=== PATIENT | female | born 1950 | race Two or more races ===

== ENCOUNTER 2017-09-29 09:13 | Observation (INO) | payer OTHER ==
[2017-09-29] MEDS ORDERED: ASPIRIN 81 MG CHEWABLE TABLETS PO ONE (09:37)
[2017-09-29] MEDS ORDERED: SODIUM CHLORIDE 1,000 ML IV STA (09:37)
[2017-09-29] MEDS ORDERED: ONDANSETRON 4 MG/2 ML VIAL ONE (09:40)
[2017-09-29] MEDS ORDERED: ASPIRIN 81 MG CHEWABLE TABLETS ONE (09:42)
--- NOTE | 2017-09-29 09:53 | PDOC ---
History of Present Illness - General Chief Complaint: Lightheaded Stated Complaint: DIZZY Time Seen by Provider: 09/29/17 09:20 History Source: Patient Exam Limitations: Language Barrier - History of Present Illness Initial Comments: 09/29/17 09:42 Patient is a 67F with history of DM, [place] (unknown if stents placed), HTN, HLD, s/ p cholecystectomy and three c-sections here today complaining of palpitations. She states that she woke up this morning feeling like her heart was racing with associated shortness of breath, nausea, dizziness, diaphoresis and weakness. Denies chest pain currently but says that she had some chest pain last night. Denies leg swelling, history of blood clots, and recent travel. On review of symptoms patient does complain of 3 days of dysuria. Past History - Past Medical History Allergies/Adverse Reactions: Allergies Allergy/AdvReac Type Severity Reaction Status Date / Time No Known Allergies Allergy Verified 09/29/17 09:44 Review of Systems - Review of Systems Comments:: 09/29/17 09:53 GENERAL/CONSTITUTIONAL: No fever or chills. HEAD, EYES, EARS, NOSE AND THROAT: No change in vision. No sore throat. CARDIOVASCULAR: Positive for chest pain and shortness of breath RESPIRATORY: No cough, wheezing, or hemoptysis. GASTROINTESTINAL: Positive for nausea. Negative for vomiting, diarrhea or constipation. GENITOURINARY: Positive for dysuria, frequency. MUSCULOSKELETAL: No joint or muscle swelling or pain. No neck or back pain. SKIN: No rash NEUROLOGIC: Positive for headache, vertigo. Negative for loss of consciousness, or change in strength/sensation. HEMATOLOGIC/LYMPHATIC: No anemia, easy bleeding, or history of blood clots. ALLERGIC/IMMUNOLOGIC: No hives or skin allergy. *Physical Exam - Physical Exam Comments: 09/29/17 09:56 GENERAL: Awake, alert, and fully oriented, tearful, trembling right arm HEAD: No signs of trauma, normocephalic, atraumatic EYES: PERRLA, EOMI, sclera anicteric, conjunctiva clear ENT: Auricles normal inspection, hearing grossly normal, nares patent, oropharynx clear without exudates. Moist mucosa NECK: Normal ROM, supple, no lymphadenopathy, JVD, or masses LUNGS: No distress, speaks full sentences, clear to auscultation bilaterally HEART: Regular rate and rhythm, normal S1 and S2, no murmurs, rubs or gallops, peripheral pulses normal and equal bilaterally. ABDOMEN: Soft, nontender, normoactive bowel sounds. No guarding, no rebound. Vertical scar from 4cm above umbilicus extending inferiorly EXTREMITIES: Normal inspection, Normal range of motion, no edema. No clubbing or cyanosis. NEUROLOGICAL: Cranial nerves II through XII grossly intact. Symmetric face, symmetric strength. No focal deficits. Tremble in right arm dissipates with movement. SKIN: Warm, Dry, normal turgor, no rashes or lesions noted. ED Treatment Course - LABORATORY CBC & Chemistry Diagram: 09/29/17 09:40 09/29/17 09:40 - RADIOLOGY Radiology Studies Ordered: Category Date Time Status CHEST X-RAY PORTABLE* [RAD] Stat Radiology 09/29/17 09:38 Ordered Medical Decision Making - Medical Decision Making 09/29/17 09:57 67F with history of HTN, HLD, SD, s/p c/s and cholecystectomy here today complaining of shortness of breath, nausea, diaphoresis and palpitations. Vital signs stable and normal. Exam shows no acute findings. DDx includes, but is not limited to: ACS, arrhythmia, UTI. Will evaluate with cardiac workup and ua/uc. Will admit for further monitoring and testing given patient's risk factors. Will treat with fluids and aspirin. DKA considered, fingerstick glucose was 180. EKG shows normal sinus rhythm with rate of 80. No st elevations/depressions. QRS widened to 138, RBBB morphology, up in I, down in II, III, avf. Bifasciular block with RBBB and LAFB. T wave inversions in III, aVF, V3. No prior EKGs available for comparison 09/29/17 10:35 Laboratory Tests 09/29/17 09/29/17 09:40 10:00 BUN 11 Creatinine 0.7 Random Glucose 177 H Troponin I < 0.02 Urine Nitrite Negative Ur Leukocyte Esterase Negative Urine WBC (Auto) 1 CBC normal, CMP shows glucose 177. UA clear. Will admit for further workup of anginal equivalent/near syncope. 09/29/17 10:50 CXR shows no acute cardiopulmonary process. *DC/Admit/Observation/Transfer Diagnosis at time of Disposition: Palpitations - Discharge Dispostion Condition at time of disposition: Stable Admit: Yes - Referrals - Patient Instructions - Post Discharge Activity
[2017-09-29 09:55] LABS: BASO % 0.6 % (0-2.0); EOS % 2.4 % (0-4.5); HEMOGLOBIN 13.1 GM/dL (10.7-15.3); LYMPH % 16.4 % (8-40); MCH 28.2 pg (25.7-33.7); MCHC 33.7 g/dl (32.0-36.0); MEAN CELL VOLUME 83.7 fl (80-96); MEAN PLT VOLUME 8.7 fl (7.5-11.1); MONO % 7.5 % (3.8-10.2); NEUT % 73.1 % (42.8-82.8); PLATELET COUNT 273 K/MM3 (134-434); RBC 4.66 M/mm3 (3.60-5.2); RDW 14.1 % (11.6-15.6); WHITE BLOOD COUNT 9.4 K/mm3 (4.0-10.0)
[2017-09-29 10:01] VITALS: BMI 35.7
[2017-09-29 10:05] LABS: INR 1.04 (0.82-1.09); PROTHROMBIN TIME (PATIENT) 11.8 SEC (9.7-13.0)
[2017-09-29 10:15] LABS: ALBUMIN 3.4 g/dl (3.4-5.0); ANION GAP 8 (8-16); BLOOD UREA NITROGEN 11 mg/dL (7-18); CALCIUM 8.7 mg/dL (8.5-10.1); CHLORIDE 105 mmol/L (98-107); CO2 26 mmol/L (21-32); GLUCOSE,RANDOM 177 mg/dL (74-106); POTASSIUM 4.4 mmol/L (3.5-5.1); SODIUM 139 mmol/L (136-145)
[2017-09-29 10:16] LABS: URINE APPEARANCE CLEAR; URINE BILIRUBIN NEGATIVE (<2.0 mg/dL); URINE COLOR LTYELLOW; URINE GLUCOSE (UA) NEGATIVE (NEGATIVE); URINE KETONE NEGATIVE (NEGATIVE); URINE LEUK ESTERASE NEGATIVE (NEGATIVE); URINE NITRITE NEGATIVE (NEGATIVE); URINE PROTEIN NEGATIVE (NEGATIVE); URINE UROBILINOGEN NEGATIVE mg/dL (0.2-1.0)
[2017-09-29 10:21] LABS: ALK PHOS 115 U/L (45-117); BILIRUBIN,TOTAL 0.3 mg/dL (0.2-1.0); CREATININE 0.7 mg/dL (0.55-1.02); SGOT/AST 17 U/L (15-37); SGPT/ALT 24 U/L (12-78); TOT PROT 7.5 g/dl (6.4-8.2)
--- NOTE | 2017-09-29 10:22 | PDOC ---
Attending Attestation - Resident Resident Name: Efrain Wheeler - ED Attending Attestation I have performed the following: I have examined & evaluated the patient, The case was reviewed & discussed with the resident, I agree w/resident's findings & plan - HPI HPI: 09/29/17 10:17 67-year-old female with history of diabetes, [place] reportedly over one year ago without intervention, questionable his history of arrhythmias recently moved to [place] from [place] in April 2017 presents now with episode of palpitations, shortness of breath, lightheadedness/near syncope this morning. The symptoms awoke her from sleep, upon standing she became very lightheaded and diaphoretic, never lost consciousness and never had chest pain. The severity of the palpitations has improved though she still intermittently feels numb, has reported some exertional dyspnea over the last few days/weeks. - Physicial Exam PE: 09/29/17 10:18 Vital signs are within normal limits, slight tachypnea No JVD Lungs are clear, question subtle crackles at the right base Heart is regular with occasional premature beats noted as PVC on monitor, 2/6 systolic ejection murmur Abdomen benign, no leg edema or calf tenderness - Medical Decision Making 09/29/17 10:18 Patient seen and evaluated with the resident. I agree with the overall evaluation, assessment, and management with the following summary of visit: 67-year-old female with palpitations/shortness of breath/near syncope this morning, concerning for anginal equivalent versus arrhythmia given her cardiac history. Labs, EKG, chest x-ray Aspirin Will need cardiac monitoring Heart Score/ECG Review #1 ECG reviewed & interpreted by me at: 09:27 General ECG Interpretation: Sinus Rhythm, Normal Rate (80), Normal Intervals ( RBBB and LAFB, qtc 500), No acute ischemic changes Compared to previous ECG there are: Previous ECG unavail
[2017-09-29 10:30] LABS: EPI CELLS RARE /HPF (FEW); URINE BACTERIA RARE /hpf (NONE SEEN)
--- NOTE | 2017-09-29 10:44 | EKG ---
Test Reason : Blood Pressure : / mmHG Vent. Rate : 080 BPM Atrial Rate : 080 BPM P-R Int : 158 ms QRS Dur : 138 ms QT Int : 434 ms P-R-T Axes : 049 -64 005 degrees QTc Int : 500 ms SINUS RHYTHM WITH OCCASIONAL PREMATURE VENTRICULAR COMPLEXES RIGHT BUNDLE BRANCH BLOCK LEFT ANTERIOR FASCICULAR BLOCK BIFASCICULAR BLOCK ABNORMAL ECG NO PREVIOUS ECGS AVAILABLE Confirmed by SIRI LONDON MD ([id number]) on 09/29/2017 10:44:46 AM Referred By: Confirmed By:SIRI LONDON MD
--- NOTE | 2017-09-29 20:46 | PN ---
Progress Note, Physician - Current Medication List Current Medications: 67-year-old female with history of diabetes, [place] reportedly over one year ago without intervention, questionable his history of arrhythmias recently moved to [place] from [place] in April 2017 presents now with episode of palpitations, shortness of breath, lightheadedness/near syncope this morning. The symptoms awoke her from sleep, upon standing she became very lightheaded and diaphoretic, never lost consciousness and never had chest pain. The severity of the palpitations has improved though she still intermittently feels numb, has reported some exertional dyspnea over the last few days/weeks. - - Objective Vital Signs: Vital Signs Temperature 98.0 F 09/29/17 20:00 Pulse Rate 80 09/29/17 20:00 Respiratory Rate 18 09/29/17 20:00 Blood Pressure 138/70 09/29/17 20:00 O2 Sat by Pulse Oximetry (%) 98 09/29/17 20:00 Cardiovascular: Yes: Other (mi) Labs: CBC, BMP 09/29/17 09:40 09/29/17 09:40 INR, PTT INR 1.04 (0.82-1.09) 09/29/17 09:40
--- NOTE | 2017-09-29 20:47 | HP ---
Admitting History and Physical - Primary Care Physician PCP: Divina Rasmussen - Admission History of Present Illness: 67-year-old female with history of diabetes, [place] reportedly over one year ago without intervention, questionable his history of arrhythmias recently moved to [place] from [place] in April 2017 presents now with episode of palpitations, shortness of breath, lightheadedness/near syncope this morning. The symptoms awoke her from sleep, upon standing she became very lightheaded and diaphoretic, never lost consciousness and never had chest pain. The severity of the palpitations has improved though she still intermittently feels numb, has reported some exertional dyspnea over the last few days/weeks. - Past Medical History Cardiovascular: Yes: [place] Endocrine: Yes: Diabetes Mellitus - Smoking History Smoking history: Former smoker Have you smoked in the past 12 months: No If you are a former smoker, when did you quit?: 1989 - Alcohol/Substance Use Hx Alcohol Use: No Home Medications - Allergies Allergies/Adverse Reactions: Allergies Allergy/AdvReac Type Severity Reaction Status Date / Time No Known Allergies Allergy Verified 09/29/17 09:44 - Home Medications Home Medications: Ambulatory Orders Clopidogrel Bisulfate [Plavix] 75 mg PO DAILY 09/29/17 Levothyroxine [Synthroid -] 25 mcg PO DAILY 09/29/17 Losartan Potassium [Cozaar -] 50 mg PO DAILY 09/29/17 Metformin HCl [Glucophage] 500 mg PO DAILY 09/29/17 Simvastatin [Zocor -] 5 mg PO HS 09/29/17 Physical Examination Vital Signs: Vital Signs Temperature 98.0 F 09/29/17 20:00 Pulse Rate 80 09/29/17 20:00 Respiratory Rate 18 09/29/17 20:00 Blood Pressure 138/70 09/29/17 20:00 O2 Sat by Pulse Oximetry (%) 98 09/29/17 20:00 Constitutional: Yes: No Distress HENT: Yes: Atraumatic Neck: Yes: Supple Cardiovascular: Yes: Regular Rate and Rhythm Respiratory: Yes: CTA Bilaterally Gastrointestinal: Yes: Normal Bowel Sounds Extremities: Yes: WNL Edema: No Peripheral Pulses WNL: Yes Neurological: Yes: Alert, Oriented Labs: CBC, BMP 09/29/17 09:40 09/29/17 09:40 Problem List - Problems (1) Palpitations Assessment/Plan: on meds better awaiting cardiology consult Code(s): R00.2 - PALPITATIONS (2) Diabetes Assessment/Plan: on meds will check bgm Code(s): E11.9 - TYPE 2 DIABETES MELLITUS WITHOUT COMPLICATIONS Assessment/Plan Laboratory Tests 09/29/17 09/29/17 09/29/17 09:26 09:40 09:40 WBC 9.4 RBC 4.66 Hgb 13.1 Hct 39.0 MCV 83.7 MCH 28.2 MCHC 33.7 RDW 14.1 Plt Count 273 MPV 8.7 Neutrophils % 73.1 Lymphocytes % 16.4 Monocytes % 7.5 Eosinophils % 2.4 Basophils % 0.6 PT with INR 11.80 INR 1.04 Sodium Potassium Chloride Carbon Dioxide Anion Gap BUN Creatinine Creat Clearance w eGFR POC Glucometer [phone] Random Glucose Calcium Magnesium Total Bilirubin AST ALT Alkaline Phosphatase Creatine Kinase Troponin I Total Protein Albumin Urine Color Urine Appearance Urine pH Ur Specific [place] Urine Protein Urine Glucose (UA) Urine Ketones Urine Blood Urine Nitrite Urine Bilirubin Urine Urobilinogen Ur Leukocyte Esterase Urine WBC (Auto) Urine RBC (Auto) Ur Epithelial Cells Urine Bacteria 09/29/17 09/29/17 09:40 10:00 WBC RBC Hgb Hct MCV MCH MCHC RDW Plt Count MPV Neutrophils % Lymphocytes % Monocytes % Eosinophils % Basophils % PT with INR INR Sodium 139 Potassium 4.4 Chloride 105 Carbon Dioxide 26 Anion Gap 8 BUN 11 Creatinine 0.7 Creat Clearance w eGFR > 60 POC Glucometer Random Glucose 177 H Calcium 8.7 Magnesium 2.0 Total Bilirubin 0.3 AST 17 ALT 24 Alkaline Phosphatase 115 Creatine Kinase 90 Troponin I < 0.02 Total Protein 7.5 Albumin 3.4 Urine Color Ltyellow Urine Appearance Clear Urine pH 7.0 Ur Specific [place] 1.012 Urine Protein Negative Urine Glucose (UA) Negative Urine Ketones Negative Urine Blood 1+ H Urine Nitrite Negative Urine Bilirubin Negative Urine Urobilinogen Negative Ur Leukocyte Esterase Negative Urine WBC (Auto) 1 Urine RBC (Auto) 8 Ur Epithelial Cells Rare Urine Bacteria Rare Active Medications Generic Name Dose Route Start Last Admin Trade Name Freq PRN Reason Stop Dose Admin Acetaminophen 650 mg 09/30/17 14:40 Tylenol - PO Q6H PRN FEVER Atorvastatin Calcium 10 mg 09/29/17 22:00 09/29/17 22:22 Lipitor - PO 10 mg HS GWYN Administration Clopidogrel Bisulfate 75 mg 09/30/17 10:00 09/30/17 11:16 Plavix - PO 75 mg DAILY GWYN Administration Levothyroxine Sodium 25 mcg 09/30/17 07:00 09/30/17 06:25 Synthroid - PO 25 mcg DAILY@0700 GWYN Administration Losartan Potassium 50 mg 09/30/17 10:00 09/30/17 11:16 Cozaar - PO 50 mg DAILY GWYN Administration Metformin HCl 500 mg 09/30/17 10:00 09/30/17 11:16 Glucophage - PO 500 mg AM GWYN Administration
[2017-09-29] MEDS ORDERED: PATIENT'S OWN MEDICATION (NON-FORMULARY) (Simvastatin 5 MG) PO SCH (22:00)
[2017-09-29] MEDS: ATORVASTATIN CA 10 MG TABLET (FP) PO SCH (22:22)
[2017-09-29 22:33] LABS: ALBUMIN 3.1 g/dl (3.4-5.0); ALK PHOS 107 U/L (45-117); ANION GAP 5 (8-16); BILIRUBIN,TOTAL 0.2 mg/dL (0.2-1.0); BLOOD UREA NITROGEN 14 mg/dL (7-18); CALCIUM 8.4 mg/dL (8.5-10.1); CHLORIDE 106 mmol/L (98-107); CO2 30 mmol/L (21-32); CREATININE 0.8 mg/dL (0.55-1.02); GLUCOSE,RANDOM 153 mg/dL (74-106); POTASSIUM 4.6 mmol/L (3.5-5.1); SGOT/AST 14 U/L (15-37); SGPT/ALT 21 U/L (12-78); SODIUM 141 mmol/L (136-145); TOT PROT 6.7 g/dl (6.4-8.2)
[2017-09-30] MEDS: LEVOTHYROXINE NA 25 MCG TABLET (FP) PO SCH (06:25)
[2017-09-30 07:31] LABS: BASO % 0.5 % (0-2.0); EOS % 3.5 % (0-4.5); LYMPH % 24.6 % (8-40); MCH 28.7 pg (25.7-33.7); MCHC 34.1 g/dl (32.0-36.0); MEAN CELL VOLUME 84.2 fl (80-96); MONO % 7.9 % (3.8-10.2); NEUT % 63.5 % (42.8-82.8); PLATELET COUNT 267 K/MM3 (134-434); RBC 4.52 M/mm3 (3.60-5.2); RDW 14.3 % (11.6-15.6); WHITE BLOOD COUNT 9.6 K/mm3 (4.0-10.0)
[2017-09-30] MEDS: CLOPIDOGREL BISULFATE 75 MG TABLET (FP) PO SCH (11:16)
[2017-09-30] MEDS: metFORMIN HCL 500 MG TABLET (FP) PO SCH (11:16)
[2017-09-30] MEDS: LOSARTAN POTASSIUM 50 MG TABLET (FP) PO SCH (11:16)
[2017-09-30] MEDS ORDERED: ACETAMINOPHEN 325 MG TABLET (FP) PO PRN (14:40)
--- NOTE | 2017-09-30 14:43 | PN ---
Progress Note, Physician History of Present Illness: feeling better - Current Medication List Current Medications: Active Medications Acetaminophen (Tylenol -) 650 mg PO Q6H PRN PRN Reason: FEVER Atorvastatin Calcium (Lipitor -) 10 mg PO HS [facility] Last Admin: 09/29/17 22:22 Dose: 10 mg Clopidogrel Bisulfate (Plavix -) 75 mg PO DAILY [facility] Last Admin: 09/30/17 11:16 Dose: 75 mg Levothyroxine Sodium (Synthroid -) 25 mcg PO DAILY@0700 [facility] Last Admin: 09/30/17 06:25 Dose: 25 mcg Losartan Potassium (Cozaar -) 50 mg PO DAILY [facility] Last Admin: 09/30/17 11:16 Dose: 50 mg Metformin HCl (Glucophage -) 500 mg PO AM [facility] Last Admin: 09/30/17 11:16 Dose: 500 mg - Objective Vital Signs: Vital Signs Temperature 98.1 F 09/30/17 06:00 Pulse Rate 84 09/30/17 06:00 Respiratory Rate 20 09/30/17 06:00 Blood Pressure 130/80 09/30/17 06:00 O2 Sat by Pulse Oximetry (%) 96 09/30/17 06:00 Constitutional: Yes: No Distress HENT: Yes: Atraumatic Neck: Yes: Supple Cardiovascular: Yes: Regular Rate and Rhythm Respiratory: Yes: CTA Bilaterally Gastrointestinal: Yes: Normal Bowel Sounds Extremities: Yes: WNL Neurological: Yes: Alert, Oriented Labs: CBC, BMP 09/30/17 07:10 09/29/17 21:20 INR, PTT INR 1.04 (0.82-1.09) 09/29/17 09:40 Problem List - Problems (1) Palpitations Assessment/Plan: on meds telemonitoring better cardiology consult done Code(s): R00.2 - PALPITATIONS (2) Diabetes Assessment/Plan: on meds will check bgm Code(s): E11.9 - TYPE 2 DIABETES MELLITUS WITHOUT COMPLICATIONS
--- NOTE | 2017-09-30 14:57 | CON.CARD ---
Consult Consult Specialty:: cardiology Reason for Consultation:: palpitations - History of Present Illness History of Present Illness: Patient is a 67F (b. [place]) with history of DM, [place] (unknown if stents placed), HTN, HLD, s/p cholecystectomy and three c-sections, hypothyroidism, here today complaining of palpitations. She states that she woke up this morning feeling like her heart was racing with associated shortness of breath, nausea, dizziness, diaphoresis and weakness. Denies chest pain currently but says that she had some chest pain last night. Denies leg swelling, history of blood clots, and recent travel. On review of symptoms patient does complain of 3 days of dysuria. - History Source History Provided By: Patient, Medical Record Limitations to Obtaining History: No Limitations - Past Medical History Cardio/Vascular: Yes: MD Reproductive: Yes: Postmenopausal ...: No Endocrine: Yes: Diabetes Mellitus - Alcohol/Substance Use Hx Alcohol Use: No - Smoking History Smoking history: Former smoker Have you smoked in the past 12 months: No If you are a former smoker, when did you quit?: 1989 Home Medications - Allergies Allergies/Adverse Reactions: Allergies Allergy/AdvReac Type Severity Reaction Status Date / Time No Known Allergies Allergy Verified 09/29/17 09:44 - Home Medications Home Medications: Ambulatory Orders Clopidogrel Bisulfate [Plavix] 75 mg PO DAILY 09/29/17 Levothyroxine [Synthroid -] 25 mcg PO DAILY 09/29/17 Losartan Potassium [Cozaar -] 50 mg PO DAILY 09/29/17 Metformin HCl [Glucophage] 500 mg PO DAILY 09/29/17 Simvastatin [Zocor -] 5 mg PO HS 09/29/17 Family Disease History - Family Disease History Family History: Denies - Risk Factors Known Risk Factors: Yes: Age, Diabetes Mellitus, Gender, Hypertension, Physical Inactivity Vital Signs: Vital Signs Temperature 98.1 F 09/30/17 06:00 Pulse Rate 84 09/30/17 06:00 Respiratory Rate 20 09/30/17 06:00 Blood Pressure 130/80 09/30/17 06:00 O2 Sat by Pulse Oximetry (%) 96 09/30/17 06:00 - Other Data Labs, Other Data: CBC, BMP 09/30/17 07:10 09/29/17 21:20 INR, PTT INR 1.04 (0.82-1.09) 09/29/17 09:40 Troponin, BNP 09/29/17 09/30/17 21:20 07:10 Troponin I < 0.02 < 0.02 Troponin, BNP 09/29/17 09/30/17 21:20 07:10 Troponin I < 0.02 < 0.02 Problem List - Problems (1) HTN (hypertension) Code(s): I10 - ESSENTIAL (PRIMARY) HYPERTENSION (2) Chest pain Code(s): R07.9 - CHEST PAIN, UNSPECIFIED (3) Diabetes Code(s): E11.9 - TYPE 2 DIABETES MELLITUS WITHOUT COMPLICATIONS (4) Palpitations Code(s): R00.2 - PALPITATIONS (5) [place] cardiac risk >20% in next 10 years Assessment/Plan: BP control. Statin for lipids. ECHO for LVEF, wall motion, valve status. Stress MIBI. Code(s): Z91.89 - OTH PERSONAL RISK FACTORS, NOT ELSEWHERE CLASSIFIED
[2017-09-30] MEDS: ATORVASTATIN CA 10 MG TABLET (FP) PO SCH (21:50)
[2017-10-01] MEDS: metFORMIN HCL 500 MG TABLET (FP) PO SCH (06:02)
[2017-10-01] MEDS: LEVOTHYROXINE NA 25 MCG TABLET (FP) PO SCH (06:02)
[2017-10-01] MEDS ORDERED: REGADENOSON 0.4 MG/5 ML PRE-FILLED SYRINGE IVPUSH ONE ×2 (10:15→10:53)
--- NOTE | 2017-10-01 11:45 | PN ---
Progress Note, Physician History of Present Illness: Patient is a 67F (b. [place]) with history of DM, [place] (unknown if stents placed), HTN, HLD, s/p cholecystectomy and three c-sections, hypothyroidism, here today complaining of palpitations. She states that she woke up this morning feeling like her heart was racing with associated shortness of breath, nausea, dizziness, diaphoresis and weakness. Denies chest pain currently but says that she had some chest pain last night. Denies leg swelling, history of blood clots, and recent travel. On review of symptoms patient does complain of 3 days of dysuria. - Current Medication List Current Medications: Active Medications Acetaminophen (Tylenol -) 650 mg PO Q6H PRN PRN Reason: FEVER Last Admin: 09/30/17 14:58 Dose: 650 mg Atorvastatin Calcium (Lipitor -) 10 mg PO HS [facility] Last Admin: 09/30/17 21:50 Dose: 10 mg Clopidogrel Bisulfate (Plavix -) 75 mg PO DAILY [facility] Last Admin: 09/30/17 11:16 Dose: 75 mg Levothyroxine Sodium (Synthroid -) 25 mcg PO DAILY@0700 [facility] Last Admin: 10/01/17 06:02 Dose: 25 mcg Losartan Potassium (Cozaar -) 50 mg PO DAILY [facility] Last Admin: 09/30/17 11:16 Dose: 50 mg Metformin HCl (Glucophage -) 500 mg PO AM [facility] Last Admin: 10/01/17 06:02 Dose: Not Given - Objective Vital Signs: Vital Signs Temperature 97.6 F 10/01/17 09:33 Pulse Rate 60 10/01/17 09:33 Respiratory Rate 18 10/01/17 09:33 Blood Pressure 138/84 10/01/17 09:33 O2 Sat by Pulse Oximetry (%) 100 10/01/17 09:33 Eyes: Yes: WNL, Conjunctiva Clear, EOM Intact HENT: Yes: WNL, Atraumatic, Normocephalic Neck: Yes: WNL, Supple, Trachea Midline Cardiovascular: Yes: WNL, Regular Rate and Rhythm Respiratory: Yes: WNL, Regular, CTA Bilaterally Gastrointestinal: Yes: WNL, Normal Bowel Sounds Genitourinary: Yes: WNL Musculoskeletal: Yes: WNL Extremities: Yes: WNL Edema: No Integumentary: Yes: WNL Neurological: Yes: WNL, Alert, Oriented ...Motor Strength: WNL Psychiatric: Yes: WNL Labs: CBC, BMP 09/30/17 07:10 09/29/17 21:20 INR, PTT INR 1.04 (0.82-1.09) 09/29/17 09:40 Assessment/Plan - Problems (1) HTN (hypertension) Code(s): I10 - ESSENTIAL (PRIMARY) HYPERTENSION (2) Chest pain Code(s): R07.9 - CHEST PAIN, UNSPECIFIED (3) Diabetes Code(s): E11.9 - TYPE 2 DIABETES MELLITUS WITHOUT COMPLICATIONS (4) Palpitations Code(s): R00.2 - PALPITATIONS (5) [place] cardiac risk >20% in next 10 years Assessment/Plan: BP control. Statin for lipids. ECHO for LVEF, wall motion, valve status. Stress MIBI. Code(s): Z91.89 - [facility] PERSONAL RISK FACTORS, NOT ELSEWHERE CLASSIFIED
[2017-10-01] MEDS: LOSARTAN POTASSIUM 50 MG TABLET (FP) PO SCH (16:28)
[2017-10-01] MEDS: CLOPIDOGREL BISULFATE 75 MG TABLET (FP) PO SCH (16:29)
--- NOTE | 2017-10-01 17:50 | DS ---
Physical Examination Vital Signs: Vital Signs Temperature 98.3 F 10/01/17 15:00 Pulse Rate 83 10/01/17 15:00 Respiratory Rate 18 10/01/17 15:00 Blood Pressure 149/59 10/01/17 15:00 O2 Sat by Pulse Oximetry (%) 100 10/01/17 09:33 Constitutional: Yes: No Distress HENT: Yes: Atraumatic Neck: Yes: Supple Cardiovascular: Yes: Regular Rate and Rhythm Respiratory: Yes: CTA Bilaterally Gastrointestinal: Yes: Normal Bowel Sounds Extremities: Yes: WNL Neurological: Yes: Alert, Oriented Labs: CBC, BMP 09/30/17 07:10 09/29/17 21:20 Discharge Summary Reason For Visit: PALPITATIONS Current Active Problems Chest pain (Acute) Diabetes (Acute) [place] cardiac risk >20% in next 10 years (Acute) HTN (hypertension) (Acute) Palpitations (Acute) Condition: Stable - Instructions - Home Medications Comprehensive Discharge Medication List: Ambulatory Orders Clopidogrel Bisulfate [Plavix] 75 mg PO DAILY 09/29/17 Levothyroxine [Synthroid -] 25 mcg PO DAILY 09/29/17 Losartan Potassium [Cozaar -] 50 mg PO DAILY 09/29/17 Metformin HCl [Glucophage] 500 mg PO DAILY 09/29/17 Simvastatin [Zocor -] 5 mg PO HS 09/29/17 pa home
[2017-10-01 18:23] VITALS: BP 125/70; PULSE 70; TEMP 98
== END 2017-10-01 20:39 | disposition home or self-care (01) ==
LOC: JER 09:13 → UNDOADMOB 11:18 → JERBED 11:18 → J4W 20:32 → JERBED 20:32 → OBSVTOIN 20:49 → J4W 20:49 → INTOOBSV 20:49
PROVIDERS: ADMIT Internal Medicine; ATTEND Internal Medicine
PROC: 3E033GC Introduction of Other Therapeutic Substance into Peripheral Vein, Percutaneous Approach (ICD-10-PCS; principal; 2017-09-29)
PROC: 3E0337Z Introduction of Electrolytic and Water Balance Substance into Peripheral Vein, Percutaneous Approach (ICD-10-PCS; 2017-09-29)
DX: R00.2 Palpitations (principal); I10 Essential (primary) hypertension; R07.9 Chest pain, unspecified; E78.5 Hyperlipidemia, unspecified; E11.9 Type 2 diabetes mellitus without complications; I25.2 Old myocardial infarction; Z79.01 Long term (current) use of anticoagulants; Z79.84 Long term (current) use of oral hypoglycemic drugs; Z91.89 Other specified personal risk factors, not elsewhere classified
CPT/HCPCS: 36415; 71045-TC-FY; 78452-TC; 80053; 80061; 81003; 81015; 82550; 82962; 83721; 83735; 84443; 84484; 85025; 85610; 87086; 87186; 93005; 93010; 93017; 93306-TC; 96361; 96374; 99283-25; A9502; G0378; J7030

== ENCOUNTER 2019-01-03 09:23 | Inpatient (IN) | payer OTHER ==
[2019-01-03] MEDS ORDERED: ASPIRIN 81 MG CHEWABLE TABLETS PO ONE (09:47)
--- NOTE | 2019-01-03 09:54 | PDOC ---
Documentation entered by Perla Hargrove SCRIBE, acting as scribe for Cecy Khan MD. Cecy Khan MD: This documentation has been prepared by the Beena nagy Mackenzie, SCRIBE, under my direction and personally reviewed by me in its entirety. I confirm that the documentation accurately reflects all work , treatment, procedures, and medical decision making performed by me. Attending Attestation - Resident Resident Name: Olu Kessler - ED Attending Attestation I have performed the following: I have examined & evaluated the patient, The case was reviewed & discussed with the resident, I agree w/resident's findings & plan - HPI HPI: The patient is a 68 year old female with a significant PMH of vertical palpitations, DM, HTN, hypothyroidism and gastritis who presents to the ED with shortness of breath, dizziness, and 7/10 chest pain since approximately 7AM. Patient states she woke up this morning and felt a sharp chest pain and slightly short of breath. She got out of bed to take her medications but upon standing felt dizzy (room spinning). Patient also notes feeling nauseous, burning urination, and increased frequency in urination. Patient states last ecco and stress test were last year (pertinent findings as per resident note). Patient endorses former tobacco use. Agree with the resident's HPI and PE as documented in the electronic medical record. 01/03/19 10:43 - Physicial Exam PE: NAD, awake and alert, EOMI, PERRL, nl conjunctiva, anicteric; neck supple. lungs clear, RRR, abdomen soft nontender. Back nontender. AGUIRRE x4, no focal neuro deficits. No peripheral edema. normal color for ethnicity, WWP. no calf tenderness. 01/03/19 10:43 01/03/19 11:01 - Medical Decision Making 01/03/19 09:52 See HPI for details. Prior notes reviewed, including admissions, discharges and consultations. Vital signs reviewed, wnl. Vital Signs Temp Pulse Resp BP Pulse Ox 97.6 F 89 17 116/68 98 01/03/19 09:41 01/03/19 09:41 01/03/19 09:41 01/03/19 09:41 01/03/19 09:47 DDx chest pain: ACS, coronary vasospasm, NSTEMI, arrhythmia, unstable angina, PE , dissection, PUD, esophageal spasm, GERD, gastritis, costochondritis, pneumonia , pleurisy, pericarditis/myocarditis. dehydration, electrolyte/metabolic derangements. laboratory results and imaging reviewed, basic labs and lytes wnl, notable for low Mg, repleted. hyperglycemia CXR_no acute chest pathology Cardiac panel_neg trop x1, serial trop/ekg indicated. EKG normal sinus rhythm at 83 bpm, no interval abnormalities, narrow QRS, incomplete RBBB, ST and T wave segments and morphology normal. 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 - last echo in 2018 with normal EF 84%, but limitations in views with ?E/A reversal of possible early diastolic dysfunction, no pericardial effusion stress test similarly without evidence of ischemia. - mag repletion - analgesia - insulin for hyperglycemia, poor dm control Admit for chest pain, r/o ACS, serial trop/ekg and telemetry.. Discussed results and management plan with pt and family member at bedside, agree with impression, treatment indications, recommendations and plan. admitting to Dr Mckeon service, with PMD at the [facility] clinic 01/03/19 13:24 Heart Score/ECG Review - History History: Slightly suspicious - Electrocardiogram EKG: Non specific repolarization disturbance - Age Age: >/= 65 - Risk Factors Risk Factors Heart Score: Yes Hx Hypercholesterolemia, Yes Hx Hypertension, Yes Hx Diabetes, Yes Hx Obesity Based on the list above the patient has:: >/=3 risk factors or Hx atherosclerotic disease - Troponin Troponin: </= normal limit - Score Heart Score - Total: 5 #1 ECG reviewed & interpreted by me at: 10:05 General ECG Interpretation: Sinus Rhythm, Normal Rate, Normal Intervals Compared to previous ECG there are: No significant change 01/03/19 10:22 EKG normal sinus rhythm at 83 bpm, no interval abnormalities, narrow QRS, incomplete RBBB, ST and T wave segments and morphology normal. Nonspecific T wave abnormalities - similar to prior
[2019-01-03 10:35] LABS: BASO % 0.6 % (0-2.0); HEMATOCRIT 37.1 % (32.4-45.2); HEMOGLOBIN 12.5 GM/dL (10.7-15.3); LYMPH % 13.9 % (8-40); MCH 28.7 pg (25.7-33.7); MCHC 33.7 g/dl (32.0-36.0); MEAN CELL VOLUME 85.2 fl (80-96); MEAN PLT VOLUME 8.8 fl (7.5-11.1); MONO % 7.1 % (3.8-10.2); NEUT % 76.4 % (42.8-82.8); PLATELET COUNT 240 K/MM3 (134-434); RBC 4.36 M/mm3 (3.60-5.2); RDW 13.7 % (11.6-15.6); WHITE BLOOD COUNT 7.7 K/mm3 (4.0-10.0)
--- NOTE | 2019-01-03 10:39 | PDOC ---
History of Present Illness - General History Source: Patient Exam Limitations: No Limitations - History of Present Illness Initial Comments: 01/03/19 10:37 68F w/ PMH of HTN, DM, asthma, hypothyroidism, gastritis, h/o palpiations, vertigo BIBA to [facility]-ED with complaint Left-sided chest pain( 7/10 severity) not radiating to Left arm or jaw, occurring at ~0700 after waking up in bed. When standing upright had associated HASSAN, dizziness(spinning room and lightheadedness) , nausea. Chest pain improved to 6/10 in the ED. Had previous hospitalization in September 2017 for palpitations. Echo at that time was inconclusive d/t poor imaging, nuclear stress showed no ischemia, EF ~84%. Associated Symptoms: reports: chest pain, headaches, shortness of breath. denies: cough, diaphoresis, fever/chills <Olu Kessler - Last Filed: 01/03/19 11:23> <Cecy Khan - Last Filed: 01/03/19 13:25> - General Chief Complaint: Chest Pain Stated Complaint: CHEST PAIN Time Seen by Provider: 01/03/19 09:30 Past History - Travel Traveled outside of the country in the last 30 days: No Close contact w/someone who was outside of country & ill: No - Past Medical History Asthma: Yes Cardiac Disorders: Yes (tachycardia) COPD: No Diabetes: Yes HTN: Yes Hypercholesterolemia: Yes Thyroid Disease: Yes - Surgical History Cholecystectomy: Yes Other Surgical History: 01/03/19 11:02 VHR - Family Disease History Family Disease History: Heart Disease: Father, Mother (breast), CA: Grandparents (GM: breast), Mother - Immunization History Immunization Up to Date: No - Suicide/Smoking/Psychosocial Hx Smoking History: Former smoker (social smoking during 21's y/o) Have you smoked in the past 12 months: No If you are a former smoker, when did you quit?: 1989 Hx Alcohol Use: Yes (social) Drug/Substance Use Hx: No Substance Use Type: None <Olu Kessler - Last Filed: 01/03/19 11:23> <Cecy Khan - Last Filed: 01/03/19 13:25> - Past Medical History Allergies/Adverse Reactions: Allergies Allergy/AdvReac Type Severity Reaction Status Date / Time No Known Allergies Allergy Verified 01/03/19 11:57 Home Medications: Ambulatory Orders Clopidogrel Bisulfate [Plavix] 75 mg PO DAILY 09/29/17 Levothyroxine [Synthroid -] 25 mcg PO DAILY 09/29/17 Losartan Potassium [Cozaar -] 50 mg PO DAILY 09/29/17 Metformin HCl [Glucophage] 500 mg PO DAILY 09/29/17 Simvastatin [Zocor -] 5 mg PO HS 09/29/17 Review of Systems - Review of Systems Able to Perform ROS?: Yes Is the patient limited Setswana proficient: No Constitutional: No: Chills, Fever, Loss of Appetite HEENTM: No: Blurred Vision, Double Vision Respiratory: Yes: Shortness of Breath. No: Cough, Wheezing Cardiac (ROS): Yes: Chest Pain (Left-sided ), Lightheadedness. No: Irregular Heart Rate, Chest Tightness ABD/GI: No: Constipated, Diarrhea : Yes: Burning, Dysuria, Frequency. No: Urgency Neurological: Yes: Headache (frontal) <Olu Kessler - Last Filed: 01/03/19 11:23> *Physical Exam - Vital Signs Last Vital Signs Temp Pulse Resp BP Pulse Ox 97.6 F 89 17 116/68 98 01/03/19 09:41 01/03/19 09:41 01/03/19 09:41 01/03/19 09:41 01/03/19 09:47 - Physical Exam General Appearance: No: Apparent Distress HEENT: negative: Pale Conjunctivae, Scleral Icterus (R), Scleral Icterus (L) Neck: positive: Trachea midline, Supple. negative: Lymphadenopathy (R), Lymphadenopathy (L) Respiratory/Chest: positive: Chest Tender (Left chest wall at upper mid clavicular line), Lungs Clear, Normal Breath Sounds. negative: Respiratory Distress, Accessory Muscle Use, Labored Respiration, Crackles, Rales Cardiovascular: positive: Regular Rhythm, Regular Rate, S1, S2. negative: Diastolic Murmur, Systolic Murmur Vascular Pulses: Dorsalis-Pedis (R): 2+, Doralis-Pedis (L): 2+ Gastrointestinal/Abdominal: positive: Soft, Other (well-healed midline abdominal scar). negative: Distended, Guarding, Tenderness, Mass Extremity: negative: Pedal Edema, Swelling, Calf Tenderness Integumentary: positive: Dry, Warm <Olu Kessler - Last Filed: 01/03/19 11:23> - Vital Signs Last Vital Signs Temp Pulse Resp BP Pulse Ox 97.6 F 89 17 116/68 98 01/03/19 09:41 01/03/19 09:41 01/03/19 09:41 01/03/19 09:41 01/03/19 09:47 <KhanCecy Griffin - Last Filed: 01/03/19 13:25> Heart Score/ECG Review - History History: Slightly suspicious - Electrocardiogram EKG: Non specific repolarization disturbance - Age Age: >/= 65 - Risk Factors Risk Factors Heart Score: Yes Hx Hypertension, Yes Hx Diabetes, Yes Positive family hx of cardiac disease, Yes Hx Obesity Based on the list above the patient has:: >/=3 risk factors or Hx atherosclerotic disease - Troponin Troponin: </= normal limit - Score Heart Score - Total: 5 - ECG Intrepretation Rhythm: Regular Rhythm - Ira Ira: Left Ira Deviation - P and AR Prominent R with upright T in V1 (true posterior NV): No - ECG Impressions Ischemic Changes: No <KesslerOlu lagos - Last Filed: 01/03/19 11:23> ED Treatment Course - LABORATORY CBC & Chemistry Diagram: 01/03/19 10:15 01/03/19 10:15 - Medications Given in the ED: ED Medications Discontinued Medications Generic Name Dose Route Start Last Admin Trade Name Fredq PRN Reason Stop Dose Admin Aspirin 162 mg 01/03/19 09:47 01/03/19 09:51 Asa - PO 01/03/19 09:48 Not Given ONCE ONE <KesslerOlu lagos - Last Filed: 01/03/19 11:23> - LABORATORY CBC & Chemistry Diagram: 01/03/19 10:15 01/03/19 10:15 - ADDITIONAL ORDERS Additional order review: Laboratory Results 01/03/19 01/03/19 01/03/19 10:15 10:15 10:15 PT with INR 13.40 H INR 1.13 H PTT (Actin FS) 28.0 Sodium 138 Potassium 5.0 Chloride 106 Carbon Dioxide 26 Anion Gap 7 L BUN 10.5 Creatinine 0.7 Est GFR (CKD-EPI)AfAm 103.91 Est GFR (CKD-EPI)NonAf 89.65 Calcium 8.4 L Magnesium 1.7 L Total Bilirubin 0.5 AST 32 ALT 36 Alkaline Phosphatase 124 H Creatine Kinase Troponin I Total Protein 6.7 Albumin 3.0 L 01/03/19 10:15 PT with INR INR PTT (Actin FS) Sodium Potassium Chloride Carbon Dioxide Anion Gap BUN Creatinine Est GFR (CKD-EPI)AfAm Est GFR (CKD-EPI)NonAf Calcium Magnesium Total Bilirubin AST ALT Alkaline Phosphatase Creatine Kinase 135 Troponin I < 0.02 Total Protein Albumin 01/03/19 10:15 RBC 4.36 MCV 85.2 MCHC 33.7 RDW 13.7 MPV 8.8 Neutrophils % 76.4 D Lymphocytes % 13.9 D Monocytes % 7.1 Eosinophils % 2.0 Basophils % 0.6 - RADIOLOGY Radiology Studies Ordered: Category Date Time Status CHEST PA & LAT [RAD] Stat Radiology 01/03/19 09:47 Ordered - Medications Given in the ED: ED Medications Discontinued Medications Generic Name Dose Route Start Last Admin Trade Name Freq PRN Reason Stop Dose Admin Aspirin 162 mg 01/03/19 09:47 01/03/19 09:51 Asa - PO 01/03/19 09:48 Not Given ONCE ONE Ketorolac Tromethamine 15 mg 01/03/19 11:21 01/03/19 11:46 Toradol Injection - IM 01/03/19 11:22 Not Given ONCE ONE Ketorolac Tromethamine 15 mg 01/03/19 11:43 01/03/19 11:46 Toradol Injection - IVPUSH 01/03/19 11:44 15 mg ONCE ONE Administration <Cecy Khan - Last Filed: 01/03/19 13:25> Medical Decision Making - Medical Decision Making 01/03/19 11:09 - fu CBC, CMP, cardiac enzymes, UA/UCx - fu CXR - EKG showing incomplete RBBB -- grossly normal when compared to EKG on September 2017 01/03/19 11:26 - CMP -- Mg2+ .17 - fu CXR, UA/UCx - decision to admit <Olu Kessler - Last Filed: 01/03/19 11:23> *DC/Admit/Observation/Transfer - Discharge Dispostion Decision to Admit order: Yes <Olu Kessler - Last Filed: 01/03/19 11:23> - Discharge Dispostion Decision to Admit order: Yes <Cecy Khan - Last Filed: 01/03/19 13:25> Diagnosis at time of Disposition: Diabetes, Hyperglycemia Chest pain Qualifiers: Chest pain type: unspecified Qualified Code(s): R07.9 - Chest pain, unspecified - Discharge Dispostion Condition at time of disposition: Stable - Referrals Referrals: Tatiana Mcguire MD [Primary Care Provider] -
[2019-01-03 10:51] LABS: INR 1.13 (0.83-1.09); PROTHROMBIN TIME (PATIENT) 13.4 SEC (9.7-13.0)
[2019-01-03 11:17] LABS: BILIRUBIN,TOTAL 0.5 mg/dL (0.2-1); BLOOD UREA NITROGEN 10.5 mg/dL (7-18); CALCIUM 8.4 mg/dL (8.5-10.1); CREATININE 0.7 mg/dL (0.55-1.3); MAGNESIUM 1.7 mg/dL (1.8-2.4); TOT PROT 6.7 g/dl (6.4-8.2)
[2019-01-03] MEDS ORDERED: KETOROLAC TROMETHAMINE 30 MG/1 ML VIAL IM ONE (11:21)
[2019-01-03] MEDS ORDERED: KETOROLAC TROMETHAMINE 15 MG/ML VIAL ONE (11:42)
[2019-01-03] MEDS ORDERED: KETOROLAC TROMETHAMINE 15 MG/ML VIAL IVPUSH ONE (11:43)
[2019-01-03] MEDS ORDERED: MAGNESIUM OXIDE 400 MG TABLET (FP) PO ONE (11:53)
[2019-01-03] MEDS ORDERED: MAGNESIUM OXIDE 400 MG TABLET (FP) ONE (12:21)
[2019-01-03] MEDS ORDERED: INSULIN (NOVOLOG) ASPART 100 UNITS/ML 10ML VIAL SQ ONE (12:22)
--- NOTE | 2019-01-03 15:12 | CON.CARD ---
Consult Consult Specialty:: Cardiology for Dr. Lunsford Referred by:: KEITH Trujillo Reason for Consultation:: Chest pain - History of Present Illness Chief Complaint: Chest pain History of Present Illness: 68F w/ PMH of HTN, DM, asthma, hypothyroidism, gastritis, h/o palpitations, vertigo BIBA to [facility]-ED with complaint Left-sided chest pain( 7/10 severity) not radiating to Left arm or jaw, occurring at ~0700 after waking up in bed. When standing upright had associated HASSAN, dizziness(spinning room and lightheadedness) , nausea. Chest pain since resolved in the ED. Had previous hospitalization in September 2017 for palpitations and chest pain. - History Source History Provided By: Patient Limitations to Obtaining History: No Limitations - Past Medical History Cardio/Vascular: Yes: [place] Endocrine: Yes: Diabetes Mellitus - Alcohol/Substance Use Hx Alcohol Use: Yes (social) - Smoking History Smoking history: Former smoker (social smoking during 21's y/o) Have you smoked in the past 12 months: No If you are a former smoker, when did you quit?: 1989 Home Medications - Allergies Allergies/Adverse Reactions: Allergies Allergy/AdvReac Type Severity Reaction Status Date / Time No Known Allergies Allergy Verified 01/03/19 11:57 - Home Medications Home Medications: Ambulatory Orders Clopidogrel Bisulfate [Plavix] 75 mg PO DAILY 09/29/17 Levothyroxine [Synthroid -] 25 mcg PO DAILY 09/29/17 Losartan Potassium [Cozaar -] 50 mg PO DAILY 09/29/17 Metformin HCl [Glucophage] 500 mg PO DAILY 09/29/17 Simvastatin [Zocor -] 5 mg PO HS 09/29/17 Review of Systems - Review of Systems Cardiovascular: reports: Chest Pain Neurological: reports: Dizziness Vital Signs: Vital Signs Temperature 98.1 F 01/03/19 13:58 Pulse Rate 64 01/03/19 13:58 Respiratory Rate 17 01/03/19 09:41 Blood Pressure 117/70 01/03/19 13:58 O2 Sat by Pulse Oximetry (%) 96 01/03/19 13:58 Constitutional: Yes: No Distress, Calm Neck: Yes: Supple Respiratory: Yes: Regular, CTA Bilaterally Gastrointestinal: Yes: Normal Bowel Sounds, Soft Cardiovascular: Yes: Regular Rate and Rhythm JVD: No Carotid Bruit: No Heart Sounds: Yes: S1, S2 Edema: No - Other Data Labs, Other Data: CBC, BMP 01/03/19 10:15 01/03/19 10:15 INR, PTT INR 1.13 (0.83-1.09) H 01/03/19 10:15 Troponin, BNP 01/03/19 10:15 Troponin I < 0.02 Troponin, BNP 01/03/19 10:15 Troponin I < 0.02 NSR @ 83 LAD IRBBB similar to previous Ejection Fraction %: LVEF > or = 40 % Imaging - Results Chest X-ray: Report Reviewed (NAD) Problem List - Problems (1) Hypothyroidism Code(s): E03.9 - HYPOTHYROIDISM, UNSPECIFIED Qualifiers: Hypothyroidism type: unspecified Qualified Code(s): E03.9 - Hypothyroidism , unspecified (2) Hyperlipidemia Code(s): E78.5 - HYPERLIPIDEMIA, UNSPECIFIED Qualifiers: Hyperlipidemia type: pure hyperglyceridemia Qualified Code(s): E78.1 - Pure hyperglyceridemia Assessment/Plan 10/01/2018 Echo: Normal LV size and fxn, normal atrial sizes, abnl LV compliance , no sig valve abnl 10/01/2018 P-Myoview: No ischemia, LVEF 84% - Problems (1) HTN (hypertension) Code(s): I10 - ESSENTIAL (PRIMARY) HYPERTENSION (2) Chest pain Code(s): R07.9 - CHEST PAIN, UNSPECIFIED Ruling out for [place], child monitor (3) Diabetes Code(s): E11.9 - TYPE 2 DIABETES MELLITUS WITHOUT COMPLICATIONS (4) Palpitations Code(s): R00.2 - PALPITATIONS (5) [place] cardiac risk >20% in next 10 years Assessment/Plan: Continue Plavix 75 qd, losartan 50 qd, Zocor 5 qhs, consider trial of beta blockade F/u with Dr. Lunsford in office Code(s): Z91.89 - OTH PERSONAL RISK FACTORS, NOT ELSEWHERE CLASSIFIED
--- NOTE | 2019-01-03 16:29 | HP ---
Admitting History and Physical - Primary Care Physician PCP: Tatiana Mcguire - Admission Chief Complaint: Chest pain History of Present Illness: Patient is a 68 y/o female with past medical history of vertical palpitations, DM, HTN, hypothyroidism, and pastritis. Patient presents to ER with complaints of sharp L sided chest pain associated with dizziness, nausea at 7am. Pain is intermittent and non-radiating. Patient also complains of dysuria for 3 days. History Source: Patient Limitations to Obtaining History: No Limitations - Past Medical History Cardiovascular: Yes: HTN, [place] Gastrointestinal: Yes: Gastritis Endocrine: Yes: Diabetes Mellitus - Smoking History Smoking history: Former smoker (social smoking during y/o) Have you smoked in the past 12 months: No If you are a former smoker, when did you quit?: 1989 - Alcohol/Substance Use Hx Alcohol Use: Yes (social) - Social History ADL: Independent History of Recent Travel: No Home Medications - Allergies Allergies/Adverse Reactions: Allergies Allergy/AdvReac Type Severity Reaction Status Date / Time No Known Allergies Allergy Verified 01/03/19 11:57 - Home Medications Home Medications: Ambulatory Orders Clopidogrel Bisulfate [Plavix] 75 mg PO DAILY 09/29/17 Levothyroxine [Synthroid -] 25 mcg PO DAILY 09/29/17 Losartan Potassium [Cozaar -] 50 mg PO DAILY 09/29/17 Metformin HCl [Glucophage] 500 mg PO DAILY 09/29/17 Simvastatin [Zocor -] 5 mg PO HS 09/29/17 Review of Systems - Review of Systems Constitutional: reports: Weakness Eyes: reports: No Symptoms HENT: reports: No Symptoms Neck: reports: No Symptoms Cardiovascular: reports: Chest Pain, Shortness of Breath Respiratory: reports: SOB Gastrointestinal: reports: Nausea Genitourinary: reports: Dysuria Breasts: reports: No Symptoms Reported Musculoskeletal: reports: Muscle Weakness Integumentary: reports: No Symptoms Neurological: reports: Numbness Endocrine: reports: Increased Thirst Hematology/Lymphatic: reports: No Symptoms Psychiatric: reports: No Symptoms Physical Examination Vital Signs: Vital Signs Temperature 98.1 F 01/03/19 13:58 Pulse Rate 64 01/03/19 13:58 Respiratory Rate 17 01/03/19 09:41 Blood Pressure 117/70 01/03/19 13:58 O2 Sat by Pulse Oximetry (%) 96 01/03/19 13:58 Constitutional: Yes: No Distress, Calm, Obese Eyes: Yes: Conjunctiva Clear HENT: Yes: Atraumatic Neck: Yes: Supple Cardiovascular: Yes: Regular Rate and Rhythm Respiratory: Yes: Regular, CTA Bilaterally, On Nasal O2 Gastrointestinal: Yes: Normal Bowel Sounds, Soft, Abdomen, Obese Musculoskeletal: Yes: WNL Extremities: Yes: WNL Edema: No Neurological: Yes: Alert, Oriented Psychiatric: Yes: Alert, Oriented Labs: CBC, BMP 01/03/19 10:15 01/03/19 10:15 Imaging - Results Chest X-ray: Report Reviewed Problem List - Problems (1) Chest pain Assessment/Plan: -Cardiology on board -tele monitoring -trop neg--monitor trend -cardiology recommend consider trial low dose BB, HR currently in low-mid 60s, if HR increase will consider add Metoprolol 12.5 daily Code(s): R07.9 - CHEST PAIN, UNSPECIFIED Qualifiers: Chest pain type: unspecified Qualified Code(s): R07.9 - Chest pain, unspecified (2) Diabetes Assessment/Plan: -BGM ACHS -Metformin -ISS -HgA1c -diabetic/low Na diet Code(s): E11.9 - TYPE 2 DIABETES MELLITUS WITHOUT COMPLICATIONS (3) Hyperlipidemia Assessment/Plan: -zocor -lipid panel Code(s): E78.5 - HYPERLIPIDEMIA, UNSPECIFIED Qualifiers: Hyperlipidemia type: pure hyperglyceridemia Qualified Code(s): E78.1 - Pure hyperglyceridemia (4) Hypothyroidism Assessment/Plan: -Levothyroxine Code(s): E03.9 - HYPOTHYROIDISM, UNSPECIFIED Qualifiers: Hypothyroidism type: unspecified Qualified Code(s): E03.9 - Hypothyroidism , unspecified (5) HTN (hypertension) Assessment/Plan: -Losartan -low Na diet Code(s): I10 - ESSENTIAL (PRIMARY) HYPERTENSION (6) Dysuria Assessment/Plan: -afebrile -no leukocytosis -UA/UC ordered Code(s): R30.0 - DYSURIA Assessment/Plan see problem list dvt ppx
[2019-01-03] MEDS: HEPARIN NA (PORCINE) 5,000 UNITS/ML 1ML VIAL SQ SCH (21:02)
[2019-01-03] MEDS: ATORVASTATIN CA 10 MG TABLET (FP) PO SCH (23:09)
[2019-01-03] MEDS ORDERED: ACETAMINOPHEN 325 MG TABLET (FP) PO ONE (23:20)
[2019-01-04] MEDS: LEVOTHYROXINE NA 25 MCG TABLET (FP) PO SCH (06:01)
[2019-01-04 06:30] LABS: ALBUMIN 3.1 g/dl (3.4-5.0); ALK PHOS 115 U/L (45-117); ANION GAP 3 MMOL/L (8-16); BILIRUBIN,TOTAL 0.4 mg/dL (0.2-1); BLOOD UREA NITROGEN 15.3 mg/dL (7-18); CHLORIDE 105 mmol/L (98-107); CHOLESTEROL 158 mg/dL (50-200); CO2 32 mmol/L (21-32); CREATININE 0.8 mg/dL (0.55-1.3); GLUCOSE,RANDOM 186 mg/dL (74-106); HDL CHOLESTEROL 47 mg/dL (40-60); MAGNESIUM 1.9 mg/dL (1.8-2.4); N-TERMINAL BNP 36.7 pg/ml (5-125); PHOSPHOROUS 3.8 mg/dL (2.5-4.9); POTASSIUM 4.8 mmol/L (3.5-5.1); SGOT/AST 20 U/L (15-37); SGPT/ALT 37 U/L (13-61); SODIUM 140 mmol/L (136-145); TOT PROT 6.7 g/dl (6.4-8.2); TRIGLYCERIDES 149 mg/dL (0-150)
[2019-01-04 06:40] LABS: BASO % 0.5 % (0-2.0); HEMOGLOBIN 13.1 GM/dL (10.7-15.3); LYMPH % 28.9 % (8-40); MCHC 33.6 g/dl (32.0-36.0); MEAN CELL VOLUME 86.1 fl (80-96); MEAN PLT VOLUME 8.9 fl (7.5-11.1); MONO % 7.8 % (3.8-10.2); NEUT % 59.8 % (42.8-82.8); PLATELET COUNT 246 K/MM3 (134-434); RBC 4.53 M/mm3 (3.60-5.2); RDW 13.5 % (11.6-15.6); WHITE BLOOD COUNT 9.7 K/mm3 (4.0-10.0)
[2019-01-04] MEDS ORDERED: metFORMIN HCL 500 MG TABLET (FP) PO SCH (07:00)
--- NOTE | 2019-01-04 07:52 | PN ---
Progress Note, Physician History of Present Illness: c/o headache - Current Medication List Current Medications: Active Medications Atorvastatin Calcium (Lipitor -) 10 mg PO HS [facility] Last Admin: 01/03/19 23:09 Dose: 10 mg Clopidogrel Bisulfate (Plavix -) 75 mg PO DAILY [facility] Heparin Sodium (Porcine) (Heparin -) 5,000 unit SQ BID [facility] Last Admin: 01/03/19 21:02 Dose: 5,000 unit Levothyroxine Sodium (Synthroid -) 25 mcg PO AM [facility] Last Admin: 01/04/19 06:01 Dose: 25 mcg Losartan Potassium (Cozaar -) 50 mg PO DAILY [facility] Metformin HCl (Glucophage -) 500 mg PO AM [facility] Last Admin: 01/04/19 06:01 Dose: 500 mg - Objective Vital Signs: Vital Signs Temperature 97.8 F 01/04/19 05:26 Pulse Rate 70 01/04/19 05:26 Respiratory Rate 16 01/04/19 05:26 Blood Pressure 110/80 01/04/19 05:26 O2 Sat by Pulse Oximetry (%) 99 01/03/19 23:00 Cardiovascular: Yes: S1, S2 Respiratory: Yes: Regular, CTA Bilaterally Gastrointestinal: Yes: Normal Bowel Sounds, Soft Neurological: Yes: Alert, Oriented. No: Dysarthria, Facial Droop Labs: CBC, BMP 01/04/19 05:05 01/04/19 05:05 INR, PTT INR 1.13 (0.83-1.09) H 01/03/19 10:15 Assessment/Plan - Problems (1) Chest pain Assessment/Plan: -Cardiology on board -tele monitoring -trop neg--monitor trend -cardiology recommend consider trial low dose BB, HR currently in low-mid 60s, if HR increase will consider add Metoprolol 12.5 daily Code(s): R07.9 - CHEST PAIN, UNSPECIFIED Qualifiers: Chest pain type: unspecified Qualified Code(s): R07.9 - Chest pain, unspecified (2) Diabetes Assessment/Plan: -BGM ACHS -Metformin -ISS -HgA1c -diabetic/low Na diet Code(s): E11.9 - TYPE 2 DIABETES MELLITUS WITHOUT COMPLICATIONS (3) Hyperlipidemia Assessment/Plan: -zocor -lipid panel Code(s): E78.5 - HYPERLIPIDEMIA, UNSPECIFIED Qualifiers: Hyperlipidemia type: pure hyperglyceridemia Qualified Code(s): E78.1 - Pure hyperglyceridemia (4) Hypothyroidism Assessment/Plan: -Levothyroxine Code(s): E03.9 - HYPOTHYROIDISM, UNSPECIFIED Qualifiers: Hypothyroidism type: unspecified Qualified Code(s): E03.9 - Hypothyroidism , unspecified (5) HTN (hypertension) Assessment/Plan: -Losartan -low Na diet Code(s): I10 - ESSENTIAL (PRIMARY) HYPERTENSION (6) Dysuria Assessment/Plan: -afebrile -no leukocytosis -UA/UC ordered Code(s): R30.0 - DYSURIA (7) Headche Assessment/Plan: -Ct head
--- NOTE | 2019-01-04 08:54 | PN ---
Progress Note, Physician History of Present Illness: 68F w/ PMH of HTN, DM, asthma, hypothyroidism, gastritis, h/o palpitations, vertigo BIBA to [facility] with complaint Left-sided chest pain( 7/10 severity) not radiating to Left arm or jaw, occurring at ~0700 after waking up in bed. When standing upright had associated HASSAN, dizziness(spinning room and lightheadedness) , nausea. Chest pain since resolved in the ED. Had previous hospitalization in September 2017 for palpitations and chest pain. - Current Medication List Current Medications: Active Medications Atorvastatin Calcium (Lipitor -) 10 mg PO HS [facility] Last Admin: 01/03/19 23:09 Dose: 10 mg Clopidogrel Bisulfate (Plavix -) 75 mg PO DAILY [facility] Heparin Sodium (Porcine) (Heparin -) 5,000 unit SQ BID [facility] Last Admin: 01/03/19 21:02 Dose: 5,000 unit Levothyroxine Sodium (Synthroid -) 25 mcg PO AM [facility] Last Admin: 01/04/19 06:01 Dose: 25 mcg Losartan Potassium (Cozaar -) 50 mg PO DAILY [facility] Metformin HCl (Glucophage -) 500 mg PO AM [facility] Last Admin: 01/04/19 06:01 Dose: 500 mg - Objective Vital Signs: Vital Signs Temperature 97.8 F 01/04/19 05:26 Pulse Rate 70 01/04/19 05:26 Respiratory Rate 16 01/04/19 05:26 Blood Pressure 110/80 01/04/19 05:26 O2 Sat by Pulse Oximetry (%) 99 01/03/19 23:00 Eyes: Yes: WNL, Conjunctiva Clear, EOM Intact HENT: Yes: WNL, Atraumatic, Normocephalic Neck: Yes: WNL, Supple, Trachea Midline Cardiovascular: Yes: WNL, Regular Rate and Rhythm Respiratory: Yes: WNL, Regular, CTA Bilaterally Gastrointestinal: Yes: WNL, Normal Bowel Sounds Genitourinary: Yes: WNL Musculoskeletal: Yes: WNL Extremities: Yes: WNL Edema: No Integumentary: Yes: WNL Neurological: Yes: WNL, Alert, Oriented ...Motor Strength: WNL Psychiatric: Yes: WNL Labs: CBC, BMP 01/04/19 05:05 01/04/19 05:05 INR, PTT INR 1.13 (0.83-1.09) H 01/03/19 10:15 Assessment/Plan NSR @ 83 LAD IRBBB similar to previous Ejection Fraction %: LVEF > or = 40 % Imaging - Results Chest X-ray: Report Reviewed (NAD) Problem List - Problems (1) Hypothyroidism Code(s): E03.9 - HYPOTHYROIDISM, UNSPECIFIED Qualifiers: Hypothyroidism type: unspecified Qualified Code(s): E03.9 - Hypothyroidism , unspecified (2) Hyperlipidemia Code(s): E78.5 - HYPERLIPIDEMIA, UNSPECIFIED Qualifiers: Hyperlipidemia type: pure hyperglyceridemia Qualified Code(s): E78.1 - Pure hyperglyceridemia Assessment/Plan 10/01/2018 Echo: Normal LV size and fxn, normal atrial sizes, abnl LV compliance , no sig valve abnl 10/01/2018 P-Myoview: No ischemia, LVEF 84% - Problems (1) HTN (hypertension) Code(s): I10 - ESSENTIAL (PRIMARY) HYPERTENSION (2) Chest pain Code(s): R07.9 - CHEST PAIN, UNSPECIFIED 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
[2019-01-04 09:17] LABS: EPI CELLS 1.7 /HPF (0-5/HPF); HYALINE CASTS 1 /lpf (0-8); PH,URINE 5.5 (5.0-8.0); URINE APPEARANCE CLOUDY; URINE BACTERIA 4702.8 /hpf (NEGATIVE); URINE BILIRUBIN NEGATIVE (NEGATIVE); URINE COLOR YELLOW; URINE GLUCOSE (UA) NEGATIVE (NEGATIVE); URINE KETONE NEGATIVE (NEGATIVE); URINE LEUK ESTERASE NEGATIVE (NEGATIVE); URINE NITRITE POSITIVE (NEGATIVE); URINE PROTEIN NEGATIVE (NEGATIVE); URINE RBC 1 /hpf (0-4); URINE UROBILINOGEN 0.2 mg/dL (0.2-1.0); URINE WBC 7 /hpf (0-5)
[2019-01-04] MEDS: HEPARIN NA (PORCINE) 5,000 UNITS/ML 1ML VIAL SQ SCH ×2 (10:50→22:06)
[2019-01-04] MEDS: LOSARTAN POTASSIUM 50 MG TABLET (FP) PO SCH (10:50)
[2019-01-04] MEDS: CLOPIDOGREL BISULFATE 75 MG TABLET (FP) PO SCH (10:50)
--- NOTE | 2019-01-04 11:14 | EKG ---
Test Reason : Blood Pressure : / mmHG Vent. Rate : 083 BPM Atrial Rate : 083 BPM P-R Int : 128 ms QRS Dur : 098 ms QT Int : 420 ms P-R-T Axes : 035 -65 001 degrees QTc Int : 493 ms NORMAL SINUS RHYTHM WITH SINUS ARRHYTHMIA LEFT AXIS DEVIATION INCOMPLETE RIGHT BUNDLE BRANCH BLOCK ABNORMAL ECG WHEN COMPARED WITH ECG OF 29-SEP-2017 09:27, Confirmed by ALAINA BARAHONA MD ([id number]) on 01/04/2019 11:14:14 AM Referred By: Confirmed By:ALAINA BARAHONA MD
[2019-01-04] MEDS: ACETAMINOPHEN 325 MG TABLET (FP) PO PRN (16:14)
[2019-01-04] MEDS: ATORVASTATIN CA 10 MG TABLET (FP) PO SCH (22:07)
--- NOTE | 2019-01-05 00:46 | CONSULT ---
Consult Consult Specialty:: endocrine Referred by:: dr.iyad irving Reason for Consultation:: diabetes mellitus uncontrolled - History of Present Illness Chief Complaint: high sugars on pills History of Present Illness: 68F w/ PMH of DM t2,HTN, asthma, hypothyroidism, gastritis, h/o palpiations, vertigo BIBA to [facility]. for chest pain with radiation to jaw,and arm,has history of palpitation and recent cardiac evaluation was in 09/2017,she has elevated sugars which she has only taken metformin,she denies fever,cough,nausea , or vomiting. - Past Medical History Cardio/Vascular: Yes: HTN, [place] Gastrointestinal: Yes: Gastritis ...: No Endocrine: Yes: Diabetes Mellitus - Alcohol/Substance Use Hx Alcohol Use: Yes (social) - Smoking History Smoking history: Former smoker Have you smoked in the past 12 months: No If you are a former smoker, when did you quit?: 1989 - Social History ADL: Independent History of Recent Travel: No Home Medications - Allergies Allergies/Adverse Reactions: Allergies Allergy/AdvReac Type Severity Reaction Status Date / Time No Known Allergies Allergy Verified 01/03/19 11:57 - Home Medications Home Medications: Ambulatory Orders Clopidogrel Bisulfate [Plavix] 75 mg PO DAILY 09/29/17 Levothyroxine [Synthroid -] 25 mcg PO DAILY 09/29/17 Losartan Potassium [Cozaar -] 50 mg PO DAILY 09/29/17 Metformin HCl [Glucophage] 500 mg PO DAILY 09/29/17 Simvastatin [Zocor -] 5 mg PO HS 09/29/17 Review of Systems - Review of Systems Constitutional: reports: Lethargy, Weakness Eyes: reports: Blurred Vision HENT: reports: No Symptoms Neck: reports: No Symptoms Cardiovascular: reports: Shortness of Breath Respiratory: reports: Exercise Intolerance, SOB on Exertion Gastrointestinal: reports: Bloating Genitourinary: reports: No Symptoms Breasts: reports: No Symptoms Reported Musculoskeletal: reports: Muscle Cramps, Muscle Weakness Integumentary: reports: No Symptoms Neurological: reports: Weakness Endocrine: reports: Unexplained Weight Gain Physical Exam Vital Signs: Vital Signs Temperature 98.4 F 01/04/19 22:00 Pulse Rate 67 01/04/19 22:00 Respiratory Rate 16 01/04/19 22:00 Blood Pressure 119/84 01/04/19 22:00 O2 Sat by Pulse Oximetry (%) 99 01/04/19 21:00 Constitutional: Yes: Anxious Eyes: Yes: EOM Intact HENT: Yes: Normocephalic Neck: Yes: Trachea Midline Cardiovascular: Yes: Regular Rate and Rhythm Respiratory: Yes: CTA Bilaterally Gastrointestinal: Yes: Normal Bowel Sounds ...Rectal Exam: Yes: Deferred Renal/: Yes: WNL Musculoskeletal: Yes: WNL Extremities: Yes: WNL Edema: No Neurological: Yes: Alert, Oriented Labs: CBC, BMP 01/04/19 05:05 01/04/19 05:05 Problem List - Problems (1) Chest pain Code(s): R07.9 - CHEST PAIN, UNSPECIFIED Qualifiers: Chest pain type: unspecified Qualified Code(s): R07.9 - Chest pain, unspecified (2) Diabetes Code(s): E11.9 - TYPE 2 DIABETES MELLITUS WITHOUT COMPLICATIONS (3) Dysuria Code(s): R30.0 - DYSURIA (4) Hyperglycemia Code(s): R73.9 - HYPERGLYCEMIA, UNSPECIFIED (5) Hyperlipidemia Code(s): E78.5 - HYPERLIPIDEMIA, UNSPECIFIED Qualifiers: Hyperlipidemia type: pure hyperglyceridemia Qualified Code(s): E78.1 - Pure hyperglyceridemia (6) Hypothyroidism Code(s): E03.9 - HYPOTHYROIDISM, UNSPECIFIED Qualifiers: Hypothyroidism type: unspecified Qualified Code(s): E03.9 - Hypothyroidism , unspecified Assessment/Plan Current Active Problems Chest pain (Acute) Diabetes (Acute) Dysuria (Acute) Hyperglycemia (Acute) Hyperlipidemia (Acute) Hypothyroidism (Acute) Abnormal Lab Results 01/04/19 01/04/19 01/04/19 05:05 05:05 05:30 Anion Gap 3 L Random Glucose 186 H Hemoglobin A1c % 11.4 H Albumin 3.1 L Urine Blood 1+ H Urine Nitrite Positive H Laboratory Results - last 24 hr 01/04/19 01/04/19 01/04/19 05:05 05:05 05:05 WBC 9.7 RBC 4.53 Hgb 13.1 Hct 39.0 MCV 86.1 MCH 29.0 MCHC 33.6 RDW 13.5 Plt Count 246 MPV 8.9 Absolute Neuts (auto) 5.8 Neutrophils % 59.8 D Lymphocytes % 28.9 D Monocytes % 7.8 Eosinophils % 3.0 Basophils % 0.5 Nucleated RBC % 0 Sodium 140 Potassium 4.8 Chloride 105 Carbon Dioxide 32 Anion Gap 3 L BUN 15.3 Creatinine 0.8 Est GFR (CKD-EPI)AfAm 88.42 Est GFR (CKD-EPI)NonAf 76.29 POC Glucometer Random Glucose 186 H Hemoglobin A1c % 11.4 H Calcium 9.0 Phosphorus 3.8 Magnesium 1.9 Total Bilirubin 0.4 AST 20 ALT 37 Alkaline Phosphatase 115 Creatine Kinase 100 Troponin I < 0.02 B-Natriuretic Peptide 36.7 Total Protein 6.7 Albumin 3.1 L Triglycerides 149 Cholesterol 158 Total LDL Cholesterol 86 HDL Cholesterol 47 TSH 3.26 Urine Color Urine Appearance Urine pH Ur Specific [place] Urine Protein Urine Glucose (UA) Urine Ketones Urine Blood Urine Nitrite Urine Bilirubin Urine Urobilinogen Ur Leukocyte Esterase Urine WBC (Auto) Urine RBC (Auto) Urine Casts (Auto) U Epithel Cells (Auto) Urine Bacteria (Auto) 01/04/19 01/04/19 01/04/19 05:30 05:59 11:29 WBC RBC Hgb Hct MCV MCH MCHC RDW Plt Count MPV Absolute Neuts (auto) Neutrophils % Lymphocytes % Monocytes % Eosinophils % Basophils % Nucleated RBC % Sodium Potassium Chloride Carbon Dioxide Anion Gap BUN Creatinine Est GFR (CKD-EPI)AfAm Est GFR (CKD-EPI)NonAf POC Glucometer 197 Random Glucose Hemoglobin A1c % Calcium Phosphorus Magnesium Total Bilirubin AST ALT Alkaline Phosphatase Creatine Kinase Troponin I < 0.02 B-Natriuretic Peptide Total Protein Albumin Triglycerides Cholesterol Total LDL Cholesterol HDL Cholesterol TSH Urine Color Yellow Urine Appearance Cloudy Urine pH 5.5 D Ur Specific [place] 1.019 Urine Protein Negative Urine Glucose (UA) Negative Urine Ketones Negative Urine Blood 1+ H Urine Nitrite Positive H Urine Bilirubin Negative Urine Urobilinogen 0.2 Ur Leukocyte Esterase Negative Urine WBC (Auto) 7 Urine RBC (Auto) 1 Urine Casts (Auto) 1 U Epithel Cells (Auto) 1.7 Urine Bacteria (Auto) 4702.8 01/04/19 01/04/19 01/04/19 11:38 11:48 16:20 WBC RBC Hgb Hct MCV MCH MCHC RDW Plt Count MPV Absolute Neuts (auto) Neutrophils % Lymphocytes % Monocytes % Eosinophils % Basophils % Nucleated RBC % Sodium Potassium Chloride Carbon Dioxide Anion Gap BUN Creatinine Est GFR (CKD-EPI)AfAm Est GFR (CKD-EPI)NonAf POC Glucometer 248 238 Random Glucose Hemoglobin A1c % Calcium Phosphorus Magnesium Total Bilirubin AST ALT Alkaline Phosphatase Creatine Kinase Troponin I Cancelled B-Natriuretic Peptide Total Protein Albumin Triglycerides Cholesterol Total LDL Cholesterol HDL Cholesterol TSH Urine Color Urine Appearance Urine pH Ur Specific [place] Urine Protein Urine Glucose (UA) Urine Ketones Urine Blood Urine Nitrite Urine Bilirubin Urine Urobilinogen Ur Leukocyte Esterase Urine WBC (Auto) Urine RBC (Auto) Urine Casts (Auto) U Epithel Cells (Auto) Urine Bacteria (Auto) 01/04/19 22:05 WBC RBC Hgb Hct MCV MCH MCHC RDW Plt Count MPV Absolute Neuts (auto) Neutrophils % Lymphocytes % Monocytes % Eosinophils % Basophils % Nucleated RBC % Sodium Potassium Chloride Carbon Dioxide Anion Gap BUN Creatinine Est GFR (CKD-EPI)AfAm Est GFR (CKD-EPI)NonAf POC Glucometer 235 Random Glucose Hemoglobin A1c % Calcium Phosphorus Magnesium Total Bilirubin AST ALT Alkaline Phosphatase Creatine Kinase Troponin I B-Natriuretic Peptide Total Protein Albumin Triglycerides Cholesterol Total LDL Cholesterol HDL Cholesterol TSH Urine Color Urine Appearance Urine pH Ur Specific [place] Urine Protein Urine Glucose (UA) Urine Ketones Urine Blood Urine Nitrite Urine Bilirubin Urine Urobilinogen Ur Leukocyte Esterase Urine WBC (Auto) Urine RBC (Auto) Urine Casts (Auto) U Epithel Cells (Auto) Urine Bacteria (Auto) plan: bgm novolog scale achs levemir 12 units am metformin 1000mg bid januvia 100mg daily diet and nutrition
[2019-01-05] MEDS: LEVOTHYROXINE NA 25 MCG TABLET (FP) PO SCH (06:21)
[2019-01-05] MEDS: metFORMIN HCL 500 MG TABLET (FP) PO SCH ×2 (06:21→17:24)
[2019-01-05] MEDS: INSULIN (LEVEMIR) 100 UNITS/ML UNITS SQ SCH (06:22)
[2019-01-05] MEDS: INSULIN SLIDING SCALE (NOVOLOG) 1 VIAL SQ SCH ×4 (06:22→22:01)
[2019-01-05] MEDS: ACETAMINOPHEN 325 MG TABLET (FP) PO PRN (08:28)
[2019-01-05] MEDS: CLOPIDOGREL BISULFATE 75 MG TABLET (FP) PO SCH (09:28)
[2019-01-05] MEDS: LOSARTAN POTASSIUM 50 MG TABLET (FP) PO SCH (09:28)
[2019-01-05] MEDS: HEPARIN NA (PORCINE) 5,000 UNITS/ML 1ML VIAL SQ SCH ×2 (09:28→22:15)
--- NOTE | 2019-01-05 10:01 | PN ---
Progress Note, Physician - Current Medication List Current Medications: Active Medications Acetaminophen (Tylenol -) 650 mg PO Q6H PRN PRN Reason: PAIN LEVEL 1-5 Last Admin: 01/05/19 08:28 Dose: 650 mg Atorvastatin Calcium (Lipitor -) 10 mg PO HS [facility] Last Admin: 01/04/19 22:07 Dose: 10 mg Clopidogrel Bisulfate (Plavix -) 75 mg PO DAILY [facility] Last Admin: 01/05/19 09:28 Dose: 75 mg Heparin Sodium (Porcine) (Heparin -) 5,000 unit SQ BID [facility] Last Admin: 01/05/19 09:28 Dose: 5,000 unit Ceftriaxone Sodium 1 gm/ (Dextrose) 100 mls @ 200 mls/hr IVPB DAILY [facility]; Protocol Insulin Aspart (Novolog Vial Sliding Scale -) 1 vial SQ ACHS [facility]; Protocol Last Admin: 01/05/19 06:22 Dose: 2 units Insulin Detemir (Levemir Vial) 12 units SQ AM [facility] Last Admin: 01/05/19 06:22 Dose: 12 units Levothyroxine Sodium (Synthroid -) 25 mcg PO AM [facility] Last Admin: 01/05/19 06:21 Dose: 25 mcg Losartan Potassium (Cozaar -) 50 mg PO DAILY [facility] Last Admin: 01/05/19 09:28 Dose: 50 mg Metformin HCl (Glucophage -) 1,000 mg PO BID@0700,1630 [facility] Last Admin: 01/05/19 06:21 Dose: 1,000 mg Sitagliptin Phosphate (Januvia -) 100 mg PO DAILY@0700 [facility] Last Admin: 01/05/19 06:22 Dose: 100 mg - Objective Vital Signs: Vital Signs Temperature 98.0 F 01/05/19 08:31 Pulse Rate 69 01/05/19 08:31 Respiratory Rate 18 01/05/19 08:31 Blood Pressure 141/88 01/05/19 08:31 O2 Sat by Pulse Oximetry (%) 99 01/04/19 21:00 Cardiovascular: Yes: S1, S2 Respiratory: Yes: Regular, CTA Bilaterally Gastrointestinal: Yes: Normal Bowel Sounds, Soft Labs: CBC, BMP 01/04/19 05:05 01/04/19 05:05 INR, PTT INR 1.13 (0.83-1.09) H 01/03/19 10:15 Assessment/Plan - Problems (1) Chest pain Assessment/Plan: -Resolved -Cardiology on board--noted--no further w/u -tele monitoring -trop neg--monitor trend -cardiology recommend consider trial low dose BB, HR currently in low-mid 60s, if HR increase will consider add Metoprolol 12.5 daily Code(s): R07.9 - CHEST PAIN, UNSPECIFIED Qualifiers: Chest pain type: unspecified Qualified Code(s): R07.9 - Chest pain, unspecified (2) Diabetes Assessment/Plan: -On insulin now--needs teaching [facility] -Metformin -ISS -HgA1c -diabetic/low Na diet Code(s): E11.9 - TYPE 2 DIABETES MELLITUS WITHOUT COMPLICATIONS (3) Hyperlipidemia Assessment/Plan: -zocor -lipid panel Code(s): E78.5 - HYPERLIPIDEMIA, UNSPECIFIED Qualifiers: Hyperlipidemia type: pure hyperglyceridemia Qualified Code(s): E78.1 - Pure hyperglyceridemia (4) Hypothyroidism Assessment/Plan: -Levothyroxine Code(s): E03.9 - HYPOTHYROIDISM, UNSPECIFIED Qualifiers: Hypothyroidism type: unspecified Qualified Code(s): E03.9 - Hypothyroidism , unspecified (5) HTN (hypertension) Assessment/Plan: -Losartan -low Na diet Code(s): I10 - ESSENTIAL (PRIMARY) HYPERTENSION (6) Dysuria Assessment/Plan: -afebrile -no leukocytosis -UA/UC ordered Code(s): R30.0 - DYSURIA (7) Headche Assessment/Plan: -Ct head
[2019-01-05] MEDS ORDERED: cefTRIAXone SODIUM 1 GM VIAL ONE (11:04)
[2019-01-05] MEDS ORDERED: DEXTROSE 5%-WATER - 50 ML IVPB ONE (11:04)
[2019-01-05] MEDS: CEFTRIAXONE 1 GM in DEXTROSE 5%-WATER - 50 ML IVPB SCH (11:44)
--- NOTE | 2019-01-05 13:34 | PN ---
Progress Note, Physician Chief Complaint: Pt alet; denies chest pain or dyspnea. History of Present Illness: The patient is a 68 year old female with a significant PMH of vertigo, palpitations, DM, HTN, hypothyroidism and gastritis, who presents to the ED with shortness of breath, dizziness, and 7/10 chest pain since approximately 7AM. Patient states she woke up this morning and felt a sharp chest pain and slightly short of breath. She got out of bed to take her medications but upon standing felt dizzy (room spinning). Patient also notes feeling nauseous, burning urination, and increased frequency in urination. Patient states last ecco and stress test were last year (pertinent findings as per resident note). Patient endorses former tobacco use. - Current Medication List Current Medications: Active Medications Acetaminophen (Tylenol -) 650 mg PO Q6H PRN PRN Reason: PAIN LEVEL 1-5 Last Admin: 01/05/19 08:28 Dose: 650 mg Atorvastatin Calcium (Lipitor -) 10 mg PO HS [facility] Last Admin: 01/04/19 22:07 Dose: 10 mg Clopidogrel Bisulfate (Plavix -) 75 mg PO DAILY [facility] Last Admin: 01/05/19 09:28 Dose: 75 mg Heparin Sodium (Porcine) (Heparin -) 5,000 unit SQ BID [facility] Last Admin: 01/05/19 09:28 Dose: 5,000 unit Ceftriaxone Sodium 1 gm/ (Dextrose) 50 mls @ 100 mls/hr IVPB DAILY [facility]; Protocol Last Admin: 01/05/19 11:44 Dose: 100 mls/hr Insulin Aspart (Novolog Vial Sliding Scale -) 1 vial SQ ACHS [facility]; Protocol Last Admin: 01/05/19 11:44 Dose: 2 units Insulin Detemir (Levemir Vial) 12 units SQ AM [facility] Last Admin: 01/05/19 06:22 Dose: 12 units Levothyroxine Sodium (Synthroid -) 25 mcg PO AM [facility] Last Admin: 01/05/19 06:21 Dose: 25 mcg Losartan Potassium (Cozaar -) 50 mg PO DAILY [facility] Last Admin: 01/05/19 09:28 Dose: 50 mg Metformin HCl (Glucophage -) 1,000 mg PO BID@0700,1630 [facility] Last Admin: 01/05/19 06:21 Dose: 1,000 mg Sitagliptin Phosphate (Januvia -) 100 mg PO DAILY@0700 [facility] Last Admin: 01/05/19 06:22 Dose: 100 mg - Objective Vital Signs: Vital Signs Temperature 98.0 F 01/05/19 08:31 Pulse Rate 69 01/05/19 08:31 Respiratory Rate 18 01/05/19 08:31 Blood Pressure 141/88 01/05/19 08:31 O2 Sat by Pulse Oximetry (%) 99 01/05/19 09:00 Labs: CBC, BMP 01/04/19 05:05 01/04/19 05:05 INR, PTT INR 1.13 (0.83-1.09) H 01/03/19 10:15 Problem List - Problems (1) Atypical chest pain Assessment/Plan: sharp chest pains, lasting seconds, not associated with exercise. TNI < 0.02 x 2. EKG: NSR; no acute ST-T changes (pulmonary disease pattern, LAFB; former smoker) . ECHO: normal LVEF; no regional wall motion abnormalities (2018); f/u this visit. Repeat EKG today. Stress MIBI 10/10: no ischemia. Code(s): R07.89 - OTHER CHEST PAIN (2) Treadmill stress test negative for angina pectoris Assessment/Plan: 09/2017: Persantine stress MIBI showed no ischemia. Code(s): Z13.6 - ENCOUNTER FOR SCREENING FOR CARDIOVASCULAR DISORDERS (3) Diabetes Code(s): E11.9 - TYPE 2 DIABETES MELLITUS WITHOUT COMPLICATIONS (4) Hyperlipidemia Code(s): E78.5 - HYPERLIPIDEMIA, UNSPECIFIED Qualifiers: Hyperlipidemia type: pure hyperglyceridemia Qualified Code(s): E78.1 - Pure hyperglyceridemia (5) HTN (hypertension) Code(s): I10 - ESSENTIAL (PRIMARY) HYPERTENSION
--- NOTE | 2019-01-05 15:25 | EKG ---
Test Reason : Blood Pressure : / mmHG Vent. Rate : 078 BPM Atrial Rate : 078 BPM P-R Int : 146 ms QRS Dur : 104 ms QT Int : 400 ms P-R-T Axes : 042 -71 015 degrees QTc Int : 456 ms NORMAL SINUS RHYTHM WITH SINUS ARRHYTHMIA PULMONARY DISEASE PATTERN INCOMPLETE RIGHT BUNDLE BRANCH BLOCK LEFT ANTERIOR FASCICULAR BLOCK ABNORMAL ECG WHEN COMPARED WITH ECG OF 03-JAN-2019 10:05, NO SIGNIFICANT CHANGE WAS FOUND Confirmed by MD ANCA, FELICITY ([id number]) on 01/05/2019 3:24:24 PM Referred By: KAREN OLSON Confirmed By:FELICITY MARCH MD
[2019-01-05] MEDS: ATORVASTATIN CA 10 MG TABLET (FP) PO SCH (22:15)
[2019-01-06] MEDS: ACETAMINOPHEN 325 MG TABLET (FP) PO PRN ×2 (01:22→20:34)
[2019-01-06] MEDS: metFORMIN HCL 500 MG TABLET (FP) PO SCH ×2 (06:15→17:04)
[2019-01-06] MEDS: LEVOTHYROXINE NA 25 MCG TABLET (FP) PO SCH (06:15)
[2019-01-06] MEDS: INSULIN SLIDING SCALE (NOVOLOG) 1 VIAL SQ SCH ×4 (06:16→21:21)
[2019-01-06] MEDS: INSULIN (LEVEMIR) 100 UNITS/ML UNITS SQ SCH (06:16)
[2019-01-06] MEDS ORDERED: DEXTROSE 5%-WATER - 50 ML IVPB ONE (09:49)
[2019-01-06] MEDS ORDERED: cefTRIAXone SODIUM 1 GM VIAL ONE (09:49)
[2019-01-06] MEDS: CLOPIDOGREL BISULFATE 75 MG TABLET (FP) PO SCH (10:14)
[2019-01-06] MEDS: LOSARTAN POTASSIUM 50 MG TABLET (FP) PO SCH (10:14)
[2019-01-06] MEDS: HEPARIN NA (PORCINE) 5,000 UNITS/ML 1ML VIAL SQ SCH ×2 (10:15→21:21)
[2019-01-06] MEDS: CEFTRIAXONE 1 GM in DEXTROSE 5%-WATER - 50 ML IVPB SCH (10:15)
--- NOTE | 2019-01-06 10:57 | PN ---
Progress Note, Physician History of Present Illness: 68F w/ PMH of HTN, DM, asthma, hypothyroidism, gastritis, h/o palpitations, vertigo BIBA to [facility]-ED with complaint Left-sided chest pain( 7/10 severity) not radiating to Left arm or jaw, occurring at ~0700 after waking up in bed. When standing upright had associated HASSAN, dizziness(spinning room and lightheadedness) , nausea. Chest pain since resolved in the ED. Had previous hospitalization in September 2017 for palpitations and chest pain. - Current Medication List Current Medications: Active Medications Acetaminophen (Tylenol -) 650 mg PO Q6H PRN PRN Reason: PAIN LEVEL 1-5 Last Admin: 01/06/19 01:22 Dose: 650 mg Atorvastatin Calcium (Lipitor -) [address] [facility] Last Admin: 01/05/19 22:15 Dose: 10 mg Clopidogrel Bisulfate (Plavix -) [address] [facility] Last Admin: 01/06/19 10:14 Dose: 75 mg Heparin Sodium (Porcine) (Heparin -) 5,[address] [facility] Last Admin: 01/06/19 10:15 Dose: 5,000 unit Ceftriaxone Sodium 1 gm/ (Dextrose) 50 mls @ 100 mls/hr IVPB DAILY [facility]; Protocol Last Admin: 01/06/19 10:15 Dose: 100 mls/hr Insulin Aspart (Novolog Vial Sliding Scale -) [address] [facility]; Protocol Last Admin: 01/06/19 06:16 Dose: Not Given Insulin Detemir (Levemir Vial) 12 units SQ AM [facility] Last Admin: 01/06/19 06:16 Dose: 12 units Levothyroxine Sodium (Synthroid -) 25 mcg PO AM [facility] Last Admin: 01/06/19 06:15 Dose: 25 mcg Losartan Potassium (Cozaar -) 50 mg PO DAILY [facility] Last Admin: 01/06/19 10:14 Dose: 50 mg Metformin HCl (Glucophage -) 1,000 mg PO BID@0700,1630 [facility] Last Admin: 01/06/19 06:15 Dose: 1,000 mg Sitagliptin Phosphate (Januvia -) 100 mg PO DAILY@0700 [facility] Last Admin: 01/06/19 06:15 Dose: 100 mg - Objective Vital Signs: Vital Signs Temperature 97.8 F 01/06/19 04:00 Pulse Rate 71 01/06/19 04:00 Respiratory Rate 18 01/06/19 04:00 Blood Pressure 116/69 01/06/19 04:00 O2 Sat by Pulse Oximetry (%) 97 01/05/19 21:00 Eyes: Yes: WNL, Conjunctiva Clear, EOM Intact HENT: Yes: WNL, Atraumatic, Normocephalic Neck: Yes: WNL, Supple, Trachea Midline Cardiovascular: Yes: WNL, Regular Rate and Rhythm Respiratory: Yes: WNL, Regular, CTA Bilaterally Gastrointestinal: Yes: WNL, Normal Bowel Sounds Genitourinary: Yes: WNL Musculoskeletal: Yes: WNL Extremities: Yes: WNL Edema: No Integumentary: Yes: WNL Neurological: Yes: WNL, Alert, Oriented ...Motor Strength: WNL Psychiatric: Yes: WNL Labs: CBC, BMP 01/04/19 05:05 01/04/19 05:05 INR, PTT INR 1.13 (0.83-1.09) H 01/03/19 10:15 Assessment/Plan - Problems (1) Atypical chest pain Assessment/Plan: sharp chest pains, lasting seconds, not associated with exercise. TNI < 0.02 x 2. EKG: NSR; no acute ST-T changes (pulmonary disease pattern, LAFB; former smoker) . ECHO: normal LVEF; no regional wall motion abnormalities (2018); f/u this visit. Repeat EKG today. Stress MIBI 10/10: no ischemia. Code(s): R07.89 - OTHER CHEST PAIN (2) Treadmill stress test negative for angina pectoris Assessment/Plan: 09/2017: Persantine stress MIBI showed no ischemia. Code(s): Z13.6 - ENCOUNTER FOR SCREENING FOR CARDIOVASCULAR DISORDERS (3) Diabetes Code(s): E11.9 - TYPE 2 DIABETES MELLITUS WITHOUT COMPLICATIONS (4) Hyperlipidemia Code(s): E78.5 - HYPERLIPIDEMIA, UNSPECIFIED Qualifiers: Hyperlipidemia type: pure hyperglyceridemia Qualified Code(s): E78.1 - Pure hyperglyceridemia (5) HTN (hypertension) Code(s): I10 - ESSENTIAL (PRIMARY) HYPERTENSION
--- NOTE | 2019-01-06 11:11 | PN ---
Progress Note, Physician Chief Complaint: Chest pain UTI Uncontrolled DM2 History of Present Illness: NAD in bed denies any Chest pain Had echo done today seen by Cardiology - Current Medication List Current Medications: Active Medications Acetaminophen (Tylenol -) 650 mg PO Q6H PRN PRN Reason: PAIN LEVEL 1-5 Last Admin: 01/06/19 01:22 Dose: 650 mg Atorvastatin Calcium (Lipitor -) 10 mg PO HS [facility] Last Admin: 01/05/19 22:15 Dose: 10 mg Clopidogrel Bisulfate (Plavix -) 75 mg PO DAILY [facility] Last Admin: 01/06/19 10:14 Dose: 75 mg Heparin Sodium (Porcine) (Heparin -) 5,000 unit SQ BID [facility] Last Admin: 01/06/19 10:15 Dose: 5,000 unit Ceftriaxone Sodium 1 gm/ (Dextrose) 50 mls @ 100 mls/hr IVPB DAILY [facility]; Protocol Last Admin: 01/06/19 10:15 Dose: 100 mls/hr Insulin Aspart (Novolog Vial Sliding Scale -) 1 vial SQ ACHS [facility]; Protocol Last Admin: 01/06/19 06:16 Dose: Not Given Insulin Detemir (Levemir Vial) 12 units SQ AM [facility] Last Admin: 01/06/19 06:16 Dose: 12 units Levothyroxine Sodium (Synthroid -) 25 mcg PO AM [facility] Last Admin: 01/06/19 06:15 Dose: 25 mcg Losartan Potassium (Cozaar -) 50 mg PO DAILY [facility] Last Admin: 01/06/19 10:14 Dose: 50 mg Metformin HCl (Glucophage -) 1,000 mg PO BID@0700,1630 [facility] Last Admin: 01/06/19 06:15 Dose: 1,000 mg Sitagliptin Phosphate (Januvia -) 100 mg PO DAILY@0700 [facility] Last Admin: 01/06/19 06:15 Dose: 100 mg - Objective Vital Signs: Vital Signs Temperature 97.8 F 01/06/19 04:00 Pulse Rate 71 01/06/19 04:00 Respiratory Rate 18 01/06/19 04:00 Blood Pressure 116/69 01/06/19 04:00 O2 Sat by Pulse Oximetry (%) 97 01/05/19 21:00 Constitutional: Yes: Well Nourished, No Distress, Calm Cardiovascular: Yes: Regular Rate and Rhythm Respiratory: Yes: Regular Gastrointestinal: Yes: Normal Bowel Sounds, Soft Genitourinary: Yes: WNL Musculoskeletal: Yes: WNL Extremities: Yes: WNL Edema: No Peripheral Pulses WNL: Yes Neurological: Yes: Alert, Oriented Psychiatric: Yes: Alert, Oriented Labs: CBC, BMP 01/04/19 05:05 01/04/19 05:05 INR, PTT INR 1.13 (0.83-1.09) H 01/03/19 10:15 Assessment/Plan (1) Chest pain Assessment/Plan: -Resolved -Cardiology on board--noted--no further w/u -tele monitoring -trop neg--monitor trend -cardiology recommend consider trial low dose BB, HR currently in low-mid 60s, if HR increase will consider add Metoprolol 12.5 daily -Echo done, results pending -Add aspirin 81 mg po daily Code(s): R07.9 - CHEST PAIN, UNSPECIFIED Qualifiers: Chest pain type: unspecified Qualified Code(s): R07.9 - Chest pain, unspecified (2) Diabetes Assessment/Plan: -On insulin now--needs teaching -[facility] -Metformin -ISS -HgA1c 11.2 -diabetic/low Na diet -RD consult Code(s): E11.9 - TYPE 2 DIABETES MELLITUS WITHOUT COMPLICATIONS (3) Hyperlipidemia Assessment/Plan: -Atorvastatin-increase to 20 mg po HS -ASCVD risk at 22.5% -LDL at 86 with LDL goal of <70 Code(s): E78.5 - HYPERLIPIDEMIA, UNSPECIFIED Qualifiers: Hyperlipidemia type: pure hyperglyceridemia Qualified Code(s): E78.1 - Pure hyperglyceridemia (4) Hypothyroidism Assessment/Plan: -Levothyroxine Code(s): E03.9 - HYPOTHYROIDISM, UNSPECIFIED Qualifiers: Hypothyroidism type: unspecified Qualified Code(s): E03.9 - Hypothyroidism , unspecified (5) HTN (hypertension) Assessment/Plan: -[facility]-Losartan -low Na diet Code(s): I10 - ESSENTIAL (PRIMARY) HYPERTENSION (6) Dysuria Assessment/Plan: -afebrile -no leukocytosis -IV abx- if cleared by cardiology, can be discharged on oral abx -UA/UC: Microbiology 01/04/19 05:30 Urine - Urine Clean Catch Urine Culture - Final Escherichia Coli Code(s): R30.0 - DYSURIA (7) Headche Assessment/Plan: -Ct head-right anterior periventricular chronic lacunar infarct
--- NOTE | 2019-01-06 13:49 | ECHO ---
Name: STONE ORTIZ Exam:Adult Echocardiogram Study Date: 01/06/2019 10:40 AM Age: 68 yrs Reason For Study: Chest pain MMode/2D Measurements & Calculations IVSd: 0.98 cm Ao root diam: 3.0 cm LVIDd: 4.8 cm LVIDs: 3.1 cm LVPWd: 0.95 cm EDV(Teich): 107.8 ml LVOT diam: 2.2 cm ESV(Teich): 39.3 ml Doppler Measurements & Calculations MV E max milan: 55.8 cm/sec Ao V2 max: 150.3 cm/sec MV A max milan: 94.8 cm/sec Ao max P.0 mmHg MV E/A: 0.59 Ao V2 mean: 105.6 cm/sec MV dec time: 0.37 sec Ao mean P.0 mmHg Ao V2 VTI: 30.5 cm FABIANO(I,D): 2.4 cm2 FABIANO(V,D): 2.5 cm2 LV V1 max P.6 mmHg SV(LVOT): 74.2 ml LV V1 mean P.9 mmHg LV V1 max: 95.3 cm/sec LV V1 mean: 63.2 cm/sec LV V1 VTI: 18.7 cm Med Peak E' [place]: 4.4 cm/sec Med E/e': 12.7 Lat Peak E' [place]: 7.6 cm/sec Lat E/e': 7.3 Procedure The study was technically difficult with many images being suboptimal in quality. Left Ventricle The left ventricular size, thickness and function are normal. The left ventricular ejection fraction is normal. E/A reversal consistent with but not diagnostic of poor LV compliance. Regional wall motion abnormalities cannot be excluded due to limited visualization. Right Ventricle The right ventricle is not well visualized. Atria The left atrium is not well visualized. Right atrium not well visualized. Mitral Valve There is mild mitral valve thickening. There is no mitral valve stenosis. There is mild mitral regurg itation. Tricuspid Valve The tricuspid valve is not well visualized. There is no tricuspid stenosis. There was insufficient TR detected to calculate RV systolic pressure. Aortic Valve The aortic valve is not well visualized. No hemodynamically significant valvular aortic stenosis. No aortic regurgitation is present. Pulmonic Valve The pulmonic valve is not well visualized. Great Vessels The aortic root is not well visualized. Pericardium/Pleura There is no pericardial effusion. Interpretation Summary The study was technically difficult with many images being suboptimal in quality. The left ventricular size, thickness and function are normal The left ventricular ejection fraction is normal. Regional wall motion abnormalities cannot be excluded due to limited visualization. E/A reversal consistent with but not diagnostic of poor LV compliance Right atrium not well visualized. The left atrium is not well visualized. There is mild mitral regurgitation. There was insufficient TR detected to calculate RV systolic pressure. MD Vasquez Mack 01/06/2019 01:48 PM
[2019-01-06] MEDS ORDERED: ATORVASTATIN CA 20 MG TABLET (FP) PO SCH (22:00)
[2019-01-06 22:01] VITALS: BMI 36.3
--- NOTE | 2019-01-06 22:54 | PN ---
Progress Note, Physician Chief Complaint: improved sugars with levemir and oral agents,feels diet is to blame - Current Medication List Current Medications: Active Medications Acetaminophen (Tylenol -) 650 mg PO Q6H PRN PRN Reason: PAIN LEVEL 1-5 Last Admin: 01/06/19 20:34 Dose: 650 mg Aspirin (Asa -) 81 mg PO DAILY [facility] Atorvastatin Calcium (Lipitor -) 20 mg PO HS [facility] Last Admin: 01/06/19 21:21 Dose: 20 mg Clopidogrel Bisulfate (Plavix -) 75 mg PO DAILY [facility] Last Admin: 01/06/19 10:14 Dose: 75 mg Heparin Sodium (Porcine) (Heparin -) 5,000 unit SQ BID [facility] Last Admin: 01/06/19 21:21 Dose: 5,000 unit Ceftriaxone Sodium 1 gm/ (Dextrose) 50 mls @ 100 mls/hr IVPB DAILY [facility]; Protocol Last Admin: 01/06/19 10:15 Dose: 100 mls/hr Insulin Aspart (Novolog Vial Sliding Scale -) 1 vial SQ ACHS [facility]; Protocol Last Admin: 01/06/19 21:21 Dose: Not Given Insulin Detemir (Levemir Vial) 12 units SQ AM [facility] Last Admin: 01/06/19 06:16 Dose: 12 units Levothyroxine Sodium (Synthroid -) 25 mcg PO AM [facility] Last Admin: 01/06/19 06:15 Dose: 25 mcg Losartan Potassium (Cozaar -) 50 mg PO DAILY [facility] Last Admin: 01/06/19 10:14 Dose: 50 mg Metformin HCl (Glucophage -) 1,000 mg PO BID@0700,1630 [facility] Last Admin: 01/06/19 17:04 Dose: 1,000 mg Sitagliptin Phosphate (Januvia -) 100 mg PO DAILY@0700 [facility] Last Admin: 01/06/19 06:15 Dose: 100 mg - Objective Vital Signs: Vital Signs Temperature 98.3 F 01/06/19 22:00 Pulse Rate 83 01/06/19 22:00 Respiratory Rate 18 01/06/19 22:00 Blood Pressure 119/77 01/06/19 22:00 O2 Sat by Pulse Oximetry (%) 98 01/06/19 21:00 Constitutional: Yes: Calm Eyes: Yes: EOM Intact HENT: Yes: Normocephalic Neck: Yes: Trachea Midline Cardiovascular: Yes: Regular Rate and Rhythm Respiratory: Yes: CTA Bilaterally Gastrointestinal: Yes: Normal Bowel Sounds ...Rectal Exam: Yes: Deferred Genitourinary: Yes: WNL Musculoskeletal: Yes: WNL Extremities: Yes: WNL Peripheral Pulses WNL: Yes Neurological: Yes: Alert, Oriented Labs: CBC, BMP 01/04/19 05:05 01/04/19 05:05 INR, PTT INR 1.13 (0.83-1.09) H 01/03/19 10:15 Problem List - Problems (1) Chest pain Code(s): R07.9 - CHEST PAIN, UNSPECIFIED Qualifiers: Chest pain type: unspecified Qualified Code(s): R07.9 - Chest pain, unspecified (2) Diabetes Code(s): E11.9 - TYPE 2 DIABETES MELLITUS WITHOUT COMPLICATIONS (3) Dysuria Code(s): R30.0 - DYSURIA (4) Hyperglycemia Code(s): R73.9 - HYPERGLYCEMIA, UNSPECIFIED (5) Hyperlipidemia Code(s): E78.5 - HYPERLIPIDEMIA, UNSPECIFIED Qualifiers: Hyperlipidemia type: pure hyperglyceridemia Qualified Code(s): E78.1 - Pure hyperglyceridemia (6) Hypothyroidism Code(s): E03.9 - HYPOTHYROIDISM, UNSPECIFIED Qualifiers: Hypothyroidism type: unspecified Qualified Code(s): E03.9 - Hypothyroidism , unspecified Assessment/Plan Current Active Problems Atypical chest pain (Acute) Chest pain (Acute) Diabetes (Acute) Dysuria (Acute) Hyperglycemia (Acute) Hyperlipidemia (Acute) Hypothyroidism (Acute) Treadmill stress test negative for angina pectoris (Acute) Laboratory Results - last 24 hr 01/06/19 01/06/19 01/06/19 06:13 11:59 16:56 POC Glucometer 176 172 171 01/06/19 21:18 POC Glucometer 199 Laboratory Tests 01/06/19 01/06/19 01/06/19 11:59 16:56 21:18 POC Glucometer 172 171 199 plan: levemir 12 units am continue janumet diet hba1c in 3months op follow up
[2019-01-07] MEDS: INSULIN (LEVEMIR) 100 UNITS/ML UNITS SQ SCH (06:26)
[2019-01-07] MEDS: INSULIN SLIDING SCALE (NOVOLOG) 1 VIAL SQ SCH ×2 (06:26→12:03)
[2019-01-07] MEDS: LEVOTHYROXINE NA 25 MCG TABLET (FP) PO SCH (06:26)
[2019-01-07] MEDS: ACETAMINOPHEN 325 MG TABLET (FP) PO PRN (08:16)
[2019-01-07] MEDS: metFORMIN HCL 500 MG TABLET (FP) PO SCH (08:16)
[2019-01-07 08:21] VITALS: BP 113/74; PULSE 85; TEMP 98.2
[2019-01-07] MEDS ORDERED: DEXTROSE 5%-WATER - 50 ML IVPB ONE (09:00)
[2019-01-07] MEDS ORDERED: cefTRIAXone SODIUM 1 GM VIAL ONE (09:00)
[2019-01-07] MEDS: LOSARTAN POTASSIUM 50 MG TABLET (FP) PO SCH (09:21)
[2019-01-07] MEDS: CEFTRIAXONE 1 GM in DEXTROSE 5%-WATER - 50 ML IVPB SCH (09:21)
[2019-01-07] MEDS: CLOPIDOGREL BISULFATE 75 MG TABLET (FP) PO SCH (09:21)
[2019-01-07] MEDS: HEPARIN NA (PORCINE) 5,000 UNITS/ML 1ML VIAL SQ SCH (09:22)
[2019-01-07] MEDS ORDERED: ASPIRIN 81 MG CHEWABLE TABLETS PO SCH (10:00)
--- NOTE | 2019-01-07 12:12 | DS ---
Physical Examination Vital Signs: Vital Signs Temperature 98.2 F 01/07/19 08:20 Pulse Rate 85 01/07/19 08:20 Respiratory Rate 16 01/07/19 08:20 Blood Pressure 113/74 01/07/19 08:20 O2 Sat by Pulse Oximetry (%) 98 01/07/19 10:00 Findings/Remarks: feels better no chest pain ready for discharge . needs strict follow up with primary doctor and endocrine for blood sugar control Constitutional: Yes: No Distress Cardiovascular: Yes: WNL Respiratory: Yes: WNL Gastrointestinal: Yes: WNL Renal/: Yes: WNL Labs: CBC, BMP 01/04/19 05:05 01/04/19 05:05 Discharge Summary Reason For Visit: CHEST PAIN Current Active Problems Atypical chest pain (Acute) Chest pain (Acute) Diabetes (Acute) Dysuria (Acute) Hyperglycemia (Acute) Hyperlipidemia (Acute) Hypothyroidism (Acute) Treadmill stress test negative for angina pectoris (Acute) Procedures: Principal: echo Hospital Course: cardiac workup negative, f/u with PMD in 1-2 days Condition: Stable - Instructions Diet, Activity, Other Instructions: ada strict diet low sodium low fat see your doctor in 1-2 days for follow up and education on diabetes dietary nutrition consult see your cardio in 1 week Disposition: VNS/HOME HEALTH CARE - Home Medications Comprehensive Discharge Medication List: Ambulatory Orders Clopidogrel Bisulfate [Plavix] 75 mg PO DAILY 09/29/17 Levothyroxine [Synthroid -] 25 mcg PO DAILY 09/29/17 Losartan Potassium [Cozaar -] 50 mg PO DAILY 09/29/17 Metformin HCl [Glucophage] 500 mg PO DAILY 09/29/17 Simvastatin [Zocor -] 5 mg PO HS 09/29/17 Insulin Detemir [Levemir Flextouch] 100 unit SQ DAILY #15 insuln.pen 01/07/19 Insulin Lispro [Humalog Kwikpen U-100] 100 unit SQ TID #4 insuln.pen 01/07/19 Sitagliptin Phos/Metformin HCl [Janumet 50-500 mg Tablet] 1 each PO BID #60 tablet 01/07/19
== END 2019-01-07 13:20 | disposition home health service (06) | DRG 690 ==
LOC: JER 09:23 → JERBED 13:45 → J4S 21:41
PROVIDERS: ADMIT Family Medicine; ATTEND Family Medicine
DX: N39.0 Urinary tract infection, site not specified (principal); R07.89 Other chest pain; I10 Essential (primary) hypertension; E03.9 Hypothyroidism, unspecified; R00.2 Palpitations; R42 Dizziness and giddiness; R06.02 Shortness of breath; B96.20 Unspecified Escherichia coli [E. coli] as the cause of diseases classified elsewhere; E78.1 Pure hyperglyceridemia; K29.60 Other gastritis without bleeding; I45.19 Other right bundle-branch block; R30.0 Dysuria; E66.8 Other obesity; Z68.36 Body mass index [BMI] 36.0-36.9, adult; I25.2 Old myocardial infarction; R51 Headache; J45.909 Unspecified asthma, uncomplicated; E11.65 Type 2 diabetes mellitus with hyperglycemia; Z13.6 Encounter for screening for cardiovascular disorders; Z87.891 Personal history of nicotine dependence
CPT/HCPCS: 36415; 70450-TC; 71045-TC-FY; 80053; 80061; 81003; 82550; 82962; 83036; 83721; 83735; 83880; 84100; 84436; 84443; 84484; 85025; 85610; 85730; 87086; 87186; 93005; 93010; 93306-TC; 99284-25; J1644

== ENCOUNTER 2019-04-22 21:06 | Emergency (ER) | payer OTHER ==
[2019-04-22] MEDS ORDERED: ONDANSETRON 4 MG/2 ML VIAL IVPUSH ONE (21:26)
--- NOTE | 2019-04-22 21:31 | PDOC ---
Attending Attestation - Resident Resident Name: Richar Law - ED Attending Attestation I have performed the following: I have examined & evaluated the patient, The case was reviewed & discussed with the resident, I agree w/resident's findings & plan - HPI HPI: 04/22/19 22:03 Pt feels vertiginous since 6PM. She took her meclizine today. 04/22/19 23:02 Pt was seen at [facility] on the 2 days back and she was found to have normal labs; normal head CT and chest and abd CTA; no aortic dissection, She has normal troponins x 2 and she was treated with meclizine and zofran and felt better. Today she ate turkey; states that around 7PM she went to the bathroom, and she had chills and sweats and dizziness. She felt some palpitations. Now completely better after mecizine in the ER, though she has some dizziness when she loos to the left and to the right. - Physicial Exam PE: 04/23/19 00:49 Normal exam. No nystagmus. Pt is obese. She has normal heart and lungs and flank exam. Pt has no abd pain. She has no pitting edema of her extremities. 04/23/19 00:50 Agree with resident exam - Medical Decision Making 04/22/19 22:05 Pt's WBC is elevated form her baseline 04/23/19 00:00 Pt has a UTI and she will be treated with rocephin here and keflex 500 TID to go home with 04/23/19 00:51 Pt is stable for discharge. She is feeling better.
[2019-04-22] MEDS ORDERED: ONDANSETRON 4 MG/2 ML VIAL ONE (21:34)
--- NOTE | 2019-04-22 21:35 | PDOC ---
History of Present Illness - General Chief Complaint: Nausea/Vomiting Stated Complaint: DIZZINESS Time Seen by Provider: 04/22/19 21:21 History Source: Patient Exam Limitations: No Limitations - History of Present Illness Initial Comments: 04/22/19 21:40 69F with a PMH of vertigo, HTN, DM, asthma, hypothyroidism, gastritis, h/o palpiations, who presents to the ER with nausea, vomiting, and vertiginous dizziness. The patient states that this started around 1800 today with sudden onset vertiginous spinning similar to her prior episodes of vertigo. She could not take anything because of the nausea. She also describes b/l lower extremity weakness which she can't state if it is new or old but states she walks with a walker. She describes "some" chest pain on her L chest without radiation or shortness of breath. Past History - Past Medical History Allergies/Adverse Reactions: Allergies Allergy/AdvReac Type Severity Reaction Status Date / Time No Known Allergies Allergy Verified 01/03/19 11:57 Home Medications: Ambulatory Orders Clopidogrel Bisulfate [Plavix] 75 mg PO DAILY 09/29/17 Levothyroxine [Synthroid -] 25 mcg PO DAILY 09/29/17 Losartan Potassium [Cozaar -] 50 mg PO DAILY 09/29/17 Metformin HCl [Glucophage] 500 mg PO DAILY 09/29/17 Simvastatin [Zocor -] 5 mg PO HS 09/29/17 Insulin Detemir [Levemir Flextouch] 100 unit SQ DAILY #15 insuln.pen 01/07/19 Insulin Lispro [Humalog Kwikpen U-100] 100 unit SQ TID #4 insuln.pen 01/07/19 Sitagliptin Phos/Metformin HCl [Janumet 50-500 mg Tablet] 1 each PO BID #60 tablet 01/07/19 Cephalexin [Keflex] 500 mg PO TID #21 capsule MDD 3 04/22/19 Asthma: Yes Cancer: No Cardiac Disorders: Yes ([place],PALPITATION) COPD: No CHF: No Diabetes: Yes GI Disorders: Yes (GASTRITIS) HTN: Yes Hypercholesterolemia: Yes Thyroid Disease: Yes - Surgical History Cholecystectomy: Yes - Immunization History Immunization Up to Date: No - Psycho Social/Smoking Cessation Hx Smoking History: Former smoker Have you smoked in the past 12 months: No If you are a former smoker, when did you quit?: 1989 Hx Alcohol Use: Yes (social) Drug/Substance Use Hx: No Substance Use Type: None Hx Substance Use Treatment: No Review of Systems - Review of Systems Able to Perform ROS?: Yes Comments:: 04/22/19 21:46 GENERAL/CONSTITUTIONAL: No fever or chills. No weakness. HEAD, EYES, EARS, NOSE AND THROAT: No change in vision. No ear pain or discharge. No sore throat. CARDIOVASCULAR: No chest pain, palpitations, or lightheadedness. RESPIRATORY: No cough, wheezing, shortness of breath, or hemoptysis. GASTROINTESTINAL: + for nausea and vomiting. No abdominal pain, diarrhea, or constipation. GENITOURINARY: No dysuria, frequency, hematuria, or change in urination. MUSCULOSKELETAL: No joint or muscle swelling or pain. No neck or back pain. SKIN: No rash or lesions. NEUROLOGIC: + for vertiginous dizziness. No headache, numbness, tingling, focal weakness, loss of consciousness, or change in strength/sensation. Is the patient limited Uzbek proficient: No *Physical Exam - Physical Exam Comments: 04/22/19 21:48 GENERAL: Well developed, well nourished. Awake and alert. No acute distress. HEENT: Normocephalic, atraumatic. Hearing grossly normal. Moist mucous membranes. PERRLA, EOMI. No conjunctival pallor. Sclera are non-icteric. NECK: Supple. Full ROM. No JVD. CARDIOVASCULAR: Regular rate and rhythm. No murmurs, rubs, or gallops. PULMONARY: No evidence of respiratory distress. Lungs clear to auscultation bilaterally. No wheezing, rales or rhonchi. ABDOMINAL: Soft. Non-tender. Non-distended. No rebound or guarding. MUSCULOSKELETAL: Normal range of motion at all joints. No bony deformities or tenderness. EXTREMITIES: No cyanosis. No clubbing. No edema. No calf tenderness or swelling. SKIN: Warm and dry. Normal capillary refill. No rashes. No jaundice. NEUROLOGICAL: Alert, awake, appropriate. Cranial nerves 2-12 intact. No deficits to light touch and temperature in face, upper extremities and lower extremities. 2/5 strength in LLE (chronic), otherwise 5/5 strength in deltoids, biceps, triceps, quadriceps, hamstrings, and gastrocnemius. Normoreflexic in the upper and lower extremities. Toes are down-going bilaterally. Finger to nose normal bilaterally. Normal speech. Gait is normal without ataxia. PSYCHIATRIC: Cooperative. Good eye contact. Appropriate mood and affect. ED Treatment Course - LABORATORY CBC & Chemistry Diagram: 04/22/19 21:30 04/22/19 21:30 - RADIOLOGY Radiology Studies Ordered: Category Date Time Status CHEST X-RAY PORTABLE* [RAD] Stat Radiology 04/22/19 21:26 Ordered Medical Decision Making - Medical Decision Making 04/22/19 21:49 69F with MMP including vertigo presents to the ER with complaints of vertiginous dizziness and chest pain. Will treat vertigo and obtain EKG and trop to evaluate chest pain. Pending labs and imaging. 04/22/19 22:45 On reassessment, patient looked more comfortable and stated that she developed her vertiginous dizziness around 1900 and with it, she had chest pain with palpitations, diaphoresis, chills, fever, and nausea, which is different than her prior vertiginous dizziness. With this story, it is concerning for infection (had UTI on prior ED visit with vertiginous dizziness) or an [place]. Initial troponin negative. Pending urine. Given meclizine and will reassess. 04/23/19 00:34 Urine shows UTI - will give dose of ceftriaxone and d/c with keflex. 04/23/19 00:40 Pt states that her symptoms have resolved. Will d/c with PCP f/u. Discharge - Discharge Information Problems reviewed: Yes Clinical Impression/Diagnosis: Vertigo Condition: Good Disposition: HOME - Admission No - Additional Discharge Information Prescriptions: Cephalexin [Keflex] 500 mg PO TID #21 capsule MDD 3 - Follow up/Referral Referrals: Tatiana Mcguire MD [Primary Care Provider] - - Patient Discharge Instructions Patient Printed Discharge Instructions: Vertigo Additional Instructions: Your ER visit is not complete until your follow up with your primary care physician. Please follow up with your primary care physician in 1-2 days. Please return to the ER if you have any signs or symptoms of chest pain, shortness of breath, uncontrollable fever, chills, nausea, vomiting, numbness, tingling, or weakness in any part of your body, changes in vision, or slurred speech. Please take your medications as prescribed. Please return to the ER if symptoms persist, worsen, or new symptoms arise. Medina visita a la cooper de emergencias no est completa hasta medina seguimiento con medina mdico de atencin primaria. Karon un seguimiento con medina mdico de atencin primaria en 1-2 johnson. Regrese a la cooper de emergencias si tiene signos o sntomas de dolor en el pecho , falta de aliento, fiebre incontrolable, escalofros, nuseas, vmitos, entumecimiento, hormigueo o debilidad en alguna parte de medina cuerpo, cambios en la visin o dificultad para hablar. Por favor tome lakia medicamentos reji se los recetaron. Regrese a la cooper de emergencias si los sntomas persisten, empeoran o surgen nuevos sntomas. - Post Discharge Activity
[2019-04-22 21:55] LABS: BASO % 0.7 % (0-2.0); EOS % 2.7 % (0-4.5); HEMATOCRIT 37.8 % (32.4-45.2); HEMOGLOBIN 12.6 GM/dL (10.7-15.3); LYMPH % 17.2 % (8-40); MCH 28.3 pg (25.7-33.7); MCHC 33.3 g/dl (32.0-36.0); MEAN PLT VOLUME 8.6 fl (7.5-11.1); MONO % 7.4 % (3.8-10.2); PLATELET COUNT 306 K/MM3 (134-434); RBC 4.45 M/mm3 (3.60-5.2); RDW 13.6 % (11.6-15.6); WHITE BLOOD COUNT 11.3 K/mm3 (4.0-10.0)
[2019-04-22 22:19] LABS: INR 1.03 (0.83-1.09); PROTHROMBIN TIME (PATIENT) 12.1 SEC (9.7-13.0)
[2019-04-22] MEDS ORDERED: MECLIZINE HCL 25 MG TABLET (FP) PO ONE (22:20)
[2019-04-22 22:33] LABS: ALBUMIN 3.6 g/dl (3.4-5.0); BILIRUBIN,TOTAL 0.2 mg/dL (0.2-1); BLOOD UREA NITROGEN 15.6 mg/dL (7-18); CALCIUM 9.2 mg/dL (8.5-10.1); CREATININE 0.9 mg/dL (0.55-1.3); POTASSIUM 4.3 mmol/L (3.5-5.1); TOT PROT 7.2 g/dl (6.4-8.2)
[2019-04-22] MEDS ORDERED: MECLIZINE HCL 25 MG TABLET (FP) ONE (22:34)
[2019-04-22 22:48] VITALS: TEMP 97.4; BMI 36.8
[2019-04-22 23:16] LABS: EPI CELLS 7.5 /HPF (0-5/HPF); HYALINE CASTS 3 /lpf (0-8); PH,URINE 5.5 (5.0-8.0); URINE APPEARANCE CLEAR; URINE BACTERIA 1355.1 /hpf (NEGATIVE); URINE BILIRUBIN NEGATIVE (NEGATIVE); URINE COLOR YELLOW; URINE GLUCOSE (UA) NEGATIVE (NEGATIVE); URINE KETONE TRACE (NEGATIVE); URINE LEUK ESTERASE TRACE (NEGATIVE); URINE NITRITE POSITIVE (NEGATIVE); URINE PROTEIN NEGATIVE (NEGATIVE); URINE RBC 5 /hpf (0-4); URINE UROBILINOGEN 0.2 mg/dL (0.2-1.0); URINE WBC 13 /hpf (0-5)
[2019-04-22] MEDS ORDERED: CEFTRIAXONE 1 GM in DEXTROSE 5%-WATER - 100 ML IVPB ONE (23:58)
[2019-04-23] MEDS ORDERED: CEFTRIAXONE 1 GM/50 ML BAG ONE (00:21)
[2019-04-23] MEDS ORDERED: ACETAMINOPHEN 325 MG TABLET (FP) PO ONE (00:38)
[2019-04-23] MEDS ORDERED: ACETAMINOPHEN 325 MG TABLET (FP) ONE (00:44)
[2019-04-23 02:11] VITALS: BP 111/52; PULSE 75
--- NOTE | 2019-04-23 14:15 | EKG ---
Test Reason : Blood Pressure : / mmHG Vent. Rate : 060 BPM Atrial Rate : 060 BPM P-R Int : 148 ms QRS Dur : 104 ms QT Int : 456 ms P-R-T Axes : 033 -62 002 degrees QTc Int : 456 ms NORMAL SINUS RHYTHM WITH SINUS ARRHYTHMIA INCOMPLETE RIGHT BUNDLE BRANCH BLOCK LEFT ANTERIOR FASCICULAR BLOCK CANNOT RULE OUT INFERIOR INFARCT , AGE UNDETERMINED ABNORMAL ECG Confirmed by JERRY GRAY MD ([id number]) on 04/23/2019 2:14:34 PM Referred By: Confirmed By:JERRY GRAY MD
== END 2019-04-23 02:05 | disposition home or self-care (01) ==
LOC: JER 21:06
PROC: 3E03329 Introduction of Other Anti-infective into Peripheral Vein, Percutaneous Approach (ICD-10-PCS; principal; 2019-04-22)
PROC: 3E033GC Introduction of Other Therapeutic Substance into Peripheral Vein, Percutaneous Approach (ICD-10-PCS; 2019-04-22)
DX: R42 Dizziness and giddiness (principal); Z87.891 Personal history of nicotine dependence; E78.00 Pure hypercholesterolemia, unspecified; E07.9 Disorder of thyroid, unspecified; R00.2 Palpitations; E11.9 Type 2 diabetes mellitus without complications; K92.9 Disease of digestive system, unspecified; I10 Essential (primary) hypertension; J45.909 Unspecified asthma, uncomplicated; I25.2 Old myocardial infarction
CPT/HCPCS: 36415; 71045-TC-FY; 80053; 81003; 82550; 82553; 84484; 85025; 85610; 87086; 87186; 93005; 93010; 99283-25

== ENCOUNTER 2019-04-24 18:08 | Emergency (ER) | payer OTHER ==
--- NOTE | 2019-04-24 18:21 | PDOC ---
History of Present Illness - General Chief Complaint: Nausea/Vomiting Stated Complaint: VOMITING Time Seen by Provider: 04/24/19 18:20 History Source: Patient Exam Limitations: No Limitations Past History - Past Medical History Allergies/Adverse Reactions: Allergies Allergy/AdvReac Type Severity Reaction Status Date / Time No Known Allergies Allergy Verified 01/03/19 11:57 Home Medications: Ambulatory Orders Clopidogrel Bisulfate [Plavix] 75 mg PO DAILY 09/29/17 Levothyroxine [Synthroid -] 25 mcg PO DAILY 09/29/17 Losartan Potassium [Cozaar -] 50 mg PO DAILY 09/29/17 Metformin HCl [Glucophage] 500 mg PO DAILY 09/29/17 Simvastatin [Zocor -] 5 mg PO HS 09/29/17 Insulin Detemir [Levemir Flextouch] 100 unit SQ DAILY #15 insuln.pen 01/07/19 Insulin Lispro [Humalog Kwikpen U-100] 100 unit SQ TID #4 insuln.pen 01/07/19 Sitagliptin Phos/Metformin HCl [Janumet 50-500 mg Tablet] 1 each PO BID #60 tablet 01/07/19 Cephalexin [Keflex] 500 mg PO TID #21 capsule MDD 3 04/22/19 Cephalexin Monohydrate [Keflex -] 500 mg PO BID #14 capsule 04/23/19 Asthma: Yes Cancer: No Cardiac Disorders: Yes ([place],PALPITATION) COPD: No CHF: No Diabetes: Yes GI Disorders: Yes (GASTRITIS) HTN: Yes Hypercholesterolemia: Yes Thyroid Disease: Yes - Surgical History Cholecystectomy: Yes - Immunization History Immunization Up to Date: No - Psycho Social/Smoking Cessation Hx Smoking History: Former smoker Have you smoked in the past 12 months: No If you are a former smoker, when did you quit?: 1989 Hx Alcohol Use: Yes (social) Drug/Substance Use Hx: No Substance Use Type: None Hx Substance Use Treatment: No Discharge - Follow up/Referral Referrals: Tatiana Mcguire MD [Primary Care Provider] - - Patient Discharge Instructions - Post Discharge Activity
[2019-04-24 18:30] VITALS: BMI 35.3
[2019-04-24] MEDS ORDERED: MECLIZINE HCL 25 MG TABLET (FP) PO ONE ×2 (18:41→18:53)
[2019-04-24] MEDS ORDERED: ONDANSETRON *ODT* 4 MG TABLET SL ONE (18:41)
[2019-04-24] MEDS ORDERED: ONDANSETRON 4 MG/2 ML VIAL IVPUSH ONE (18:52)
[2019-04-24] MEDS ORDERED: SODIUM CHLORIDE 1,000 ML IV STA (18:53)
[2019-04-24] MEDS ORDERED: MECLIZINE HCL 25 MG TABLET (FP) ONE (19:22)
[2019-04-24] MEDS ORDERED: ONDANSETRON 4 MG/2 ML VIAL ONE (19:22)
[2019-04-24 19:23] LABS: BASO % 0.8 % (0-2.0); EOS % 1.6 % (0-4.5); HEMATOCRIT 39.8 % (32.4-45.2); HEMOGLOBIN 13.1 GM/dL (10.7-15.3); LYMPH % 15.6 % (8-40); MCH 27.9 pg (25.7-33.7); MCHC 32.9 g/dl (32.0-36.0); MEAN PLT VOLUME 8.6 fl (7.5-11.1); MONO % 5.6 % (3.8-10.2); NEUT % 76.4 % (42.8-82.8); PLATELET COUNT 315 K/MM3 (134-434); RBC 4.69 M/mm3 (3.60-5.2); RDW 13.4 % (11.6-15.6)
[2019-04-24 19:29] LABS: INR 1.06 (0.83-1.09); PROTHROMBIN TIME (PATIENT) 12.5 SEC (9.7-13.0)
--- NOTE | 2019-04-24 19:41 | PDOC ---
History of Present Illness - General Chief Complaint: Nausea/Vomiting Stated Complaint: VOMITING Time Seen by Provider: 04/24/19 18:20 History Source: Patient Exam Limitations: Other (poor historian) - History of Present Illness Initial Comments: Pt is a 69 yo F, with PMH of recurrent vertigo/tinnitus, HTN, DM, asthma, hypothyroidism, NE (?, unknown if stents), gastritis, and "some heart palpitations" (on Plavix), who is presenting with complaints of vertigo, nausea and vomiting x2 days. Pt was seen at [facility] 2 nights ago, with a negative work-up and improved after medication. She is being treated with Keflex for UTI. Pt states she has been able to sleep, but still experiencing vertigo throughout the day. She took 12.5 mg PO meclizine at 4 pm and 5:30 pm, with minimal relief. Pt has had a few episodes of NBNB vomiting and persistent nausea, and did not eat any food today. Pt developed a mild frontal headache after vomiting today. Pt denies any fevers/chills, vision changes, syncope, chest pain, palpitations, SOB, nausea/vomiting, abdominal pain, urinary symptoms, diarrhea/ constipation, or leg swelling. Pt has a f/u appointment in May with ENT, has not yet been evaluated for vertigo and tinnitus yet. Pt is a poor historian, and states she is on Plavix because "of the fast in her heart and because her brain had little pieces that did not get enough oxygen". Most of pts medical history was in [place], and we do not have records. Allergies: NKDA PCP: Dr. Lara Social: Pt denies any cigarette, alcohol, or drug use. Pt denies any recent travel or sick contacts. Surgical: no relevant history. Family: no relevant history. 04/24/19 19:36 04/24/19 19:40 Past History - Travel Traveled outside of the country in the last 30 days: No Close contact w/someone who was outside of country & ill: No - Past Medical History Allergies/Adverse Reactions: Allergies Allergy/AdvReac Type Severity Reaction Status Date / Time No Known Allergies Allergy Verified 01/03/19 11:57 Home Medications: Ambulatory Orders Clopidogrel Bisulfate [Plavix] 75 mg PO DAILY 09/29/17 Levothyroxine [Synthroid -] 25 mcg PO DAILY 09/29/17 Losartan Potassium [Cozaar -] 50 mg PO DAILY 09/29/17 Simvastatin [Zocor -] 5 mg PO HS 09/29/17 Sitagliptin Phos/Metformin HCl [Janumet 50-500 mg Tablet] 1 each PO BID #60 tablet 01/07/19 Insulin Detemir [Levemir Flextouch] 15 unit SQ DAILY 04/24/19 Insulin Lispro [Humalog Kwikpen U-100] 5 unit SQ AC 04/24/19 Sitagliptin Phos/Metformin HCl [Janumet 50-500 mg Tablet] 1 each PO BID Asthma: Yes Cancer: No Cardiac Disorders: Yes (NE,PALPITATION) COPD: No CHF: No Diabetes: Yes GI Disorders: Yes (GASTRITIS) HTN: Yes Hypercholesterolemia: Yes Thyroid Disease: Yes - Surgical History Cholecystectomy: Yes - Immunization History Immunization Up to Date: No - Psycho Social/Smoking Cessation Hx Smoking History: Never smoked Have you smoked in the past 12 months: No If you are a former smoker, when did you quit?: 1989 Information on smoking cessation initiated: No Hx Alcohol Use: No Drug/Substance Use Hx: No Substance Use Type: None Hx Substance Use Treatment: No Neuro Specific PMHX - Complaint Specific PMHX Glaucoma: No Herniated Disk: No Laminectomy: No Migraine: No Multiple Sclerosis: No Neuropathy: No Other Neuro History: unknown, pt does not know medical history from [facility] Review of Systems - Review of Systems Able to Perform ROS?: No (see HPI, poor historian) *Physical Exam - Vital Signs Last Vital Signs Temp Pulse Resp BP Pulse Ox 97.9 F 103 H 16 146/96 97 04/24/19 18:17 04/24/19 18:17 04/24/19 18:17 04/24/19 18:17 04/24/19 18:17 - Physical Exam HR 103, pt afebrile. Pt appears anxious, holding vomiting bag, but with no active vomiting in ED. Obese body habitus. Pt alert and oriented x3. chemical maker generally intact, muscular strength and sensation intact. Full neuro exam and cerebellar exam could not be conducted because pt with severe vertigo even while sitting up. Did not tolerate attempt at Carmen's maneuver. No midline spinal tenderness, step-offs, or crepitus. Head normocephalic, atraumatic. Eyes PERRLA, EOMI. Oropharynx without erythema or exudates, no LAD b/l. No nasal congestion. Hearing intact. Clear heart sounds, S1/S2, no JVD, b/l pedal edema, or heart murmur. Clear lung sounds, no respiratory distress, wheezes, crackles, or accessory muscle use. No abdominal or CVA tenderness to palpation, no rebound, no guarding. Abdomen soft, non-distended, and with normoactive bowel sounds. Skin without jaundice or rash. 04/24/19 19:44 ED Treatment Course - LABORATORY CBC & Chemistry Diagram: 04/24/19 19:10 04/24/19 19:10 - ADDITIONAL ORDERS Additional order review: Laboratory Results 04/24/19 04/24/19 19:10 19:10 WBC 13.0 H RBC 4.69 Hgb 13.1 Hct 39.8 MCV 85.0 MCH 27.9 MCHC 32.9 RDW 13.4 Plt Count 315 MPV 8.6 Absolute Neuts (auto) 9.9 H Neutrophils % 76.4 Lymphocytes % 15.6 Monocytes % 5.6 Eosinophils % 1.6 Basophils % 0.8 Nucleated RBC % 0 PT with INR 12.50 INR 1.06 04/24/19 19:10 RBC 4.69 MCV 85.0 MCHC 32.9 RDW 13.4 MPV 8.6 Neutrophils % 76.4 Lymphocytes % 15.6 Monocytes % 5.6 Eosinophils % 1.6 Basophils % 0.8 - RADIOLOGY Radiology Studies Ordered: Category Date Time Status HEAD CT WITHOUT CONTRAST [CT] Stat CT Scan 04/24/19 18:53 Ordered - Medications Given in the ED: ED Medications Discontinued Medications Generic Name Dose Route Start Last Admin Trade Name Freq PRN Reason Stop Dose Admin Meclizine HCl 50 mg 04/24/19 18:41 04/24/19 19:15 Antivert - PO 04/24/19 18:42 Not Given ONCE ONE Meclizine HCl 25 mg 04/24/19 18:53 04/24/19 19:34 Antivert - PO 04/24/19 18:54 25 mg ONCE ONE Administration Ondansetron HCl 4 mg 04/24/19 18:41 04/24/19 19:15 Zofran Odt - SL 04/24/19 18:42 Not Given ONCE ONE Ondansetron HCl 4 mg 04/24/19 18:52 04/24/19 19:34 Zofran Injection IVPUSH 04/24/19 18:53 4 mg ONCE ONE Administration Medical Decision Making - Medical Decision Making Pt was seen at bedside, also will be seen by attending Dr. Boyce. Pt presenting with complaints of vertigo, similar to her prior exacerbations. Pt seen here 2 days ago with similar complaint, negative cardiac work-up at that time. Pt with decreased PO intake 2/2 vomiting. No chest pain or SOB at this time. Will evaluate for CVA vs bleed vs electrolyte imbalances vs ACS. Pts vitals have been stable, no hypotension and no chest pain, unlikely aortic dissection or rupture. Provided 25 mg PO meclizine, 4 mg IV zofran, and 650 mg PO tylenol for improvement of headache, vomiting, and vertigo. . Will continue to reassess pt and monitor for symptomatic improvement. ECG: Sinus tachycardia, RBBB, L ant fascicular block (HR 101, Pr 154, QRS 140, QTc 510). No TWIs or significant ST segment changes. No significant changes from prior ECG (04/22/2019). 04/24/19 20:[address] for non-contrast CT head. 04/24/19 20:48 CT head shows no acute pathology. Pt able to now sit-up, but becoming vertiginous with ambulation. Will try 1 mg IV ativan and reassess. 04/24/19 22:40 04/24/19 23:00 Pt signed out to night team (Dr. Muhammad) 04/24/19 23:57 Discharge - Discharge Information Problems reviewed: Yes Clinical Impression/Diagnosis: Vertigo - Follow up/Referral Referrals: Tatiana Mcguire MD [Primary Care Provider] - - Patient Discharge Instructions - Post Discharge Activity
[2019-04-24 19:55] LABS: ALBUMIN 3.6 g/dl (3.4-5.0); ALK PHOS 124 U/L (45-117); ANION GAP 6 MMOL/L (8-16); BILIRUBIN,TOTAL 0.2 mg/dL (0.2-1); BLOOD UREA NITROGEN 9.5 mg/dL (7-18); CALCIUM 9.2 mg/dL (8.5-10.1); CHLORIDE 106 mmol/L (98-107); CO2 26 mmol/L (21-32); CREATININE 0.7 mg/dL (0.55-1.3); GLUCOSE,RANDOM 232 mg/dL (74-106); LIPASE 164 U/L (73-393); MAGNESIUM 1.8 mg/dL (1.8-2.4); POTASSIUM 4.1 mmol/L (3.5-5.1); SGOT/AST 18 U/L (15-37); SGPT/ALT 25 U/L (13-61); SODIUM 137 mmol/L (136-145); TOT PROT 7.5 g/dl (6.4-8.2)
--- NOTE | 2019-04-24 20:06 | PDOC ---
Attending Attestation - Resident Resident Name: Мария Oconnell - ED Attending Attestation I have performed the following: I have examined & evaluated the patient, The case was reviewed & discussed with the resident, I agree w/resident's findings & plan, Exceptions are as noted - HPI HPI: 04/24/19 20:03 69 F with h/o vertigo, HTN, DM, asthma, CAD, hypothyroid, presenting to ED with room-spinning dizziness, nausea, and vomiting. Pt states it feels like her usual vertigo episodes. She was seen here 2 days ago for the same thing. Pt states that her symptoms resolved with treatment but recurred the next day. Pt reports taking 12.5 of meclizine x 2 today, with minimal relief. Pt also endorses mild frontal headache. Denies any weakness/numbness in any extremity. Denies slurred speech. Denies facial droop. Denies CP/SOB. At time of my evaluation, pt had received 25mg meclizine in ED and reports subsequent resolution of her symptoms. - Physicial Exam PE: 04/24/19 20:05 "GENERAL: Awake, alert, and fully oriented, in no acute distress. HEAD: No signs of trauma EYES: PERRLA, EOMI, sclera anicteric, conjunctiva clear ENT: Auricles normal inspection, hearing grossly normal, nares patent, oropharynx clear without exudates. Moist mucosa NECK: Nontender, no stepoffs, Normal ROM, supple, no lymphadenopathy, JVD, or masses LUNGS: Breath sounds equal, clear to auscultation bilaterally. No wheezes, and no crackles HEART: Regular rate and rhythm, normal S1 and S2, no murmurs, rubs or gallops ABDOMEN: Soft, nontender, normoactive bowel sounds. No guarding, no rebound. No masses EXTREMITIES: Normal range of motion, no edema. No clubbing or cyanosis. No cords, erythema, or tenderness NEUROLOGICAL: Cranial nerves II through XII intact. 5/5 strength and sensation in all extremities, Normal speech, normal gait, normal cerebellar function SKIN: Warm, Dry, normal turgor, no rashes or lesions noted. - Medical Decision Making 04/24/19 20:06 69 F with room-spinning dizziness, nausea, vomiting. Likely peripheral vertigo given h/o similar episodes. No focal neuro deficits on my exam. - Labs - CT head - Meclizine PRN 04/24/19 22:[address] with no acute changes Pt reassessed - continues to feel well after meclizine Pt ambulatory in ED with steady gait, no dizziness Pt is well appearing, with normal vitals. Clinically stable for DC at this time. I discussed the physical exam findings, ancillary test results and final diagnoses with the patient. I answered all of the patient's questions. The patient was satisfied with the care received and felt comfortable with the discharge plan and treatment plan. The patient agrees to follow up with the primary care physician within 24-72 hours.
[2019-04-24] MEDS ORDERED: LORazepam 2 MG/ML SDV VIAL ONE (23:20)
--- NOTE | 2019-04-24 23:56 | PDOC ---
*Physical Exam - Vital Signs Last Vital Signs Temp Pulse Resp BP Pulse Ox 97.9 F 103 H 16 146/96 97 04/24/19 18:17 04/24/19 18:17 04/24/19 18:17 04/24/19 18:17 04/24/19 18:17 ED Treatment Course - LABORATORY CBC & Chemistry Diagram: 04/24/19 19:10 04/24/19 19:10 Medical Decision Making - Medical Decision Making Pt signed out to me by Dr. Oconnell, see prior note. 69 year old female with recurrent vertigo/tinnitus, HTN, DM, asthma, hypothyroidism, CAD, gastritis presented to ED for room spinning sensation, nausea, vomiting x2 days. Pt is currently on Keflex for UTI, reported no urinary symptoms currently. Pt has a f/u appointment in May with ENT, has not yet been evaluated for vertigo and tinnitus yet. Initial Vital Signs Temp Pulse Resp BP Pulse Ox 97.9 F 103 H 16 146/96 97 04/24/19 18:17 04/24/19 18:17 04/24/19 18:17 04/24/19 18:17 04/24/19 18:17 Laboratory Last Values WBC 13.0 K/mm3 (4.0-10.0) H 04/24/19 19:10 RBC 4.69 M/mm3 (3.60-5.2) 04/24/19 19:10 Hgb 13.1 GM/dL (10.7-15.3) 04/24/19 19:10 Hct 39.8 % (32.4-45.2) 04/24/19 19:10 MCV 85.0 fl (80-96) 04/24/19 19:10 MCH 27.9 pg (25.7-33.7) 04/24/19 19:10 MCHC 32.9 g/dl (32.0-36.0) 04/24/19 19:10 RDW 13.4 % (11.6-15.6) 04/24/19 19:10 Plt Count 315 K/MM3 (134-434) 04/24/19 19:10 MPV 8.6 fl (7.5-11.1) 04/24/19 19:10 Absolute Neuts (auto) 9.9 K/mm3 (1.5-8.0) H 04/24/19 19:10 Neutrophils % 76.4 % (42.8-82.8) 04/24/19 19:10 Lymphocytes % 15.6 % (8-40) 04/24/19 19:10 Monocytes % 5.6 % (3.8-10.2) 04/24/19 19:10 Eosinophils % 1.6 % (0-4.5) 04/24/19 19:10 Basophils % 0.8 % (0-2.0) 04/24/19 19:10 Nucleated RBC % 0 % (0-0) 04/24/19 19:10 PT with INR 12.50 SEC (9.7-13.0) 04/24/19 19:10 INR 1.06 (0.83-1.09) 04/24/19 19:10 Sodium 137 mmol/L (136-145) 04/24/19 19:10 Potassium 4.1 mmol/L (3.5-5.1) 04/24/19 19:10 Chloride 106 mmol/L (98-107) 04/24/19 19:10 Carbon Dioxide 26 mmol/L (21-32) 04/24/19 19:10 Anion Gap 6 MMOL/L (8-16) L 04/24/19 19:10 BUN 9.5 mg/dL (7-18) 04/24/19 19:10 Creatinine 0.7 mg/dL (0.55-1.3) 04/24/19 19:10 Est GFR (CKD-EPI)AfAm 103.18 04/24/19 19:10 Est GFR (CKD-EPI)NonAf 89.03 04/24/19 19:10 Random Glucose 232 mg/dL (74-106) H 04/24/19 19:10 Calcium 9.2 mg/dL (8.5-10.1) 04/24/19 19:10 Magnesium 1.8 mg/dL (1.8-2.4) 04/24/19 19:10 Total Bilirubin 0.2 mg/dL (0.2-1) 04/24/19 19:10 AST 18 U/L (15-37) 04/24/19 19:10 ALT 25 U/L (13-61) 04/24/19 19:10 Alkaline Phosphatase 124 U/L (45-117) H 04/24/19 19:10 Troponin I < 0.02 ng/ml (0.00-0.05) 04/24/19 19:10 Total Protein 7.5 g/dl (6.4-8.2) 04/24/19 19:10 Albumin 3.6 g/dl (3.4-5.0) 04/24/19 19:10 Lipase 164 U/L (73-393) 04/24/19 19:10 Leukocytosis may be secondary to recent vomiting, no fever, no cough, no urinary symptoms, no malaise/body aches. ED Medications Discontinued Medications Generic Name Dose Route Start Last Admin Trade Name Freq PRN Reason Stop Dose Admin Sodium Chloride 1,000 mls @ 1,000 mls/hr 04/24/19 18:53 04/24/19 19:34 Normal Saline - IV 04/24/19 19:52 1,000 mls/hr ASDIR STA Administration Lorazepam 1 mg 04/24/19 22:39 04/24/19 23:28 Ativan Injection - IVPUSH 04/24/19 22:40 1 mg ONCE ONE Administration Meclizine HCl 50 mg 04/24/19 18:41 04/24/19 19:15 Antivert - PO 04/24/19 18:42 Not Given ONCE ONE Meclizine HCl 25 mg 04/24/19 18:53 04/24/19 19:34 Antivert - PO 04/24/19 18:54 25 mg ONCE ONE Administration Ondansetron HCl 4 mg 04/24/19 18:41 04/24/19 19:15 Zofran Odt - SL 04/24/19 18:42 Not Given ONCE ONE Ondansetron HCl 4 mg 04/24/19 18:52 04/24/19 19:34 Zofran Injection IVPUSH 04/24/19 18:53 4 mg ONCE ONE Administration Pt had improvement of symptoms with Meclizine 25 mg PO once, but still had room spinning sensation when standing. Ativan given, will reassess. 04/25/19 00:45 Pt ambulated well. No recurrence of room spinning. Pt discharged. Pt was comfortable with plan for care. Discharge - Discharge Information Problems reviewed: Yes Clinical Impression/Diagnosis: Vertigo Condition: Stable Disposition: HOME - Admission No - Follow up/Referral Referrals: Tatiana Mcguire MD [Primary Care Provider] - - Patient Discharge Instructions Patient Printed Discharge Instructions: DI for Vertigo Additional Instructions: Follow up with your primary care doctor within 3 days regarding your Emergency Room visit. Your care is not complete until you follow up. Take Meclizine 25 mg up to 4 times a day for dizziness. This medication can cause drowsiness, so do not drive while taking it and take extra precautions to not fall. If you use a walker or cane please make sure to use it. Return to the Emergency Department for intractable nausea/vomiting, intractable dizziness, weakness, numbness, tingling, fever, chest pain, shortness of breath , or any other new, worsening or concerning symptoms. - Post Discharge Activity
[2019-04-25 01:02] VITALS: BP 143/86; PULSE 93; TEMP 98.3
--- NOTE | 2019-04-26 10:45 | EKG ---
Test Reason : Blood Pressure : / mmHG Vent. Rate : 101 BPM Atrial Rate : 101 BPM P-R Int : 154 ms QRS Dur : 140 ms QT Int : 394 ms P-R-T Axes : 047 -79 028 degrees QTc Int : 510 ms SINUS TACHYCARDIA RIGHT BUNDLE BRANCH BLOCK LEFT ANTERIOR FASCICULAR BLOCK BIFASCICULAR BLOCK POSSIBLE LATERAL INFARCT (CITED ON OR BEFORE 22-APR-2019) ABNORMAL ECG WHEN COMPARED WITH ECG OF 22-APR-2019 22:03, VENT. RATE HAS INCREASED BY 41 BPM Confirmed by ALAINA BARAHONA MD ([id number]) on 04/26/2019 10:45:00 AM Referred By: Confirmed By:ALAINA BARAHONA MD
== END 2019-04-25 01:02 | disposition home or self-care (01) ==
LOC: JER 18:08
PROC: 3E033NZ Introduction of Analgesics, Hypnotics, Sedatives into Peripheral Vein, Percutaneous Approach (ICD-10-PCS; principal; 2019-04-24)
PROC: 3E033GC Introduction of Other Therapeutic Substance into Peripheral Vein, Percutaneous Approach (ICD-10-PCS; 2019-04-24)
DX: R42 Dizziness and giddiness (principal); I25.10 Atherosclerotic heart disease of native coronary artery without angina pectoris; I10 Essential (primary) hypertension; I25.2 Old myocardial infarction; E11.9 Type 2 diabetes mellitus without complications; Z79.4 Long term (current) use of insulin; E03.9 Hypothyroidism, unspecified; J45.909 Unspecified asthma, uncomplicated; Z79.02 Long term (current) use of antithrombotics/antiplatelets; Z87.19 Personal history of other diseases of the digestive system; Z87.440 Personal history of urinary (tract) infections; Z79.2 Long term (current) use of antibiotics
CPT/HCPCS: 36415; 70450-TC; 80053; 83690; 83735; 84484; 85025; 85610; 93005; 93010; 96374; 96375; 99283-25; J7030

== ENCOUNTER 2019-05-03 02:07 | Inpatient (IN) | payer OTHER ==
[2019-05-03] MEDS ORDERED: ONDANSETRON 4 MG/2 ML VIAL IVPUSH ONE (02:51)
[2019-05-03] MEDS ORDERED: SODIUM CHLORIDE 1,000 ML IV STA (02:51)
[2019-05-03] MEDS ORDERED: ACETAMINOPHEN 1000 MG/100 ML VIAL (NON FORMULARY) IVPB ONE (02:51)
[2019-05-03] MEDS ORDERED: MECLIZINE HCL 25 MG TABLET (FP) PO ONE (02:51)
[2019-05-03] MEDS ORDERED: ACETAMINOPHEN INJECTION 100 ML IVPB ONE (03:09)
[2019-05-03] MEDS ORDERED: MECLIZINE HCL 25 MG TABLET (FP) ONE ×2 (03:09→14:56)
[2019-05-03] MEDS ORDERED: ONDANSETRON 4 MG/2 ML VIAL ONE (03:10)
[2019-05-03 03:40] LABS: BASO % 0.7 % (0-2.0); EOS % 2.7 % (0-4.5); HEMATOCRIT 37.1 % (32.4-45.2); HEMOGLOBIN 12.3 GM/dL (10.7-15.3); LYMPH % 22.5 % (8-40); MCH 28.1 pg (25.7-33.7); MEAN PLT VOLUME 8.6 fl (7.5-11.1); NEUT % 66.1 % (42.8-82.8); PLATELET COUNT 278 K/MM3 (134-434); RBC 4.37 M/mm3 (3.60-5.2); RDW 13.5 % (11.6-15.6); WHITE BLOOD COUNT 9.4 K/mm3 (4.0-10.0)
--- NOTE | 2019-05-03 03:59 | PDOC ---
History of Present Illness - General Chief Complaint: Lightheaded Stated Complaint: DIZZINESS Time Seen by Provider: 05/03/19 02:37 History Source: Patient Exam Limitations: No Limitations - History of Present Illness Initial Comments: 05/03/19 04:10 69 yo F, with PMH of recurrent vertigo/tinnitus, HTN, DM, asthma, hypothyroidism , OR (?, unknown if stents), gastritis, and "some heart palpitations" (on Plavix ) presents to the emergency department with dizziness (endorses room spinning sensation), generalized weakness, nausea, and left sided headache. Per the patient, her symptoms occurred at approximately 10:30 pm. Her last administration of meclizine was at 2 pm yesterday. She denies trauma to the head. Per the patient, her symptoms are constant but worsen with positional changes. Denies the following: fevers, chills, chest pain, SOB, abdominal pain, dysuria, hematuria, diarrhea, and leg swelling. Allergies: NKDA tPA Exclusion checklist 3-4.5h - Time Elapsed Date last known well: 05/02/19 Time last known well: 22:30 Elaspsed time: 2 Day(s) and 10 Hour(s) and 39 Minutes - Thrombolytic Therapy Candidate Is patient eligible for thrombolytic therapy: No - Exclusion Criteria 3-4.5 hr SBP greater than 185 or DBP greater than 110mmHg despite tx: No Recent IC/spinal surgery,head trauma or stroke<3mos.: No Hx IC hemorrhage, IC neoplasm, AV malformation or aneurysm: No Active internal bleeding: No Blding diathesis(low plt ct, inc PTT,INR>1.7 or use of NOAC): No Symptoms suggest subarachnoid hemorrhage: No CT demonstrates multilobar infarct(>1/3 cerebral hemiphere): No Arterial puncture at noncompressible site in previous 7 days: No Blood glucose concentration less than 50mg/dL (2.7mmol/L): No - Relative Exclusion Criteria 3-4.5 hr Life expectancy <1 yr or severe co-morbid illness: No : No Patient/family refused: No Rapid improvement: Yes Stroke severity too mild: Yes Recent acute OR (w/in previous 3 months): No Seizure at onset with postictal residual neuro impairments: No Major surgery or serious trauma w/in previous 14 days: No Recent GI or hemorrhage (w/in previous 21 days): No - Add'l Relative Exclusion 3-4.5 hr Age > 80: No Hx of both diabetes AND prior ischemic stroke: No Taking an oral anticoagulant regardless of INR: No NIHSS >25: No - Ineligibility reason(s) Reasons No tPA given: See reason(s) noted above NIH Stroke Scale - Last Known Well Date/Time & Onset Date Last Known Well: 05/02/19 Time Last Known Well: 22:30 - Initial Evaluation Level of consciousness: Alert Ask patient the month and their age: Answers both correctly Ask patient to open & close eyes; make fist and let go: Obeys both correctly Best gaze (horizontal eye movement): Normal Visual field testing: No visual field loss Facial paresis (Show teeth/raise eyebrows/close eyes tight): Normal symmetrical movement Motor Function: Left Arm: Normal Motor Function: Right Arm: Normal (extends arm 90 (or 45) degrees for 10 seconds without drift Motor Function: Left Leg: Normal (extends leg 30 degrees for 5 seconds without drift) Motor Function: Right Leg: Normal (extends leg 30 degrees for 5 seconds without drift) Limb Ataxia: No ataxia Sensory(Use pinprick test arms,legs,trunk,face/side to side): Normal Best language (Describe picture, name items, read sentences): No Aphasia Dysarthria (read several words): Normal articulation Extinction and Inattention: No abnormality - Total Score NIH Stroke Scale Score: 0 Past History - Past Medical History Allergies/Adverse Reactions: Allergies Allergy/AdvReac Type Severity Reaction Status Date / Time No Known Allergies Allergy Verified 05/03/19 03:01 Home Medications: Ambulatory Orders Levothyroxine [Synthroid -] 25 mcg PO DAILY 09/29/17 Simvastatin [Zocor -] 5 mg PO HS 09/29/17 Insulin Lispro [Humalog Kwikpen U-100] 5 unit SQ AC 04/24/19 Albuterol Sulfate [Proair Hfa] 2 puff IH Q6H PRN 05/03/19 Glipizide [Glipizide ER] 5 mg PO DAILY 05/03/19 Insulin Glargine,Hum.rec.anlog [Lantus Solostar] 25 units SQ HS 05/03/19 Irbesartan 75 mg PO DAILY 05/03/19 Metformin HCl [Glucophage] 1,000 mg PO BID 05/03/19 Omeprazole 20 mg PO DAILY 05/03/19 Aspirin [ASA -] 81 mg PO DAILY #30 tab.chew 05/04/19 Meclizine HCl [Antivert -] 25 mg PO TID PRN #21 tablet 05/04/19 Asthma: Yes Cancer: No Cardiac Disorders: Yes (OR,PALPITATION) COPD: No CHF: No Diabetes: Yes GI Disorders: Yes (GASTRITIS) HTN: Yes Hypercholesterolemia: Yes Thyroid Disease: Yes - Surgical History Cholecystectomy: Yes - Immunization History Immunization Up to Date: No - Psycho Social/Smoking Cessation Hx Smoking History: Never smoked Have you smoked in the past 12 months: No If you are a former smoker, when did you quit?: 1989 Information on smoking cessation initiated: No Hx Alcohol Use: No Drug/Substance Use Hx: No Substance Use Type: None Hx Substance Use Treatment: No Review of Systems - Review of Systems Able to Perform ROS?: Yes Is the patient limited Chinese proficient: No Constitutional: No: Chills, Diaphoresis, Fever, Weakness HEENTM: No: Eye Pain, Ear Pain, Nose Pain, Throat Pain, Mouth Pain Respiratory: No: Cough, Shortness of Breath, Hemoptysis Cardiac (ROS): Yes: Lightheadedness. No: Chest Pain, Palpitations, Chest Tightness ABD/GI: Yes: Nausea. No: Constipated, Diarrhea, Rectal Bleeding, Vomiting, Tarry Stools : No: Burning, Dysuria, Hematuria Musculoskeletal: No: Back Pain, Joint Pain, Neck Pain Integumentary: No: Bruising, Erythema, Rash Neurological: Yes: Headache, Unsteady Gait, Dizziness. No: Numbness, Tingling, Tremors Psychiatric: No: Change in Appetite Endocrine: No: Unexplained Weight Loss Hematologic/Lymphatic: No: Anemia *Physical Exam - Vital Signs Last Vital Signs Temp Pulse Resp BP Pulse Ox 98.7 F 92 H 16 135/98 98 05/03/19 02:43 05/03/19 02:43 05/03/19 02:43 05/03/19 02:43 05/03/19 02:43 - Physical Exam General Appearance: Yes: Nourished, Appropriately Dressed, Obese. No: Apparent Distress, Intoxicated HEENT: positive: EOMI, MARY, Normal ENT Inspection, Normal Voice, Symmetrical, TMs Normal, Pharynx Normal, Hearing Grossly Normal. negative: Pale Conjunctivae , Scleral Icterus (R), Scleral Icterus (L), Muffled/Hoarse voice, Pharyngeal Erythema, Tonsillar Exudate, Tonsillar Erythema, Nasal Congestion, Rhinorrhea, Sinus Tenderness, TM Bulging, TM Dull, TM Erythema, Excessive drooling Neck: positive: Trachea midline, Supple. negative: Tender, Lymphadenopathy (R) , Lymphadenopathy (L), Tender lateral, Tender midline, Thyromegaly Respiratory/Chest: positive: Lungs Clear, Normal Breath Sounds. negative: Chest Tender, Respiratory Distress, Accessory Muscle Use, Crackles, Rales, Rhonchi, Stridor, Wheezing Cardiovascular: positive: Regular Rhythm, Regular Rate, S1, S2. negative: Systolic Murmur Gastrointestinal/Abdominal: positive: Normal Bowel Sounds, Flat, Soft. negative : Tender, Distended, Guarding, Rebound Lymphatic: negative: Adenopathy Musculoskeletal: positive: Normal Inspection. negative: CVA Tenderness, Vertebral Tenderness Extremity: positive: Normal Capillary Refill, Normal Inspection, Normal Range of Motion. negative: Tender Integumentary: positive: Normal Color, Dry, Warm. negative: Rash, Swelling Neurologic: positive: shopping inspector II-XII NML intact, Fully Oriented, Alert, Normal Mood/ Affect, Normal Response, Motor Strength 5/5, Other (unsteady gait, goes to the right when walking. no nystagmus noted). negative: EOM Palsy, Facial Droop, Sensory Deficit ED Treatment Course - LABORATORY CBC & Chemistry Diagram: 05/04/19 06:10 05/04/19 06:10 - ADDITIONAL ORDERS Additional order review: 05/03/19 03:30 RBC 4.37 MCV 85.0 MCHC 33.0 RDW 13.5 MPV 8.6 Neutrophils % 66.1 Lymphocytes % 22.5 D Monocytes % 8.0 Eosinophils % 2.7 Basophils % 0.7 - Medications Given in the ED: ED Medications Discontinued Medications Generic Name Dose Route Start Last Admin Trade Name Freq PRN Reason Stop Dose Admin Acetaminophen 1,000 mg 05/03/19 02:51 05/03/19 03:41 Ofirmev Injection - IVPB 05/03/19 02:52 1,000 mg ONCE ONE Administration Sodium Chloride 1,000 mls @ 1,000 mls/hr 05/03/19 02:51 05/03/19 03:40 Normal Saline - IV 05/03/19 03:50 1,000 mls/hr ASDIR STA Administration Meclizine HCl 25 mg 05/03/19 02:51 05/03/19 03:40 Antivert - PO 05/03/19 02:52 25 mg ONCE ONE Administration Ondansetron HCl 4 mg 05/03/19 02:51 05/03/19 03:41 Zofran Injection IVPUSH 05/03/19 02:52 4 mg ONCE ONE Administration Medical Decision Making - Medical Decision Making 69 yo F, with PMH of recurrent vertigo/tinnitus, HTN, DM, asthma, hypothyroidism , OR (?, unknown if stents), gastritis, and "some heart palpitations" (on Plavix ) presents to the emergency department with dizziness (endorses room spinning sensation), generalized weakness, nausea, and left sided headache. Initial vitals: Initial Vital Signs Temp Pulse Resp BP Pulse Ox 98.7 F 92 H 16 135/98 98 05/03/19 02:43 05/03/19 02:43 05/03/19 02:43 05/03/19 02:43 05/03/19 02:43 Work up: ddx: BPPV vs central vertigo. as this time, the symptoms and history more likely consistent with BPPV. will assess cbc, cmp, and give treatment (meclizine , tylenol, zofran, and NS) Laboratory Tests 05/03/19 05/03/19 03:30 03:30 WBC 9.4 RBC 4.37 Hgb 12.3 Hct 37.1 MCV 85.0 MCH 28.1 MCHC 33.0 RDW 13.5 Plt Count 278 MPV 8.6 Absolute Neuts (auto) 6.2 Neutrophils % 66.1 Lymphocytes % 22.5 D Monocytes % 8.0 Eosinophils % 2.7 Basophils % 0.7 Nucleated RBC % 0 Sodium 141 Potassium 4.1 Chloride 107 Carbon Dioxide 28 Anion Gap 7 L BUN 12.5 Creatinine 0.8 Est GFR (CKD-EPI)AfAm 87.80 Est GFR (CKD-EPI)NonAf 75.75 Random Glucose 167 H Calcium 9.1 Total Bilirubin 0.3 AST 18 ALT 30 Alkaline Phosphatase 112 Total Protein 6.9 Albumin 3.2 L Triglycerides 65 Cholesterol 136 Total LDL Cholesterol 79 HDL Cholesterol 57 patient's EKG: ventricular rate is 57 bpm. sinus barbi with incomplete RBBB and left fasicular block. no ST elevations or depressions. Patient was re-evalauted at 6 am. Patient now has constant dizziness with unsteady gait. unsafe discharge. Will admit patient for persistent vertigo due to symptoms that are persistent despite treatment modalities deployed. will require MRI to rule out CVA. Dispo; Admit Discharge - Discharge Information Problems reviewed: Yes Clinical Impression/Diagnosis: Vertigo, Unsteady gait, Nausea Disposition: VNS/HOME HEALTH CARE - Follow up/Referral - Patient Discharge Instructions - Post Discharge Activity
[2019-05-03] MEDS ORDERED: LORazepam 2 MG/ML SDV VIAL ONE (04:22)
[2019-05-03 04:34] LABS: ALBUMIN 3.2 g/dl (3.4-5.0); BILIRUBIN,TOTAL 0.3 mg/dL (0.2-1); BLOOD UREA NITROGEN 12.5 mg/dL (7-18); CALCIUM 9.1 mg/dL (8.5-10.1); CREATININE 0.8 mg/dL (0.55-1.3); POTASSIUM 4.1 mmol/L (3.5-5.1); TOT PROT 6.9 g/dl (6.4-8.2)
--- NOTE | 2019-05-03 05:03 | PDOC ---
Attending Attestation - Resident Resident Name: HaroldoSrinivas - ED Attending Attestation I have performed the following: I have examined & evaluated the patient, The case was reviewed & discussed with the resident, I agree w/resident's findings & plan, Exceptions are as noted - HPI HPI: 05/03/19 06:04 69 years old past medical history significant for hypertension diabetes asthma hypothyroidism? And mild NV in the past with multiple episodes of recurrent vertigo and tinnitus presents to the emergency department with vertigo lightheadedness this evening. Patient has prescription for meclizine took it this afternoon symptoms intensified and worsened this evening called an ambulance to come to the hospital secondary to persistence of symptoms. Symptoms are persistent constant but exacerbated by change in position and head movement ROS: A complete review of 10 out of 10 review of systems is taken and is negative apart from what is previously mentioned below and in the HPI. - Physicial Exam PE: 05/03/19 06:04 Vitals: Triage Vital signs reviewed General Appearance: No acute distress, well nourished well developed, Head: Atraumatic, Eyes: Pupils equal reactive round, extraocular movement intact Neck: Supple; no Nucal rigidity Chest Wall: Nontender Cardiac: Regular rate and rhythym, no murmurs, no rubs, no gallops, Lungs: Clear to auscultation bilateral, good air movement bilaterally, Abdomen: Soft, non distended, normal bowel sounds, non tender to palpation Extremities: Full range of motion to all extremities, no cyanosis, clubbing, or edema Skin: Warm and dry, no rashes or lesions, no rash, no petechiae Neuro: AOX3; cranial Nerves 2-12 grossly intact, strength intact to all extremities, sensation intact to all extremities, unsteady gait Psych: Normal mood, normal affect - Medical Decision Making 05/03/19 06:05 Reproducible positional vertigo patient with history of similar recent imaging history examination consistent with positional vertigo we will treat symptomatically with IV fluids meclizine IV Tylenol and Ativan Will observe patient and reassess Reevaluation 6 AM attempted to ambulate patient patient very unsteady with now with persistent vertigo Will obtain head CT patient will require admission for intractable vertigo unresponsive to medications
--- NOTE | 2019-05-03 08:20 | HP ---
CHIEF COMPLAINT: Dizziness PCP: Dr Mcguire HISTORY OF PRESENT ILLNESS: Pt is a 69 y/o F with a significant past medical history of HTN, IDDM, hypothyroidism, asthma, tinnitus, and gastritis who presented to [facility] due to dizziness and nausea. Pt endorses that around 11 pm yesterday evening, she was laying in bed watching TV when she suddenly felt a sensation of the room and spinning and became nauseas. Pt could not ambulate to the bathroom due to her symptoms. Pt states she then clicked her Cequensrt button and thr ambulance picked her up. Pt does have a history of vertigo and is on Meclizine. Pt was recently treated in our emergency Department for similar symptoms where she woas found to have a Urinary tract infection and prescribed Levaquin 500 daily. Pt currently denies chest pain, shortness of breath, or loss of consciousness. Endorses palpitations and nausea. 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 Present previously. No detectable acute infarct. No hemorrhage. (2) (3) No Known Allergies Allergy (Verified 05/03/19 03:01) HOME MEDICATIONS: Home Medications Medication Instructions Recorded Clopidogrel Bisulfate [Plavix] 75 mg PO DAILY 09/29/17 Levothyroxine [Synthroid -] 25 mcg PO DAILY 09/29/17 Losartan Potassium [Cozaar -] 50 mg PO DAILY 09/29/17 Simvastatin [Zocor -] 5 mg PO HS 09/29/17 Sitagliptin Phos/Metformin HCl 1 each PO BID #60 tablet 01/07/19 [Janumet 50-500 mg Tablet] Insulin Detemir [Levemir Flextouch] 15 unit SQ DAILY 04/24/19 Insulin Lispro [Humalog Kwikpen 5 unit SQ AC 04/24/19 U-100] Sitagliptin Phos/Metformin HCl 1 each PO BID 04/24/19 [Janumet 50-500 mg Tablet] levoFLOXacin [Levaquin -] 500 mg PO DAILY #7 tablet 04/26/19 REVIEW OF SYSTEMS CONSTITUTIONAL: Absent: fever, chills, diaphoresis, generalized weakness, malaise, loss of appetite, weight change HEENT: Absent: rhinorrhea, nasal congestion, throat pain, throat swelling, difficulty swallowing, mouth swelling, ear pain, eye pain, visual changes CARDIOVASCULAR: Absent: chest pain, syncope, palpitations, irregular heart rate, lightheadedness , peripheral edema RESPIRATORY: Absent: cough, shortness of breath, dyspnea with exertion, orthopnea, wheezing, stridor, hemoptysis GASTROINTESTINAL: Absent: abdominal pain, abdominal distension, nausea, vomiting, diarrhea, constipation, melena, hematochezia GENITOURINARY: Absent: dysuria, frequency, urgency, hesitancy, hematuria, flank pain, genital pain MUSCULOSKELETAL: Absent: myalgia, arthralgia, joint swelling, back pain, neck pain SKIN: Absent: rash, itching, pallor HEMATOLOGIC/IMMUNOLOGIC: Absent: easy bleeding, easy bruising, lymphadenopathy, frequent infections ENDOCRINE: Absent: unexplained weight gain, unexplained weight loss, heat intolerance, cold intolerance NEUROLOGIC: PRESENT dizziness PSYCHIATRIC: Absent: anxiety, depression, suicidal or homicidal ideation, hallucinations. PHYSICAL EXAMINATION Vital Signs - 24 hr 05/03/19 05/03/19 05/03/19 02:43 06:37 06:42 Temperature 98.7 F Pulse Rate 92 H Pulse Rate [ 60 Left] Respiratory 16 16 Rate Blood Pressure 135/98 Blood Pressure 123/83 [Left Arm] O2 Sat by Pulse 98 98 98 Oximetry (%) 05/03/19 07:43 Temperature 97.1 F L Pulse Rate Pulse Rate [ 56 L Left] Respiratory 18 Rate Blood Pressure Blood Pressure 129/76 [Left Arm] O2 Sat by Pulse 98 Oximetry (%) GENERAL: Mild distress HEAD: Normal with no signs of trauma. EYES: EOMI Sclera Clear, no nystagmus EARS, NOSE, THROAT: MMM NECK: Supple LUNGS: CTA b/l HEART: RRR S1S2 ABDOMEN: Soft NDNT. MUSCULOSKELETAL: FROM LOWER EXTREMITIES: No CCE b/l NEUROLOGICAL: Cranial nerves II-XII intact. Normal speech. Juan-Hallpike Negative. Finger to nose Dysmetria + on Left side. Gait WNL. PSYCHIATRIC: Cooperative. Good eye contact. Appropriate mood and affect. SKIN: Warm, dry Laboratory Results - last 24 hr 05/03/19 05/03/19 03:30 03:30 WBC 9.4 RBC 4.37 Hgb 12.3 Hct 37.1 MCV 85.0 MCH 28.1 MCHC 33.0 RDW 13.5 Plt Count 278 MPV 8.6 Absolute Neuts (auto) 6.2 Neutrophils % 66.1 Lymphocytes % 22.5 D Monocytes % 8.0 Eosinophils % 2.7 Basophils % 0.7 Nucleated RBC % 0 Sodium 141 Potassium 4.1 Chloride 107 Carbon Dioxide 28 Anion Gap 7 L BUN 12.5 Creatinine 0.8 Est GFR (CKD-EPI)AfAm 87.80 Est GFR (CKD-EPI)NonAf 75.75 Random Glucose 167 H Calcium 9.1 Total Bilirubin 0.3 AST 18 ALT 30 Alkaline Phosphatase 112 Total Protein 6.9 Albumin 3.2 L ASSESSMENT/PLAN: Pt is a 69 y/o F with a significant past medical history of HTN, IDDM, hypothyroidism, asthma, tinnitus, and gastritis who presented to [facility] due to dizziness and nausea. # Vertigo possibly 2/2 Cerebellar Infarct - Head CT---> Involutional changes. Chronic microvascular changes in cerebral white matter. 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 Present previously. No detectable acute infarct. No hemorrhage. -EKG--> sinus barbi@57 BPM. Inc RBBB. Left anterior Fascicular block. -Meclizine 25 PO TID -MRI brain w/o Contrast -Echocardiogram -Carotid Ultrasound -Neurology Consult -orthostatic v/s -IV Fluids #HTN -Resume Lisinopril 50 daily # IDDM Will continue Levemir 25 units HS as well as ISS #Hypothyroidism c/w synthroid #FEN LR@100cc/hr Monitor Electrolytes Sodim Controlled Diet #DVT ppx HEP Sq TID #Dispo Tele Pt uses [facility] Visit type - Emergency Visit Emergency Visit: Yes Care time: The patient presented to the Emergency Department on the above date and was hospitalized for further evaluation of their emergent condition. - New Patient This patient is new to me today: Yes Date on this admission: 05/03/19 - Critical Care Critical Care patient: No ATTENDING PHYSICIAN STATEMENT I saw and evaluated the patient. I reviewed the resident's note and discussed the case with the resident. I agree with the resident's findings and plan as documented. SUBJECTIVE: OBJECTIVE: ASSESSMENT AND PLAN:
[2019-05-03] MEDS ORDERED: MECLIZINE HCL 25 MG TABLET (FP) PO PRN (08:30)
[2019-05-03] MEDS ORDERED: LACTATED RINGERS SOLUTION 1,000 ML/1,000 ML INFUS.BAG IV SCH (08:30)
[2019-05-03 08:34] LABS: PH,URINE 6.5 (5.0-8.0); URINE APPEARANCE CLEAR; URINE BILIRUBIN NEGATIVE (NEGATIVE); URINE COLOR YELLOW; URINE GLUCOSE (UA) NEGATIVE (NEGATIVE); URINE KETONE NEGATIVE (NEGATIVE); URINE LEUK ESTERASE NEGATIVE (NEGATIVE); URINE NITRITE NEGATIVE (NEGATIVE); URINE PROTEIN NEGATIVE (NEGATIVE); URINE UROBILINOGEN 0.2 mg/dL (0.2-1.0)
[2019-05-03] MEDS ORDERED: HEPARIN NA (PORCINE) 5,000 UNITS/ML 1ML VIAL ONE ×2 (09:34→14:56)
[2019-05-03] MEDS: HEPARIN NA (PORCINE) 5,000 UNITS/ML 1ML VIAL SQ SCH ×3 (09:56→22:43)
[2019-05-03] MEDS ORDERED: ALBUTEROL SO4 8 GM HFA INHALER IH PRN (10:15)
[2019-05-03] MEDS: LEVOTHYROXINE NA 25 MCG TABLET (FP) PO SCH (11:30)
[2019-05-03] MEDS ORDERED: ASPIRIN 81 MG CHEWABLE TABLETS PO ONE (11:48)
[2019-05-03] MEDS ORDERED: ASPIRIN 81 MG CHEWABLE TABLETS ONE (12:28)
--- NOTE | 2019-05-03 12:45 | PN ---
Teaching Attending Note Name of Resident: Ty Son ATTENDING PHYSICIAN STATEMENT I saw and evaluated the patient. I reviewed the resident's note and discussed the case with the resident. I agree with the resident's findings and plan as documented with exceptions below. SUBJECTIVE: 69 yof with PMHx of HTN, IDDM, hypothyroidism, asthma, tinnitus, and gastritis , prior ED visits with vertigo when d/beatris in meclizine, recent UTI on levaquin, comes with sudden onset of vertigo last night around 11 Pm. reports as a spinning sensation earlier, symptoms now improved, states more of dizziness when tries to sit up. No fevers, chills, recent URI like illness, decreased oral intake, dyspnea, nausea, vomiting, abdominal or urinary symptoms. No new speech disturbances, tingling/numbness, weakness. Has chronic left hip/knee pain limiting her ambulation, otherwise no concerns. Home Blood sugars 110s-180s. Recent ED visit, when diagnosed with UTI, sent on keflex, later changed to levaquin on 04/26, current on Day 09/29 course. No active urinary symptoms. OBJECTIVE: Vital Signs Period Temp Pulse Resp BP Sys/Perdomo Pulse Ox Last 24 Hr 97.1 F-98.7 F 56-92 16-18 123-135/76-98 98-98 Intake & Output 04/30/19 05/01/19 05/02/19 05/03/19 23:59 23:59 23:59 23:59 Weight 210 lb GENERAL: Awake, alert, and fully oriented, in no acute distress, morbidly obese , BMI 37.2. HEAD: Normal with no signs of trauma. EYES: Pupils equal, round and reactive to light, extraocular movements intact, sclera anicteric, conjunctiva clear. No lid lag, no nystagmus noted. EARS, NOSE, THROAT: Ears normal, nares patent, oropharynx clear without exudates. Moist mucous membranes. NECK: Normal range of motion, supple , no JVd noted LUNGS: Breath sounds equal, clear to auscultation bilaterally. No wheezes, and no crackles. No accessory muscle use. HEART: Regular rate and rhythm, normal S1 and S2, no rubs or murmurs appreciated ABDOMEN: Soft, obese, nontender, not distended, normoactive bowel sounds, no guarding, no rebound, no masses. No hepatomegaly or splenomegaly appreciated. MUSCULOSKELETAL: limited Left hip/ left knee ROM (chronic per patient), no spinal or CVA tenderness, no joint swelling/erythema/warmth noted UPPER EXTREMITIES: 2+ pulses, warm, well-perfused. No cyanosis. No clubbing. No peripheral edema. LOWER EXTREMITIES: 2+ pulses, warm, well-perfused. No calf tenderness. No peripheral edema. NEUROLOGICAL: AAOx3, mild left nasolabial asymmetry, power 5/5 except LLE power check limited by hip/knee pain, both feet 5/5, sensation intact and symmetric to light touch, EOMI, PERRL, No nystagmus, finger nose test with no past pointing, no dysdiadokinesia, DTR bilaterally symmetry, toes downgoing, Gait exam deferred given dizziness with sitting up, Normal speech PSYCHIATRIC: Cooperative. Good eye contact. Appropriate mood and affect. SKIN: Warm, dry, normal turgor, no rashes or lesions noted, normal capillary refill. Home Medications Medication Instructions Recorded Levothyroxine [Synthroid -] 25 mcg PO DAILY 09/29/17 Simvastatin [Zocor -] 5 mg PO HS 09/29/17 Insulin Lispro [Humalog Kwikpen 5 unit SQ AC 04/24/19 U-100] levoFLOXacin [Levaquin -] 500 mg PO DAILY #7 tablet 04/26/19 Albuterol Sulfate [Proair Hfa] 2 puff IH Q6H PRN 05/03/19 Glipizide [Glipizide ER] 5 mg PO DAILY 05/03/19 Insulin Glargine,Hum.rec.anlog 25 units SQ HS 05/03/19 [Lantus Solostar] Irbesartan 75 mg PO DAILY 05/03/19 Meclizine HCl 12.5 mg PO TID 05/03/19 Metformin HCl [Glucophage] 1,000 mg PO BID 05/03/19 Omeprazole 20 mg PO DAILY 05/03/19 Active Medications Albuterol Sulfate (Ventolin Hfa Inhaler -) 2 puff IH Q6H PRN PRN Reason: ASTHMA Heparin Sodium (Porcine) (Heparin -) 5,000 unit SQ TID [facility] Last Admin: 05/03/19 09:56 Dose: 5,000 unit Lactated Ringer's (Lactated Ringers Solution) 1,000 ml in 1,000 mls @ 100 mls/ hr IV ASDIR [facility] Last Admin: 05/03/19 09:56 Dose: 100 mls/hr Insulin Aspart (Novolog Vial Sliding Scale -) 1 vial SQ [facility]; Protocol Insulin Detemir (Levemir Vial) 25 units SQ HS [facility] Levofloxacin (Levaquin -) 500 mg PO DAILY@0600 [facility] Last Admin: 05/03/19 09:57 Dose: 500 mg Levothyroxine Sodium (Synthroid -) 25 mcg PO DAILY@0700 [facility] Last Admin: 05/03/19 11:30 Dose: 25 mcg Losartan Potassium (Cozaar -) 25 mg PO DAILY [facility] Meclizine HCl (Antivert -) 25 mg PO BID PRN PRN Reason: VERTIGO Non-Formulary Medication (Simvastatin) 5 mg PO HS [facility] Pantoprazole Sodium (Protonix -) 20 mg PO DAILY [facility] Laboratory Results - last 24 hr 05/03/19 05/03/19 05/03/19 03:30 03:30 06:13 WBC 9.4 RBC 4.37 Hgb 12.3 Hct 37.1 MCV 85.0 MCH 28.1 MCHC 33.0 RDW 13.5 Plt Count 278 MPV 8.6 Absolute Neuts (auto) 6.2 Neutrophils % 66.1 Lymphocytes % 22.5 D Monocytes % 8.0 Eosinophils % 2.7 Basophils % 0.7 Nucleated RBC % 0 Sodium 141 Potassium 4.1 Chloride 107 Carbon Dioxide 28 Anion Gap 7 L BUN 12.5 Creatinine 0.8 Est GFR (CKD-EPI)AfAm 87.80 Est GFR (CKD-EPI)NonAf 75.75 POC Glucometer Random Glucose 167 H Calcium 9.1 Total Bilirubin 0.3 AST 18 ALT 30 Alkaline Phosphatase 112 Total Protein 6.9 Albumin 3.2 L Urine Color Yellow Urine Appearance Clear Urine pH 6.5 Ur Specific [place] 1.014 Urine Protein Negative Urine Glucose (UA) Negative Urine Ketones Negative Urine Blood Negative Urine Nitrite Negative Urine Bilirubin Negative Urine Urobilinogen 0.2 Ur Leukocyte Esterase Negative 05/03/19 12:13 WBC RBC Hgb Hct MCV MCH MCHC RDW Plt Count MPV Absolute Neuts (auto) Neutrophils % Lymphocytes % Monocytes % Eosinophils % Basophils % Nucleated RBC % Sodium Potassium Chloride Carbon Dioxide Anion Gap BUN Creatinine Est GFR (CKD-EPI)AfAm Est GFR (CKD-EPI)NonAf POC Glucometer 160 Random Glucose Calcium Total Bilirubin AST ALT Alkaline Phosphatase Total Protein Albumin Urine Color Urine Appearance Urine pH Ur Specific [place] Urine Protein Urine Glucose (UA) Urine Ketones Urine Blood Urine Nitrite Urine Bilirubin Urine Urobilinogen Ur Leukocyte Esterase EKG NSR, Incomplete RBBB, LAFB, no acute ST-T changes CT head; old right cerebellar infarct, no acute process ASSESSMENT AND PLAN: 69 yof with PMHx of HTN, IDDM, hypothyroidism, asthma, tinnitus, and gastritis , prior ED visits with vertigo when d/beatris in meclizine, recent UTI on levaquin admitted with vertigoa -Vertigo, r/o cerebellar CVA vs BPPV -Old right cerebellar infarct -Dehydration -recent UTI on levaquin -IDDM -HTN -Hypothyroidism -Asthma -Tinnitus -gastritis Plan: 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 Will r/o CVA Telemetry, MRI brain, carotid/2Decho, check lipid panel/A1c Neuro checks Neurology consult ASA, moderate intensity statin for now, Losartan in 24 hours per hemadynamics and imaging. Will benefit from ENT follow up if w/u neg. PT eval. Gentle hydration. Continue levemir. ISS. hold metformin. Finish levaquin course. Continue levothyroxine, check TSH. PPI DVTPPX lovenox Dispo admit to stroke telemetry Plan discussed with patient in detail, all questions answered Total admit time 65 min.
[2019-05-03] MEDS: INSULIN SLIDING SCALE (NOVOLOG) 1 VIAL SQ SCH ×3 (13:32→22:40)
--- NOTE | 2019-05-03 13:35 | EKG ---
Test Reason : Blood Pressure : / mmHG Vent. Rate : 057 BPM Atrial Rate : 057 BPM P-R Int : 148 ms QRS Dur : 102 ms QT Int : 460 ms P-R-T Axes : 033 -63 -15 degrees QTc Int : 447 ms SINUS BRADYCARDIA INCOMPLETE RIGHT BUNDLE BRANCH BLOCK LEFT ANTERIOR FASCICULAR BLOCK ABNORMAL ECG WHEN COMPARED WITH ECG OF 24-APR-2019 18:29, VENT. RATE HAS DECREASED BY 44 BPM INCOMPLETE RIGHT BUNDLE BRANCH BLOCK HAS REPLACED RIGHT BUNDLE BRANCH BLOCK BORDERLINE CRITERIA FOR LATERAL INFARCT ARE NO LONGER PRESENT Confirmed by SIRI LONDON MD ([id number]) on 05/03/2019 1:34:51 PM Referred By: Confirmed By:SIRI LONDON MD
[2019-05-03] MEDS: MECLIZINE HCL 25 MG TABLET (FP) PO SCH ×2 (15:00→22:44)
--- NOTE | 2019-05-03 15:40 | ECHO ---
Name: LAURITA SALGADO STONE Exam:Adult Echocardiogram Study Date: 05/03/2019 02:28 PM Age: 69 yrs Height: 63 in Weight: 210 lb BSA: 2.0 m2 MMode/2D Measurements & Calculations IVSd: 1.3 cm Ao root diam: 3.1 cm LVIDd: 3.5 cm LA dimension: 3.2 cm LVIDs: 2.5 cm ACS: 1.8 cm LVPWd: 1.2 cm EDV(Teich): 52.5 ml LVOT diam: 2.0 cm ESV(Teich): 21.9 ml Doppler Measurements & Calculations MV E max lizbeth: 96.3 cm/sec Ao V2 max: 141.2 cm/sec MV A max lizbeth: 98.2 cm/sec Ao max P.0 mmHg MV E/A: 0.98 Ao V2 mean: 91.7 cm/sec MV dec time: 0.19 sec Ao mean P.9 mmHg Ao V2 VTI: 29.7 cm FABIANO(I,D): 1.4 cm2 FABIANO(V,D): 1.4 cm2 LV V1 max P.4 mmHg MR max lizbeth: 264.0 cm/sec LV V1 mean P.88 mmHg MR max P.9 mmHg LV V1 max: 58.7 cm/sec LV V1 mean: 45.1 cm/sec LV V1 VTI: 12.9 cm SV(LVOT): 42.3 ml TR max lizbeth: 184.5 cm/sec TR max P.6 mmHg PA V2 max: 68.1 cm/sec PA max P.9 mmHg Procedure A complete two-dimensional transthoracic echocardiogram was performed (2D, M-mode, Doppler and color flow Doppler). Technically limited study. Left Ventricle The left ventricle is normal in size. There is mild concentric left ventricular hypertrophy. Left el tricular systolic function is normal. Ejection Fraction = 55-60%. No regional wall motion abnormalities noted. Right Ventricle The right ventricle is not well visualized. Atria The left atrial size is normal. Right atrial size is normal. Mitral Valve The mitral valve is normal in structure and function. There is no mitral regurgitation noted. Tricuspid Valve The tricuspid valve is not well visualized. Aortic Valve There is mild aortic sclerosis.;. No aortic regurgitation is present. Pulmonic Valve The pulmonic valve is not well visualized. Great Vessels The aortic root is normal size. Pericardium/Pleura There is no pericardial effusion. Interpretation Summary Technically limited study The left ventricle is normal in size. There is mild concentric left ventricular hypertrophy. Left ventricular systolic function is normal. No regional wall motion abnormalities noted. Ejection Fraction = 55-60%. The right ventricle is not well visualized. The left atrial size is normal. Right atrial size is normal. There is mild aortic sclerosis. No significant valvular regurgitations are seen There is no pericardial effusion. Armin Zafar MD 05/03/2019 03:40 PM
[2019-05-03] MEDS ORDERED: INSULIN (LEVEMIR) 100 UNITS/ML UNITS SQ SCH (22:00)
[2019-05-03] MEDS ORDERED: ATORVASTATIN CA 40 MG TABLET (FP) PO SCH (22:00)
[2019-05-03] MEDS ORDERED: PATIENT'S OWN MEDICATION (NON-FORMULARY) (Simvastatin 5 MG) PO SCH (22:00)
--- NOTE | 2019-05-03 22:38 | CONSULT ---
Consult - text type - Consultation Consultation Note: NEUROLOGY CONSULTATION is greatly appreciated: Events and imaging reviewed. Patient examined. This 69 yo RH woman with 3 children [place]. PMH sig for: HTN, DM, HLD, Hypothyroidism Maintained on: Clopidogrel; Levothyroxine; Losartan; Simvastatin; Sitagliptin Phos/Metformin; Insulin; and levaquin. Admitted with severe right sided headache, Nausea and dizziness. Pt has had approx 3 HASSAN's/week x many years. These can awaken her from sleep or begin during the day, over the forehead without warning. They develop into throbbing right hemicranial headaches with nausea, dizziness, phophobia, phonophobia and kinesiophobia. + FH of headaches in her mother, maternal grandmother, and 2 of 3 children. ROS sig for throbbing and burning B/L leg pains at night interrupting sleep x many years. MRI of brain (reviewed): scattered subcortical white matter changes c/w chronic migraine headaches. MARTY: Mod obese. Neck supple. No head trauma. Neg SLR, Neg Sai's. NEURO: MS/speech: Normal CN II-XII: Normal without nystagmus Motor: No drift or tremor. Normal strength, bulk, tone and reflexes. Toes downgoing Coord: No FTN dystaxia Sensory: Normal Gait: Normal IMP: Normal Neurological exam Migraine headaches (vertebrobasilar migraines with vertigo). Restless Legs syndrome (RLS). Suggest: Begin Topiramate 25 mg PO BID x 3 days then 50 mg PO BID Begin Pramipexole 0.125 mg HS x 2 days then 0.25 HS Neuro F/u as out patient. Thank you very much, Terrance Lee MD
[2019-05-03] MEDS ORDERED: ACETAMINOPHEN 325 MG TABLET (FP) PO PRN (22:43)
[2019-05-03] MEDS: ACETAMINOPHEN 325 MG TABLET (FP) PO PRN (22:55)
[2019-05-04 01:09] VITALS: BMI 36.1
[2019-05-04] MEDS: INSULIN SLIDING SCALE (NOVOLOG) 1 VIAL SQ SCH ×2 (06:33→11:34)
[2019-05-04] MEDS: ACETAMINOPHEN 325 MG TABLET (FP) PO PRN (06:34)
[2019-05-04] MEDS: MECLIZINE HCL 25 MG TABLET (FP) PO SCH ×2 (06:34→14:25)
[2019-05-04] MEDS: LEVOTHYROXINE NA 25 MCG TABLET (FP) PO SCH (06:34)
[2019-05-04] MEDS: HEPARIN NA (PORCINE) 5,000 UNITS/ML 1ML VIAL SQ SCH ×2 (06:34→14:25)
[2019-05-04 07:12] LABS: BASO % 0.7 % (0-2.0); EOS % 4.4 % (0-4.5); HEMATOCRIT 36.9 % (32.4-45.2); LYMPH % 39.7 % (8-40); MCH 27.7 pg (25.7-33.7); MCHC 32.5 g/dl (32.0-36.0); MEAN CELL VOLUME 85.2 fl (80-96); MEAN PLT VOLUME 8.9 fl (7.5-11.1); MONO % 7.6 % (3.8-10.2); NEUT % 47.6 % (42.8-82.8); PLATELET COUNT 280 K/MM3 (134-434); RBC 4.33 M/mm3 (3.60-5.2); RDW 13.8 % (11.6-15.6); WHITE BLOOD COUNT 8.2 K/mm3 (4.0-10.0)
[2019-05-04 07:29] LABS: INR 1.03 (0.83-1.09); PROTHROMBIN TIME (PATIENT) 12.1 SEC (9.7-13.0)
[2019-05-04 07:46] LABS: ALBUMIN 3.1 g/dl (3.4-5.0); BILIRUBIN,TOTAL 0.5 mg/dL (0.2-1); BLOOD UREA NITROGEN 11.7 mg/dL (7-18); CALCIUM 8.9 mg/dL (8.5-10.1); CREATININE 0.7 mg/dL (0.55-1.3); MAGNESIUM 1.9 mg/dL (1.8-2.4); PHOSPHOROUS 3.7 mg/dL (2.5-4.9); POTASSIUM 4.4 mmol/L (3.5-5.1); TOT PROT 6.8 g/dl (6.4-8.2)
[2019-05-04] MEDS ORDERED: PT OWN MED DRAWER 7, Y5N ONE (08:48)
[2019-05-04] MEDS ORDERED: LOSARTAN POTASSIUM 25 MG TABLET PO SCH (10:00)
[2019-05-04] MEDS ORDERED: PANTOPRAZOLE 20 MG TABLET (FP) PO SCH (10:00)
[2019-05-04] MEDS ORDERED: ASPIRIN 81 MG CHEWABLE TABLETS PO SCH (10:00)
[2019-05-04] MEDS ORDERED: TOPIRAMATE 25 MG TABLET (FP) PO SCH (10:00)
--- NOTE | 2019-05-04 13:10 | DS ---
Physical Exam: SUBJECTIVE: Patient seen and examined in the morning. No acute events overnight. Complained of headache and dizziness after waking up, dizziness subsided after taking medication. No complaints of chest pain, weakness. OBJECTIVE: Vital Signs Period Temp Pulse Resp BP Sys/Perdomo Pulse Ox Last 24 Hr 97.4 F-98.1 F 52-78 18-20 109-146/67-76 97-99 PHYSICAL EXAM GENERAL: The patient is awake, alert, and fully oriented, in no acute distress. HEAD: Normal with no signs of trauma. EYES: PERRL, extraocular movements intact, sclera anicteric, conjunctiva clear. ENT: Ears normal, nares patent, oropharynx clear without exudates, moist mucous membranes. NECK: Trachea midline, full range of motion, supple. LUNGS: Breath sounds equal, clear to auscultation bilaterally, no wheezes, no crackles, no accessory muscle use. HEART: Regular rate and rhythm, S1, S2 without murmur, rub or gallop. ABDOMEN: Soft, nontender, nondistended, normoactive bowel sounds, no guarding, no rebound, no hepatosplenomegaly, no masses. EXTREMITIES: 2+ pulses, warm, well-perfused, no edema. NEUROLOGICAL: Cranial nerves II through XII grossly intact. Normal speech. No dysmetria. Mild left nasolabial facial asymmetry. PSYCH: Normal mood, normal affect. SKIN: Warm, dry, normal turgor, no rashes or lesions noted. LABS Laboratory Results - last 24 hr 05/03/19 05/03/19 05/03/19 03:30 18:32 22:38 WBC RBC Hgb Hct MCV MCH MCHC RDW Plt Count MPV Absolute Neuts (auto) Neutrophils % Lymphocytes % Monocytes % Eosinophils % Basophils % Nucleated RBC % PT with INR INR Sodium 141 Potassium 4.1 Chloride 107 Carbon Dioxide 28 Anion Gap 7 L BUN 12.5 Creatinine 0.8 Est GFR (CKD-EPI)AfAm 87.80 Est GFR (CKD-EPI)NonAf 75.75 POC Glucometer 171 130 Random Glucose 167 H Hemoglobin A1c % Calcium 9.1 Phosphorus Magnesium Total Bilirubin 0.3 AST 18 ALT 30 Alkaline Phosphatase 112 Total Protein 6.9 Albumin 3.2 L Triglycerides 65 Cholesterol 136 Total LDL Cholesterol 79 HDL Cholesterol 57 05/04/19 05/04/19 05/04/19 06:10 06:10 06:10 WBC 8.2 RBC 4.33 Hgb 12.0 Hct 36.9 MCV 85.2 MCH 27.7 MCHC 32.5 RDW 13.8 Plt Count 280 MPV 8.9 Absolute Neuts (auto) 3.9 Neutrophils % 47.6 D Lymphocytes % 39.7 D Monocytes % 7.6 Eosinophils % 4.4 Basophils % 0.7 Nucleated RBC % 0 PT with INR 12.10 INR 1.03 Sodium 142 Potassium 4.4 Chloride 108 H Carbon Dioxide 28 Anion Gap 6 L BUN 11.7 Creatinine 0.7 Est GFR (CKD-EPI)AfAm 103.18 Est GFR (CKD-EPI)NonAf 89.03 POC Glucometer Random Glucose 109 H Hemoglobin A1c % Calcium 8.9 Phosphorus 3.7 Magnesium 1.9 Total Bilirubin 0.5 AST 15 ALT 27 Alkaline Phosphatase 97 Total Protein 6.8 Albumin 3.1 L Triglycerides 109 Cholesterol 135 Total LDL Cholesterol 68 HDL Cholesterol 45 05/04/19 05/04/19 05/04/19 06:10 06:32 11:33 WBC RBC Hgb Hct MCV MCH MCHC RDW Plt Count MPV Absolute Neuts (auto) Neutrophils % Lymphocytes % Monocytes % Eosinophils % Basophils % Nucleated RBC % PT with INR INR Sodium Potassium Chloride Carbon Dioxide Anion Gap BUN Creatinine Est GFR (CKD-EPI)AfAm Est GFR (CKD-EPI)NonAf POC Glucometer 102 116 Random Glucose Hemoglobin A1c % 8.7 H Calcium Phosphorus Magnesium Total Bilirubin AST ALT Alkaline Phosphatase Total Protein Albumin Triglycerides Cholesterol Total LDL Cholesterol HDL Cholesterol HOSPITAL COURSE: Date of Admission:05/03/19 Date of Discharge: 05/04/19 69F with PMH of HTN, IDDM, Hypothyroid, asthma, tinnitus, and gastritis who presented with dizziness and nausea. Patient's condition improved after stopping levofloxacin and increasing dose of Meclezine to 25 mg PO TID. Patient will follow up with neurology as outpatient and with an ENT to address her mastoid effusion and dizziness. Echo, carotid, head ct, and brain MRI did not show any new findings. No events on telemetry monitoring. Will be taking ASA 81 mg PO Daily. Imaging done this admission: Head CT: No evidence of acute intracranial hemorrhage. No CT evidence of acute territorial ischemic changes. Brain MRI: No acute infarct is identified. Moderate atrophy and chronic microvascular ischemic disease changes. Bilateral periventricular and right thalamic chronic lacunar infarcts are present. Left mastoid effusion. Case discussed with Dr. Carvalho, emergency room attending physician. Carotid Doppler: Mild intimal thickening in the left common carotid artery and small plaques at the bifurcation without evidence of hemodynamically significant stenosis, bilaterally. There is also mild intimal thickening in the right mid common carotid artery. Echo: Technically limited study. The left ventricle is normal in size. There is mild concentric left ventricular hypertrophy. Left ventricular systolic function is normal. No regional wall motion abnormalities noted. Ejection Fraction = 55-60%. The right ventricle is not well visualized. The left atrial size is normal. Right atrial size is normal. There is mild aortic sclerosis. No significant valvular regurgitations are seen. There is no pericardial effusion. Minutes to complete discharge: 30 Discharge Summary Problems reviewed: Yes Reason For Visit: SEVERE DIZZINESS Current Active Problems Diabetes (Chronic) HTN (hypertension) (Chronic) Vertigo (Chronic) Condition: Stable - Instructions Diet, Activity, Other Instructions: You were seen in the hospital for complaints of dizziness. A head CT was done that was negative. A brain MRI was done that showed some chronic strokes. An ultrasound of your arteries was done that any acute changes that may have caused your dizziness. Additionally, you were seen by the neurologist with recommendation for outpatient follow up. In the hospital, you were started on a medication to help with your dizziness. You were able to walk with Physical Therapy, and you are now stable for discharge. MEDICATIONS you can take Meclizine 25 mg, by mouth, three times a day as needed for your dizziness. You can stop taking your older dosage. Please continue your other medications. REFERRALS: Please follow up with the neurologist, Dr. Lee for continued management of your headaches and dizziness. Please follow up within a week. Please follow up with Dr. Mcguire to update them on this admission and your continued health maintenance. Please follow up with the ENT doctor, Dr. Beckwith for continued management of your dizziness. We have included a referral in this packet. You may benefit from vestibular rehab to manage your dizziness, but please follow up with the ENT doctor first. SPECIAL INSTRUCTIONS: Please note that blood test for diabetes A1c is 8.7 which suggests overall poor blood glucose control, which could be causing dehdyration and recurrent symptoms with vertigo and dizziness. It is very important that you check blood sugars before meals and at bedtime daily for next 1 week, maintain a diary and discuss with your doctor about changing your diabetes medications. Also your CT scan head and MRI brain suggest old stroke which could be related to your high blood pressures. Recommend home BP monitoring and close follow up with your doctor. Return to the Emergency department or call 911 if you have worsening of your symptoms, dizziness, chest pain, or symptoms of paralysis of weakness. Referrals: Tatiana Mcguire MD [Primary Care Provider] - 1 Week Terrance Lee MD [Staff Physician] - 1 Week Jason Beckwith MD [Staff Physician] - 1 Week Disposition: VNS/HOME HEALTH CARE - Home Medications Comprehensive Discharge Medication List: Ambulatory Orders Levothyroxine [Synthroid -] 25 mcg PO DAILY 09/29/17 Simvastatin [Zocor -] 5 mg PO HS 09/29/17 Insulin Lispro [Humalog Kwikpen U-100] 5 unit SQ AC 04/24/19 Albuterol Sulfate [Proair Hfa] 2 puff IH Q6H PRN 05/03/19 Glipizide [Glipizide ER] 5 mg PO DAILY 05/03/19 Insulin Glargine,Hum.rec.anlog [Lantus Solostar] 25 units SQ HS 05/03/19 Irbesartan 75 mg PO DAILY 05/03/19 Metformin HCl [Glucophage] 1,000 mg PO BID 05/03/19 Omeprazole 20 mg PO DAILY 05/03/19 Meclizine HCl [Antivert -] 25 mg PO TID PRN #21 tablet 05/04/19 This patient is new to me today: Yes Date on this admission: 05/04/19 Emergency Visit: Yes ED Registration Date: 05/03/19 Care time: The patient presented to the Emergency Department on the above date and was hospitalized for further evaluation of their emergent condition. Critical Care patient: No - Discharge Referral Referred to [facility] Med [facility] No ATTENDING PHYSICIAN STATEMENT I saw and evaluated the patient. I reviewed the resident's note and discussed the case with the resident. I agree with the resident's findings and plan as documented. SUBJECTIVE: OBJECTIVE: ASSESSMENT AND PLAN:
--- NOTE | 2019-05-04 13:10 | PN ---
Teaching Attending Note Name of Resident: Mayela Ocampo ATTENDING PHYSICIAN STATEMENT I saw and evaluated the patient. I reviewed the resident's note and discussed the case with the resident. I agree with the resident's findings and plan as documented with exceptions below. SUBJECTIVE: Patient seen and examined, denies any dizziness. No complaints. OBJECTIVE: Vital Signs Period Temp Pulse Resp BP Sys/Perdomo Pulse Ox Last 24 Hr 97.4 F-98.1 F 52-78 18-20 109-146/67-76 97-99 Intake & Output 05/01/19 05/02/19 05/03/19 05/04/19 23:59 23:59 23:59 23:59 Intake Total 1000 Balance 1000 Weight 204 lb 3.2 oz General: sitting in bed, no acute distress neck: soft, supple Chest; no rales or wheezing Abdomen:Soft, obese, NT Extremities: no edema neuro : unchanged exam Home Medications Medication Instructions Recorded Levothyroxine [Synthroid -] 25 mcg PO DAILY 09/29/17 Simvastatin [Zocor -] 5 mg PO HS 09/29/17 Insulin Lispro [Humalog Kwikpen 5 unit SQ AC 04/24/19 U-100] Albuterol Sulfate [Proair Hfa] 2 puff IH Q6H PRN 05/03/19 Glipizide [Glipizide ER] 5 mg PO DAILY 05/03/19 Insulin Glargine,Hum.rec.anlog 25 units SQ HS 05/03/19 [Lantus Solostar] Irbesartan 75 mg PO DAILY 05/03/19 Metformin HCl [Glucophage] 1,000 mg PO BID 05/03/19 Omeprazole 20 mg PO DAILY 05/03/19 Meclizine HCl [Antivert -] 25 mg PO TID PRN #21 tablet 05/04/19 Active Medications Acetaminophen (Tylenol -) 650 mg PO Q6H PRN PRN Reason: PAIN LEVEL 4 - 6 Last Admin: 05/04/19 06:34 Dose: 650 mg Albuterol Sulfate (Ventolin Hfa Inhaler -) 2 puff IH Q6H PRN PRN Reason: ASTHMA Aspirin (Asa -) 81 mg PO DAILY [facility] Last Admin: 05/04/19 10:03 Dose: 81 mg Atorvastatin Calcium (Lipitor -) 40 mg PO HS [facility] Last Admin: 05/03/19 22:44 Dose: 40 mg Heparin Sodium (Porcine) (Heparin -) 5,000 unit SQ TID [facility] Last Admin: 05/04/19 06:34 Dose: 5,000 unit Lactated Ringer's (Lactated Ringers Solution) 1,000 ml in 1,000 mls @ 100 mls/ hr IV ASDIR [facility] Last Admin: 05/03/19 09:56 Dose: 100 mls/hr Insulin Aspart (Novolog Vial Sliding Scale -) 1 vial SQ [facility]; Protocol Last Admin: 05/04/19 11:34 Dose: Not Given Insulin Detemir (Levemir Vial) 25 units SQ HS [facility] Last Admin: 05/03/19 22:40 Dose: Not Given Levothyroxine Sodium (Synthroid -) 25 mcg PO DAILY@0700 [facility] Last Admin: 05/04/19 06:34 Dose: 25 mcg Losartan Potassium (Cozaar -) 25 mg PO DAILY [facility] Last Admin: 05/04/19 10:03 Dose: 25 mg Meclizine HCl (Antivert -) 25 mg PO TID [facility] Last Admin: 05/04/19 06:34 Dose: 25 mg Pantoprazole Sodium (Protonix -) 20 mg PO DAILY [facility] Last Admin: 05/04/19 10:03 Dose: 20 mg Laboratory Results - last 24 hr 05/03/19 05/03/19 05/03/19 03:30 18:32 22:38 WBC RBC Hgb Hct MCV MCH MCHC RDW Plt Count MPV Absolute Neuts (auto) Neutrophils % Lymphocytes % Monocytes % Eosinophils % Basophils % Nucleated RBC % PT with INR INR Sodium 141 Potassium 4.1 Chloride 107 Carbon Dioxide 28 Anion Gap 7 L BUN 12.5 Creatinine 0.8 Est GFR (CKD-EPI)AfAm 87.80 Est GFR (CKD-EPI)NonAf 75.75 POC Glucometer 171 130 Random Glucose 167 H Hemoglobin A1c % Calcium 9.1 Phosphorus Magnesium Total Bilirubin 0.3 AST 18 ALT 30 Alkaline Phosphatase 112 Total Protein 6.9 Albumin 3.2 L Triglycerides 65 Cholesterol 136 Total LDL Cholesterol 79 HDL Cholesterol 57 05/04/19 05/04/19 05/04/19 06:10 06:10 06:10 WBC 8.2 RBC 4.33 Hgb 12.0 Hct 36.9 MCV 85.2 MCH 27.7 MCHC 32.5 RDW 13.8 Plt Count 280 MPV 8.9 Absolute Neuts (auto) 3.9 Neutrophils % 47.6 D Lymphocytes % 39.7 D Monocytes % 7.6 Eosinophils % 4.4 Basophils % 0.7 Nucleated RBC % 0 PT with INR 12.10 INR 1.03 Sodium 142 Potassium 4.4 Chloride 108 H Carbon Dioxide 28 Anion Gap 6 L BUN 11.7 Creatinine 0.7 Est GFR (CKD-EPI)AfAm 103.18 Est GFR (CKD-EPI)NonAf 89.03 POC Glucometer Random Glucose 109 H Hemoglobin A1c % Calcium 8.9 Phosphorus 3.7 Magnesium 1.9 Total Bilirubin 0.5 AST 15 ALT 27 Alkaline Phosphatase 97 Total Protein 6.8 Albumin 3.1 L Triglycerides 109 Cholesterol 135 Total LDL Cholesterol 68 HDL Cholesterol 45 05/04/19 05/04/19 05/04/19 06:10 06:32 11:33 WBC RBC Hgb Hct MCV MCH MCHC RDW Plt Count MPV Absolute Neuts (auto) Neutrophils % Lymphocytes % Monocytes % Eosinophils % Basophils % Nucleated RBC % PT with INR INR Sodium Potassium Chloride Carbon Dioxide Anion Gap BUN Creatinine Est GFR (CKD-EPI)AfAm Est GFR (CKD-EPI)NonAf POC Glucometer 102 116 Random Glucose Hemoglobin A1c % 8.7 H Calcium Phosphorus Magnesium Total Bilirubin AST ALT Alkaline Phosphatase Total Protein Albumin Triglycerides Cholesterol Total LDL Cholesterol HDL Cholesterol Microbiology 05/03/19 06:13 Urine - Urine Clean Catch Urine Culture - Final NO GROWTH OBTAINED Brain MRI/2Decho/Carotid Duplex results noted telemetry PVCs, no events otherwise. ASSESSMENT AND PLAN: 69 yof with PMHx of HTN, IDDM, hypothyroidism, asthma, tinnitus, and gastritis , prior ED visits with vertigo when d/beatris in meclizine, recent UTI on levaquin admitted with vertigoa -Vertigo, r/o cerebellar CVA vs BPPV -Old right cerebellar infarct -Dehydration -recent UTI on levaquin -IDDM -HTN -Hypothyroidism -Asthma -Tinnitus -gastritis Plan: No acute concerns. MRI with old CVA but no new events. ASA/statin. Lipid panel/A1c noted 2Decho/carotid duplex noted. Patient counseled on home BP/Blood glucose control and close follow up with PCP. To maintain adequate hydration and outpatient ENT follow up and outpatient vestibular PT. Continue home meds PT eval noted, home VNS/PT to be arranged Dispo dc home today Plan and instructions discussed in detail with patient and all questions answered
[2019-05-04 14:45] VITALS: BP 147/82; PULSE 77; TEMP 97.7
[2019-05-04] MEDS ORDERED: PRAMIPEXOLE DIHYDROCHLORIDE 0.125 MG TABLET PO SCH (20:00)
== END 2019-05-04 13:56 | disposition home health service (06) | DRG 149 ==
LOC: JER 02:07 → JERBED 05:53 → J4W 20:28 → JSAMEDAYSX 05-04 12:23 → J4W 05-04 12:25
PROVIDERS: ATTEND Hospitalist
DX: R42 Dizziness and giddiness (principal); I10 Essential (primary) hypertension; E03.9 Hypothyroidism, unspecified; E78.5 Hyperlipidemia, unspecified; E11.9 Type 2 diabetes mellitus without complications; E86.0 Dehydration; E66.01 Morbid (severe) obesity due to excess calories; Z68.36 Body mass index [BMI] 36.0-36.9, adult; G43.909 Migraine, unspecified, not intractable, without status migrainosus; G25.81 Restless legs syndrome
CPT/HCPCS: 36415; 70450-TC; 70551-TC; 71045-TC-FY; 80053; 80061; 81003; 82962; 83036; 83721; 83735; 84100; 85025; 85610; 87086; 93005; 93010; 93306-TC; 93880-TC; 97116-GP; 97161-GP; 99285-25; J0131; J1644; J7030

== ENCOUNTER 2019-05-09 23:33 | Emergency (ER) | payer OTHER ==
--- NOTE | 2019-05-09 23:55 | PDOC ---
Attending Attestation - Resident Resident Name: Sarita Ashley - ED Attending Attestation I have performed the following: I have examined & evaluated the patient, The case was reviewed & discussed with the resident, I agree w/resident's findings & plan - HPI HPI: 05/10/19 00:50 Pt returns with her vertigo and dizziness and nausea. She has been compliant with her meclizine. Head CT scan done recently and all labs are normal, so we wont repeat them. - Physicial Exam PE: 05/10/19 02:46 Pt has normal HEENT afebrile pt appears well neuro intact no gross focal deficits Abd soft NT ND No flank pain No extremity tenderness Heart and lungs normal - Medical Decision Making 05/10/19 00:56 Pt has low normal BP; she will be hydrated. 05/10/19 00:56 We will reeval patient after meds in the ER 05/10/19 02:46 Pt is feeling better and she is stable for discharge
[2019-05-09] MEDS ORDERED: ONDANSETRON 4 MG/2 ML VIAL IVPUSH ONE (23:58)
[2019-05-09] MEDS ORDERED: MECLIZINE HCL 25 MG TABLET (FP) PO ONE (23:58)
[2019-05-09] MEDS ORDERED: SODIUM CHLORIDE 0.9% 500 ML INFUS.BAG IV ONE (23:58)
[2019-05-10 00:29] VITALS: BP 119/71; PULSE 89; TEMP 97.5; BMI 36.1
--- NOTE | 2019-05-10 00:29 | PDOC ---
History of Present Illness - General Chief Complaint: Lightheaded Stated Complaint: DIZZINESS Time Seen by Provider: 05/09/19 23:44 - History of Present Illness Initial Comments: Sandrine Bazan is a 69yo woman with a PMH of HTN, IDDM, hypothyroidism, asthma, tinnitus, gastritis, and vertigo with recent admission for evaluation of her vertigo who presents with continued symptoms. Ms Bazan reports that she was discharged from the hospital a week ago, and she has had intermittent symptoms of vertigo since her discharge. She describes these as a sensation of the world spinning around with accompanying nausea; the symptoms are unchanged since her recent discharge. Ms Bazan reports that she felt the vertigo this morning, but her symptoms resolved with her home meclizine. She started to feel dizzy again in the evening , but she did not feel better with medication, and she felt very nauseated so decided to present to the hospital. Ms Bazan recently had a CT head, brain MRI, carotid doppler, and echo completed along with neurology consult during her recent admission. She was noted to have a mastoid effusion and hyperglycemia, likely with dehydration contributing to her symptoms. She has not yet followed up with ENT or neurology as an outpatient. Past History - Past Medical History Allergies/Adverse Reactions: Allergies Allergy/AdvReac Type Severity Reaction Status Date / Time No Known Allergies Allergy Verified 05/10/19 00:28 Home Medications: Ambulatory Orders Levothyroxine [Synthroid -] 25 mcg PO DAILY 09/29/17 Simvastatin [Zocor -] 5 mg PO HS 09/29/17 Insulin Lispro [Humalog Kwikpen U-100] 5 unit SQ AC 04/24/19 Albuterol Sulfate [Proair Hfa] 2 puff IH Q6H PRN 05/03/19 Glipizide [Glipizide ER] 5 mg PO DAILY 05/03/19 Insulin Glargine,Hum.rec.anlog [Lantus Solostar] 25 units SQ HS 05/03/19 Irbesartan 75 mg PO DAILY 05/03/19 Metformin HCl [Glucophage] 1,000 mg PO BID 05/03/19 Omeprazole 20 mg PO DAILY 05/03/19 Aspirin [ASA -] 81 mg PO DAILY #30 tab.chew 05/04/19 Meclizine HCl [Antivert -] 25 mg PO TID PRN #21 tablet 05/04/19 Asthma: Yes Cancer: No Cardiac Disorders: Yes (DC,PALPITATION) CVA: Yes (R cerebellar CVA) COPD: No CHF: No Diabetes: Yes GI Disorders: Yes (GASTRITIS) HTN: Yes Hypercholesterolemia: Yes Thyroid Disease: Yes - Surgical History Cholecystectomy: Yes - Immunization History Immunization Up to Date: No - Psycho Social/Smoking Cessation Hx Smoking History: Never smoked Have you smoked in the past 12 months: No If you are a former smoker, when did you quit?: 1989 Hx Alcohol Use: No Drug/Substance Use Hx: No Substance Use Type: None Hx Substance Use Treatment: No Review of Systems - Review of Systems Comments:: General: No fevers, no chills, no weight or appetite change, no malaise HEENT: No changes in vision, no changes in hearing, no congestion, no sore throat CV: No chest pain, no palpitations, no LE edema Pulm: No SOB, no cough, no wheezing GI: No nausea or vomiting, no change in bowel habits, no melena : No frequency, no urgency, no dysuria Musc: No back pain, no joint swelling, no recent injury Skin: No rash, no lesions, no erythema Endo: No excessive thirst, no heat/cold intolerance Heme: No unusual bruising or bleeding, no swollen glands Neuro: No syncope, no numbness/tingling, no focal weakness. See HPI Vasc: No claudication Psych: No recent change in mood, no SI or HI *Physical Exam - Physical Exam General: Uncomfortable. No acute distress HEENT: Atraumatic. Eyes covered w/ hat, unwilling to uncover for exam. MMM, voice normal, normal neck ROM Cards: RRR, no murmur appreciated Pulm: Comfortable on room air, clear to auscultation bilaterally Abd: Soft, nontender, nondistended Ext: Atraumatic. No LE edema. ROM intact. WWP Skin: Normal color, no rashes or lesions Neuro: A&Ox3, CN grossly intact, normal speech, motor/sensory grossly intact and symmetric. No focal deficits. Increased sensation of vertigo and nausea when turning head or rolling over. Psych: Mood appropriate to situation Medical Decision Making - Medical Decision Making 05/10/19 00:05 Sandrine Keturah Bazan is a 69yo woman with a PMH of HTN, IDDM, hypothyroidism, asthma, tinnitus, gastritis, and vertigo with recent admission for evaluation of her vertigo who presents with continued symptoms of vertigo and nausea. She reports these have been occurring intermittently since her discharge from the hospital; there have been no changes to her sensation of vertigo. She denies any fevers, chills, difficulty walking, new neurological deficits, or other new or changing symptoms. - No new symptoms compared to previously diagnosed vertigo. No red flag symptoms including fever, change in hearing, or neurological deficits - CT head, MRI brain, carotid doppler, echo, neuro consult, cardology consult completed while in the hospital last week. Given recent workup with the same symptoms without any concerning cardiac or neurological findings, will not repeat today - Vertigo with position changes and no other associated symptoms most likely positional vertigo - Will give meclizine, zofran, IVF and reassess 05/10/19 01:52 - Feeling significantly improved, but still some nausea and veritgo - Reglan ordered for continued symptoms - Fingerstick to verify that hyperglycemia is not contributing 05/10/19 02:55 - Pt observed ambulating without difficulty in the ED - Symptoms markedly improved following medications. - Will d/c home. Patient encouraged to go to her previously schedule appointments with ENT and neurology, which she states are scheduled for next week. She agrees with this plan Discussed with Dr Yon Ashley PGY2 Discharge - Discharge Information Problems reviewed: Yes Clinical Impression/Diagnosis: Vertigo Condition: Stable Disposition: HOME - Admission No - Follow up/Referral - Patient Discharge Instructions Patient Printed Discharge Instructions: DI for Vertigo Additional Instructions: Discharge Instructions: You were seen in the emergency department for vertigo. Your symptoms improved with medications and IV fluids. Home Care: - Continue to use your meclizine for vertigo as previously prescribed - Make sure you are keeping close control of your blood sugars at home. Follow up with your regular doctor for management of your diabetes - Try to increase your intake of water to stay well hydrated. Dehydration may worsen your symptoms - Go to your previously schedule appointments with neurology and ENT. - Seek immedate care for worsening symptoms, any changes to your vertigo, one- sided weakness/numbness, chest pain, difficulty breathing, difficulty walking, new loss of balance, or any other medical emergency. - Post Discharge Activity
[2019-05-10] MEDS ORDERED: MECLIZINE HCL 25 MG TABLET (FP) ONE (00:31)
[2019-05-10] MEDS ORDERED: METOCLOPRAMIDE HCL INJECTION 10 MG/2 ML VIAL ONE (01:52)
[2019-05-10] MEDS ORDERED: METOCLOPRAMIDE HCL INJECTION 10 MG/2 ML VIAL IVPUSH ONE (01:53)
== END 2019-05-10 03:38 | disposition home or self-care (01) ==
LOC: JER 23:33
PROC: 3E033GC Introduction of Other Therapeutic Substance into Peripheral Vein, Percutaneous Approach (ICD-10-PCS; principal; 2019-05-09)
PROC: 3E0337Z Introduction of Electrolytic and Water Balance Substance into Peripheral Vein, Percutaneous Approach (ICD-10-PCS; 2019-05-09)
DX: R42 Dizziness and giddiness (principal); I10 Essential (primary) hypertension; E78.5 Hyperlipidemia, unspecified; E11.9 Type 2 diabetes mellitus without complications; E03.9 Hypothyroidism, unspecified; J45.909 Unspecified asthma, uncomplicated; K29.70 Gastritis, unspecified, without bleeding
CPT/HCPCS: 82962; 99282-25

== ENCOUNTER 2019-05-15 10:29 | Emergency (ER) | payer OTHER ==
[2019-05-15 10:58] VITALS: TEMP 97.3; BMI 35.7
--- NOTE | 2019-05-15 11:21 | PDOC ---
History of Present Illness - General Chief Complaint: Headache Stated Complaint: DIZZINESS Time Seen by Provider: 05/15/19 11:20 History Source: Patient Exam Limitations: No Limitations Past History - Past Medical History Allergies/Adverse Reactions: Allergies Allergy/AdvReac Type Severity Reaction Status Date / Time No Known Allergies Allergy Verified 05/15/19 10:50 Home Medications: Ambulatory Orders Levothyroxine [Synthroid -] 25 mcg PO DAILY 09/29/17 Simvastatin [Zocor -] 5 mg PO HS 09/29/17 Insulin Lispro [Humalog Kwikpen U-100] 5 unit SQ AC 04/24/19 Albuterol Sulfate [Proair Hfa] 2 puff IH Q6H PRN 05/03/19 Glipizide [Glipizide ER] 5 mg PO DAILY 05/03/19 Insulin Glargine,Hum.rec.anlog [Lantus Solostar] 25 units SQ HS 05/03/19 Irbesartan 75 mg PO DAILY 05/03/19 Metformin HCl [Glucophage] 1,000 mg PO BID 05/03/19 Omeprazole 20 mg PO DAILY 05/03/19 Aspirin [ASA -] 81 mg PO DAILY #30 tab.chew 05/04/19 Meclizine HCl [Antivert -] 25 mg PO TID PRN #21 tablet 05/04/19 Asthma: Yes Cancer: No Cardiac Disorders: Yes (ME,PALPITATION) CVA: Yes (R cerebellar CVA) COPD: No CHF: No Diabetes: Yes GI Disorders: Yes (GASTRITIS) HTN: Yes Hypercholesterolemia: Yes Thyroid Disease: Yes - Surgical History Cholecystectomy: Yes - Immunization History Immunization Up to Date: No - Psycho Social/Smoking Cessation Hx Smoking History: Former smoker Have you smoked in the past 12 months: No If you are a former smoker, when did you quit?: 1999 Information on smoking cessation initiated: No Hx Alcohol Use: No Drug/Substance Use Hx: No Substance Use Type: None Hx Substance Use Treatment: No *Physical Exam - Vital Signs Last Vital Signs Temp Pulse Resp BP Pulse Ox 97.3 F L 88 20 124/76 97 05/15/19 10:40 05/15/19 10:40 05/15/19 10:40 05/15/19 10:40 05/15/19 10:40 Discharge - Follow up/Referral Referrals: Rach Crain NP [Primary Care Provider] - - Patient Discharge Instructions - Post Discharge Activity
[2019-05-15] MEDS ORDERED: ACETAMINOPHEN 325 MG TABLET (FP) PO ONE (13:22)
--- NOTE | 2019-05-15 13:22 | PDOC ---
History of Present Illness - General Chief Complaint: Headache Stated Complaint: DIZZINESS Time Seen by Provider: 05/15/19 11:20 History Source: Patient, [employer] Used ([facility] # [id number]) , Old Records Exam Limitations: No Limitations - History of Present Illness Initial Comments: HPI: 69 y/o female presenting to [facility] ER complaining of dizziness and nausea that started while making coffee this morning. Worse with movement. Pt took her prescribed PRN Meclizine and symptoms started to improve. After arrival in the ED, her symptoms completely resolved. At time of interview, the pt is complaining of a mild diffuse headache that she attributes to having not eaten today. Of note, pt has been evaluated at this facility for similar symptoms in the past. Evaluated by Dr. Lee and prescribed medications for peripheral vertigo. Pt has a f/u appointment scheduled in the first week of May. Medical Hx: - HTN - DDM - Hypothyroidism - Asthma - Tinnitus - Gastritis - Vertigo Review of Systems: In addition to that documented in the HPI above, the additional ROS was obtained : Constitutional- Denies fevers or chills Head- Denies vision changes ENMT- Denies sore throat CV- Denies chest pain Resp- Denies acute SOB GI- Denies vomiting or diarrhea - Denies painful urination or increased frequency MSK- Denies recent trauma to head or neck Skin- Denies new rashes Neuro- Denies new numbness or tingling or weakness Endocrine- Denies polyuria Heme- Denies bleeding or bruising Physical Examination: Vital signs and nursing notes reviewed. Constitutional- Well-developed, well-nourished adult female in no acute distress or obvious discomfort. Found semi-fowlers on hospital bed. Answered all questions appropriately and completely. Head- Normocephalic. No obvious external signs of trauma. Eyes- Pupils 3mm and PERRL. EOMI. Sclerae white. Ears- Hearing grossly intact. Nose- No nasal discharge. Cardiovascular / Chest- Regular rate and regular rhythm. No murmur, rubs, clicks , or gallops. Peripheral pulses- radial pulses full. Respiratory- Breathing unlabored. Equal chest rise and fall. Clear to auscultation bilaterally. No stridor, no wheezing, no rhonchi. Neuro- Alert and oriented x4. Moving all four extremities spontaneously. No facial asymmetry. No slurred speech. No upper or lower extremity drift. Sensation to all four extremities intact. No nuchal rigidity. Intact rapid alternating movements and heel to peters. Gait normal. Observed walking with assistance of personal cane. Skin- Warm, dry, and intact. Psych- Affect- appropriate. Mood- normal. Speech was non-labored, non- pressured. MDM: 69 y/o female presenting with resolved vertiginous symptoms. H/o similar. Undergone neurologic evaluation. No clear change in symptomatology at today's visit. Afebrile. Vitals unremarkable for hypotension or tachycardia. Physical exam as described above. Neurologically intact. Suspect likely acute episode of peripheral vertigo. Low suspicion for new intracranial lesions, ischemic CVA, or ICH. Pt states she believes she can go home. Will order PO Tylenol for headache. Pt to f/u with Dr. Lee at previously scheduled appointment in May. Dinesh Jerez M.D., PGY2 Emergency Medicine Resident Past History - Past Medical History Allergies/Adverse Reactions: Allergies Allergy/AdvReac Type Severity Reaction Status Date / Time No Known Allergies Allergy Verified 05/15/19 10:50 Home Medications: Ambulatory Orders Levothyroxine [Synthroid -] 25 mcg PO DAILY 09/29/17 Simvastatin [Zocor -] 5 mg PO HS 09/29/17 Insulin Lispro [Humalog Kwikpen U-100] 5 unit SQ AC 04/24/19 Albuterol Sulfate [Proair Hfa] 2 puff IH Q6H PRN 05/03/19 Glipizide [Glipizide ER] 5 mg PO DAILY 05/03/19 Insulin Glargine,Hum.rec.anlog [Lantus Solostar] 25 units SQ HS 05/03/19 Irbesartan 75 mg PO DAILY 05/03/19 Metformin HCl [Glucophage] 1,000 mg PO BID 05/03/19 Omeprazole 20 mg PO DAILY 05/03/19 Aspirin [ASA -] 81 mg PO DAILY #30 tab.chew 05/04/19 Meclizine HCl [Antivert -] 25 mg PO TID PRN #21 tablet 05/04/19 Asthma: Yes Cancer: No Cardiac Disorders: Yes (DC,PALPITATION) CVA: Yes (R cerebellar CVA) COPD: No CHF: No Diabetes: Yes GI Disorders: Yes (GASTRITIS) HTN: Yes Hypercholesterolemia: Yes Thyroid Disease: Yes - Surgical History Cholecystectomy: Yes - Immunization History Immunization Up to Date: No - Psycho Social/Smoking Cessation Hx Smoking History: Former smoker Have you smoked in the past 12 months: No If you are a former smoker, when did you quit?: 1999 Information on smoking cessation initiated: No Hx Alcohol Use: No Drug/Substance Use Hx: No Substance Use Type: None Hx Substance Use Treatment: No *Physical Exam - Vital Signs Last Vital Signs Temp Pulse Resp BP Pulse Ox 97.3 F L 88 20 124/76 97 05/15/19 10:40 05/15/19 10:40 05/15/19 10:40 05/15/19 10:40 05/15/19 10:40 Discharge - Discharge Information Problems reviewed: Yes Clinical Impression/Diagnosis: Vertigo Condition: Improved Disposition: HOME - Admission No - Follow up/Referral Referrals: Rach Crain NP [Primary Care Provider] - Terrance Lee MD [Staff Physician] - - Patient Discharge Instructions Patient Printed Discharge Instructions: DI for Vertigo Additional Instructions: Usted fue visto hoy por mareos que mejoraron con medina Meclizine en casa. Tori fue probablemente un episodio de vrtigo. Contine tomando lakia medicamentos caseros segn lo prescrito por medina neurlogo, el Dr. Lee. Karon un seguimiento con medina neurlogo, el Dr. Lee, en la mari previamente programada para enero. Dirjase al departamento de emergencias ms cercano si medina afeccin empeora o siente que necesita gwendolyn evaluacin de emergencia adicional. You were seen today for dizziness that got better with your home Meclizine. This was likely an episode of your vertigo. Continue to take your home medications as prescribed by your neurologist, Dr. Lee. Follow up with your neurologist, Dr. Lee at the previously scheduled appointment in May. Go to the nearest emergency department if your condition worsens or you feel like you need additional emergency evaluation. Print Language: FRISIAN - Post Discharge Activity
[2019-05-15] MEDS ORDERED: ACETAMINOPHEN 325 MG TABLET (FP) ONE (13:24)
[2019-05-15 13:41] VITALS: BP 97/70; PULSE 67
--- NOTE | 2019-05-16 09:38 | PDOC ---
Documentation entered by Alexsandra Caal SCRIBE, acting as scribe for Jarrell Mix MD. Jarrell Mix MD: This documentation has been prepared by the Afua nagy Adrianna, SCRIBE, under my direction and personally reviewed by me in its entirety. I confirm that the documentation accurately reflects all work, treatment, procedures, and medical decision making performed by me. Attending Attestation - Resident Resident Name: Dinesh Jerez - ED Attending Attestation I have performed the following: I have examined & evaluated the patient, The case was reviewed & discussed with the resident, I agree w/resident's findings & plan, Exceptions are as noted - HPI HPI: The patient is a 69 year old female, with a significant PMH of vertigo, HTN, DM , hypothyroidism, asthma, tinnitus, and gastritis, who presents to the ED for evaluation of room-spinning dizziness prior to arrival. Patient notes she woke up and went to make breakfast this morning, when she developed sudden-onset room -spinning dizziness. Patient reports associated nausea at that time. Her dizziness was exacerbated with turning her head, and notes she was unable to drink her coffee secondary to feeling significantly dizzy. Patient called EMS as her symptoms were unbearable. She took her meclizine prior to EMS arrival, and notes her symptoms completely resolved en route to the ED. Patient notes todays episode was identical to prior vertiginous episodes. Denies any complaints while in the ED, and notes she is hungry. Denies fever, chills, chest pain, SOB, vomit, diarrhea, constipation, dysuria, hematuria, abdominal pain, headache, numbness, or tingling. Allergies: NKA, NKDA Surgical History: Cholecystectomy Social History: Former smoker (quit >15 years ago). Denies EtOH or illicit drug use PCP: Dr. Crain - Physicial Exam PE: GENERAL: Awake, alert, and fully oriented, in no acute distress. Answering all questions appropriately, eating a sandwich. HEAD: No signs of trauma EYES: PERRLA, EOMI, sclera anicteric, conjunctiva clear ENT: Auricles normal inspection, hearing grossly normal, nares patent, oropharynx clear without exudates. Moist mucosa NECK: Normal ROM, supple, no lymphadenopathy, JVD, or masses LUNGS: Breath sounds equal, clear to auscultation bilaterally. No wheezes, and no crackles HEART: Regular rate and rhythm, normal S1 and S2, no murmurs, rubs or gallops ABDOMEN: Soft, nontender, normoactive bowel sounds. No guarding, no rebound. No masses EXTREMITIES: Normal range of motion, no edema. No clubbing or cyanosis. No cords , erythema, or tenderness BACK: No midline spinal tenderness in cervical/thoracic/lumbar region NEUROLOGICAL: Normal speech, cranial nerves intact, negative pronator drift, 5/ 5 strength in all 4 extremities, normal sensation to light touch in all 4 extremities, normal cerebellar exam, normal gait, normal reflexes and tone SKIN: Warm, Dry, normal turgor, no rashes or lesions noted. - Medical Decision Making 05/15/19 13:23 69-year-old female with multiple medical problems including peripheral vertigo, with recent negative work-up for central vertigo presents emergency department with resolved vertigo. Patient is very well-appearing in the emergency department. Her neurologic exam is completely normal. She is ambulating in the ED without difficulty. Patient is clinically stable for discharge home, she has neurologic follow-up next month. I discussed the physical exam findings, ancillary test results and final diagnoses with the patient. I answered all of the patient's questions. The patient was satisfied with the care received and felt comfortable with the discharge plan and treatment plan. The patient will call their primary care physician within 24 hours to arrange follow-up and will return to the Emergency Department with any new, persistent or worsening symptoms. Heart Score/ECG Review #1 05/15/19 13:29 60 twelve-lead EKG was performed and reviewed by me. Sinus rhythm, rate 68. Left axis deviation. Left anterior fascicular block with right bundle branch block. When compared to EKG from May 03, no significant changes
--- NOTE | 2019-05-17 13:36 | EKG ---
Test Reason : Blood Pressure : / mmHG Vent. Rate : 068 BPM Atrial Rate : 068 BPM P-R Int : 150 ms QRS Dur : 112 ms QT Int : 448 ms P-R-T Axes : 043 -70 001 degrees QTc Int : 476 ms SINUS RHYTHM WITH MARKED SINUS ARRHYTHMIA INCOMPLETE RIGHT BUNDLE BRANCH BLOCK LEFT ANTERIOR FASCICULAR BLOCK BIFASCICULAR BLOCK ABNORMAL ECG WHEN COMPARED WITH ECG OF 03-MAY-2019 06:21, NO SIGNIFICANT CHANGE WAS FOUND Confirmed by ALAINA BARAHONA MD ([id number]) on 05/17/2019 1:35:54 PM Referred By: Confirmed By:ALAINA BARAHONA MD
== END 2019-05-15 13:30 | disposition home or self-care (01) ==
LOC: JER 10:29
DX: R42 Dizziness and giddiness (principal); I10 Essential (primary) hypertension; E11.9 Type 2 diabetes mellitus without complications; Z79.4 Long term (current) use of insulin; E03.9 Hypothyroidism, unspecified; J45.909 Unspecified asthma, uncomplicated; H93.19 Tinnitus, unspecified ear; Z87.19 Personal history of other diseases of the digestive system; Z86.73 Personal history of transient ischemic attack (TIA), and cerebral infarction without residual deficits
CPT/HCPCS: 93005; 93010; 99282-25

== ENCOUNTER 2019-05-17 19:19 | Emergency (ER) | payer OTHER ==
--- NOTE | 2019-05-17 19:42 | PDOC ---
Attending Attestation - Resident Resident Name: DomingaCindy - ED Attending Attestation I have performed the following: I have examined & evaluated the patient, The case was reviewed & discussed with the resident, I agree w/resident's findings & plan - HPI HPI: 05/17/19 22:23 see resident hpi - Physicial Exam PE: 05/17/19 22:23 agree with resident exam - Medical Decision Making 05/17/19 22:69-year-old female with lightheadedness vomiting and diarrhea since eating a meal that may have been bad. Patient given Reglan and IV fluids, antacids Plan for CT scan abdomen and pelvis due to patient's age and symptomatology Will reevaluate and possibly DC home pending results if tolerating p.o.
[2019-05-17] MEDS ORDERED: LACTATED RINGERS SOLUTION 1000 ML INFUS.BAG IV ONE (20:04)
[2019-05-17] MEDS ORDERED: METOCLOPRAMIDE HCL INJECTION 10 MG/2 ML VIAL IVPB ONE (20:04)
[2019-05-17] MEDS ORDERED: ACETAMINOPHEN 1000 MG/100 ML VIAL (NON FORMULARY) IVPB ONE (20:04)
[2019-05-17] MEDS ORDERED: FAMOTIDINE 20 MG/50 ML IVPB 20 MG/50 ML MG IVPB ONE ×2 (20:04→21:04)
--- NOTE | 2019-05-17 20:08 | PDOC ---
History of Present Illness - General Stated Complaint: VOMITING Time Seen by Provider: 05/17/19 19:40 History Source: Patient Exam Limitations: No Limitations - History of Present Illness Initial Comments: 05/17/19 20:06 69y F with PMH of vertigo, HTN, DM, hypothyroidism, asthma, tinnitus, and gastritis presenting to ED with complaints of vomiting x4 (nbnb), diarrhea ( watery stools) and dizziness that started today. Patient states that her son gave her [place] yesterday and thinks it may have been bad because since then she has had this burning sensation in her abdomen, vomiting and diarrhea. Denies blood in the stool, fevers, chills, urinary symptoms, chest pain, sob, headache. She says the dizziness is worse when she opens her eyes and is positional. She has had workup in the past for this problem and it seems to be peripheral with negative MRI PMH: see hpi PSH: cholecystectomy, Meds: see med rec Allergies: nkda Past History - Past Medical History Allergies/Adverse Reactions: Allergies Allergy/AdvReac Type Severity Reaction Status Date / Time No Known Allergies Allergy Verified 05/15/19 10:50 Home Medications: Ambulatory Orders Levothyroxine [Synthroid -] 25 mcg PO DAILY 09/29/17 Simvastatin [Zocor -] 5 mg PO HS 09/29/17 Insulin Lispro [Humalog Kwikpen U-100] 5 unit SQ AC 04/24/19 Albuterol Sulfate [Proair Hfa] 2 puff IH Q6H PRN 05/03/19 Glipizide [Glipizide ER] 5 mg PO DAILY 05/03/19 Insulin Glargine,Hum.rec.anlog [Lantus Solostar] 25 units SQ HS 05/03/19 Irbesartan 75 mg PO DAILY 05/03/19 Metformin HCl [Glucophage] 1,000 mg PO BID 05/03/19 Omeprazole 20 mg PO DAILY 05/03/19 Aspirin [ASA -] 81 mg PO DAILY #30 tab.chew 05/04/19 Meclizine HCl [Antivert -] 25 mg PO TID PRN #21 tablet 05/04/19 Ondansetron [Zofran *Odt*] 4 mg SL BID #14 od.tablet 05/17/19 Asthma: Yes Cancer: No Cardiac Disorders: Yes ([place],PALPITATION) CVA: Yes (R cerebellar CVA) COPD: No CHF: No Diabetes: Yes GI Disorders: Yes (GASTRITIS) HTN: Yes Hypercholesterolemia: Yes Thyroid Disease: Yes - Surgical History Cholecystectomy: Yes - Immunization History Immunization Up to Date: No - Psycho Social/Smoking Cessation Hx Smoking History: Never smoked Have you smoked in the past 12 months: No If you are a former smoker, when did you quit?: 1989 Hx Alcohol Use: No Drug/Substance Use Hx: No Substance Use Type: None Hx Substance Use Treatment: No Review of Systems - Review of Systems Constitutional: No: Chills, Fever, Weakness HEENTM: No: Symptoms Reported Respiratory: No: Symptoms reported Cardiac (ROS): No: Symptoms Reported ABD/GI: Yes: See HPI : No: Symptoms Reported Musculoskeletal: No: Symptoms Reported Integumentary: No: Symptoms Reported Neurological: Yes: See HPI *Physical Exam - Physical Exam General Appearance: Yes: Appropriately Dressed, Obese. No: Apparent Distress HEENT: positive: EOMI, MARY, Normal ENT Inspection, Other (no nystagmus) Neck: positive: Trachea midline, Supple. negative: Lymphadenopathy (R), Lymphadenopathy (L) Respiratory/Chest: positive: Lungs Clear, Normal Breath Sounds. negative: Crackles, Rales, Rhonchi, Stridor, Wheezing Cardiovascular: positive: Regular Rhythm, Regular Rate, S1, S2. negative: Edema , JVD, Murmur Vascular Pulses: Dorsalis-Pedis (R): 2+, Doralis-Pedis (L): 2+ Gastrointestinal/Abdominal: positive: Normal Bowel Sounds, Tender (diffuse), Soft. negative: Guarding, Rebound Musculoskeletal: negative: CVA Tenderness Extremity: positive: Normal Capillary Refill. negative: Swelling, Calf Tenderness Integumentary: positive: Normal Color, Dry, Warm. 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 also complaining of dizziness ( vertigo). vitals wnl ddx includes but not limited to infectious diarrhea, food poisoning, AGE, vertigo. will order labs, lactate, lipase, ctap with iv contrast, cxr, ekg, ua reglan, fluids, ofirmev. labs wnl. ekg: no signs of yayo or depressions. ct shows enterocolitis. upon reassessment, patient is feeling better. can be dc home rx for zofran sent. Discharge - Discharge Information Problems reviewed: Yes Clinical Impression/Diagnosis: Gastroenteritis Condition: Good Disposition: HOME - Admission No - Additional Discharge Information Prescriptions: Ondansetron [Zofran *Odt*] 4 mg SL BID #14 od.tablet - Follow up/Referral - Patient Discharge Instructions Patient Printed Discharge Instructions: DI for Vomiting -- Adult Additional Instructions: You were seen in the emergency room today for vomiting and diarrhea. You have gastroenteritis probably from the food you ate. Stay well hydrated, drink plenty of water. A prescription for nausea was sent to your pharmacy, take as directed. Come back to the emergency room for worsening pain, blood in the stool or vomit or if any new or concerning symptom develops. Thank you - Post Discharge Activity
[2019-05-17 20:09] VITALS: BP 133/93; PULSE 103; TEMP 98.8; BMI 35.7
[2019-05-17] MEDS ORDERED: METOCLOPRAMIDE HCL INJECTION 10 MG/2 ML VIAL ONE (21:03)
[2019-05-17] MEDS ORDERED: ACETAMINOPHEN INJECTION 100 ML IVPB ONE (21:04)
[2019-05-17 21:14] LABS: BASO % 0.4 % (0-2.0); EOS % 0.2 % (0-4.5); HEMATOCRIT 41.3 % (32.4-45.2); HEMOGLOBIN 13.5 GM/dL (10.7-15.3); LYMPH % 4.7 % (8-40); MCH 27.8 pg (25.7-33.7); MCHC 32.8 g/dl (32.0-36.0); MEAN CELL VOLUME 84.8 fl (80-96); MEAN PLT VOLUME 8.9 fl (7.5-11.1); MONO % 6.6 % (3.8-10.2); NEUT % 88.1 % (42.8-82.8); PLATELET COUNT 302 K/MM3 (134-434); RBC 4.87 M/mm3 (3.60-5.2); RDW 13.7 % (11.6-15.6); WHITE BLOOD COUNT 10.6 K/mm3 (4.0-10.0)
[2019-05-17 21:40] LABS: ALBUMIN 3.5 g/dl (3.4-5.0); BILIRUBIN,TOTAL 0.7 mg/dL (0.2-1); CALCIUM 8.9 mg/dL (8.5-10.1); CREATININE 0.7 mg/dL (0.55-1.3); TOT PROT 7.7 g/dl (6.4-8.2)
[2019-05-17 21:41] LABS: LIPASE 107 U/L (73-393)
[2019-05-17] MEDS ORDERED: IBUPROFEN 400 MG TABLET (FP) PO ONE (23:35)
--- NOTE | 2019-05-18 10:15 | EKG ---
Test Reason : Blood Pressure : / mmHG Vent. Rate : 101 BPM Atrial Rate : 101 BPM P-R Int : 158 ms QRS Dur : 142 ms QT Int : 410 ms P-R-T Axes : 054 -81 032 degrees QTc Int : 531 ms SINUS TACHYCARDIA POSSIBLE LEFT ATRIAL ENLARGEMENT RIGHT BUNDLE BRANCH BLOCK LEFT ANTERIOR FASCICULAR BLOCK BIFASCICULAR BLOCK POSSIBLE LATERAL INFARCT (CITED ON OR BEFORE 17-MAY-2019) CANNOT RULE OUT INFERIOR INFARCT (CITED ON OR BEFORE 17-MAY-2019) ABNORMAL ECG Confirmed by Syd Montiel MD ([id number]) on 05/18/2019 10:15:05 AM Referred By: Confirmed By:Syd Montiel MD
== END 2019-05-18 00:41 | disposition home or self-care (01) ==
LOC: JER 19:19
PROC: 3E0337Z Introduction of Electrolytic and Water Balance Substance into Peripheral Vein, Percutaneous Approach (ICD-10-PCS; principal; 2019-05-17)
PROC: 3E033NZ Introduction of Analgesics, Hypnotics, Sedatives into Peripheral Vein, Percutaneous Approach (ICD-10-PCS; 2019-05-17)
PROC: 3E033GC Introduction of Other Therapeutic Substance into Peripheral Vein, Percutaneous Approach (ICD-10-PCS; 2019-05-17)
DX: K52.9 Noninfective gastroenteritis and colitis, unspecified (principal); I25.10 Atherosclerotic heart disease of native coronary artery without angina pectoris; I10 Essential (primary) hypertension; I25.2 Old myocardial infarction; E11.9 Type 2 diabetes mellitus without complications; Z79.4 Long term (current) use of insulin; E78.00 Pure hypercholesterolemia, unspecified; E03.9 Hypothyroidism, unspecified; K29.70 Gastritis, unspecified, without bleeding; Z86.73 Personal history of transient ischemic attack (TIA), and cerebral infarction without residual deficits
CPT/HCPCS: 36415; 71045-TC-FY; 74177-TC; 80053; 83605; 83690; 84484; 85025; 93005; 93010; 99283-25; J0131; Q9967

== ENCOUNTER 2019-11-02 10:56 | Emergency (ER) | payer OTHER ==
[2019-11-02 11:08] VITALS: BMI 37.0
[2019-11-02] MEDS ORDERED: ACETAMINOPHEN 1000 MG/100 ML VIAL (NON FORMULARY) IVPB ONE (11:36)
[2019-11-02] MEDS ORDERED: MECLIZINE HCL 12.5 MG TABLET PO ONE (11:36)
[2019-11-02] MEDS ORDERED: SODIUM CHLORIDE 1,000 ML IV SCH (11:45)
[2019-11-02] MEDS ORDERED: ACETAMINOPHEN INJECTION 100 ML IVPB ONE (12:01)
[2019-11-02] MEDS ORDERED: MECLIZINE HCL 12.5 MG TABLET ONE (12:01)
[2019-11-02] MEDS ORDERED: LIDOCAINE 5% TOPICAL PATCH TP ONE (12:06)
[2019-11-02] MEDS ORDERED: diazePAM 5 MG TABLET PO ONE (12:06)
[2019-11-02] MEDS ORDERED: diazePAM 5 MG TABLET ONE (12:15)
[2019-11-02] MEDS ORDERED: LIDOCAINE 5% TOPICAL PATCH ONE (12:15)
[2019-11-02 12:20] LABS: BASO % 0.5 % (0-2.0); EOS % 1.8 % (0-4.5); HEMATOCRIT 37.7 % (32.4-45.2); HEMOGLOBIN 12.3 GM/dL (10.7-15.3); LYMPH % 12.1 % (8-40); MCH 27.5 pg (25.7-33.7); MCHC 32.5 g/dl (32.0-36.0); MEAN CELL VOLUME 84.6 fl (80-96); MEAN PLT VOLUME 8.2 fl (7.5-11.1); MONO % 6.3 % (3.8-10.2); NEUT % 79.3 % (42.8-82.8); PLATELET COUNT 306 K/MM3 (134-434); RBC 4.46 M/mm3 (3.60-5.2); RDW 13.7 % (11.6-15.6); WHITE BLOOD COUNT 12.2 K/mm3 (4.0-10.0)
[2019-11-02 13:07] LABS: ALBUMIN 3.3 g/dl (3.4-5.0); ALK PHOS 118 U/L (45-117); ANION GAP 6 MMOL/L (8-16); BILIRUBIN,TOTAL 0.3 mg/dL (0.2-1); BLOOD UREA NITROGEN 11.1 mg/dL (7-18); CALCIUM 8.7 mg/dL (8.5-10.1); CHLORIDE 106 mmol/L (98-107); CO2 28 mmol/L (21-32); CREATININE 0.7 mg/dL (0.55-1.3); GLUCOSE,RANDOM 155 mg/dL (74-106); POTASSIUM 3.9 mmol/L (3.5-5.1); SGOT/AST 17 U/L (15-37); SGPT/ALT 27 U/L (13-61); SODIUM 140 mmol/L (136-145); TOT PROT 7.1 g/dl (6.4-8.2)
[2019-11-02 15:21] VITALS: BP 103/62; PULSE 73; TEMP 97.8
[2019-11-02] MEDS ORDERED: LIDOCAINE PATCH REMOVAL MC SCH (22:00)
== END 2019-11-02 17:32 | disposition home or self-care (01) ==
LOC: JER 10:56
PROC: 3E033NZ Introduction of Analgesics, Hypnotics, Sedatives into Peripheral Vein, Percutaneous Approach (ICD-10-PCS; principal; 2019-11-02)
DX: M54.9 Dorsalgia, unspecified (principal); R42 Dizziness and giddiness
CPT/HCPCS: 36415; 80053; 84484; 85025; 93005; 93010; 99285-25; J0131

== ENCOUNTER 2019-11-22 19:52 | Inpatient (IN) | payer OTHER ==
[2019-11-22] MEDS ORDERED: FAMOTIDINE 20 MG/50 ML IVPB 20 MG/50 ML MG IVPB ONE ×2 (20:09→20:16)
[2019-11-22] MEDS ORDERED: ONDANSETRON 4 MG/2 ML VIAL IVPUSH ONE (20:09)
[2019-11-22] MEDS ORDERED: MAG HYDROX/AL HYDROX/SIMETH -MYLANTA- ORAL SUSPENSION PO ONE (20:09)
[2019-11-22] MEDS ORDERED: MECLIZINE HCL 25 MG TABLET (FP) PO ONE (20:09)
[2019-11-22] MEDS ORDERED: LACTATED RINGERS SOLUTION 1000 ML INFUS.BAG IV ONE (20:13)
[2019-11-22] MEDS ORDERED: MAG HYDROX/AL HYDROX/SIMETH 30 ML UNIT-DOSE CUP ONE (20:16)
[2019-11-22] MEDS ORDERED: MECLIZINE HCL 25 MG TABLET (FP) ONE (20:16)
--- NOTE | 2019-11-22 20:24 | PDOC ---
History of Present Illness - General Chief Complaint: Nausea/Vomiting Stated Complaint: VOMITING Time Seen by Provider: 11/22/19 20:00 History Source: Patient - History of Present Illness Initial Comments: 11/22/19 20:16 69F w/hx vertigo, hypothyroidism, remote prior CVA with no residual deficits, HTN, HLD, DM p/w acute onset vertigo and nausea. She reports acute vertigo described as room spinning with onset at 1730 today, worsens when she opens her eyes or moves. At that time she took one dose of her 12.5mg meclizine without improvement. She attempted to take a second dose of her meclizine but dropped it on the floor and was unable to pick it up to take it secondary to vertigo. She reports nausea and 6/10 non-radiating epigastric pain that began shortly after eating dinner today. She reports that her vertigo has been worse over the last 3 months. She denies any vomiting, confusion, chest pain, difficulty breathing, constipation, or diarrhea today. Surgical hx remote cholecystectomy. Neuro: Dr. Lee PCP: Dr. Crain Past History - Medical History Allergies/Adverse Reactions: Allergies Allergy/AdvReac Type Severity Reaction Status Date / Time No Known Allergies Allergy Verified 11/22/19 20:32 Home Medications: Ambulatory Orders Levothyroxine [Synthroid -] 25 mcg PO DAILY 09/29/17 Simvastatin [Zocor -] 5 mg PO HS 09/29/17 Insulin Lispro [Humalog Kwikpen U-100] 5 unit SQ AC 04/24/19 Albuterol Sulfate [Proair Hfa] 2 puff IH Q6H PRN 05/03/19 Glipizide [Glipizide ER] 5 mg PO DAILY 05/03/19 Insulin Glargine,Hum.rec.anlog [Lantus Solostar] 25 units SQ HS 05/03/19 Irbesartan 75 mg PO DAILY 05/03/19 Metformin HCl [Glucophage] 1,000 mg PO BID 05/03/19 Omeprazole 20 mg PO DAILY 05/03/19 Aspirin [ASA -] 81 mg PO DAILY #30 tab.chew 05/04/19 Ondansetron [Zofran *Odt*] 4 mg SL BID #14 od.tablet 05/17/19 Meclizine HCl 25 mg PO TID PRN #15 tablet 09/27/19 Cephalexin Monohydrate [Keflex -] 500 mg PO BID #20 capsule 10/07/19 Divalproex *ER* [Depakote *ER* -] 250 mg PO DAILY #2 tablet. 10/13/19 Divalproex *ER* [Depakote *ER* -] 500 mg PO DAILY #30 tablet. 10/13/19 Escitalopram Oxalate [Lexapro -] 5 mg PO DAILY 10/13/19 Meclizine HCl [Antivert -] 25 mg PO TID PRN #90 tablet 10/13/19 Asthma: Yes Cancer: No Cardiac Disorders: Yes ([place],PALPITATION) CVA: Yes (R cerebellar CVA) COPD: No CHF: No Diabetes: Yes GI Disorders: Yes (GASTRITIS) HTN: Yes Hypercholesterolemia: Yes Thyroid Disease: Yes - Surgical History Cholecystectomy: Yes - Immunization History Immunization Up to Date: No - Psycho-Social/Smoking History Smoking History: Never smoked Have you smoked in the past 12 months: No If you are a former smoker, when did you quit?: 1989 Review of Systems - Review of Systems Able to Perform ROS?: Yes Comments:: 11/22/19 20:26 GENERAL/CONSTITUTIONAL: No fever or chills. No weakness. HEAD, EYES, EARS, NOSE AND THROAT: No change in vision. No ear pain or discharge. No sore throat. CARDIOVASCULAR: No chest pain or shortness of breath RESPIRATORY: No cough, wheezing, or hemoptysis. GASTROINTESTINAL: Nausea, abdominal pain. No vomiting, diarrhea or constipation. GENITOURINARY: No dysuria, frequency, or change in urination. MUSCULOSKELETAL: No joint or muscle swelling or pain. No neck or back pain. SKIN: No rash NEUROLOGIC: Vertigo. No headache, loss of consciousness, or change in strength/sensation. ENDOCRINE: No increased thirst. No abnormal weight change HEMATOLOGIC/LYMPHATIC: No anemia, easy bleeding, or history of blood clots. ALLERGIC/IMMUNOLOGIC: No hives or skin allergy. *Physical Exam - Physical Exam 11/22/19 20:28 GENERAL: Awake, alert, and fully oriented, groaning, eyes squeezed shut HEAD: No signs of trauma, normocephalic, atraumatic EYES: PERRLA, EOMI, sclera anicteric, conjunctiva clear ENT: Auricles normal inspection, hearing grossly normal, nares patent, oropharynx clear without exudates. Moist mucosa NECK: Normal ROM, supple, no lymphadenopathy, JVD, or masses LUNGS: No distress, speaks full sentences, clear to auscultation bilaterally HEART: Regular rate and rhythm, normal S1 and S2, no murmurs, rubs or gallops, peripheral pulses normal and equal bilaterally. ABDOMEN: Soft, nontender, normoactive bowel sounds. No guarding, no rebound. No masses EXTREMITIES : Normal inspection, Normal range of motion, no edema. No clubbing or cyanosis NEUROLOGICAL: Cranial nerves II through XII grossly intact. Strength 5/5 equal in upper and lower extremities, sensation equal bilaterally. Normal speech, no focal sensorimotor deficits SKIN: Warm, Dry, normal turgor, no rashes or lesions noted ED Treatment Course - LABORATORY CBC & Chemistry Diagram: 11/22/19 20:01 11/22/19 20:01 - RADIOLOGY Radiology Studies Ordered: Category Date Time Status HEAD CT WITHOUT CONTRAST [CT] Stat CT Scan 11/22/19 20:10 Ordered CHEST X-RAY PORTABLE* [RAD] Stat Radiology 11/22/19 20:10 Ordered Medical Decision Making - Medical Decision Making 11/22/19 20:30 69F w/hx vertigo, HTN, HLD, DM, p/w acute onset vertigo, unable to take full home meclizine dose due to vertigo, worsens with eye opening and movement, c/w peripheral vertigo. Ddx posterior CVA, central vertigo, otolith, atypical ACS. Plan: CBC CMP Cardiac profile EKG CXR Meclizine 25mg Zofran Pepcid Maalox 1L LR CT Head w/o contrast Dispo: Admit --- On reassessment, she reports improved vertigo, improved nausea with ongoing epigastric burning. Plan for CT abdomen/pelvis to r/o other intraabdominal pathology. Plan for admission for MRI to eval for cerebellar CVA. Discharge - Discharge Information Problems reviewed: Yes Clinical Impression/Diagnosis: Vertigo Condition: Stable - Admission Yes - Follow up/Referral Referrals: Rach Crain NP [Primary Care Provider] - - Patient Discharge Instructions - Post Discharge Activity
[2019-11-22 20:26] LABS: BASO % 0.5 % (0-2.0); EOS % 1.9 % (0-4.5); HEMATOCRIT 38.9 % (32.4-45.2); HEMOGLOBIN 12.8 GM/dL (10.7-15.3); LYMPH % 12.9 % (8-40); MCH 28.2 pg (25.7-33.7); MCHC 32.8 g/dl (32.0-36.0); MEAN CELL VOLUME 86.1 fl (80-96); MEAN PLT VOLUME 8.3 fl (7.5-11.1); MONO % 6.4 % (3.8-10.2); NEUT % 78.3 % (42.8-82.8); PLATELET COUNT 327 K/MM3 (134-434); RBC 4.52 M/mm3 (3.60-5.2); RDW 13.9 % (11.6-15.6); WHITE BLOOD COUNT 14.4 K/mm3 (4.0-10.0)
[2019-11-22 20:32] LABS: INR 0.97 (0.83-1.09); PROTHROMBIN TIME (PATIENT) 11.4 SEC (9.7-13.0)
[2019-11-22 20:35] LABS: ACTIVATED PTT 31.5 SECONDS (25.2-36.5)
[2019-11-22 20:47] LABS: PH,URINE 8.5 (5.0-8.0); URINE APPEARANCE CLEAR; URINE BILIRUBIN NEGATIVE (NEGATIVE); URINE COLOR YELLOW; URINE GLUCOSE (UA) NEGATIVE (NEGATIVE); URINE KETONE NEGATIVE (NEGATIVE); URINE LEUK ESTERASE NEGATIVE (NEGATIVE); URINE NITRITE NEGATIVE (NEGATIVE); URINE PROTEIN NEGATIVE (NEGATIVE); URINE UROBILINOGEN 0.2 mg/dL (0.2-1.0)
--- NOTE | 2019-11-22 20:47 | PDOC ---
Attending Attestation - Resident Resident Name: Gerald Landers - ED Attending Attestation I have performed the following: I have examined & evaluated the patient, The case was reviewed & discussed with the resident, I agree w/resident's findings & plan - HPI HPI: 11/22/19 20:46 see resident hpi - Physicial Exam PE: 11/22/19 20:46 see resident exam - Medical Decision Making 11/22/19 20:47 69-year-old female with history of CVA now with room spinning dizziness and vomiting Plan for antiemetics, labs EKG and CT scan of the brain Presuming CT scan is negative for acute findings will admit to medical service for MRI in the morning and further evaluation due to history and patient's age Discharge - Discharge Information Problems reviewed: Yes Clinical Impression/Diagnosis: Vertigo Condition: Stable - Follow up/Referral - Patient Discharge Instructions - Post Discharge Activity
[2019-11-22 20:53] LABS: ALBUMIN 3.5 g/dl (3.4-5.0); ALK PHOS 133 U/L (45-117); ANION GAP 10 MMOL/L (8-16); BILIRUBIN,TOTAL 0.2 mg/dL (0.2-1); BLOOD UREA NITROGEN 10.1 mg/dL (7-18); CALCIUM 8.7 mg/dL (8.5-10.1); CHLORIDE 105 mmol/L (98-107); CO2 27 mmol/L (21-32); CREATININE 0.8 mg/dL (0.55-1.3); GLUCOSE,RANDOM 157 mg/dL (74-106); POTASSIUM 4.2 mmol/L (3.5-5.1); SGOT/AST 19 U/L (15-37); SGPT/ALT 29 U/L (13-61); SODIUM 141 mmol/L (136-145); TOT PROT 7.3 g/dl (6.4-8.2)
[2019-11-22 21:03] VITALS: BMI 37.0
[2019-11-22 21:28] LABS: LIPASE 257 U/L (73-393)
--- NOTE | 2019-11-22 23:45 | HP ---
CHIEF COMPLAINT: vertigo and nausea PCP:Dr. Crain Neurologist: Dr. Lee HISTORY OF PRESENT ILLNESS: 69-year-old female with a past medical history of CVA, vertigo (on meclizine), hypertension, hypothyroidism, and diabetes mellitus who presented to the ER with symptoms of dizziness and reporting the room is spinning, and nausea which started today. She also reported epigastric pain which was relieved with Mylanta and zofran . CT scan of abdomen/pelvis was unremarkable. CT scan of the brain was negative for acute findings. She will be admitted to the [facility] and plan will be for Neurology evaluation and MRI of head in the morning. She reported that her vertigo has been worse over the last 3 months. She denied any vomiting, confusion, headache, chest pain, shortness of breath, constipation, or diarrhea. Labs findings notable for WBC 14.4, neutrophils 11.3. UA- negative Recent Travel: denies PAST MEDICAL HISTORY: CVA vertigo hypertension hypothyroidism diabetes mellitus hyperlipidemia PAST SURGICAL HISTORY: cholecystectomy Social History: Smoking:no Alcohol:no Drugs:no Family History: noncontributory Allergies No Known Allergies Allergy (Verified 11/22/19 20:32) HOME MEDICATIONS: Home Medications Medication Instructions Recorded Levothyroxine [Synthroid -] 25 mcg PO DAILY 09/29/17 Simvastatin [Zocor -] 5 mg PO HS 09/29/17 Insulin Lispro [Humalog Kwikpen 5 unit SQ AC 04/24/19 U-100] Albuterol Sulfate [Proair Hfa] 2 puff IH Q6H PRN 05/03/19 Glipizide [Glipizide ER] 5 mg PO DAILY 05/03/19 Insulin Glargine,Hum.rec.anlog 25 units SQ HS 05/03/19 [Lantus Solostar] Irbesartan 75 mg PO DAILY 05/03/19 Metformin HCl [Glucophage] 1,000 mg PO BID 05/03/19 Omeprazole 20 mg PO DAILY 05/03/19 Aspirin [ASA -] 81 mg PO DAILY #30 tab.chew 05/04/19 Ondansetron [Zofran *Odt*] 4 mg SL BID #14 od.tablet 05/17/19 Meclizine HCl 25 mg PO TID PRN #15 tablet 09/27/19 Cephalexin Monohydrate [Keflex -] 500 mg PO BID #20 capsule 10/07/19 Divalproex *ER* [Depakote *ER* -] 250 mg PO DAILY #2 tablet. 10/13/19 Divalproex *ER* [Depakote *ER* -] 500 mg PO DAILY #30 tablet. 10/13/19 Escitalopram Oxalate [Lexapro -] 5 mg PO DAILY 10/13/19 Meclizine HCl [Antivert -] 25 mg PO TID PRN #90 tablet 10/13/19 REVIEW OF SYSTEMS CONSTITUTIONAL: Absent: fever, chills, diaphoresis, generalized weakness, malaise, loss of appetite, weight change HEENT: Absent: rhinorrhea, nasal congestion, throat pain, throat swelling, difficulty swallowing, mouth swelling, ear pain, eye pain, visual changes CARDIOVASCULAR: Absent: chest pain, syncope, palpitations, irregular heart rate, lightheadedness, peripheral edema RESPIRATORY: Absent: cough, shortness of breath, dyspnea with exertion, orthopnea, wheezing, stridor, hemoptysis GASTROINTESTINAL: Absent: epigastric pain, abdominal distension, nausea, vomiting, diarrhea, constipation, melena, hematochezia GENITOURINARY: Absent: dysuria, frequency, urgency, hesitancy, hematuria, flank pain, genital pain MUSCULOSKELETAL: Absent: myalgia, arthralgia, joint swelling, back pain, neck pain SKIN: Absent: rash, itching, pallor HEMATOLOGIC/IMMUNOLOGIC: Absent: easy bleeding, easy bruising, lymphadenopathy, frequent infections ENDOCRINE: Absent: unexplained weight gain, unexplained weight loss, heat intolerance, cold intolerance NEUROLOGIC: Absent: vertigo, headache, focal weakness or paresthesias, dizziness, unsteady gait, seizure, mental status changes, bladder or bowel incontinence PSYCHIATRIC: Absent: anxiety, depression, suicidal or homicidal ideation, hallucinations. PHYSICAL EXAMINATION Vital Signs - 24 hr 11/22/19 11/22/19 19:55 22:08 Temperature 97.8 F Pulse Rate 75 Respiratory 17 Rate Blood Pressure 144/63 O2 Sat by Pulse 99 99 Oximetry (%) General no acute distress Vital signs reviewed afebrile Neuro speech clear no facial grimace,droop moving upper and lower extremities Lungs CTA nonlabored breathing effort no rales no wheezing no use of accessory muscles Heart s1s2 rate regular Abdomen soft nontender on palpation nondistended Extremities warm to touch no pitting edema Mood calm Laboratory Results - last 24 hr 11/22/19 11/22/19 11/22/19 20:01 20:01 20:01 WBC 14.4 H RBC 4.52 Hgb 12.8 Hct 38.9 MCV 86.1 MCH 28.2 MCHC 32.8 RDW 13.9 Plt Count 327 MPV 8.3 Absolute Neuts (auto) 11.3 H Neutrophils % 78.3 Lymphocytes % 12.9 Monocytes % 6.4 Eosinophils % 1.9 Basophils % 0.5 Nucleated RBC % 0 PT with INR 11.40 INR 0.97 PTT (Actin FS) 31.5 Sodium 141 Potassium 4.2 Chloride 105 Carbon Dioxide 27 Anion Gap 10 BUN 10.1 Creatinine 0.8 Est GFR (CKD-EPI)AfAm 87.80 Est GFR (CKD-EPI)NonAf 75.75 POC Glucometer Random Glucose 157 H Calcium 8.7 Total Bilirubin 0.2 AST 19 ALT 29 Alkaline Phosphatase 133 H Creatine Kinase 109 Troponin I < 0.02 Total Protein 7.3 Albumin 3.5 Lipase 257 Urine Color Urine Appearance Urine pH Ur Specific [place] Urine Protein Urine Glucose (UA) Urine Ketones Urine Blood Urine Nitrite Urine Bilirubin Urine Urobilinogen Ur Leukocyte Esterase 11/22/19 11/22/19 20:25 20:54 WBC RBC Hgb Hct MCV MCH MCHC RDW Plt Count MPV Absolute Neuts (auto) Neutrophils % Lymphocytes % Monocytes % Eosinophils % Basophils % Nucleated RBC % PT with INR INR PTT (Actin FS) Sodium Potassium Chloride Carbon Dioxide Anion Gap BUN Creatinine Est GFR (CKD-EPI)AfAm Est GFR (CKD-EPI)NonAf POC Glucometer 157 Random Glucose Calcium Total Bilirubin AST ALT Alkaline Phosphatase Creatine Kinase Troponin I Total Protein Albumin Lipase Urine Color Yellow Urine Appearance Clear Urine pH 8.5 H D Ur Specific [place] 1.008 L Urine Protein Negative Urine Glucose (UA) Negative Urine Ketones Negative Urine Blood Negative Urine Nitrite Negative Urine Bilirubin Negative Urine Urobilinogen 0.2 Ur Leukocyte Esterase Negative ASSESSMENT/PLAN: Mrs. Keturah Bazan is a 69-year-old female with a past medical history of CVA,vertigo (on meclizine), hypertension, DM, hyperlipidemia and hypothyroidism who presented with symptoms of the room spinning, dizziness and nausea which started today. She also reported epigastric pain which was relieved with Mylanta and Zofran. CT scan of abdomen was unremarkable. CT scan of the brain was negative for acute findings. 1. Vertigo has history of vertigo and on meclizine 25mg TID PRN CT scan of head with no new acute findings, small right chronic cerebellar infa rct posteriorly neuro checks q6h Neurology- Dr. Lee consulted c/w meclicizine consider MRA of brain in am depakote doasge will need to be clarified in am 2.Hx CVA neuro exam negative c/w asa and statin therapy 3. Leukocytosis ? etiology UA negative, urine culture pending, remains currently afebrile and hemodynamically stable check procalcitonin and lactic acid level ID consulted - Dr. Norton 4. Diabetes Mellitus Accucheks before meals and at bedtime hold metformin and glipizide insulin as per sliding scale 5. Hypothyroidism c/w synthroid check TSH in am 6. Hypertension controlled c/w irbesartan 7. Epigastric Pain resolved with mylanta and zofran lipase, lfts normal CT scan abdomen and pelvis with no acute findings 8. Rule Out COVID follow up on COVID swab (taken 11/21) maintain strict contact/droplet isolation precautions maintain o2 sat >90% DVT Prophylaxis lovenox 40mg daily FEN IVF NS at 75 cc/hr monitor BMP daily and replete electrolytes as needed ADA/low sodium diet Visit type - Emergency Visit Emergency Visit: Yes ED Registration Date: 11/22/19 Care time: The patient presented to the Emergency Department on the above date and was hospitalized for further evaluation of their emergent condition. - New Patient This patient is new to me today: Yes Date on this admission: 11/23/19 - Critical Care Critical Care patient: No
[2019-11-23] MEDS ORDERED: MECLIZINE HCL 25 MG TABLET (FP) PO PRN
[2019-11-23] MEDS: SODIUM CHLORIDE 1,000 ML IV SCH ×2 (02:16→20:59)
[2019-11-23] MEDS ORDERED: ACETAMINOPHEN 325 MG TABLET (FP) PO ONE ×2 (02:27→03:07)
[2019-11-23] MEDS ORDERED: ACETAMINOPHEN 325 MG TABLET (FP) ONE (03:30)
[2019-11-23] MEDS: INSULIN SLIDING SCALE (NOVOLOG) 1 VIAL SQ SCH ×2 (07:13→16:13)
[2019-11-23] MEDS ORDERED: LEVOTHYROXINE NA 25 MCG TABLET (FP) ONE (07:16)
[2019-11-23 07:38] LABS: HEMATOCRIT 37.2 % (32.4-45.2); HEMOGLOBIN 12.1 GM/dL (10.7-15.3); MCHC 32.5 g/dl (32.0-36.0); MEAN CELL VOLUME 86.2 fl (80-96); MEAN PLT VOLUME 8.5 fl (7.5-11.1); PLATELET COUNT 278 K/MM3 (134-434); RBC 4.32 M/mm3 (3.60-5.2); RDW 13.6 % (11.6-15.6); WHITE BLOOD COUNT 10.6 K/mm3 (4.0-10.0)
[2019-11-23] MEDS: PANTOPRAZOLE 20 MG TABLET PO SCH (07:38)
[2019-11-23] MEDS: LEVOTHYROXINE NA 25 MCG TABLET (FP) PO SCH (07:39)
[2019-11-23 07:59] LABS: BLOOD UREA NITROGEN 10.4 mg/dL (7-18); CALCIUM 8.5 mg/dL (8.5-10.1); CREATININE 0.7 mg/dL (0.55-1.3); POTASSIUM 4.1 mmol/L (3.5-5.1)
--- NOTE | 2019-11-23 08:50 | PN ---
Teaching Attending Note Name of Resident: Lottie Mesa ATTENDING PHYSICIAN STATEMENT I saw and evaluated the patient. I reviewed the resident's note and discussed the case with the resident. I agree with the resident's findings and plan as documented. SUBJECTIVE: Patient feels better but continues to have slight dizziness. OBJECTIVE: Vital Signs Temperature 98.0 F 11/23/19 05:57 Pulse Rate 55 L 11/23/19 05:57 Respiratory Rate 16 11/23/19 05:57 Blood Pressure 120/66 11/23/19 05:57 O2 Sat by Pulse Oximetry (%) 100 11/23/19 05:57 PE:per resident's note CBCD WBC 10.6 K/mm3 (4.0-10.0) H 11/23/19 05:57 RBC 4.32 M/mm3 (3.60-5.2) 11/23/19 05:57 Hgb 12.1 GM/dL (10.7-15.3) 11/23/19 05:57 Hct 37.2 % (32.4-45.2) 11/23/19 05:57 MCV 86.2 fl (80-96) 11/23/19 05:57 MCHC 32.5 g/dl (32.0-36.0) 11/23/19 05:57 RDW 13.6 % (11.6-15.6) 11/23/19 05:57 Plt Count 278 K/MM3 (134-434) 11/23/19 05:57 MPV 8.5 fl (7.5-11.1) 11/23/19 05:57 CMP Sodium 141 mmol/L (136-145) 11/23/19 05:57 Potassium 4.1 mmol/L (3.5-5.1) 11/23/19 05:57 Chloride 108 mmol/L (98-107) H 11/23/19 05:57 Carbon Dioxide 26 mmol/L (21-32) 11/23/19 05:57 Anion Gap 7 MMOL/L (8-16) L 11/23/19 05:57 BUN 10.4 mg/dL (7-18) 11/23/19 05:57 Creatinine 0.7 mg/dL (0.55-1.3) 11/23/19 05:57 Random Glucose 155 mg/dL (74-106) H 11/23/19 05:57 Calcium 8.5 mg/dL (8.5-10.1) 11/23/19 05:57 Total Bilirubin 0.2 mg/dL (0.2-1) 11/22/19 20:01 AST 19 U/L (15-37) 11/22/19 20:01 ALT 29 U/L (13-61) 11/22/19 20:01 Alkaline Phosphatase 133 U/L (45-117) H 11/22/19 20:01 Total Protein 7.3 g/dl (6.4-8.2) 11/22/19 20:01 Albumin 3.5 g/dl (3.4-5.0) 11/22/19 20:01 CARDIAC ENZYMES Creatine Kinase 109 U/L (26-192) 11/22/19 20:01 Troponin I < 0.02 ng/ml (0.00-0.05) 11/22/19 20:01 Current Medications Generic Name Dose Route Start Last Admin Trade Name Freq PRN Reason Stop Dose Admin Albuterol Sulfate 2 puff 11/23/19 00:00 Ventolin Hfa Inhaler - IH Q6H PRN ASTHMA Aspirin 81 mg 11/23/19 10:00 Asa - PO DAILY REPLACED BY [facility] Atorvastatin Calcium 5 mg 11/23/19 22:00 Lipitor - PO HS GWYN Enoxaparin Sodium 40 mg 11/23/19 10:00 Lovenox - SQ DAILY GWYN Escitalopram Oxalate 5 mg 11/23/19 10:00 Lexapro - PO DAILY REPLACED BY [facility] Sodium Chloride 1,000 mls @ 75 mls/hr 11/22/19 23:45 11/23/19 02:16 Normal Saline - IV 75 mls/hr ASDIR GWYN Administration Insulin Aspart 1 vial 11/23/19 07:00 11/23/19 07:13 Novolog Vial Sliding Scale - SQ Not Given BIDAC REPLACED BY [facility] Protocol Levothyroxine Sodium 25 mcg 11/23/19 07:00 11/23/19 07:39 Synthroid - PO 25 mcg ACBK GWYN Administration Losartan Potassium 25 mg 11/23/19 10:00 Cozaar - PO DAILY GWYN Meclizine HCl 25 mg 11/23/19 00:00 Antivert - PO TID PRN VERTIGO Pantoprazole Sodium 20 mg 11/23/19 07:00 11/23/19 07:38 Protonix - PO 20 mg ACBK REPLACED BY [facility] Administration Home Medications Medication Instructions Recorded Levothyroxine [Synthroid -] 25 mcg PO DAILY 09/29/17 Simvastatin [Zocor -] 5 mg PO HS 09/29/17 Insulin Lispro [Humalog Kwikpen 5 unit SQ AC 04/24/19 U-100] Albuterol Sulfate [Proair Hfa] 2 puff IH Q6H PRN 05/03/19 Glipizide [Glipizide ER] 5 mg PO DAILY 05/03/19 Insulin Glargine,Hum.rec.anlog 25 units SQ HS 05/03/19 [Lantus Solostar] Irbesartan 75 mg PO DAILY 05/03/19 Metformin HCl [Glucophage] 1,000 mg PO BID 05/03/19 Omeprazole 20 mg PO DAILY 05/03/19 Aspirin [ASA -] 81 mg PO DAILY #30 tab.chew 05/04/19 Ondansetron [Zofran *Odt*] 4 mg SL BID #14 od.tablet 05/17/19 Meclizine HCl 25 mg PO TID PRN #15 tablet 09/27/19 Cephalexin Monohydrate [Keflex -] 500 mg PO BID #20 capsule 10/07/19 Divalproex *ER* [Depakote *ER* -] 250 mg PO DAILY #2 tablet.sa 10/13/19 Divalproex *ER* [Depakote *ER* -] 500 mg PO DAILY #30 tablet.sa 10/13/19 Escitalopram Oxalate [Lexapro -] 5 mg PO DAILY 10/13/19 Meclizine HCl [Antivert -] 25 mg PO TID PRN #90 tablet 10/13/19 Urine Test Results Urine Color Yellow 11/22/19 20:25 Urine Appearance Clear 11/22/19 20:25 Urine pH 8.5 (5.0-8.0) H D 11/22/19 20:25 Ur Specific [place] 1.008 (1.010-1.035) L 11/22/19 20:25 Urine Protein Negative (NEGATIVE) 11/22/19 20:25 Urine Glucose (UA) Negative (NEGATIVE) 11/22/19 20:25 Urine Ketones Negative (NEGATIVE) 11/22/19 20:25 Urine Blood Negative (NEGATIVE) 11/22/19 20:25 Urine Nitrite Negative (NEGATIVE) 11/22/19 20:25 Urine Bilirubin Negative (NEGATIVE) 11/22/19 20:25 Ur Leukocyte Esterase Negative (NEGATIVE) 11/22/19 20:25 Microbiology 11/22/19 20:25 Urine - Urine Clean Catch Urine Culture - Preliminary Lactose Fermenting Neg Bacilli MRI of the brain: no acute infarct, moderate volume loss, ventricular dilatation and mild to moderate periventricular chronic microvascular ischemic disease changes. BL PERIVENTRICULAR chronic microvascular ischemic disease changes. small focal chronic infarct in the right cerebellum. ASSESSMENT AND PLAN: This aptient is a 69yof with PMhx of CVA,vertigo (on meclizine), HTN, T2DM, HLD,and hypothyroidism who presented with symptoms of the room spinning, dizziness and nausea. CT scan of abdomen was unremarkable. CT scan of the brain was negative for acute findings. #Acute Vertigo improving on meclizine prn , MRI as above, neuro on the case , will wait for neuro evaluation #Hx CVA: on asa and statin therapy # Leukocytosis: due to UTI will start the patient on Rocephine will monitor the cx #T2DM: SS with coverage ,hold metformin and glipizide #Hx of Hypothyroidism continue synthroid # Hypertension controlled continue irbesartan # Acute Epigastric Pain : resolved ; CT scan abdomen and pelvis with no acute findings # Rule Out COVID DVT Prophylaxis: lovenox 40mg daily
[2019-11-23] MEDS: ASPIRIN 81 MG CHEWABLE TABLETS PO SCH (09:41)
[2019-11-23] MEDS: ENOXAPARIN NA (PORCINE) 40 MG/0.4 ML DISP.SYRIN SQ SCH (09:41)
[2019-11-23] MEDS: ESCITALOPRAM OXALATE 10 MG TABLET PO SCH (09:41)
[2019-11-23] MEDS ORDERED: LOSARTAN POTASSIUM 25 MG TABLET PO SCH (10:00)
[2019-11-23] MEDS ORDERED: PATIENT'S OWN MEDICATION (NON-FORMULARY) (Escitalopram Oxalate [Lexapro -] 5 MG) PO SCH (10:00)
[2019-11-23] MEDS ORDERED: PATIENT'S OWN MEDICATION (NON-FORMULARY) (Omeprazole 20 MG) PO SCH (10:00)
[2019-11-23] MEDS ORDERED: IRBESARTAN 75 MG PO SCH (10:00)
--- NOTE | 2019-11-23 10:12 | EKG ---
Test Reason : Blood Pressure : / mmHG Vent. Rate : 065 BPM Atrial Rate : 065 BPM P-R Int : 154 ms QRS Dur : 140 ms QT Int : 452 ms P-R-T Axes : 032 -57 003 degrees QTc Int : 470 ms NORMAL SINUS RHYTHM WITH SINUS ARRHYTHMIA RIGHT BUNDLE BRANCH BLOCK LEFT ANTERIOR FASCICULAR BLOCK BIFASCICULAR BLOCK POSSIBLE LATERAL INFARCT (CITED ON OR BEFORE 02-NOV-2019) ABNORMAL ECG WHEN COMPARED WITH ECG OF 02-NOV-2019 11:06, RIGHT BUNDLE BRANCH BLOCK HAS REPLACED INCOMPLETE RIGHT BUNDLE BRANCH BLOCK QUESTIONABLE CHANGE IN INITIAL FORCES OF LATERAL LEADS Confirmed by Syd Montiel MD ([id number]) on 11/23/2019 10:12:29 AM Referred By: Confirmed By:Syd Montiel MD
--- NOTE | 2019-11-23 12:46 | PN ---
Physical Exam: SUBJECTIVE: Patient seen and examined. Vertigo has resolved. OBJECTIVE: Vital Signs Period Temp Pulse Resp BP Sys/Perdomo Pulse Ox Last 24 Hr 97.8 F-98.6 F 55-79 16-20 105-144/63-78 98-100 GENERAL: The patient is awake, alert, and fully oriented, in no acute distress. HEENT: NCAT. MMM. Sclera anicteric. Conjunctiva clear. LUNGS: Breath sounds equal, clear to auscultation bilaterally, no wheezes, no crackles, no accessory muscle use. HEART: Regular rate and rhythm, S1, S2 without murmur, rub or gallop. ABDOMEN: Soft, nontender, nondistended, normoactive bowel sounds, no guarding. EXTREMITIES: 2+ pulses, warm, well-perfused, no edema. NEUROLOGICAL: Cranial nerves II through XII grossly intact. Romberg negative. Juan Hallpike negative, no nystagmus. PSYCH: Normal mood, normal affect. SKIN: Warm, dry, normal turgor, no rashes or lesions noted Laboratory Results - last 24 hr 11/22/19 11/22/19 11/22/19 20:01 20:01 20:01 WBC 14.4 H RBC 4.52 Hgb 12.8 Hct 38.9 MCV 86.1 MCH 28.2 MCHC 32.8 RDW 13.9 Plt Count 327 MPV 8.3 Absolute Neuts (auto) 11.3 H Neutrophils % 78.3 Lymphocytes % 12.9 Monocytes % 6.4 Eosinophils % 1.9 Basophils % 0.5 Nucleated RBC % 0 PT with INR 11.40 INR 0.97 PTT (Actin FS) 31.5 Sodium 141 Potassium 4.2 Chloride 105 Carbon Dioxide 27 Anion Gap 10 BUN 10.1 Creatinine 0.8 Est GFR (CKD-EPI)AfAm 87.80 Est GFR (CKD-EPI)NonAf 75.75 POC Glucometer Random Glucose 157 H Lactic Acid Calcium 8.7 Total Bilirubin 0.2 AST 19 ALT 29 Alkaline Phosphatase 133 H Creatine Kinase 109 Troponin I < 0.02 Total Protein 7.3 Albumin 3.5 Lipase 257 TSH Urine Color Urine Appearance Urine pH Ur Specific [place] Urine Protein Urine Glucose (UA) Urine Ketones Urine Blood Urine Nitrite Urine Bilirubin Urine Urobilinogen Ur Leukocyte Esterase 11/22/19 11/22/19 11/23/19 20:25 20:54 05:57 WBC 10.6 H RBC 4.32 Hgb 12.1 Hct 37.2 MCV 86.2 MCH 28.0 MCHC 32.5 RDW 13.6 Plt Count 278 MPV 8.5 Absolute Neuts (auto) Neutrophils % Lymphocytes % Monocytes % Eosinophils % Basophils % Nucleated RBC % PT with INR INR PTT (Actin FS) Sodium Potassium Chloride Carbon Dioxide Anion Gap BUN Creatinine Est GFR (CKD-EPI)AfAm Est GFR (CKD-EPI)NonAf POC Glucometer 157 Random Glucose Lactic Acid Calcium Total Bilirubin AST ALT Alkaline Phosphatase Creatine Kinase Troponin I Total Protein Albumin Lipase TSH Urine Color Yellow Urine Appearance Clear Urine pH 8.5 H D Ur Specific [place] 1.008 L Urine Protein Negative Urine Glucose (UA) Negative Urine Ketones Negative Urine Blood Negative Urine Nitrite Negative Urine Bilirubin Negative Urine Urobilinogen 0.2 Ur Leukocyte Esterase Negative 11/23/19 11/23/19 11/23/19 05:57 05:57 07:08 WBC RBC Hgb Hct MCV MCH MCHC RDW Plt Count MPV Absolute Neuts (auto) Neutrophils % Lymphocytes % Monocytes % Eosinophils % Basophils % Nucleated RBC % PT with INR INR PTT (Actin FS) Sodium 141 Potassium 4.1 Chloride 108 H Carbon Dioxide 26 Anion Gap 7 L BUN 10.4 Creatinine 0.7 Est GFR (CKD-EPI)AfAm 103.18 Est GFR (CKD-EPI)NonAf 89.03 POC Glucometer 125 Random Glucose 155 H Lactic Acid 1.1 Calcium 8.5 Total Bilirubin AST ALT Alkaline Phosphatase Creatine Kinase Troponin I Total Protein Albumin Lipase TSH 2.06 Urine Color Urine Appearance Urine pH Ur Specific [place] Urine Protein Urine Glucose (UA) Urine Ketones Urine Blood Urine Nitrite Urine Bilirubin Urine Urobilinogen Ur Leukocyte Esterase 11/23/19 11:50 WBC RBC Hgb Hct MCV MCH MCHC RDW Plt Count MPV Absolute Neuts (auto) Neutrophils % Lymphocytes % Monocytes % Eosinophils % Basophils % Nucleated RBC % PT with INR INR PTT (Actin FS) Sodium Potassium Chloride Carbon Dioxide Anion Gap BUN Creatinine Est GFR (CKD-EPI)AfAm Est GFR (CKD-EPI)NonAf POC Glucometer 120 Random Glucose Lactic Acid Calcium Total Bilirubin AST ALT Alkaline Phosphatase Creatine Kinase Troponin I Total Protein Albumin Lipase TSH Urine Color Urine Appearance Urine pH Ur Specific [place] Urine Protein Urine Glucose (UA) Urine Ketones Urine Blood Urine Nitrite Urine Bilirubin Urine Urobilinogen Ur Leukocyte Esterase Active Medications Generic Name Dose Route Start Last Admin Trade Name Freq PRN Reason Stop Dose Admin Albuterol Sulfate 2 puff 11/23/19 00:00 Ventolin Hfa Inhaler - IH Q6H PRN ASTHMA Aspirin 81 mg 11/23/19 10:00 11/23/19 09:41 Asa - PO 81 mg DAILY GWYN Administration Atorvastatin Calcium 5 mg 11/23/19 22:00 Lipitor - PO HS GWYN Enoxaparin Sodium 40 mg 11/23/19 10:00 11/23/19 09:41 Lovenox - SQ 40 mg DAILY GWYN Administration Escitalopram Oxalate 5 mg 11/23/19 10:00 11/23/19 09:41 Lexapro - PO Not Given DAILY GWYN Sodium Chloride 1,000 mls @ 75 mls/hr 11/22/19 23:45 11/23/19 02:16 Normal Saline - IV 75 mls/hr ASDIR GWYN Administration Insulin Aspart 1 vial 11/23/19 07:00 11/23/19 07:13 Novolog Vial Sliding Scale - SQ Not Given BIDAC [facility] Protocol Levothyroxine Sodium 25 mcg 11/23/19 07:00 11/23/19 07:39 Synthroid - PO 25 mcg ACBK GWYN Administration Losartan Potassium 25 mg 11/23/19 10:00 11/23/19 09:41 Cozaar - PO 25 mg DAILY GWYN Administration Meclizine HCl 25 mg 11/23/19 00:00 Antivert - PO TID PRN VERTIGO Pantoprazole Sodium 20 mg 11/23/19 07:00 11/23/19 07:38 Protonix - PO 20 mg ACBK GWYN Administration IMAGING: * 10/04/2019 MRI brain: There is moderate volume loss and ventricular dilatation. Mild to moderate periventricular chronic microvascular ischemic disease changes. Bilateral periventricular chronic lacunar infarcts are present at the level of the bazan radiata and centrum semiovale. Small focal chronic infarct in right side of the cerebellum, posteriorly. No gross mass lesion, acute infarct or intracranial hemorrhage are identified. There is no shift of the midline structures. No suspicious bone marrow abnormal signal is identified. Both orbits appear unremarkable * 10/12 MRI brain: There is moderate volume loss, ventricular dilatation and mild to moderate periventricular chronic microvascular ischemic disease changes. Bilateral periventricular chronic lacunar infarcts are present. Previously described likely small focal chronic infarct in the right cerebellum is again seen. No restricted diffusion is identified to suggest an acute infarct. No gross acute intracranial hemorrhage is seen. No suspicious bone marrow abnormal signal is identified. Both orbits appear unremarkable * 11/21 CT head: No CT evidence of acute intracranial pathology. Small chronic right cerebellar infarct posteriorly. No definite interval change is noted in comparison to prior CT studies of 10/13/2019 and 05/03/2019. A small amount of fluid is again noted within the left mastoid air cells inferiorly. * CT A/P 11/21 : No definite CT findings of acute pathology are noted. Small right paramidline epigastric ventral hernia containing fat only as on a previous CT study of 05/17/2019. Possible mild endometrial thickening as on the prior exam. Sonographic correlation is suggested if not previously performed at a different facility. Status post cholecystectomy also as on the prior study. There is again visualization of mild nonspecific common bile duct dilatation which could be on a physiologic postsurgical basis. Clinical/laboratory correlation is suggested. Probable diffuse hepatic steatosis. * CXR 11/21: Cardiomegaly, no acute disease. ASSESSMENT/PLAN: 69y.o. F PMH CVA (no residual weakness) ,vertigo (on meclizine), chronic mastoiditis, hypertension, DM, hyperlipidemia and hypothyroidism who presented with symptoms of vertigo and nausea. #Benign paroxysmal positional vertigo -patient states onset was when she sat up from supine too quickly -known hx of vertigo -continue meclizine 25mg TID prn -CT Head showing no acute pathology. Left mastoid air cell fluid (seen on prior scan) -Neurology consulted- Patient sees Dr. Lee as outpatient -has recent brain MRI 09/2019; no acute infarct identified. Showed mod volume loss, ventricular dilatation, b/l periventricular chronic lacunar infaracts, small focal chronic infarct in Right cerebellum. -on last visit was started on depakote for migraine prophylaxis; noncompliant -consider brain MRA pending neuro recs #CVA history -continue asa, statin -neuro checks #Leukocytosis -downtrended -afebrile -monitor cbc -lactic wnl #Diabetes Mellitus -ISS, BGMs ACHS -holding home oral meds #Hypothyroidism -c/w synthroid -TSH WNL #Hypertension -c/w irbesartan #DVT Prophylaxis -lovenox 40mg sq daily #FEN -IVF NS at 75 cc/hr -monitor BMP, rplete lytes prn -Diabetic/low sodium diet #Dispo telemetry Visit type - Emergency Visit Emergency Visit: Yes ED Registration Date: 11/22/19 Care time: The patient presented to the Emergency Department on the above date and was hospitalized for further evaluation of their emergent condition. - New Patient This patient is new to me today: Yes Date on this admission: 11/23/19 - Critical Care Critical Care patient: No ATTENDING PHYSICIAN STATEMENT I saw and evaluated the patient. I reviewed the resident's note and discussed the case with the resident. I agree with the resident's findings and plan as documented. SUBJECTIVE: OBJECTIVE: ASSESSMENT AND PLAN:
--- NOTE | 2019-11-23 14:02 | CON.ID ---
Consult Consult Specialty:: infectious diseases Referred by:: Faye Reason for Consultation:: uti,leukocytosis - History of Present Illness Chief Complaint: dizziness,spinning of the room History of Present Illness: 69-year-old female with a past medical history of CVA, vertigo (on meclizine), hypertension, hypothyroidism, and diabetes mellitus who presented to the ER with symptoms of dizziness and reporting the room is spinning, and nausea which started today. She also reported epigastric pain which was relieved with Myl anta and zofran . work up was done and imaging studies were negative patient had leukocytosis which are coming down patient mentions that she still feels dizzy also covid is pending patient also received abx - History Source History Provided By: Patient Limitations to Obtaining History: No Limitations - Past Medical History Cardio/Vascular: Yes: HTN, MT Gastrointestinal: Yes: Gastritis Endocrine: Yes: Diabetes Mellitus - Alcohol/Substance Use Hx Alcohol Use: No - Smoking History Smoking history: Former smoker Have you smoked in the past 12 months: No If you are a former smoker, when did you quit?: 1989 - Social History ADL: Independent History of Recent Travel: No Home Medications - Allergies Allergies/Adverse Reactions: Allergies Allergy/AdvReac Type Severity Reaction Status Date / Time No Known Allergies Allergy Verified 11/22/19 20:32 - Home Medications Home Medications: Ambulatory Orders Levothyroxine [Synthroid -] 25 mcg PO DAILY 09/29/17 Simvastatin [Zocor -] 5 mg PO HS 09/29/17 Insulin Lispro [Humalog Kwikpen U-100] 5 unit SQ AC 04/24/19 Albuterol Sulfate [Proair Hfa] 2 puff IH Q6H PRN 05/03/19 Glipizide [Glipizide ER] 5 mg PO DAILY 05/03/19 Insulin Glargine,Hum.rec.anlog [Lantus Solostar] 25 units SQ HS 05/03/19 Irbesartan 75 mg PO DAILY 05/03/19 Metformin HCl [Glucophage] 1,000 mg PO BID 05/03/19 Omeprazole 20 mg PO DAILY 05/03/19 Aspirin [ASA -] 81 mg PO DAILY #30 tab.chew 05/04/19 Ondansetron [Zofran *Odt*] 4 mg SL BID #14 od.tablet 05/17/19 Meclizine HCl 25 mg PO TID PRN #15 tablet 09/27/19 Cephalexin Monohydrate [Keflex -] 500 mg PO BID #20 capsule 10/07/19 Divalproex *ER* [Depakote *ER* -] 250 mg PO DAILY #2 tablet. 10/13/19 Divalproex *ER* [Depakote *ER* -] 500 mg PO DAILY #30 tablet. 10/13/19 Escitalopram Oxalate [Lexapro -] 5 mg PO DAILY 10/13/19 Meclizine HCl [Antivert -] 25 mg PO TID PRN #90 tablet 10/13/19 Review of Systems - Review of Systems Constitutional: reports: No Symptoms Eyes: reports: No Symptoms HENT: reports: No Symptoms Neck: reports: No Symptoms Cardiovascular: reports: No Symptoms Respiratory: reports: No Symptoms Gastrointestinal: reports: No Symptoms Genitourinary: reports: No Symptoms Musculoskeletal: reports: No Symptoms Integumentary: reports: No Symptoms Neurological: reports: Other (dizziness,vertigo) Endocrine: reports: No Symptoms Hematology/Lymphatic: reports: No Symptoms Psychiatric: reports: No Symptoms Physical Exam Vital Signs: Vital Signs Temperature 98.6 F 11/23/19 11:20 Pulse Rate 58 L 11/23/19 11:20 Respiratory Rate 18 11/23/19 11:30 Blood Pressure 135/78 11/23/19 11:20 O2 Sat by Pulse Oximetry (%) 100 11/23/19 11:30 Constitutional: Yes: No Distress, Calm Eyes: Yes: Conjunctiva Clear HENT: Yes: Atraumatic, Normocephalic Neck: Yes: Supple, Trachea Midline Cardiovascular: Yes: Regular Rate and Rhythm Respiratory: Yes: Regular, CTA Bilaterally Gastrointestinal: Yes: Normal Bowel Sounds, Soft Musculoskeletal: Yes: WNL Extremities: Yes: WNL Neurological: Yes: Alert, Oriented Labs: CBC, BMP 11/23/19 05:57 11/23/19 05:57 Imaging - Results Chest X-ray: Report Reviewed, Image Reviewed Cat Scan: Report Reviewed, Image Reviewed Assessment/Plan this patient with multiple medical issues admitted for vertigo at the moment i do not see any infectious cause wbc are trending down continue to monitor neuro to see the patient rest as per the team
[2019-11-23] MEDS ORDERED: MAG HYDROX/AL HYDROX/SIMETH 30 ML UNIT-DOSE CUP PO ONE (19:23)
--- NOTE | 2019-11-23 19:44 | CONSULT ---
Consult - text type - Consultation Consultation Note: NEUROLOGY CONSULTATION is greatly appreciated: Events reviewed, patient examined. This 69 yo RH woman with h/o HTN, Hypothyroidism, cholesterol and diabetes is well-know to me with frequent migraine headaches, many of which are associated with vertigo, nausea, vomiting +/1 ataxia c/w Vertebrobasilar migraines. Was much improved on Depakote ER 500 mg/day but stopped it because of "too many meds." Since D/C of Depakote has had increasing occipital and right hemicranial headaches some wazxing and waning over 3 days requiring OTC analgesics. Now admitted with headache, nausea, dizziness with exacerbation getting up from toilet after BM. Also known to have Restless Limbs (RLS) responsive to Pramipexole, depression and panic/anxiety attacks reqiring Clonazepam in the past. CT of head (reviewed): Scattered microvascular changes including old right cerebellar lacunar infarct. MARTY: No bruits. Cor Reg. BP 105/65 NEURO: MS/speech: Normal CN II-XII: Normal without nystagmus Motor: No drift or tremor. normal strength, reflexes. Toes downgoing Coord: No FTN dystaxia Sensory: Normal Gait: Normal IMP: Normal neurological exam Migraine Headaches/Vertebrobasilar migraines with episodic vertigo R/o orthostatic/vasovagal lightheadedness. Suggest: Resume Depakote ER 250 mg daily x 2 days then 500 mg/day D/C Meclizine Check orthostatic BP's Neuro f/u as out patient (Pt. has f/u vist scheduled for 12/06). Thank you very much, Terrance Lee MD
[2019-11-23] MEDS ORDERED: DIVALPROEX NA *ER* EXTEND REL 250 MG TABLET.SA PO ONE (19:56)
[2019-11-23] MEDS ORDERED: ATORVASTATIN CA 10 MG TABLET (FP) PO SCH (22:00)
[2019-11-23] MEDS ORDERED: PATIENT'S OWN MEDICATION (NON-FORMULARY) (Simvastatin 5 MG) PO SCH (22:00)
[2019-11-24] MEDS: PANTOPRAZOLE 20 MG TABLET PO SCH (06:13)
[2019-11-24] MEDS: LEVOTHYROXINE NA 25 MCG TABLET (FP) PO SCH (06:13)
[2019-11-24] MEDS: INSULIN SLIDING SCALE (NOVOLOG) 1 VIAL SQ SCH ×2 (06:28→16:29)
[2019-11-24 08:10] LABS: HEMATOCRIT 36.7 % (32.4-45.2); MCH 27.9 pg (25.7-33.7); MCHC 32.7 g/dl (32.0-36.0); MEAN CELL VOLUME 85.4 fl (80-96); MEAN PLT VOLUME 8.3 fl (7.5-11.1); PLATELET COUNT 298 K/MM3 (134-434); RDW 13.7 % (11.6-15.6); WHITE BLOOD COUNT 8.8 K/mm3 (4.0-10.0)
[2019-11-24 08:38] LABS: ALBUMIN 3.2 g/dl (3.4-5.0); BILIRUBIN,TOTAL 0.6 mg/dL (0.2-1); BLOOD UREA NITROGEN 12.1 mg/dL (7-18); CALCIUM 8.8 mg/dL (8.5-10.1); POTASSIUM 4.6 mmol/L (3.5-5.1); TOT PROT 6.7 g/dl (6.4-8.2)
[2019-11-24 08:44] LABS: CREATININE 0.7 mg/dL (0.55-1.3)
[2019-11-24] MEDS ORDERED: DIVALPROEX NA *ER* EXTEND REL 250 MG TABLET.SA PO ONE (10:00)
[2019-11-24] MEDS: LOSARTAN POTASSIUM 50 MG TABLET (FP) PO SCH (10:55)
[2019-11-24] MEDS: ASPIRIN 81 MG CHEWABLE TABLETS PO SCH (10:55)
[2019-11-24] MEDS: CEFTRIAXONE 1 GM in DEXTROSE 5%-WATER - 50 ML IVPB SCH (11:21)
[2019-11-24] MEDS: SODIUM CHLORIDE 1,000 ML IV SCH ×2 (11:22→22:34)
[2019-11-24] MEDS: ENOXAPARIN NA (PORCINE) 40 MG/0.4 ML DISP.SYRIN SQ SCH (12:27)
--- NOTE | 2019-11-24 13:29 | PN ---
Progress Note, Physician History of Present Illness: stable feels better urine cx positive started on ceftriaxone - Current Medication List Current Medications: Active Medications Albuterol Sulfate (Ventolin Hfa Inhaler -) 2 puff IH Q6H PRN PRN Reason: ASTHMA Aspirin (Asa -) 81 mg PO DAILY [facility] Last Admin: 11/24/19 10:55 Dose: 81 mg Documented by: Atorvastatin Calcium (Lipitor -) 20 mg PO [facility] Divalproex Sodium (Depakote *Er* -) 500 mg PO DAILY [facility] Enoxaparin Sodium (Lovenox -) 40 mg SQ DAILY [facility] Last Admin: 11/24/19 12:27 Dose: 40 mg Documented by: Escitalopram Oxalate (Lexapro -) 5 mg PO DAILY [facility] Last Admin: 11/23/19 09:41 Dose: Not Given Documented by: Sodium Chloride (Normal Saline -) 1,000 mls @ 75 mls/hr IV ASDIR [facility] Last Admin: 11/24/19 11:22 Dose: 75 mls/hr Documented by: Ceftriaxone Sodium 1 gm/ (Dextrose) 50 mls @ 100 mls/hr IVPB DAILY [facility]; Protocol Last Admin: 11/24/19 11:21 Dose: 100 mls/hr Documented by: Insulin Aspart (Novolog Vial Sliding Scale -) 1 vial SQ BIDAC [facility]; Protocol Last Admin: 11/24/19 06:28 Dose: Not Given Documented by: Levothyroxine Sodium (Synthroid -) 25 mcg PO ACBK [facility] Last Admin: 11/24/19 06:13 Dose: 25 mcg Documented by: Losartan Potassium (Cozaar -) 50 mg PO DAILY [facility] Last Admin: 11/24/19 10:55 Dose: 50 mg Documented by: Pantoprazole Sodium (Protonix -) 20 mg PO ACBK [facility] Last Admin: 11/24/19 06:13 Dose: 20 mg Documented by: - Objective Vital Signs: Vital Signs Temperature 98.4 F 11/24/19 11:00 Pulse Rate 67 11/24/19 11:00 Respiratory Rate 19 11/24/19 11:00 Blood Pressure 136/96 11/24/19 11:00 O2 Sat by Pulse Oximetry (%) 100 11/23/19 21:00 Constitutional: Yes: No Distress, Calm Cardiovascular: Yes: S1, S2 Respiratory: Yes: Regular, CTA Bilaterally Gastrointestinal: Yes: Normal Bowel Sounds, Soft Musculoskeletal: Yes: WNL Extremities: Yes: WNL Neurological: Yes: Alert, Oriented Psychiatric: Yes: Alert, Oriented Labs: CBC, BMP 11/24/19 07:05 11/24/19 07:05 INR, PTT INR 0.97 (0.83-1.09) 11/22/19 20:01 Assessment/Plan urine cx positive continue ceftriaxone await for finalization of cx rest as per the team
[2019-11-24] MEDS: ESCITALOPRAM OXALATE 10 MG TABLET PO SCH (13:41)
[2019-11-24] MEDS: ALBUTEROL SO4 HFA INHALER IH PRN (17:38)
--- NOTE | 2019-11-24 17:54 | PN ---
Teaching Attending Note Name of Resident: Micahel Salazar ATTENDING PHYSICIAN STATEMENT I saw and evaluated the patient. I reviewed the resident's note and discussed the case with the resident. I agree with the resident's findings and plan as documented. SUBJECTIVE: Patient is comfortable , improving. OBJECTIVE: Vital Signs Temperature 98.4 F 11/24/19 11:00 Pulse Rate 67 11/24/19 11:00 Respiratory Rate 19 11/24/19 11:00 Blood Pressure 136/96 11/24/19 11:00 O2 Sat by Pulse Oximetry (%) 100 11/24/19 09:00 PE: per resident's note CBCD WBC 8.8 K/mm3 (4.0-10.0) 11/24/19 07:05 RBC 4.30 M/mm3 (3.60-5.2) 11/24/19 07:05 Hgb 12.0 GM/dL (10.7-15.3) 11/24/19 07:05 Hct 36.7 % (32.4-45.2) 11/24/19 07:05 MCV 85.4 fl (80-96) 11/24/19 07:05 MCHC 32.7 g/dl (32.0-36.0) 11/24/19 07:05 RDW 13.7 % (11.6-15.6) 11/24/19 07:05 Plt Count 298 K/MM3 (134-434) 11/24/19 07:05 MPV 8.3 fl (7.5-11.1) 11/24/19 07:05 CMP Sodium 141 mmol/L (136-145) 11/24/19 07:05 Potassium 4.6 mmol/L (3.5-5.1) 11/24/19 07:05 Chloride 106 mmol/L (98-107) 11/24/19 07:05 Carbon Dioxide 28 mmol/L (21-32) 11/24/19 07:05 Anion Gap 7 MMOL/L (8-16) L 11/24/19 07:05 BUN 12.1 mg/dL (7-18) 11/24/19 07:05 Creatinine 0.7 mg/dL (0.55-1.3) 11/24/19 07:05 Random Glucose 125 mg/dL (74-106) H 11/24/19 07:05 Calcium 8.8 mg/dL (8.5-10.1) 11/24/19 07:05 Total Bilirubin 0.6 mg/dL (0.2-1) 11/24/19 07:05 AST 14 U/L (15-37) L 11/24/19 07:05 ALT 25 U/L (13-61) 11/24/19 07:05 Alkaline Phosphatase 106 U/L (45-117) 11/24/19 07:05 Total Protein 6.7 g/dl (6.4-8.2) 11/24/19 07:05 Albumin 3.2 g/dl (3.4-5.0) L 11/24/19 07:05 CARDIAC ENZYMES Creatine Kinase 109 U/L (26-192) 11/22/19 20:01 Troponin I < 0.02 ng/ml (0.00-0.05) 11/22/19 20:01 Current Medications Generic Name Dose Route Start Last Admin Trade Name Freq PRN Reason Stop Dose Admin Albuterol Sulfate 2 puff 11/23/19 00:00 11/24/19 17:38 Ventolin Hfa Inhaler - IH 2 puff Q6H PRN Administration ASTHMA Aspirin 81 mg 11/23/19 10:00 11/24/19 10:55 Asa - PO 81 mg DAILY [facility] Administration Atorvastatin Calcium 20 mg 11/24/19 22:00 Lipitor - PO HS [facility] Divalproex Sodium 500 mg 11/25/19 10:00 Depakote *Er* - PO DAILY [facility] Enoxaparin Sodium 40 mg 11/23/19 10:00 11/24/19 12:27 Lovenox - SQ 40 mg DAILY [facility] Administration Escitalopram Oxalate 5 mg 11/23/19 10:00 11/24/19 13:41 Lexapro - PO 5 mg DAILY [facility] Administration Sodium Chloride 1,000 mls @ 75 mls/hr 11/22/19 23:45 11/24/19 11:22 Normal Saline - IV 75 mls/hr ASDIR [facility] Administration Ceftriaxone Sodium 1 gm/ 50 mls @ 100 mls/hr 11/24/19 10:45 11/24/19 11:21 Dextrose IVPB 100 mls/hr DAILY [facility] Administration Protocol Insulin Aspart 1 vial 11/23/19 07:00 11/24/19 06:28 Novolog Vial Sliding Scale - SQ Not Given BIDAC [facility] Protocol Levothyroxine Sodium 25 mcg 11/23/19 07:00 11/24/19 06:13 Synthroid - PO 25 mcg ACBK [facility] Administration Losartan Potassium 50 mg 11/24/19 09:54 11/24/19 10:55 Cozaar - PO 50 mg DAILY [facility] Administration Pantoprazole Sodium 20 mg 11/23/19 07:00 11/24/19 06:13 Protonix - PO 20 mg ACBK [facility] Administration Home Medications Medication Instructions Recorded Levothyroxine [Synthroid -] 25 mcg PO DAILY 09/29/17 Simvastatin [Zocor -] 5 mg PO HS 09/29/17 Insulin Lispro [Humalog Kwikpen 5 unit SQ AC 04/24/19 U-100] Albuterol Sulfate [Proair Hfa] 2 puff IH Q6H PRN 05/03/19 Glipizide [Glipizide ER] 5 mg PO DAILY 05/03/19 Insulin Glargine,Hum.rec.anlog 25 units SQ HS 05/03/19 [Lantus Solostar] Irbesartan 75 mg PO DAILY 05/03/19 Metformin HCl [Glucophage] 1,000 mg PO BID 05/03/19 Omeprazole 20 mg PO DAILY 05/03/19 Aspirin [ASA -] 81 mg PO DAILY #30 tab.chew 05/04/19 Ondansetron [Zofran *Odt*] 4 mg SL BID #14 od.tablet 05/17/19 Meclizine HCl 25 mg PO TID PRN #15 tablet 09/27/19 Cephalexin Monohydrate [Keflex -] 500 mg PO BID #20 capsule 10/07/19 Divalproex *ER* [Depakote *ER* -] 250 mg PO DAILY #2 tablet.sa 10/13/19 Divalproex *ER* [Depakote *ER* -] 500 mg PO DAILY #30 tablet.sa 10/13/19 Escitalopram Oxalate [Lexapro -] 5 mg PO DAILY 10/13/19 Meclizine HCl [Antivert -] 25 mg PO TID PRN #90 tablet 10/13/19 Ipratropium 0.02% Nebulizer 2 sprays BID 11/23/19 [Atrovent 0.02% Nebulizer -] Microbiology 11/22/19 20:25 Urine - Urine Clean Catch Urine Culture - Preliminary Lactose Fermenting Neg Bacilli MRI of the brain: no acute infarct, moderate volume loss, ventricular dilatation and mild to moderate periventricular chronic microvascular ischemic disease changes. BL PERIVENTRICULAR chronic microvascular ischemic disease changes. small focal chronic infarct in the right cerebellum. ASSESSMENT AND PLAN: This aptient is a 69yof with PMhx of CVA,vertigo (on meclizine), HTN, T2DM, HLD,and hypothyroidism who presented with symptoms of the room spinning, dizziness and nausea. CT scan of abdomen was unremarkable. CT scan of the brain was negative for acute findings. #Acute Vertigo improving ,a sper neuro to discontinue meclizine and continue with Depakote , MRI as above, neuro on the case #Hx CVA: on asa and statin therapy continue # Leukocytosis: due to UTI will start the patient on Rocephin, follow the cx # Acute UTI: start Rocephin wait for the cx and sensitivity #T2DM: SS with coverage ,hold metformin and glipizide #Hx of Hypothyroidism continue synthroid # Hypertension controlled continue irbesartan # Acute Epigastric Pain : resolved ; CT scan abdomen and pelvis with no acute findings # Rule Out COVID DVT Prophylaxis: lovenox 40mg daily
--- NOTE | 2019-11-24 19:52 | PN ---
Physical Exam: SUBJECTIVE: No overnight events. Patient seen and examined. Endorses occipital headache, unimproved with Tylenol. It is chronic. It radiates to sides of her head and characterized as squeezing. Denies dizziness, N/V. She also reports L leg numbness that has been ongoing for one month and reported that an appointment was already made with Dr. Lee for December 05 to discuss the numbness. OBJECTIVE: Vital Signs Period Temp Pulse Resp BP Sys/Perdomo Pulse Ox Last 24 Hr 97.6 F-98.6 F 61-77 18-20 124-150/70-96 100-100 GENERAL: The patient is awake, alert, and fully oriented, in no acute distress. HEAD: NC, NT; MMM LUNGS: Breath sounds equal, clear to auscultation bilaterally, no wheezes, no crackles, no accessory muscle use. HEART: Regular rate and rhythm, S1, S2 without murmur, rub or gallop. ABDOMEN: Soft, nontender, nondistended, normoactive bowel sounds, no guarding, no rebound, EXTREMITIES: 2+ pulses, warm, well-perfused, no edema. Decreased sensation on L leg. Normal sensation on other extremities. UE strength 5/5. RLE strength 5/5. LE strength 4/5. NEUROLOGICAL: Normal speech, gait not observed. PSYCH: Normal mood, normal affect. SKIN: Warm, dry, normal turgor, no rashes or lesions noted Laboratory Results - last 24 hr 11/22/19 11/24/19 11/24/19 22:00 06:20 07:05 WBC 8.8 RBC 4.30 Hgb 12.0 Hct 36.7 MCV 85.4 MCH 27.9 MCHC 32.7 RDW 13.7 Plt Count 298 MPV 8.3 Sodium Potassium Chloride Carbon Dioxide Anion Gap BUN Creatinine Est GFR (CKD-EPI)AfAm Est GFR (CKD-EPI)NonAf POC Glucometer 126 Random Glucose Calcium Total Bilirubin AST ALT Alkaline Phosphatase Total Protein Albumin COVID-19 (EDI) Not detected 11/24/19 11/24/19 11/24/19 07:05 12:25 17:35 WBC RBC Hgb Hct MCV MCH MCHC RDW Plt Count MPV Sodium 141 Potassium 4.6 Chloride 106 Carbon Dioxide 28 Anion Gap 7 L BUN 12.1 Creatinine 0.7 Est GFR (CKD-EPI)AfAm 103.18 Est GFR (CKD-EPI)NonAf 89.03 POC Glucometer 147 166 Random Glucose 125 H Calcium 8.8 Total Bilirubin 0.6 AST 14 L ALT 25 Alkaline Phosphatase 106 Total Protein 6.7 Albumin 3.2 L COVID-19 (EDI) Active Medications Generic Name Dose Route Start Last Admin Trade Name Freq PRN Reason Stop Dose Admin Albuterol Sulfate 2 puff 11/23/19 00:00 11/24/19 17:38 Ventolin Hfa Inhaler - IH 2 puff Q6H PRN Administration ASTHMA Aspirin 81 mg 11/23/19 10:00 11/24/19 10:55 Asa - PO 81 mg DAILY [facility] Administration Atorvastatin Calcium 20 mg 11/24/19 22:00 Lipitor - PO HS [facility] Divalproex Sodium 500 mg 11/25/19 10:00 Depakote *Er* - PO DAILY [facility] Enoxaparin Sodium 40 mg 11/23/19 10:00 11/24/19 12:27 Lovenox - SQ 40 mg DAILY [facility] Administration Escitalopram Oxalate 5 mg 11/23/19 10:00 11/24/19 13:41 Lexapro - PO 5 mg DAILY [facility] Administration Sodium Chloride 1,000 mls @ 75 mls/hr 11/22/19 23:45 11/24/19 11:22 Normal Saline - IV 75 mls/hr ASDIR [facility] Administration Ceftriaxone Sodium 1 gm/ 50 mls @ 100 mls/hr 11/24/19 10:45 11/24/19 11:21 Dextrose IVPB 100 mls/hr DAILY [facility] Administration Protocol Insulin Aspart 1 vial 11/23/19 07:00 11/24/19 16:29 Novolog Vial Sliding Scale - SQ Not Given BIDAC [facility] Protocol Levothyroxine Sodium 25 mcg 11/23/19 07:00 11/24/19 06:13 Synthroid - PO 25 mcg ACBK [facility] Administration Losartan Potassium 50 mg 11/24/19 09:54 11/24/19 10:55 Cozaar - PO 50 mg DAILY [facility] Administration Pantoprazole Sodium 20 mg 11/23/19 07:00 11/24/19 06:13 Protonix - PO 20 mg ACBK [facility] Administration IMAGING: * 10/04/2019 MRI brain: There is moderate volume loss and ventricular dilatation. Mild to moderate periventricular chronic microvascular ischemic disease changes. Bilateral periventricular chronic lacunar infarcts are present at the level of the bazan radiata and centrum semiovale. Small focal chronic infarct in right side of the cerebellum, posteriorly. No gross mass lesion, acute infarct or intracranial hemorrhage are identified. There is no shift of the midline structures. No suspicious bone marrow abnormal signal is identified. Both orbits appear unremarkable * 10/12 MRI brain: There is moderate volume loss, ventricular dilatation and mild to moderate periventricular chronic microvascular ischemic disease changes. Bilateral periventricular chronic lacunar infarcts are present. Previously described likely small focal chronic infarct in the right cerebellum is again seen. No restricted diffusion is identified to suggest an acute infarct. No gross acute intracranial hemorrhage is seen. No suspicious bone marrow abnormal signal is identified. Both orbits appear unremarkable * 11/21 CT head: No CT evidence of acute intracranial pathology. Small chronic right cerebellar infarct posteriorly. No definite interval change is noted in comparison to prior CT studies of 10/13/2019 and 05/03/2019. A small amount of fluid is again noted within the left mastoid air cells inferiorly. * CT A/P 11/21 : No definite CT findings of acute pathology are noted. Small right paramidline epigastric ventral hernia containing fat only as on a previous CT study of 05/17/2019. Possible mild endometrial thickening as on the prior exam. Sonographic correlation is suggested if not previously performed at a different facility. Status post cholecystectomy also as on the prior study. There is again visualization of mild nonspecific common bile duct dilatation which could be on a physiologic postsurgical basis. Clinical/laboratory correlation is suggested. Probable diffuse hepatic steatosis. * CXR 11/21: Cardiomegaly, no acute disease. * ASSESSMENT/PLAN: 69 YO F PMH CVA (no residual weakness),vertigo, HTN, DM, HLD, Restless leg syndrome responsive to pramipexole, depression, panic/anxiety requiring clonazepam, and hypothyroidism who presented with symptoms of vertigo and nausea was admitted for vertigo. #Vertebrobasilar migraines -Known migraine headaches with vertigo, N/V hx; agnieszka-hallpike negative -Neuro c/s apprecated. migraines worsened when pt is off depakote. Pt's symptoms consistent with Vertebrobasilar migraines. -Resume Depakote ER 250 mg daily X 2 days, then 500 mg/day -d/c meclizine #CVA hx -c/w ASA, statin -neuro checks #Leukocytosis -downtrended; Resolved -monitor cbc -urine cx positive; started on ceftriaxone 1 gm/ Dextrose 5 ml -COVID pending #Diabetes Mellitus -ISS -stable; did not need insulin -holding home oral meds #Hypothyroidism -c/w synthroid -TSH WNL #Hypertension -c/w irbesartan #DVT Prophylaxis -lovenox 40mg sq daily #FEN -IVF NS at 75 cc/hr -monitor BMP, replete lytes prn -Diabetic/low sodium diet #DISPO maintain med surg Visit type - Emergency Visit Emergency Visit: Yes ED Registration Date: 11/22/19 Care time: The patient presented to the Emergency Department on the above date and was hospitalized for further evaluation of their emergent condition. - New Patient This patient is new to me today: No - Critical Care Critical Care patient: No ATTENDING PHYSICIAN STATEMENT I saw and evaluated the patient. I reviewed the resident's note and discussed the case with the resident. I agree with the resident's findings and plan as documented. SUBJECTIVE: OBJECTIVE: ASSESSMENT AND PLAN:
[2019-11-24] MEDS ORDERED: ATORVASTATIN CA 20 MG TABLET (FP) PO SCH (22:00)
[2019-11-25] MEDS: ALBUTEROL SO4 HFA INHALER IH PRN (04:17)
[2019-11-25] MEDS: INSULIN SLIDING SCALE (NOVOLOG) 1 VIAL SQ SCH (06:41)
[2019-11-25] MEDS: LEVOTHYROXINE NA 25 MCG TABLET (FP) PO SCH (06:42)
[2019-11-25] MEDS: PANTOPRAZOLE 20 MG TABLET PO SCH (06:42)
[2019-11-25 07:42] LABS: BASO % 0.5 % (0-2.0); EOS % 3.5 % (0-4.5); HEMOGLOBIN 12.8 GM/dL (10.7-15.3); LYMPH % 22.2 % (8-40); MCHC 32.7 g/dl (32.0-36.0); MEAN CELL VOLUME 85.7 fl (80-96); MEAN PLT VOLUME 8.7 fl (7.5-11.1); MONO % 6.9 % (3.8-10.2); NEUT % 66.9 % (42.8-82.8); PLATELET COUNT 308 K/MM3 (134-434); RBC 4.55 M/mm3 (3.60-5.2); RDW 13.6 % (11.6-15.6); WHITE BLOOD COUNT 9.1 K/mm3 (4.0-10.0)
[2019-11-25 07:45] LABS: ALBUMIN 3.4 g/dl (3.4-5.0); BLOOD UREA NITROGEN 11.3 mg/dL (7-18); POTASSIUM 4.6 mmol/L (3.5-5.1)
[2019-11-25 07:50] LABS: BILIRUBIN,TOTAL 0.5 mg/dL (0.2-1); CREATININE 0.7 mg/dL (0.55-1.3); MAGNESIUM 2.2 mg/dL (1.8-2.4); PHOSPHOROUS 3.2 mg/dL (2.5-4.9); TOT PROT 7.3 g/dl (6.4-8.2)
[2019-11-25] MEDS ORDERED: DIVALPROEX NA *ER* EXTEND REL 500 MG TABLET.SA (FP) PO SCH (10:00)
[2019-11-25] MEDS: CEFTRIAXONE 1 GM in DEXTROSE 5%-WATER - 50 ML IVPB SCH (10:05)
[2019-11-25] MEDS: ESCITALOPRAM OXALATE 10 MG TABLET PO SCH (10:05)
[2019-11-25] MEDS: LOSARTAN POTASSIUM 50 MG TABLET (FP) PO SCH (10:06)
[2019-11-25] MEDS: ASPIRIN 81 MG CHEWABLE TABLETS PO SCH (10:06)
[2019-11-25] MEDS: ENOXAPARIN NA (PORCINE) 40 MG/0.4 ML DISP.SYRIN SQ SCH (10:06)
[2019-11-25 10:42] VITALS: PULSE 68
--- NOTE | 2019-11-25 12:30 | PN ---
Progress Note, Physician History of Present Illness: stable no complaints - Current Medication List Current Medications: Active Medications Albuterol Sulfate (Ventolin Hfa Inhaler -) 2 puff IH Q6H PRN PRN Reason: ASTHMA Last Admin: 11/25/19 04:17 Dose: 2 puff Documented by: Aspirin (Asa -) 81 mg PO DAILY [facility] Last Admin: 11/25/19 10:06 Dose: 81 mg Documented by: Atorvastatin Calcium (Lipitor -) 20 mg PO HS [facility] Last Admin: 11/24/19 21:39 Dose: 20 mg Documented by: Divalproex Sodium (Depakote *Er* -) 500 mg PO DAILY [facility] Last Admin: 11/25/19 10:05 Dose: 500 mg Documented by: Enoxaparin Sodium (Lovenox -) 40 mg SQ DAILY [facility] Last Admin: 11/25/19 10:06 Dose: 40 mg Documented by: Escitalopram Oxalate (Lexapro -) 5 mg PO DAILY [facility] Last Admin: 11/25/19 10:05 Dose: 5 mg Documented by: Ceftriaxone Sodium 1 gm/ (Dextrose) 50 mls @ 100 mls/hr IVPB DAILY [facility]; Protocol Last Admin: 11/25/19 10:05 Dose: 100 mls/hr Documented by: Insulin Aspart (Novolog Vial Sliding Scale -) 1 vial SQ BIDAC [facility]; Protocol Last Admin: 11/25/19 06:41 Dose: Not Given Documented by: Levothyroxine Sodium (Synthroid -) 25 mcg PO ACBK [facility] Last Admin: 11/25/19 06:42 Dose: 25 mcg Documented by: Losartan Potassium (Cozaar -) 50 mg PO DAILY [facility] Last Admin: 11/25/19 10:06 Dose: 50 mg Documented by: Pantoprazole Sodium (Protonix -) 20 mg PO ACBK [facility] Last Admin: 11/25/19 06:42 Dose: 20 mg Documented by: - Objective Vital Signs: Vital Signs Temperature 98.3 F 11/25/19 10:41 Pulse Rate 68 11/25/19 10:41 Respiratory Rate 20 11/25/19 10:41 Blood Pressure 146/84 11/25/19 10:41 O2 Sat by Pulse Oximetry (%) 99 11/25/19 09:00 Constitutional: Yes: No Distress, Calm Cardiovascular: Yes: S1, S2 Respiratory: Yes: Regular, CTA Bilaterally Gastrointestinal: Yes: Normal Bowel Sounds, Soft Musculoskeletal: Yes: WNL Extremities: Yes: WNL Neurological: Yes: Alert, Oriented Psychiatric: Yes: Alert, Oriented Labs: CBC, BMP 11/25/19 06:40 11/25/19 06:40 INR, PTT INR 0.97 (0.83-1.09) 11/22/19 20:01 Assessment/Plan 69-year-old female with a past medical history of CVA,vertigo (on meclizine), hypertension, DM, hyperlipidemia and hypothyroidism who presented with symptoms of the room spinning, dizziness and nausea which started today. She also reported epigastric pain which was relieved with Mylanta and Zofran. CT scan of abdomen was unremarkable. CT scan of the brain was negative for acute findings. 1. Vertigo 2.Hx CVA 3. Leukocytosis 4. Diabetes Mellitus 5. Hypothyroidism 6. Hypertension 7. Epigastric Pain plan can be changed to oral abx rest as per the team
[2019-11-25 15:21] VITALS: BP 129/80; TEMP 98.2
--- NOTE | 2019-11-25 16:00 | PN ---
Teaching Attending Note Name of Resident: Michael Salazar ATTENDING PHYSICIAN STATEMENT I saw and evaluated the patient. I reviewed the resident's note and discussed the case with the resident. I agree with the resident's findings and plan as documented. SUBJECTIVE: Patient is comfortable, wants to go home. OBJECTIVE: Vital Signs Temperature 98.2 F 11/25/19 14:00 Pulse Rate 68 11/25/19 14:00 Respiratory Rate 20 11/25/19 14:00 Blood Pressure 129/80 11/25/19 14:00 O2 Sat by Pulse Oximetry (%) 99 11/25/19 09:00 PE: per resident's note CBCD WBC 9.1 K/mm3 (4.0-10.0) 11/25/19 06:40 RBC 4.55 M/mm3 (3.60-5.2) 11/25/19 06:40 Hgb 12.8 GM/dL (10.7-15.3) 11/25/19 06:40 Hct 39.0 % (32.4-45.2) 11/25/19 06:40 MCV 85.7 fl (80-96) 11/25/19 06:40 MCHC 32.7 g/dl (32.0-36.0) 11/25/19 06:40 RDW 13.6 % (11.6-15.6) 11/25/19 06:40 Plt Count 308 K/MM3 (134-434) 11/25/19 06:40 MPV 8.7 fl (7.5-11.1) 11/25/19 06:40 CMP Sodium 138 mmol/L (136-145) 11/25/19 06:40 Potassium 4.6 mmol/L (3.5-5.1) 11/25/19 06:40 Chloride 104 mmol/L (98-107) 11/25/19 06:40 Carbon Dioxide 29 mmol/L (21-32) 11/25/19 06:40 Anion Gap 6 MMOL/L (8-16) L 11/25/19 06:40 BUN 11.3 mg/dL (7-18) 11/25/19 06:40 Creatinine 0.7 mg/dL (0.55-1.3) 11/25/19 06:40 Random Glucose 133 mg/dL (74-106) H 11/25/19 06:40 Calcium 9.0 mg/dL (8.5-10.1) 11/25/19 06:40 Total Bilirubin 0.5 mg/dL (0.2-1) 11/25/19 06:40 AST 16 U/L (15-37) 11/25/19 06:40 ALT 27 U/L (13-61) 11/25/19 06:40 Alkaline Phosphatase 109 U/L (45-117) 11/25/19 06:40 Total Protein 7.3 g/dl (6.4-8.2) 11/25/19 06:40 Albumin 3.4 g/dl (3.4-5.0) 11/25/19 06:40 CARDIAC ENZYMES Creatine Kinase 109 U/L (26-192) 11/22/19 20:01 Troponin I < 0.02 ng/ml (0.00-0.05) 11/22/19 20:01 Current Medications Generic Name Dose Route Start Last Admin Trade Name Freq PRN Reason Stop Dose Admin Albuterol Sulfate 2 puff 11/23/19 00:00 11/25/19 04:17 Ventolin Hfa Inhaler - IH 2 puff Q6H PRN Administration ASTHMA Aspirin 81 mg 11/23/19 10:00 11/25/19 10:06 Asa - PO 81 mg DAILY GWYN Administration Atorvastatin Calcium 20 mg 11/24/19 22:00 11/24/19 21:39 Lipitor - PO 20 mg HS GWYN Administration Divalproex Sodium 500 mg 11/25/19 10:00 11/25/19 10:05 Depakote *Er* - PO 500 mg DAILY GWYN Administration Enoxaparin Sodium 40 mg 11/23/19 10:00 11/25/19 10:06 Lovenox - SQ 40 mg DAILY GWYN Administration Escitalopram Oxalate 5 mg 11/23/19 10:00 11/25/19 10:05 Lexapro - PO 5 mg DAILY GWYN Administration Ceftriaxone Sodium 1 gm/ 50 mls @ 100 mls/hr 11/24/19 10:45 11/25/19 10:05 Dextrose IVPB 100 mls/hr DAILY GWYN Administration Protocol Insulin Aspart 1 vial 11/23/19 07:00 11/25/19 06:41 Novolog Vial Sliding Scale - SQ Not Given [facility] Protocol Levothyroxine Sodium 25 mcg 11/23/19 07:00 11/25/19 06:42 Synthroid - PO 25 mcg ACBK GWYN Administration Losartan Potassium 50 mg 11/24/19 09:54 11/25/19 10:06 Cozaar - PO 50 mg DAILY GWYN Administration Pantoprazole Sodium 20 mg 11/23/19 07:00 11/25/19 06:42 Protonix - PO 20 mg ACBK GWYN Administration Home Medications Medication Instructions Recorded Insulin Lispro [Humalog Kwikpen 5 unit SQ AC 04/24/19 U-100] Insulin Glargine,Hum.rec.anlog 25 units SQ HS 05/03/19 [Lantus Solostar] Irbesartan 75 mg PO DAILY 05/03/19 Metformin HCl [Glucophage] 1,000 mg PO BID 05/03/19 Omeprazole 20 mg PO DAILY 05/03/19 Aspirin [ASA -] 81 mg PO DAILY #30 tab.chew 05/04/19 Divalproex *ER* [Depakote *ER* -] 500 mg PO DAILY #30 tablet.sa 10/13/19 Escitalopram Oxalate [Lexapro -] 5 mg PO DAILY 10/13/19 Ipratropium 0.02% Nebulizer 2 sprays BID 11/23/19 [Atrovent 0.02% Nebulizer -] Atorvastatin Ca [Lipitor] 20 mg PO HS #30 tablet 11/25/19 Cefuroxime Axetil [Ceftin -] 250 mg PO BID #8 tablet 11/25/19 Levothyroxine [Synthroid -] 25 mcg PO DAILY #30 tablet 11/25/19 Microbiology 11/22/19 20:25 Urine - Urine Clean Catch Urine Culture - Final Escherichia Coli MRI of the brain: no acute infarct, moderate volume loss, ventricular dilatation and mild to moderate periventricular chronic microvascular ischemic disease changes. BL PERIVENTRICULAR chronic microvascular ischemic disease changes. small focal chronic infarct in the right cerebellum. ASSESSMENT AND PLAN: This aptient is a 69yof with PMhx of CVA,vertigo (on meclizine), HTN, T2DM, HLD,and hypothyroidism who presented with symptoms of the room spinning, dizziness and nausea. CT scan of abdomen was unremarkable. CT scan of the brain was negative for acute findings. #Acute Vertigo improving ,continue Depakote , MRI as above, neuro on the case #Hx CVA: on asa and statin therapy # Leukocytosis: due to UTI s/p Rocephin , will dc the patient on ceftin 250mg po bid x 4 more days since sensitive to everything. #T2DM: continue metformin, dc glipizide #Hx of Hypothyroidism continue synthroid # Hypertension controlled continue irbesartan # Acute Epigastric Pain : resolved, CT scan abdomen and pelvis with no acute fi ndings # COVID; not detected DVT Prophylaxis: lovenox 40mg daily dc patient home
--- NOTE | 2019-11-25 21:22 | DS ---
Physical Exam: SUBJECTIVE: No overnight events. Patient seen and examined. Pt NAD. ROS negative. OBJECTIVE: Vital Signs Period Temp Pulse Resp BP Sys/Perdomo Pulse Ox Last 24 Hr 97.9 F-98.5 F 68-82 18-20 129-148/80-92 99 PHYSICAL EXAM GENERAL: The patient is awake, alert, and fully oriented, in no acute distress. HEAD: NC, NT; MMM LUNGS: Breath sounds equal, clear to auscultation bilaterally, no wheezes, no crackles, no accessory muscle use. HEART: Regular rate and rhythm, S1, S2 without murmur, rub or gallop. ABDOMEN: Soft, nontender, nondistended, normoactive bowel sounds, no guarding, no rebound, EXTREMITIES: 2+ pulses, warm, well-perfused, no edema. Decreased sensation on L leg. Normal sensation on other extremities. UE strength 5/5. RLE strength 5/5. LE strength 4/5. NEUROLOGICAL: Normal speech, gait not observed. PSYCH: Normal mood, normal affect. SKIN: Warm, dry, normal turgor, no rashes or lesions noted LABS Laboratory Results - last 24 hr 11/23/19 11/24/19 11/25/19 05:57 21:42 06:30 WBC RBC Hgb Hct MCV MCH MCHC RDW Plt Count MPV Absolute Neuts (auto) Neutrophils % Lymphocytes % Monocytes % Eosinophils % Basophils % Nucleated RBC % Sodium Potassium Chloride Carbon Dioxide Anion Gap BUN Creatinine Est GFR (CKD-EPI)AfAm Est GFR (CKD-EPI)NonAf POC Glucometer 146 128 Random Glucose Calcium Phosphorus Magnesium Total Bilirubin AST ALT Alkaline Phosphatase Total Protein Albumin Procalcitonin 0.06 11/25/19 11/25/19 11/25/19 06:40 06:40 11:50 WBC 9.1 RBC 4.55 Hgb 12.8 Hct 39.0 MCV 85.7 MCH 28.0 MCHC 32.7 RDW 13.6 Plt Count 308 MPV 8.7 Absolute Neuts (auto) 6.1 Neutrophils % 66.9 Lymphocytes % 22.2 D Monocytes % 6.9 Eosinophils % 3.5 D Basophils % 0.5 Nucleated RBC % 0 Sodium 138 Potassium 4.6 Chloride 104 Carbon Dioxide 29 Anion Gap 6 L BUN 11.3 Creatinine 0.7 Est GFR (CKD-EPI)AfAm 103.18 Est GFR (CKD-EPI)NonAf 89.03 POC Glucometer 139 Random Glucose 133 H Calcium 9.0 Phosphorus 3.2 Magnesium 2.2 Total Bilirubin 0.5 AST 16 ALT 27 Alkaline Phosphatase 109 Total Protein 7.3 Albumin 3.4 Procalcitonin HOSPITAL COURSE: 69 YO F PMH CVA (no residual weakness),vertigo (on meclizine), chronic mastoiditis, hypertension, DM, hyperlipidemia, Restless leg syndrome responsive to pramipexole, depression, panic/anxiety requiring clonazepam, and hypothyroidism who presented with symptoms of vertigo and nausea was admitted for vertigo. Pt has known vertigo hx associated with vertigo & N/V. [place] hallpike negative. CT head showed no acute pathology; Demonstrated small amount of fluid in Left masoid air cells. Placed on meclizine. Occipital and Right hemicranial headaches increased since the pt was off Depakote. 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 Vertigo and headaches improved after resuming Depakote ER 250 mg daily x 2 days then 500 mg/day. Pt was counseled on left leg numbness and diabetes. Pt endorsed making an appointment with her neurologist, Dr. Lee, for December 05 to discuss the issue. Instructed pt to also follow-up with Dr. Lee regarding her vertigo /vertebrobasilar migraines and medications. During course of stay, pt had lekocytosis and + urine culture. Pt placed on ceftriaxone and leukocytosis resolved. Pt was sent home on ceftin 250 mg BID. Pt did not require insulin during. Patient was instructed home insulin humalog was discontinued. Pt counseled to check glucose regularly in AM and PM & keep a log of glucose measurements to bring to PCP. Advised to follow-up with PCP, Dr. Crain. Vitals signs stable. Date of Admission:11/22/19 * 11/21 CT head: No evidence of acute intracranial pathology. Small chronic right cerebellar infarct posteriorly. No definite interval change in comparison to prior CT studies of 10/13/2019 and 05/03/2019. A small amount of fluid is again noted within the left mastoid air cells inferiorly. * 11/21 CT A/P : No definite CT findings of acute pathology are noted. Small right paramidline epigastric ventral hernia containing fat only as on a previous CT study of 05/17/2019. Possible mild endometrial thickening as on the prior exam. Sonographic correlation is suggested if not previously performed at a different facility. Status post cholecystectomy also as on the prior study. There is again visualization of mild nonspecific common bile duct dilatation which could be on a physiologic postsurgical basis. Clinical/laboratory correlation is suggested. Probable diffuse hepatic steatosis. * Date of Discharge: 11/25/19 Minutes to complete discharge: 45 Discharge Summary Problems reviewed: Yes Reason For Visit: VERTIGO Condition: Improved - Instructions Diet, Activity, Other Instructions: You were evaluated in the hospital for dizziness . You also had abdominal pain. CT imaging of the abdomen did not show any significant new findings. You have a previously noted hernia, mild endometrial thickening, dilated bile duct and possible fatty liver. You were evaluated by an Infectious Disease specialist who started you on antibiotics for an Urinary Tract Infection. You were seen by a Neurologist who attributed your dizziness to medical nonadherence to your Depakote. Your symptoms improved. MEDICATIONS: - continue with your Depakote ER 500mg, daily - STOP taking Meclizine[ANTIVERT] - START taking CEFTIN 250mg 2x per day for 4 more days for your urinary tract infection - Please continue your previously prescribed medications - You need to continue to check your sugar morning and night time. Please discontinue your insulin humalog. Keep a log of your sugar measurements to bring to your primary physician. FOLLOW-UP Please follow up with Neurologist( ) to discuss your migraines and medication regimen Please follow up with your [facility] to discuss your endometrial thickening -Please follow-up with PCP Dr. Crain, for health maintenance. Please seek immediate medical care if you experience: - fever, chills, confusion - unrelenting dizziness with spinning sensation Referrals: Terrance Lee MD [Staff Physician] - Rach Crain NP [Primary Care Provider] - Disposition: HOME - Home Medications Comprehensive Discharge Medication List: Ambulatory Orders Irbesartan 75 mg PO DAILY 05/03/19 Metformin HCl [Glucophage] 1,000 mg PO BID 05/03/19 Omeprazole 20 mg PO DAILY 05/03/19 Aspirin [ASA -] 81 mg PO DAILY #30 tab.chew 05/04/19 Divalproex *ER* [Depakote *ER* -] 500 mg PO DAILY #30 tablet.sa 10/13/19 Escitalopram Oxalate [Lexapro -] 5 mg PO DAILY 10/13/19 Ipratropium 0.02% Nebulizer [Atrovent 0.02% Nebulizer -] 2 sprays BID 11/23/19 Atorvastatin Ca [Lipitor] 20 mg PO HS #30 tablet 11/25/19 Cefuroxime Axetil [Ceftin -] 250 mg PO BID #8 tablet 11/25/19 Levothyroxine [Synthroid -] 25 mcg PO DAILY #30 tablet 11/25/19 This patient is new to me today: No Emergency Visit: Yes ED Registration Date: 11/22/19 Care time: The patient presented to the Emergency Department on the above date and was hospitalized for further evaluation of their emergent condition. Critical Care patient: No - Discharge Referral Referred to [facility] Med P.C.: No ATTENDING PHYSICIAN STATEMENT I saw and evaluated the patient. I reviewed the resident's note and discussed the case with the resident. I agree with the resident's findings and plan as documented. SUBJECTIVE: OBJECTIVE: ASSESSMENT AND PLAN:
== END 2019-11-25 17:44 | disposition home or self-care (01) | DRG 149 ==
LOC: JER 19:52 → JERBED 21:57 → J6WEST-2 11-23 11:10
PROVIDERS: ADMIT Internal Medicine; ATTEND Internal Medicine
DX: H81.10 Benign paroxysmal vertigo, unspecified ear (principal); N39.0 Urinary tract infection, site not specified; E03.9 Hypothyroidism, unspecified; Z86.73 Personal history of transient ischemic attack (TIA), and cerebral infarction without residual deficits; I10 Essential (primary) hypertension; E78.5 Hyperlipidemia, unspecified; E11.9 Type 2 diabetes mellitus without complications; Z79.4 Long term (current) use of insulin; D72.829 Elevated white blood cell count, unspecified; G43.909 Migraine, unspecified, not intractable, without status migrainosus; R10.13 Epigastric pain; Z11.59 Encounter for screening for other viral diseases; G25.81 Restless legs syndrome; F32.9 Major depressive disorder, single episode, unspecified; F41.9 Anxiety disorder, unspecified; F41.0 Panic disorder [episodic paroxysmal anxiety]; Z91.14 Patient's other noncompliance with medication regimen
CPT/HCPCS: 36415; 70450-TC; 71045-TC-FY; 74177-TC; 80048; 80053; 81003; 82308; 82550; 82962; 83605; 83690; 83735; 84100; 84443; 84484; 85025; 85027; 85610; 85730; 87086; 87186; 93005; 93010; 97116-GP; 97162-GP; 99285-25; Q9967; U0003

== ENCOUNTER 2020-04-24 20:19 | Inpatient (IN) | payer OTHER ==
[2020-04-24 20:30] VITALS: BMI 36.8
[2020-04-24] MEDS ORDERED: FAMOTIDINE 20 MG/50 ML IVPB 20 MG/50 ML MG IVPB ONE ×2 (20:52→21:04)
[2020-04-24] MEDS ORDERED: ACETAMINOPHEN 325 MG TABLET (FP) PO ONE (20:52)
[2020-04-24] MEDS ORDERED: MAG HYDROX/AL HYDROX/SIMETH -MYLANTA- ORAL SUSPENSION PO ONE (20:52)
[2020-04-24] MEDS ORDERED: diazePAM CARPU-JECT 10 MG/2 ML DISP.SYRIN IVPUSH ONE (20:58)
[2020-04-24] MEDS ORDERED: ACETAMINOPHEN 325 MG TABLET (FP) ONE (21:04)
[2020-04-24 21:26] LABS: HEMATOCRIT 40.7 % (32.4-45.2); HEMOGLOBIN 13.1 GM/dL (10.7-15.3); MCHC 32.1 g/dl (32.0-36.0); PLATELET COUNT 307 K/MM3 (134-434); RBC 4.84 M/mm3 (3.60-5.2); RDW 14.2 % (11.6-15.6); WHITE BLOOD COUNT 17.9 K/mm3 (4.0-10.0)
[2020-04-24 21:54] LABS: CHLORIDE 102 mmol/L (98-107); POTASSIUM 4.3 mmol/L (3.5-5.1); SODIUM 138 mmol/L (136-145)
[2020-04-24 21:58] LABS: CALCIUM 9.1 mg/dL (8.5-10.1)
[2020-04-24 21:59] LABS: ALBUMIN 3.3 g/dl (3.4-5.0); ANION GAP 7 MMOL/L (8-16); BLOOD UREA NITROGEN 16.9 mg/dL (7-18); CO2 28 mmol/L (21-32); GLUCOSE,RANDOM 95 mg/dL (74-106)
[2020-04-24 22:02] LABS: CREATININE 0.6 mg/dL (0.55-1.3); SGOT/AST 28 U/L (15-37); SGPT/ALT 36 U/L (13-61)
[2020-04-24 22:03] LABS: ALK PHOS 127 U/L (45-117); BILIRUBIN,TOTAL 0.5 mg/dL (0.2-1)
[2020-04-24 22:04] LABS: TOT PROT 7.5 g/dl (6.4-8.2)
[2020-04-24] MEDS ORDERED: diazePAM CARPU-JECT 10 MG/2 ML DISP.SYRIN ONE (22:18)
[2020-04-24] MEDS ORDERED: ASPIRIN 81 MG CHEWABLE TABLETS PO ONE ×2 (22:56)
[2020-04-24] MEDS ORDERED: ATORVASTATIN CA 80 MG TABLET (FP) PO ONE (22:56)
[2020-04-24] MEDS ORDERED: ASPIRIN 81 MG CHEWABLE TABLETS ONE (23:09)
[2020-04-24] MEDS ORDERED: ATORVASTATIN CA 80 MG TABLET (FP) ONE (23:10)
[2020-04-24 23:37] LABS: EPI CELLS 32 /uL (0-25.1); HYALINE CASTS 1 /uL (0-3.1); PH,URINE 7.5 (5.0-8.0); URINE APPEARANCE CLOUDY; URINE BACTERIA >9,000 /uL (0-1359); URINE BILIRUBIN NEGATIVE (NEGATIVE); URINE COLOR YELLOW; URINE GLUCOSE (UA) NEGATIVE (NEGATIVE); URINE KETONE NEGATIVE (NEGATIVE); URINE LEUK ESTERASE 1+ (NEGATIVE); URINE NITRITE POSITIVE (NEGATIVE); URINE PROTEIN TRACE (NEGATIVE); URINE RBC 26 /uL (0-23.9); URINE UROBILINOGEN 0.2 mg/dL (0.2-1.0); URINE WBC 29 /uL (0-25.8)
[2020-04-24] MEDS ORDERED: CEFTRIAXONE 1 GM/50 ML BAG ONE (23:59)
[2020-04-25] MEDS ORDERED: PROCHLORPERAZINE INJECTION 10 MG/2 ML VIAL IVPB PRN (02:42)
[2020-04-25] MEDS ORDERED: MECLIZINE HCL 25 MG TABLET (FP) PO PRN (02:43)
[2020-04-25 06:14] LABS: EPI CELLS 10 /uL (0-25.1); HYALINE CASTS 0 /uL (0-3.1); URINE APPEARANCE CLEAR; URINE BACTERIA 61 /uL (0-1359); URINE BILIRUBIN NEGATIVE (NEGATIVE); URINE COLOR YELLOW; URINE GLUCOSE (UA) NEGATIVE (NEGATIVE); URINE KETONE NEGATIVE (NEGATIVE); URINE LEUK ESTERASE NEGATIVE (NEGATIVE); URINE NITRITE NEGATIVE (NEGATIVE); URINE PROTEIN NEGATIVE (NEGATIVE); URINE RBC 22 /uL (0-23.9); URINE UROBILINOGEN 0.2 mg/dL (0.2-1.0); URINE WBC 46 /uL (0-25.8)
[2020-04-25 07:35] LABS: BASO % 0.4 % (0-2.0); EOS % 1.5 % (0-4.5); HEMATOCRIT 38.8 % (32.4-45.2); HEMOGLOBIN 12.5 GM/dL (10.7-15.3); LYMPH % 18.2 % (8-40); MCH 27.2 pg (25.7-33.7); MCHC 32.3 g/dl (32.0-36.0); MEAN CELL VOLUME 84.1 fl (80-96); MEAN PLT VOLUME 8.4 fl (7.5-11.1); MONO % 7.5 % (3.8-10.2); NEUT % 72.4 % (42.8-82.8); PLATELET COUNT 299 K/MM3 (134-434); RBC 4.61 M/mm3 (3.60-5.2); RDW 14.1 % (11.6-15.6)
[2020-04-25 07:39] LABS: INR 1.08 (0.83-1.09)
[2020-04-25] MEDS ORDERED: LEVOTHYROXINE NA 25 MCG TABLET (FP) ONE (07:43)
[2020-04-25] MEDS: INSULIN SLIDING SCALE (NOVOLOG) 1 VIAL SQ SCH ×4 (07:49→21:36)
[2020-04-25] MEDS: LEVOTHYROXINE NA 25 MCG TABLET (FP) PO SCH (07:49)
[2020-04-25 07:50] LABS: ALBUMIN 3.3 g/dl (3.4-5.0); BLOOD UREA NITROGEN 13.6 mg/dL (7-18); CALCIUM 8.7 mg/dL (8.5-10.1)
[2020-04-25 07:53] LABS: BILIRUBIN,TOTAL 0.7 mg/dL (0.2-1); CREATININE 0.6 mg/dL (0.55-1.3)
[2020-04-25 07:54] LABS: PHOSPHOROUS 3.2 mg/dL (2.5-4.9)
[2020-04-25 07:55] LABS: TOT PROT 6.9 g/dl (6.4-8.2)
[2020-04-25] MEDS ORDERED: PT OWN MED DRAWER 7, Y5N ONE (09:47)
[2020-04-25] MEDS ORDERED: ASPIRIN 81 MG CHEWABLE TABLETS ONE (09:48)
[2020-04-25] MEDS ORDERED: PATIENT'S OWN MEDICATION (NON-FORMULARY) (Escitalopram Oxalate [Lexapro -] 5 MG Tablet) PO SCH (10:00)
[2020-04-25] MEDS: ASPIRIN 81 MG CHEWABLE TABLETS PO SCH (10:08)
[2020-04-25] MEDS: ESCITALOPRAM OXALATE 5 MG/5 ML PO SCH (10:08)
[2020-04-25] MEDS: DIVALPROEX NA *ER* EXTEND REL 500 MG TABLET.SA (FP) PO SCH (10:08)
[2020-04-25] MEDS: MAG HYDROX/AL HYDROX/SIMETH 30 ML UNIT-DOSE CUP PO SCH ×3 (16:35→21:32)
[2020-04-25] MEDS ORDERED: ACETAMINOPHEN 325 MG TABLET (FP) ONE (21:29)
[2020-04-25] MEDS ORDERED: ATORVASTATIN CA 80 MG TABLET (FP) PO SCH (22:00)
[2020-04-25] MEDS ORDERED: ACETAMINOPHEN 325 MG TABLET (FP) PO PRN (23:04)
[2020-04-26] MEDS: LEVOTHYROXINE NA 25 MCG TABLET (FP) PO SCH (06:15)
[2020-04-26] MEDS: INSULIN SLIDING SCALE (NOVOLOG) 1 VIAL SQ SCH ×3 (06:16→17:23)
[2020-04-26 07:17] LABS: BASO % 0.8 % (0-2.0); EOS % 3.3 % (0-4.5); HEMATOCRIT 40.9 % (32.4-45.2); HEMOGLOBIN 13.6 GM/dL (10.7-15.3); LYMPH % 30.1 % (8-40); MCH 28.1 pg (25.7-33.7); MCHC 33.2 g/dl (32.0-36.0); MEAN CELL VOLUME 84.6 fl (80-96); MEAN PLT VOLUME 8.1 fl (7.5-11.1); NEUT % 55.8 % (42.8-82.8); PLATELET COUNT 312 K/MM3 (134-434); RBC 4.83 M/mm3 (3.60-5.2); WHITE BLOOD COUNT 10.2 K/mm3 (4.0-10.0)
[2020-04-26 07:35] LABS: POTASSIUM 4.6 mmol/L (3.5-5.1)
[2020-04-26 07:39] LABS: CALCIUM 8.7 mg/dL (8.5-10.1)
[2020-04-26 07:40] LABS: ALBUMIN 3.4 g/dl (3.4-5.0); BLOOD UREA NITROGEN 15.9 mg/dL (7-18)
[2020-04-26 07:41] LABS: MAGNESIUM 2.1 mg/dL (1.8-2.4)
[2020-04-26 07:43] LABS: CREATININE 0.8 mg/dL (0.55-1.3)
[2020-04-26 07:44] LABS: BILIRUBIN,TOTAL 0.9 mg/dL (0.2-1); TOT PROT 7.5 g/dl (6.4-8.2)
[2020-04-26] MEDS ORDERED: PT OWN MED DRAWER 7, Y5N ONE (10:08)
[2020-04-26] MEDS: ASPIRIN 81 MG CHEWABLE TABLETS PO SCH (10:09)
[2020-04-26] MEDS: DIVALPROEX NA *ER* EXTEND REL 500 MG TABLET.SA (FP) PO SCH (10:10)
[2020-04-26] MEDS: ESCITALOPRAM OXALATE 5 MG/5 ML PO SCH (10:10)
[2020-04-26] MEDS: MAG HYDROX/AL HYDROX/SIMETH 30 ML UNIT-DOSE CUP PO SCH ×3 (10:10→17:24)
[2020-04-26] MEDS ORDERED: INSULIN SLIDING SCALE (NOVOLOG) 1 VIAL SQ ONE (12:53)
[2020-04-26 14:07] VITALS: BP 104/61; PULSE 79; TEMP 98.2
== END 2020-04-26 21:04 | disposition home or self-care (01) | DRG 65 ==
LOC: JER 20:19 → JERBED 22:57 → J4S 04-25 11:51
PROVIDERS: ADMIT Hospitalist; ATTEND Nurse Practitioner Acute Care
DX: I63.9 Cerebral infarction, unspecified (principal); I69.354 Hemiplegia and hemiparesis following cerebral infarction affecting left non-dominant side; N39.0 Urinary tract infection, site not specified; I10 Essential (primary) hypertension; E78.5 Hyperlipidemia, unspecified; E11.9 Type 2 diabetes mellitus without complications; E03.9 Hypothyroidism, unspecified; K29.70 Gastritis, unspecified, without bleeding; I69.392 Facial weakness following cerebral infarction; G43.909 Migraine, unspecified, not intractable, without status migrainosus; H81.10 Benign paroxysmal vertigo, unspecified ear; Z79.84 Long term (current) use of oral hypoglycemic drugs
CPT/HCPCS: 36415; 70496-TC; 70498-TC; 70551-TC; 71045-TC-FY; 80053; 80061; 80164; 81003; 82140; 82550; 82962; 83036; 83721; 83735; 84100; 84443; 84484; 85025; 85027; 85610; 87086; 87186; 93005; 93010; 93306-TC; 97116-GP; 97161-GP; 99285-25; C9803; U0003

== ENCOUNTER 2020-04-28 14:42 | Emergency (ER) | payer OTHER ==
[2020-04-28 14:48] VITALS: PULSE 94; TEMP 98; BMI 31.6
[2020-04-28] MEDS ORDERED: FAMOTIDINE 20 MG TABLET PO ONE (15:19)
[2020-04-28] MEDS ORDERED: ACETAMINOPHEN 325 MG TABLET (FP) PO ONE (15:19)
[2020-04-28] MEDS ORDERED: MAG HYDROX/AL HYDROX/SIMETH -MYLANTA- ORAL SUSPENSION PO ONE (15:19)
[2020-04-28] MEDS ORDERED: SODIUM CHLORIDE 0.9% 500 ML INFUS.BAG IV ONE (15:35)
[2020-04-28 15:45] LABS: BASO % 0.6 % (0-2.0); EOS % 1.5 % (0-4.5); HEMATOCRIT 40.3 % (32.4-45.2); HEMOGLOBIN 13.1 GM/dL (10.7-15.3); LYMPH % 16.4 % (8-40); MCH 27.2 pg (25.7-33.7); MCHC 32.4 g/dl (32.0-36.0); MEAN PLT VOLUME 8.1 fl (7.5-11.1); MONO % 6.9 % (3.8-10.2); NEUT % 74.6 % (42.8-82.8); PLATELET COUNT 314 K/MM3 (134-434); RDW 13.9 % (11.6-15.6)
[2020-04-28] MEDS ORDERED: ACETAMINOPHEN 325 MG TABLET (FP) ONE (16:12)
[2020-04-28] MEDS ORDERED: FAMOTIDINE 20 MG/50 ML IVPB 20 MG/50 ML MG IVPB ONE (16:13)
[2020-04-28] MEDS ORDERED: MAG HYDROX/AL HYDROX/SIMETH 30 ML UNIT-DOSE CUP ONE (16:13)
[2020-04-28 16:34] LABS: CHLORIDE 102 mmol/L (98-107); POTASSIUM 4.1 mmol/L (3.5-5.1); SODIUM 140 mmol/L (136-145)
[2020-04-28 16:36] LABS: ALBUMIN 3.4 g/dl (3.4-5.0); ANION GAP 8 MMOL/L (8-16); BLOOD UREA NITROGEN 10.9 mg/dL (7-18); CALCIUM 9.5 mg/dL (8.5-10.1); CO2 30 mmol/L (21-32)
[2020-04-28 16:37] LABS: GLUCOSE,RANDOM 176 mg/dL (74-106); LIPASE 424 U/L (73-393)
[2020-04-28 16:39] LABS: CREATININE 0.7 mg/dL (0.55-1.3); SGOT/AST 19 U/L (15-37); SGPT/ALT 36 U/L (13-61)
[2020-04-28 16:41] LABS: BILIRUBIN,TOTAL 0.3 mg/dL (0.2-1); TOT PROT 7.4 g/dl (6.4-8.2)
[2020-04-28 16:42] LABS: ALK PHOS 131 U/L (45-117)
[2020-04-28 17:50] LABS: PH,URINE 7.5 (5.0-8.0); URINE APPEARANCE Error; URINE BILIRUBIN NEGATIVE (NEGATIVE); URINE COLOR YELLOW; URINE GLUCOSE (UA) NEGATIVE (NEGATIVE); URINE KETONE NEGATIVE (NEGATIVE); URINE LEUK ESTERASE NEGATIVE (NEGATIVE); URINE NITRITE NEGATIVE (NEGATIVE); URINE PROTEIN NEGATIVE (NEGATIVE); URINE UROBILINOGEN 0.2 mg/dL (0.2-1.0)
[2020-04-28] MEDS ORDERED: PROCHLORPERAZINE INJECTION 10 MG/2 ML VIAL IVPB ONE (18:19)
[2020-04-28] MEDS ORDERED: PROCHLORPERAZINE INJECTION 10 MG/2 ML VIAL ONE (18:24)
[2020-04-28 19:37] VITALS: BP 110/65
== END 2020-04-28 19:44 | disposition home or self-care (01) ==
LOC: JER 14:42
DX: R11.2 Nausea with vomiting, unspecified (principal); R19.7 Diarrhea, unspecified; R10.13 Epigastric pain
CPT/HCPCS: 36415; 71045-TC-FY; 80053; 81003; 82550; 83690; 84484; 85025; 87086; 93005; 93010; 99284-25

== ENCOUNTER 2020-06-14 21:11 | Emergency (ER) | payer OTHER ==
[2020-06-14] MEDS ORDERED: MECLIZINE HCL 25 MG TABLET (FP) PO ONE (21:34)
[2020-06-14] MEDS ORDERED: METOCLOPRAMIDE HCL INJECTION 10 MG/2 ML VIAL IVPUSH ONE (21:36)
[2020-06-14] MEDS ORDERED: FAMOTIDINE 20 MG/50 ML IVPB 20 MG/50 ML MG IVPB ONE ×2 (21:44→22:36)
[2020-06-14] MEDS ORDERED: MAG HYDROX/AL HYDROX/SIMETH 30 ML UNIT-DOSE CUP PO ONE (21:44)
[2020-06-14] MEDS ORDERED: SODIUM CHLORIDE 1,000 ML IV SCH (21:45)
[2020-06-14] MEDS ORDERED: METOCLOPRAMIDE HCL INJECTION 10 MG/2 ML VIAL ONE (21:46)
[2020-06-14] MEDS ORDERED: MECLIZINE HCL 25 MG TABLET (FP) ONE (21:46)
[2020-06-14] MEDS ORDERED: MAG HYDROX/AL HYDROX/SIMETH 30 ML UNIT-DOSE CUP ONE (22:36)
[2020-06-14 22:39] LABS: BASO % 0.4 % (0-2.0); EOS % 1.5 % (0-4.5); HEMATOCRIT 37.4 % (32.4-45.2); HEMOGLOBIN 12.2 GM/dL (10.7-15.3); LYMPH % 10.6 % (8-40); MCH 27.6 pg (25.7-33.7); MCHC 32.6 g/dl (32.0-36.0); MEAN CELL VOLUME 84.7 fl (80-96); MEAN PLT VOLUME 8.3 fl (7.5-11.1); MONO % 6.6 % (3.8-10.2); NEUT % 80.9 % (42.8-82.8); PLATELET COUNT 296 K/MM3 (134-434); RBC 4.41 M/mm3 (3.60-5.2); RDW 13.9 % (11.6-15.6); WHITE BLOOD COUNT 13.4 K/mm3 (4.0-10.0)
[2020-06-14 22:40] VITALS: BMI 31.6
[2020-06-14 22:58] LABS: CHLORIDE 102 mmol/L (98-107); POTASSIUM 3.9 mmol/L (3.5-5.1); SODIUM 136 mmol/L (136-145)
[2020-06-14 23:00] LABS: ALBUMIN 3.2 g/dl (3.4-5.0); ANION GAP 6 MMOL/L (8-16); BLOOD UREA NITROGEN 12.8 mg/dL (7-18); CALCIUM 8.6 mg/dL (8.5-10.1); CO2 28 mmol/L (21-32); GLUCOSE,RANDOM 169 mg/dL (74-106); LIPASE 183 U/L (73-393)
[2020-06-14 23:03] LABS: CREATININE 0.8 mg/dL (0.55-1.3); PHOSPHOROUS 2.9 mg/dL (2.5-4.9); SGOT/AST 19 U/L (15-37); SGPT/ALT 30 U/L (13-61)
[2020-06-14 23:04] LABS: BILIRUBIN,TOTAL 0.3 mg/dL (0.2-1); TOT PROT 7.2 g/dl (6.4-8.2)
[2020-06-14 23:06] LABS: ALK PHOS 119 U/L (45-117)
[2020-06-15 02:00] VITALS: BP 112/68; TEMP 97.5
[2020-06-15 02:04] VITALS: PULSE 65
== END 2020-06-15 02:04 | disposition home or self-care (01) ==
LOC: JER 21:11
PROC: 3E033GC Introduction of Other Therapeutic Substance into Peripheral Vein, Percutaneous Approach (ICD-10-PCS; principal; 2020-06-14)
PROC: 3E033GC Introduction of Other Therapeutic Substance into Peripheral Vein, Percutaneous Approach (ICD-10-PCS; 2020-06-14)
DX: R42 Dizziness and giddiness (principal); R11.10 Vomiting, unspecified
CPT/HCPCS: 36415; 70450-TC; 71045-TC-FY; 80053; 83690; 83735; 84100; 84484; 85025; 93005; 93010; 96374; 96375; 99285-25

== ENCOUNTER → 2024-03-17 | Day surgery (SDC) | payer OTHER | END | disposition home or self-care (01) | LOC: JRADUS-SUR 08:51 | PROVIDERS: ATTEND Registered Nurse | PROC: 0H9T3ZX Drainage of Right Breast, Percutaneous Approach, Diagnostic (ICD-10-PCS; principal; 2024-03-17) | DX: C50.911 Malignant neoplasm of unspecified site of right female breast (principal) | CPT/HCPCS: 19083; 76942-TC; 77065-TC; 87899; 88305-TC; 88342-TC; A4648 ==

== ENCOUNTER 2024-05-24 11:16 | Day surgery (SDC) | payer OTHER ==
[2024-05-24] MEDS ORDERED: CARBOPLATIN IVPB ONE ×2 (11:30→14:15)
[2024-05-24] MEDS ORDERED: SODIUM CHLORIDE IVPB ONE ×2 (11:30→14:15)
[2024-05-24 11:46] LABS: HEMATOCRIT 39.8 % (32.4-45.2); HEMOGLOBIN 13.3 GM/dL (10.7-15.3); MCH 28.5 pg (25.7-33.7); MCHC 33.3 g/dl (32.0-36.0); MEAN CELL VOLUME 85.5 fl (80-96); MEAN PLT VOLUME 8.8 fl (7.5-11.1); PLATELET COUNT 310 10^3/uL (134-434); RBC 4.66 M/mm3 (3.60-5.2); RDW 13.6 % (11.6-15.6); WHITE BLOOD COUNT 14.4 K/mm3 (4.0-10.0)
[2024-05-24] MEDS: SODIUM CHLORIDE 250 ML IV ONE (12:02)
[2024-05-24] MEDS: FOSAPREPITANT DIMEGLUMINE 150 MG in SODIUM CHLORIDE 145 ML IVPB ONE (12:04)
[2024-05-24 12:12] LABS: MAGNESIUM 1.7 mg/dL (1.8-2.4)
[2024-05-24 12:16] LABS: PHOSPHOROUS 2.5 mg/dL (2.5-4.9)
[2024-05-24 12:24] LABS: ANISOCYTOSIS 0; MACROCYTOSIS 0
[2024-05-24 12:42] LABS: CHLORIDE 101 mmol/L (98-107); POTASSIUM 4.4 mmol/L (3.5-5.1); SODIUM 136 mmol/L (136-145)
[2024-05-24 12:44] LABS: CALCIUM 9.8 mg/dL (8.5-10.1)
[2024-05-24 12:45] LABS: ALBUMIN 3.9 g/dl (3.4-5.0); ANION GAP 11 mmol/L (4-13); BLOOD UREA NITROGEN 20.8 mg/dL (7-18); CO2 25 mmol/L (21-32)
[2024-05-24 12:47] LABS: GLUCOSE,RANDOM 450 mg/dL (74-106)
[2024-05-24 12:48] LABS: CREATININE 1.1 mg/dL (0.55-1.3); SGOT/AST 19 U/L (15-37); SGPT/ALT 35 U/L (13-61)
[2024-05-24 12:49] LABS: BILIRUBIN,TOTAL 0.3 mg/dL (0.2-1); TOT PROT 8.2 g/dl (6.4-8.2)
[2024-05-24 12:51] LABS: ALK PHOS 158 U/L (45-117)
[2024-05-24] MEDS: DEXAMETHASONE SODIUM PHOSPHATE 12 MG, DIPHENHYDRAMINE 25 MG in SODIUM CHLORIDE 100 ML IVPB ONE (13:12)
[2024-05-24] MEDS: FAMOTIDINE 20 MG/50 ML IVPB 20 MG/50 ML MG IVPB ONE (14:08)
[2024-05-24] MEDS: INSULIN (NOVOLOG) ASPART 100 UNITS/ML 10ML VIAL SQ ONE ×2 (14:29→17:15)
[2024-05-24] MEDS: PALONOSETRON HCL 0.25 MG/5 ML VIAL IVPUSH ONE (14:34)
[2024-05-24] MEDS: PACLITAXEL IVPB ONE (14:37)
[2024-05-24] MEDS: SODIUM CHLORIDE IVPB ONE ×2 (14:37→15:52)
[2024-05-24] MEDS: CARBOPLATIN IVPB ONE (15:52)
[2024-05-24] MEDS ORDERED: INSULIN ASPART SLIDING SCALE (NOVOLOG) 1 VIAL SQ ONE (17:14)
[2024-05-24] MEDS: PORTA CATH FLUSH 10 ML IVPUSH PRN (17:20)
[2024-05-24 18:51] VITALS: BP 126/80; PULSE 117; RESP 20; TEMP 98.1
== END 2024-05-24 17:25 | disposition home or self-care (01) ==
LOC: JONCCHEMO 11:16 → J7W 11:16 → JONCCHEMO 17:25
PROVIDERS: ATTEND Internal Medicine Hematology & Oncology
DX: Z51.11 Encounter for antineoplastic chemotherapy (principal); C50.911 Malignant neoplasm of unspecified site of right female breast
CPT/HCPCS: 36415; 80053; 82150; 82533; 82962; 83690; 83735; 84100; 84439; 84443; 85025; 96365; 96366; 96413; 96415; J1453

== ENCOUNTER 2024-05-25 08:43 | Day surgery (SDC) | payer OTHER ==
[2024-05-25] MEDS: PEMBROLIZUMAB 200 MG in SODIUM CHLORIDE 100 ML IV ONE (09:52)
[2024-05-25] MEDS ORDERED: INSULIN ASPART SLIDING SCALE (NOVOLOG) 1 VIAL SQ ONE (10:37)
[2024-05-25] MEDS: PORTA CATH FLUSH 10 ML IVPUSH PRN (10:40)
[2024-05-25] MEDS: INSULIN (NOVOLOG) ASPART 100 UNITS/ML 10ML VIAL SQ ONE (10:45)
[2024-05-25 15:22] VITALS: BP 122/62; PULSE 94; RESP 20; TEMP 97.6
== END 2024-05-25 10:50 | disposition home or self-care (01) ==
LOC: J7W 08:43 → JONCCHEMO 08:43
PROVIDERS: ATTEND Internal Medicine Hematology & Oncology
DX: Z51.11 Encounter for antineoplastic chemotherapy (principal); C50.919 Malignant neoplasm of unspecified site of unspecified female breast
CPT/HCPCS: 82962; 96413; J9271

== ENCOUNTER 2024-05-31 10:23 | Day surgery (SDC) | payer OTHER ==
[2024-05-31] MEDS: SODIUM CHLORIDE 250 ML IV ONE (10:55)
[2024-05-31 10:58] LABS: HEMATOCRIT 41.4 % (32.4-45.2); HEMOGLOBIN 13.6 GM/dL (10.7-15.3); MCHC 32.7 g/dl (32.0-36.0); MEAN CELL VOLUME 85.6 fl (80-96); MEAN PLT VOLUME 8.7 fl (7.5-11.1); PLATELET COUNT 316 10^3/uL (134-434); RBC 4.84 M/mm3 (3.60-5.2); RDW 13.4 % (11.6-15.6); WHITE BLOOD COUNT 11.9 K/mm3 (4.0-10.0)
[2024-05-31 11:17] LABS: CHLORIDE 96 mmol/L (98-107); POTASSIUM 4.6 mmol/L (3.5-5.1); SODIUM 130 mmol/L (136-145)
[2024-05-31 11:22] LABS: ALBUMIN 3.9 g/dl (3.4-5.0); ANION GAP 10 mmol/L (4-13); CALCIUM 10.3 mg/dL (8.5-10.1); CO2 25 mmol/L (21-32)
[2024-05-31 11:23] LABS: BLOOD UREA NITROGEN 19.1 mg/dL (7-18); MAGNESIUM 1.8 mg/dL (1.8-2.4)
[2024-05-31 11:24] LABS: ANISOCYTOSIS 0; GLUCOSE,RANDOM 482 mg/dL (74-106); MACROCYTOSIS 0
[2024-05-31 11:25] LABS: SGPT/ALT 48 U/L (13-61)
[2024-05-31 11:26] LABS: CREATININE 1.2 mg/dL (0.55-1.3); SGOT/AST 23 U/L (15-37)
[2024-05-31 11:27] LABS: BILIRUBIN,TOTAL 0.5 mg/dL (0.2-1); TOT PROT 8.1 g/dl (6.4-8.2)
[2024-05-31 11:29] LABS: ALK PHOS 168 U/L (45-117)
[2024-05-31] MEDS: INSULIN (NOVOLOG) ASPART 100 UNITS/ML 10ML VIAL SQ ONE ×3 (12:00→16:47)
[2024-05-31] MEDS: DEXAMETHASONE SODIUM PHOSPHATE 10 MG, DIPHENHYDRAMINE 25 MG in SODIUM CHLORIDE 100 ML IVPB ONE (12:15)
[2024-05-31] MEDS: FAMOTIDINE 20 MG/50 ML IVPB 20 MG/50 ML MG IVPB ONE (12:50)
[2024-05-31] MEDS: SODIUM CHLORIDE IVPB ONE ×2 (13:31→14:40)
[2024-05-31] MEDS: PACLITAXEL IVPB ONE (13:31)
[2024-05-31] MEDS: CARBOPLATIN IVPB ONE (14:40)
[2024-05-31] MEDS: SODIUM CHLORIDE 0.9% 500 ML INFUS.BAG IV ONE (15:40)
[2024-05-31 16:07] VITALS: TEMP 98.5
[2024-05-31 17:26] VITALS: BP 134/84; PULSE 93; RESP 20
[2024-05-31 17:39] LABS: POTASSIUM 4.5 mmol/L (3.5-5.1)
[2024-05-31 17:41] LABS: BLOOD UREA NITROGEN 19.1 mg/dL (7-18); CALCIUM 9.6 mg/dL (8.5-10.1)
[2024-05-31] MEDS: PORTA CATH FLUSH 10 ML IVPUSH PRN (17:48)
== END 2024-05-31 18:25 | disposition home or self-care (01) ==
LOC: JONCCHEMO 10:23 → J7W 10:32 → JONCCHEMO 18:25
PROVIDERS: ATTEND Internal Medicine Hematology & Oncology
DX: Z51.11 Encounter for antineoplastic chemotherapy (principal); C50.919 Malignant neoplasm of unspecified site of unspecified female breast
CPT/HCPCS: 36415; 80048; 80053; 82962; 83735; 85025; 96361; 96413; 96417

== ENCOUNTER 2024-06-07 09:36 | Day surgery (SDC) | payer OTHER ==
[2024-06-07] MEDS: SODIUM CHLORIDE 250 ML IV ONE (10:20)
[2024-06-07 10:21] LABS: BASO % 0.5 % (0-2.0); HEMATOCRIT 35.7 % (32.4-45.2); HEMOGLOBIN 11.9 GM/dL (10.7-15.3); MCH 28.9 pg (25.7-33.7); MCHC 33.3 g/dl (32.0-36.0); MEAN CELL VOLUME 86.7 fl (80-96); MEAN PLT VOLUME 8.2 fl (7.5-11.1); NEUT % 84.5 % (42.8-82.8); PLATELET COUNT 320 10^3/uL (134-434); RBC 4.12 M/mm3 (3.60-5.2); RDW 13.4 % (11.6-15.6); WHITE BLOOD COUNT 5.2 K/mm3 (4.0-10.0)
[2024-06-07 10:22] LABS: EPI CELLS 6 /uL (0-25.1); HYALINE CASTS 1 /uL (0-3.1); URINE APPEARANCE CLOUDY; URINE BACTERIA >9,000 /uL (0-1359); URINE BILIRUBIN NEGATIVE (NEGATIVE); URINE COLOR YELLOW; URINE GLUCOSE (UA) 2+ (NEGATIVE); URINE KETONE NEGATIVE (NEGATIVE); URINE LEUK ESTERASE 2+ (NEGATIVE); URINE NITRITE POSITIVE (NEGATIVE); URINE PROTEIN 1+ (NEGATIVE); URINE RBC 25 /uL (0-23.9); URINE UROBILINOGEN 0.2 mg/dL (0.2-1.0); URINE WBC 711 /uL (0-25.8)
[2024-06-07 10:33] LABS: CHLORIDE 104 mmol/L (98-107); POTASSIUM 4.5 mmol/L (3.5-5.1); SODIUM 138 mmol/L (136-145)
[2024-06-07 10:36] LABS: ALBUMIN 3.5 g/dl (3.4-5.0); ANION GAP 6 mmol/L (4-13); BLOOD UREA NITROGEN 12.7 mg/dL (7-18); CALCIUM 9.5 mg/dL (8.5-10.1); CO2 28 mmol/L (21-32); MAGNESIUM 1.8 mg/dL (1.8-2.4)
[2024-06-07 10:37] LABS: GLUCOSE,RANDOM 222 mg/dL (74-106)
[2024-06-07 10:38] LABS: SGOT/AST 21 U/L (15-37); SGPT/ALT 41 U/L (13-61)
[2024-06-07 10:40] LABS: CREATININE 0.7 mg/dL (0.55-1.3)
[2024-06-07 10:42] LABS: ALK PHOS 138 U/L (45-117)
[2024-06-07] MEDS ORDERED: CARBOPLATIN IVPB ONE (11:00)
[2024-06-07] MEDS ORDERED: SODIUM CHLORIDE IVPB ONE (11:00)
[2024-06-07 11:08] LABS: BILIRUBIN,TOTAL 0.7 mg/dL (0.2-1)
[2024-06-07] MEDS: DEXAMETHASONE SODIUM PHOSPHATE 10 MG, DIPHENHYDRAMINE 25 MG in SODIUM CHLORIDE 100 ML IVPB ONE (11:15)
[2024-06-07] MEDS: INSULIN (NOVOLOG) ASPART 100 UNITS/ML 10ML VIAL SQ ONE ×2 (11:28→14:07)
[2024-06-07] MEDS: FAMOTIDINE 20 MG/50 ML IVPB 20 MG/50 ML MG IVPB ONE (11:50)
[2024-06-07] MEDS: SODIUM CHLORIDE IVPB ONE ×2 (12:23→13:28)
[2024-06-07] MEDS: PACLITAXEL IVPB ONE (12:23)
[2024-06-07 12:31] VITALS: TEMP 97.7
[2024-06-07] MEDS: CARBOPLATIN IVPB ONE (13:28)
[2024-06-07] MEDS: PORTA CATH FLUSH 10 ML IVPUSH PRN (15:00)
[2024-06-07 16:29] VITALS: BP 134/75; PULSE 88; RESP 18
== END 2024-06-07 15:00 | disposition home or self-care (01) ==
LOC: JONCCHEMO 09:36 → J7W 09:38 → JONCCHEMO 15:00
PROVIDERS: ATTEND Internal Medicine Hematology & Oncology
PROC: 3E04305 Introduction of Other Antineoplastic into Central Vein, Percutaneous Approach (ICD-10-PCS; principal; 2024-06-07)
PROC: 3E0437Z Introduction of Electrolytic and Water Balance Substance into Central Vein, Percutaneous Approach (ICD-10-PCS; 2024-06-07)
PROC: 3E043GC Introduction of Other Therapeutic Substance into Central Vein, Percutaneous Approach (ICD-10-PCS; 2024-06-07)
DX: Z51.11 Encounter for antineoplastic chemotherapy (principal); C50.919 Malignant neoplasm of unspecified site of unspecified female breast; E11.65 Type 2 diabetes mellitus with hyperglycemia; Z79.4 Long term (current) use of insulin; I10 Essential (primary) hypertension
CPT/HCPCS: 36415; 80053; 81003; 82533; 82962; 83735; 85025; 87086; 87186; 96361; 96365; 96367; 96413; 96417

== ENCOUNTER 2024-06-16 10:16 | Day surgery (SDC) | payer OTHER ==
[2024-06-16] MEDS: PEMBROLIZUMAB 200 MG in SODIUM CHLORIDE 100 ML IV ONE (11:02)
[2024-06-16] MEDS: PORTA CATH FLUSH 10 ML IVPUSH PRN (11:40)
[2024-06-16] MEDS: INSULIN (NOVOLOG) ASPART 100 UNITS/ML 10ML VIAL SQ ONE (11:59)
[2024-06-16 15:30] VITALS: RESP 18; TEMP 97.9
[2024-06-16 15:39] VITALS: BP 116/72; PULSE 86
== END 2024-06-16 12:20 | disposition home or self-care (01) ==
LOC: JONCCHEMO 10:16 → J7W 10:18 → JONCCHEMO 12:20
PROVIDERS: ATTEND Internal Medicine Hematology & Oncology
PROC: 3E04305 Introduction of Other Antineoplastic into Central Vein, Percutaneous Approach (ICD-10-PCS; principal; 2024-06-16)
PROC: 3E013VG Introduction of Insulin into Subcutaneous Tissue, Percutaneous Approach (ICD-10-PCS; 2024-06-16)
DX: Z51.11 Encounter for antineoplastic chemotherapy (principal); C50.919 Malignant neoplasm of unspecified site of unspecified female breast
CPT/HCPCS: 82962; 96372; 96413; J9271

== ENCOUNTER 2024-07-13 10:35 | Day surgery (SDC) | payer OTHER ==
[2024-07-13 11:24] LABS: BASO % 0.3 % (0-2.0); EOS % 0.9 % (0-4.5); HEMATOCRIT 30.2 % (32.4-45.2); MCH 29.2 pg (25.7-33.7); MCHC 33.2 g/dl (32.0-36.0); MEAN CELL VOLUME 87.7 fl (80-96); MEAN PLT VOLUME 7.2 fl (7.5-11.1); MONO % 6.8 % (3.8-10.2); PLATELET COUNT 196 10^3/uL (134-434); RBC 3.44 M/mm3 (3.60-5.2); RDW 15.6 % (11.6-15.6); WHITE BLOOD COUNT 3.5 K/mm3 (4.0-10.0)
[2024-07-13 11:40] LABS: POTASSIUM 4.2 mmol/L (3.5-5.1)
[2024-07-13 11:43] LABS: ALBUMIN 3.5 g/dl (3.4-5.0); CALCIUM 9.2 mg/dL (8.5-10.1); MAGNESIUM 1.6 mg/dL (1.8-2.4)
[2024-07-13 11:46] LABS: CREATININE 0.7 mg/dL (0.55-1.3)
[2024-07-13 11:48] LABS: BILIRUBIN,TOTAL 0.4 mg/dL (0.2-1); TOT PROT 6.7 g/dl (6.4-8.2)
[2024-07-13] MEDS ORDERED: MAGNESIUM 2GM/50ML STERILE WATER IVPB IVPB ONE (12:13)
[2024-07-13] MEDS: SODIUM CHLORIDE 250 ML IV ONE (13:18)
[2024-07-13] MEDS: FAMOTIDINE 20 MG/50 ML IVPB 20 MG/50 ML MG IVPB ONE (13:22)
[2024-07-13] MEDS: INSULIN (NOVOLOG) ASPART 100 UNITS/ML 10ML VIAL SQ ONE ×2 (13:23→17:44)
[2024-07-13] MEDS: DEXAMETHASONE SODIUM PHOSPHATE 10 MG, DIPHENHYDRAMINE 25 MG in SODIUM CHLORIDE 100 ML IVPB ONE (13:36)
[2024-07-13] MEDS: SODIUM CHLORIDE IVPB ONE ×3 (14:32→15:38)
[2024-07-13] MEDS: PACLITAXEL IVPB ONE (14:32)
[2024-07-13] MEDS: CARBOPLATIN IVPB ONE ×2 (15:37→15:38)
[2024-07-13] MEDS: MAGNESIUM 2GM/50ML STERILE WATER IVPB IVPB ONE (16:44)
[2024-07-13] MEDS: PORTA CATH FLUSH 10 ML IVPUSH PRN (17:58)
[2024-07-13 18:55] VITALS: BP 128/75; PULSE 114; RESP 20; TEMP 98.3
== END 2024-07-13 18:05 | disposition home or self-care (01) ==
LOC: JONCCHEMO 10:35 → J7W 15:21 → JONCCHEMO 18:05
PROVIDERS: ATTEND Internal Medicine Hematology & Oncology
DX: Z51.11 Encounter for antineoplastic chemotherapy (principal); C50.919 Malignant neoplasm of unspecified site of unspecified female breast
CPT/HCPCS: 36415; 80053; 82962; 83735; 85025; 96367; 96413; 96417

== ENCOUNTER 2024-07-19 10:15 | Day surgery (SDC) | payer OTHER ==
[~2024-07-19 10:15] MED LIST: CARBOPLATIN IVPB ONE; DEXAMETHASONE SODIUM PHOSPHATE 10 MG, DIPHENHYDRAMINE 25 MG in SODIUM CHLORIDE 100 ML IVPB ONE; FAMOTIDINE 20 MG/50 ML IVPB 20 MG/50 ML MG IVPB ONE; PACLITAXEL IVPB ONE; SODIUM CHLORIDE 250 ML IV ONE; SODIUM CHLORIDE IVPB ONE
[2024-07-19 10:53] LABS: BASO % 0.5 % (0-2.0); EOS % 1.1 % (0-4.5); HEMATOCRIT 28.6 % (32.4-45.2); HEMOGLOBIN 9.6 GM/dL (10.7-15.3); LYMPH % 52.1 % (8-40); MCH 29.5 pg (25.7-33.7); MCHC 33.5 g/dl (32.0-36.0); MEAN CELL VOLUME 88.2 fl (80-96); MEAN PLT VOLUME 7.1 fl (7.5-11.1); MONO % 6.4 % (3.8-10.2); NEUT % 39.9 % (42.8-82.8); PLATELET COUNT 260 10^3/uL (134-434); RBC 3.24 M/mm3 (3.60-5.2); RDW 16.2 % (11.6-15.6); WHITE BLOOD COUNT 2.9 K/mm3 (4.0-10.0)
[2024-07-19 11:25] LABS: POTASSIUM 4.4 mmol/L (3.5-5.1)
[2024-07-19 11:28] LABS: ALBUMIN 3.5 g/dl (3.4-5.0); BLOOD UREA NITROGEN 11.6 mg/dL (7-18); CALCIUM 9.4 mg/dL (8.5-10.1)
[2024-07-19] MEDS: TBO-FILGRASTIM 480 MCG/0.8 ML DISP.SYRIN SQ ONE (11:29)
[2024-07-19 11:32] LABS: CREATININE 0.7 mg/dL (0.55-1.3)
[2024-07-19 11:33] LABS: BILIRUBIN,TOTAL 0.6 mg/dL (0.2-1); TOT PROT 6.6 g/dl (6.4-8.2)
[2024-07-19 11:35] LABS: MAGNESIUM 1.5 mg/dL (1.8-2.4)
[2024-07-19 15:43] VITALS: BP 102/78; PULSE 115; RESP 20; TEMP 97.7
== END 2024-07-19 11:40 | disposition home or self-care (01) ==
LOC: JONCCHEMO 10:15 → J7W 10:52 → JONCCHEMO 11:40
PROVIDERS: ATTEND Internal Medicine Hematology & Oncology
PROC: 3E013GC Introduction of Other Therapeutic Substance into Subcutaneous Tissue, Percutaneous Approach (ICD-10-PCS; principal; 2024-07-19)
DX: C50.919 Malignant neoplasm of unspecified site of unspecified female breast (principal); Z76.89 Persons encountering health services in other specified circumstances
CPT/HCPCS: 36415; 80053; 83735; 85025; 96372; J1447

== ENCOUNTER 2024-07-20 10:35 | Day surgery (SDC) | payer OTHER ==
[2024-07-20] MEDS: MAGNESIUM OXIDE 400 MG TABLET (FP) PO ONE (10:52)
[2024-07-20] MEDS: MAGNESIUM SULFATE IN WATER 2 GM/50 ML IVPB IVPB ONE (10:53)
[2024-07-20] MEDS: TBO-FILGRASTIM 480 MCG/0.8 ML DISP.SYRIN SQ ONE (10:53)
[2024-07-20] MEDS: PORTA CATH FLUSH 10 ML IVPUSH PRN (11:55)
[2024-07-20 15:08] VITALS: BP 119/71; PULSE 116; RESP 20; TEMP 98.4
== END 2024-07-20 12:05 | disposition home or self-care (01) ==
LOC: JONCCHEMO 10:35
PROVIDERS: ATTEND Internal Medicine Hematology & Oncology
PROC: 3E043GC Introduction of Other Therapeutic Substance into Central Vein, Percutaneous Approach (ICD-10-PCS; principal; 2024-07-20)
PROC: 3E013GC Introduction of Other Therapeutic Substance into Subcutaneous Tissue, Percutaneous Approach (ICD-10-PCS; 2024-07-20)
DX: C50.919 Malignant neoplasm of unspecified site of unspecified female breast (principal); Z76.89 Persons encountering health services in other specified circumstances
CPT/HCPCS: 96365; 96372; J1447

== ENCOUNTER 2024-07-26 11:30 | Day surgery (SDC) | payer OTHER ==
[2024-07-26] MEDS: SODIUM CHLORIDE 250 ML IV ONE (12:17)
[2024-07-26 12:24] LABS: HEMATOCRIT 28.4 % (32.4-45.2); HEMOGLOBIN 9.3 GM/dL (10.7-15.3); MCHC 32.7 g/dl (32.0-36.0); MEAN CELL VOLUME 91.8 fl (80-96); MEAN PLT VOLUME 7.4 fl (7.5-11.1); PLATELET COUNT 212 10^3/uL (134-434); RDW 19.4 % (11.6-15.6); WHITE BLOOD COUNT 5.1 K/mm3 (4.0-10.0)
[2024-07-26] MEDS: MAGNESIUM SULFATE IN WATER 2 GM/50 ML IVPB IVPB ONE (12:52)
[2024-07-26] MEDS: MAGNESIUM OXIDE 400 MG TABLET (FP) PO ONE (12:52)
[2024-07-26 13:06] LABS: POTASSIUM 4.1 mmol/L (3.5-5.1)
[2024-07-26 13:09] LABS: CALCIUM 8.6 mg/dL (8.5-10.1)
[2024-07-26 13:10] LABS: ALBUMIN 3.4 g/dl (3.4-5.0); BLOOD UREA NITROGEN 9.1 mg/dL (7-18); MAGNESIUM 1.5 mg/dL (1.8-2.4)
[2024-07-26 13:13] LABS: CREATININE 0.7 mg/dL (0.55-1.3); PHOSPHOROUS 2.8 mg/dL (2.5-4.9)
[2024-07-26 13:14] LABS: BILIRUBIN,TOTAL 0.5 mg/dL (0.2-1); TOT PROT 6.4 g/dl (6.4-8.2)
[2024-07-26] MEDS: FOSAPREPITANT DIMEGLUMINE 150 MG in SODIUM CHLORIDE 145 ML IVPB ONE (13:59)
[2024-07-26] MEDS: INSULIN (NOVOLOG) ASPART 100 UNITS/ML 10ML VIAL SQ ONE (13:59)
[2024-07-26] MEDS: PALONOSETRON HCL 0.25 MG/5 ML VIAL IVPUSH ONE (14:40)
[2024-07-26] MEDS: DEXAMETHASONE SODIUM PHOSPHATE 12 MG, DIPHENHYDRAMINE 25 MG in SODIUM CHLORIDE 100 ML IVPB ONE (14:42)
[2024-07-26] MEDS: FAMOTIDINE 20 MG/50 ML IVPB 20 MG/50 ML MG IVPB ONE (15:11)
[2024-07-26] MEDS: SODIUM CHLORIDE IVPB ONE ×2 (15:46→16:53)
[2024-07-26] MEDS: PACLITAXEL IVPB ONE (15:46)
[2024-07-26 16:06] VITALS: RESP 18; TEMP 98.2
[2024-07-26] MEDS: CARBOPLATIN IVPB ONE (16:53)
[2024-07-26] MEDS: PORTA CATH FLUSH 10 ML IVPUSH PRN (17:30)
[2024-07-26 17:32] VITALS: BP 139/78; PULSE 89
== END 2024-07-26 17:49 | disposition home or self-care (01) ==
LOC: JONCCHEMO 11:30
PROVIDERS: ATTEND Internal Medicine Hematology & Oncology
PROC: 3E04305 Introduction of Other Antineoplastic into Central Vein, Percutaneous Approach (ICD-10-PCS; principal; 2024-07-26)
PROC: 3E0437Z Introduction of Electrolytic and Water Balance Substance into Central Vein, Percutaneous Approach (ICD-10-PCS; 2024-07-26)
PROC: 3E043GC Introduction of Other Therapeutic Substance into Central Vein, Percutaneous Approach (ICD-10-PCS; 2024-07-26)
PROC: 3E013VG Introduction of Insulin into Subcutaneous Tissue, Percutaneous Approach (ICD-10-PCS; 2024-07-26)
DX: Z51.11 Encounter for antineoplastic chemotherapy (principal); C50.919 Malignant neoplasm of unspecified site of unspecified female breast
CPT/HCPCS: 36415; 80053; 82150; 82533; 83690; 83735; 84100; 84439; 84443; 85025; 96361; 96366; 96367; 96372; 96413; 96417; J1453

== ENCOUNTER 2024-07-27 08:23 | Day surgery (SDC) | payer OTHER ==
[2024-07-27] MEDS: MAGNESIUM 2GM/50ML STERILE WATER IVPB IVPB ONE (09:04)
[2024-07-27] MEDS: PEMBROLIZUMAB 200 MG in SODIUM CHLORIDE 100 ML IV ONE (09:57)
[2024-07-27 15:23] VITALS: BP 108/75; PULSE 105; RESP 20; TEMP 97.7
== END 2024-07-27 10:45 | disposition home or self-care (01) ==
LOC: JONCCHEMO 08:23 → J7W 08:31 → JONCCHEMO 10:45
PROVIDERS: ATTEND Internal Medicine Hematology & Oncology
DX: Z51.11 Encounter for antineoplastic chemotherapy (principal); C50.919 Malignant neoplasm of unspecified site of unspecified female breast
CPT/HCPCS: 96413; 96417; J9271

== ENCOUNTER 2024-08-02 11:49 | Day surgery (SDC) | payer OTHER ==
[2024-08-02] MEDS: SODIUM CHLORIDE 250 ML IV ONE (12:40)
[2024-08-02] MEDS: MAGNESIUM SULFATE IN WATER 2 GM/50 ML IVPB IVPB ONE (12:40)
[2024-08-02] MEDS: MAGNESIUM OXIDE 400 MG TABLET (FP) PO ONE (12:56)
[2024-08-02 13:08] LABS: BASO % 0.4 % (0-2.0); EOS % 0.3 % (0-4.5); HEMATOCRIT 28.5 % (32.4-45.2); HEMOGLOBIN 9.7 GM/dL (10.7-15.3); LYMPH % 29.4 % (8-40); MCH 30.8 pg (25.7-33.7); MCHC 34.2 g/dl (32.0-36.0); MEAN CELL VOLUME 90.1 fl (80-96); MEAN PLT VOLUME 7.5 fl (7.5-11.1); MONO % 7.7 % (3.8-10.2); NEUT % 62.2 % (42.8-82.8); PLATELET COUNT 272 10^3/uL (134-434); RBC 3.16 M/mm3 (3.60-5.2); RDW 19.9 % (11.6-15.6); WHITE BLOOD COUNT 7.3 K/mm3 (4.0-10.0)
[2024-08-02 13:23] LABS: CHLORIDE 100 mmol/L (98-107); POTASSIUM 3.9 mmol/L (3.5-5.1); SODIUM 137 mmol/L (136-145)
[2024-08-02 13:26] LABS: ALBUMIN 3.5 g/dl (3.4-5.0); ANION GAP 10 mmol/L (4-13); BLOOD UREA NITROGEN 17.1 mg/dL (7-18); CALCIUM 9.4 mg/dL (8.5-10.1); CO2 28 mmol/L (21-32); GLUCOSE,RANDOM 288 mg/dL (74-106); MAGNESIUM 1.4 mg/dL (1.8-2.4)
[2024-08-02 13:29] LABS: SGOT/AST 18 U/L (15-37); SGPT/ALT 29 U/L (13-61)
[2024-08-02 13:30] LABS: CREATININE 1.1 mg/dL (0.55-1.3)
[2024-08-02 13:31] LABS: BILIRUBIN,TOTAL 0.5 mg/dL (0.2-1); TOT PROT 6.7 g/dl (6.4-8.2)
[2024-08-02 13:33] LABS: ALK PHOS 128 U/L (45-117)
[2024-08-02] MEDS: DEXAMETHASONE SODIUM PHOSPHATE 10 MG, DIPHENHYDRAMINE 25 MG in SODIUM CHLORIDE 100 ML IVPB ONE (13:50)
[2024-08-02] MEDS: FAMOTIDINE 20 MG/50 ML IVPB 20 MG/50 ML MG IVPB ONE (14:45)
[2024-08-02] MEDS: PACLITAXEL IVPB ONE (15:15)
[2024-08-02] MEDS: SODIUM CHLORIDE IVPB ONE ×2 (15:15→16:16)
[2024-08-02 15:39] VITALS: RESP 20; TEMP 97.6
[2024-08-02] MEDS: CARBOPLATIN IVPB ONE (16:16)
[2024-08-02] MEDS: PORTA CATH FLUSH 10 ML IVPUSH PRN (17:29)
[2024-08-02 17:30] VITALS: BP 118/70; PULSE 94
== END 2024-08-02 17:34 | disposition home or self-care (01) ==
LOC: J7W 11:49 → JONCCHEMO 11:49
PROVIDERS: ATTEND Internal Medicine Hematology & Oncology
PROC: 3E04305 Introduction of Other Antineoplastic into Central Vein, Percutaneous Approach (ICD-10-PCS; principal; 2024-08-02)
PROC: 3E043GC Introduction of Other Therapeutic Substance into Central Vein, Percutaneous Approach (ICD-10-PCS; 2024-08-02)
DX: Z51.11 Encounter for antineoplastic chemotherapy (principal); C50.919 Malignant neoplasm of unspecified site of unspecified female breast
CPT/HCPCS: 36415; 73630-TC-LT; 80053; 83735; 85025; 96365; 96366; 96367; 96368; 96413; 96417

== ENCOUNTER 2024-08-09 11:00 | Day surgery (SDC) | payer OTHER ==
[2024-08-09 11:27] LABS: BASO % 0.4 % (0-2.0); EOS % 0.7 % (0-4.5); HEMOGLOBIN 9.1 GM/dL (10.7-15.3); LYMPH % 37.6 % (8-40); MCH 31.2 pg (25.7-33.7); MCHC 33.6 g/dl (32.0-36.0); MEAN CELL VOLUME 92.7 fl (80-96); MEAN PLT VOLUME 7.6 fl (7.5-11.1); MONO % 8.1 % (3.8-10.2); NEUT % 53.2 % (42.8-82.8); PLATELET COUNT 237 10^3/uL (134-434); RBC 2.91 M/mm3 (3.60-5.2); RDW 21.3 % (11.6-15.6); WHITE BLOOD COUNT 5.3 K/mm3 (4.0-10.0)
[2024-08-09] MEDS: MAGNESIUM SULFATE IN WATER 2 GM/50 ML IVPB IVPB ONE (11:34)
[2024-08-09] MEDS: SODIUM CHLORIDE 250 ML IV ONE (11:37)
[2024-08-09 11:43] LABS: CHLORIDE 104 mmol/L (98-107); SODIUM 139 mmol/L (136-145)
[2024-08-09 11:45] LABS: ALBUMIN 3.4 g/dl (3.4-5.0); ANION GAP 7 mmol/L (4-13); CALCIUM 8.9 mg/dL (8.5-10.1); CO2 28 mmol/L (21-32); GLUCOSE,RANDOM 198 mg/dL (74-106); MAGNESIUM 1.5 mg/dL (1.8-2.4)
[2024-08-09 11:46] LABS: ANISOCYTOSIS 2+; BLOOD UREA NITROGEN 10.8 mg/dL (7-18); MACROCYTOSIS 1+
[2024-08-09 11:48] LABS: CREATININE 0.6 mg/dL (0.55-1.3); SGOT/AST 18 U/L (15-37); SGPT/ALT 25 U/L (13-61)
[2024-08-09 11:50] LABS: BILIRUBIN,TOTAL 0.4 mg/dL (0.2-1); TOT PROT 6.5 g/dl (6.4-8.2)
[2024-08-09 11:51] LABS: ALK PHOS 121 U/L (45-117)
[2024-08-09] MEDS: MAGNESIUM OXIDE 400 MG TABLET (FP) PO ONE (12:11)
[2024-08-09] MEDS: FAMOTIDINE 20 MG/50 ML IVPB 20 MG/50 ML MG IVPB ONE (12:13)
[2024-08-09] MEDS: DEXAMETHASONE SODIUM PHOSPHATE 10 MG, DIPHENHYDRAMINE 25 MG in SODIUM CHLORIDE 100 ML IVPB ONE (12:49)
[2024-08-09] MEDS ORDERED: INSULIN ASPART SLIDING SCALE (NOVOLOG) 1 VIAL SQ ONE (12:50)
[2024-08-09] MEDS: INSULIN (NOVOLOG) ASPART 100 UNITS/ML 10ML VIAL SQ ONE (12:55)
[2024-08-09] MEDS: PALONOSETRON HCL 0.25 MG/5 ML VIAL IVPUSH ONE (13:23)
[2024-08-09] MEDS: FOSAPREPITANT DIMEGLUMINE 150 MG in SODIUM CHLORIDE 145 ML IVPB ONE (13:23)
[2024-08-09] MEDS: PACLITAXEL IVPB ONE (14:02)
[2024-08-09] MEDS: SODIUM CHLORIDE IVPB ONE ×2 (14:02→15:10)
[2024-08-09] MEDS: CARBOPLATIN IVPB ONE (15:10)
[2024-08-09] MEDS: PORTA CATH FLUSH 10 ML IVPUSH PRN (15:55)
[2024-08-09 17:24] VITALS: BP 137/76; PULSE 87; RESP 18; TEMP 98.1
== END 2024-08-09 16:00 | disposition home or self-care (01) ==
LOC: JONCCHEMO 11:00 → J7W 11:49 → JONCCHEMO 16:00
PROVIDERS: ATTEND Internal Medicine Hematology & Oncology
PROC: 3E04305 Introduction of Other Antineoplastic into Central Vein, Percutaneous Approach (ICD-10-PCS; principal; 2024-08-09)
PROC: 3E043GC Introduction of Other Therapeutic Substance into Central Vein, Percutaneous Approach (ICD-10-PCS; 2024-08-09)
PROC: 3E013VG Introduction of Insulin into Subcutaneous Tissue, Percutaneous Approach (ICD-10-PCS; 2024-08-09)
DX: Z51.11 Encounter for antineoplastic chemotherapy (principal); C50.919 Malignant neoplasm of unspecified site of unspecified female breast
CPT/HCPCS: 36415; 80053; 83735; 85025; 96365; 96372; 96375; 96413; 96417; J1453

== ENCOUNTER 2024-08-16 11:32 | Day surgery (SDC) | payer OTHER ==
[2024-08-16] MEDS: SODIUM CHLORIDE 250 ML IV ONE (11:59)
[2024-08-16] MEDS: MAGNESIUM OXIDE 400 MG TABLET (FP) PO ONE (12:03)
[2024-08-16] MEDS: MAGNESIUM SULFATE IN WATER 2 GM/50 ML IVPB IVPB ONE (12:03)
[2024-08-16 12:18] LABS: ABSOLUTE IMMATURE GRANULOCYTES 0.05 x10^3/uL (0.0-0.031); BASOPHILS # 0.03 x10^3/uL (0.01-0.08); EOSINOPHIL % 0.7 % (0.7-5.8); EOSINOPHILS # 0.04 x10^3/uL (0.04-0.36); HEMATOCRIT 26.6 % (34.1-44.9); HEMOGLOBIN 8.5 g/dL (11.2-15.7); MEAN CELL VOLUME 97.4 fl (79.4-94.8); MEAN PLT VOLUME 9.8 fl (9.4-12.3); MONOCYTE # 0.56 x10^3/uL (0.24-0.86); MONOCYTE % 9.4 % (4.7-12.5); PLATELET COUNT 194 x10^3/uL (182-369)
[2024-08-16 12:44] LABS: CHLORIDE 106 mmol/L (98-107); POTASSIUM 4.2 mmol/L (3.5-5.1); SODIUM 141 mmol/L (136-145)
[2024-08-16 12:46] LABS: CALCIUM 8.7 mg/dL (8.5-10.1)
[2024-08-16 12:47] LABS: ALBUMIN 3.3 g/dl (3.4-5.0); ANION GAP 6 mmol/L (4-13); BLOOD UREA NITROGEN 11.7 mg/dL (7-18); CO2 28 mmol/L (21-32); GLUCOSE,RANDOM 246 mg/dL (74-106); MAGNESIUM 1.5 mg/dL (1.8-2.4)
[2024-08-16 12:49] LABS: CREATININE 0.7 mg/dL (0.55-1.3); SGOT/AST 18 U/L (15-37); SGPT/ALT 26 U/L (13-61)
[2024-08-16 12:52] LABS: BILIRUBIN,TOTAL 0.4 mg/dL (0.2-1); TOT PROT 6.4 g/dl (6.4-8.2)
[2024-08-16 12:53] LABS: ALK PHOS 121 U/L (45-117)
[2024-08-16] MEDS: FOSAPREPITANT DIMEGLUMINE 150 MG in SODIUM CHLORIDE 145 ML IVPB ONE (13:07)
[2024-08-16] MEDS: INSULIN (NOVOLOG) ASPART 100 UNITS/ML 10ML VIAL SQ ONE (13:42)
[2024-08-16] MEDS: PALONOSETRON HCL 0.25 MG/5 ML VIAL IVPUSH ONE (13:50)
[2024-08-16] MEDS: DEXAMETHASONE SODIUM PHOSPHATE 12 MG in SODIUM CHLORIDE 50 ML IVPB ONE (13:50)
[2024-08-16] MEDS: DOXOrubicin HCL 50 MG/25 ML VIAL IV ONE (14:17)
[2024-08-16] MEDS: CYCLOPHOSPHAMIDE IVPB ONE (14:29)
[2024-08-16] MEDS: SODIUM CHLORIDE IVPB ONE (14:29)
[2024-08-16 14:39] VITALS: TEMP 97.4
[2024-08-16 15:05] LABS: AMYLASE 157 U/L (25-115)
[2024-08-16 15:07] LABS: IRON SERUM 42 ug/dL (50-175)
[2024-08-16] MEDS: MAGNESIUM 2GM/50ML STERILE WATER IVPB IVPB ONE (15:08)
[2024-08-16 15:09] LABS: TOTAL IRON BINDING CAPACITY 277 ug/dL (250-450)
[2024-08-16 16:24] VITALS: BP 102/61; PULSE 76; RESP 18
[2024-08-16] MEDS: PORTA CATH FLUSH 10 ML IVPUSH PRN (16:45)
== END 2024-08-16 16:53 | disposition home or self-care (01) ==
LOC: JONCCHEMO 11:32
PROVIDERS: ATTEND Internal Medicine Hematology & Oncology
PROC: 3E04305 Introduction of Other Antineoplastic into Central Vein, Percutaneous Approach (ICD-10-PCS; principal; 2024-08-16)
PROC: 3E0437Z Introduction of Electrolytic and Water Balance Substance into Central Vein, Percutaneous Approach (ICD-10-PCS; 2024-08-16)
PROC: 3E043GC Introduction of Other Therapeutic Substance into Central Vein, Percutaneous Approach (ICD-10-PCS; 2024-08-16)
DX: Z51.11 Encounter for antineoplastic chemotherapy (principal); C50.919 Malignant neoplasm of unspecified site of unspecified female breast; Z17.421 Hormone receptor negative with human epidermal growth factor receptor 2 negative status
CPT/HCPCS: 36415; 80053; 82150; 82533; 82607; 82728; 83540; 83550; 83690; 83735; 84439; 85025; 96361; 96365; 96366; 96367; 96375; 96411; 96413; J1453; J9074

== ENCOUNTER 2024-08-17 08:40 | Day surgery (SDC) | payer OTHER ==
[2024-08-17] MEDS: SODIUM CHLORIDE 500 ML IV ONE (09:14)
[2024-08-17] MEDS: MAGNESIUM 2GM/50ML STERILE WATER IVPB IVPB ONE (09:15)
[2024-08-17] MEDS: PEMBROLIZUMAB 200 MG in SODIUM CHLORIDE 100 ML IV ONE (10:54)
[2024-08-17 15:04] VITALS: BP 113/70; PULSE 111; RESP 22; TEMP 97.6
[2024-08-17] MEDS ORDERED: PORTA CATH FLUSH 10 ML IVPUSH PRN (15:04)
== END 2024-08-17 11:50 | disposition home or self-care (01) ==
LOC: JONCCHEMO 08:40
PROVIDERS: ATTEND Internal Medicine Hematology & Oncology
PROC: 3E04305 Introduction of Other Antineoplastic into Central Vein, Percutaneous Approach (ICD-10-PCS; principal; 2024-08-17)
PROC: 3E043GC Introduction of Other Therapeutic Substance into Central Vein, Percutaneous Approach (ICD-10-PCS; 2024-08-17)
DX: Z51.11 Encounter for antineoplastic chemotherapy (principal); C50.919 Malignant neoplasm of unspecified site of unspecified female breast; Z17.421 Hormone receptor negative with human epidermal growth factor receptor 2 negative status
CPT/HCPCS: 96365; 96366; 96413; J9271

== ENCOUNTER 2024-08-18 08:58 | Day surgery (SDC) | payer OTHER ==
[2024-08-18] MEDS: SODIUM CHLORIDE 500 ML IV ONE (09:16)
[2024-08-18] MEDS: MAGNESIUM SULFATE IN WATER 2 GM/50 ML IVPB IVPB ONE (09:16)
[2024-08-18] MEDS: PEGFILGRASTIM-CBQV (UDENYCA) 6 MG/0.6 ML SYRINGE SQ ONE (11:18)
[2024-08-18 15:34] VITALS: BP 110/53; PULSE 84; RESP 20; TEMP 97.8
[2024-08-18] MEDS ORDERED: PORTA CATH FLUSH 10 ML IVPUSH PRN (15:34)
== END 2024-08-18 11:38 | disposition home or self-care (01) ==
LOC: JONCCHEMO 08:58 → J7W 09:25 → JONCCHEMO 11:38
PROVIDERS: ATTEND Internal Medicine Hematology & Oncology
PROC: 3E043GC Introduction of Other Therapeutic Substance into Central Vein, Percutaneous Approach (ICD-10-PCS; principal; 2024-08-18)
PROC: 3E023GC Introduction of Other Therapeutic Substance into Muscle, Percutaneous Approach (ICD-10-PCS; 2024-08-18)
DX: C50.919 Malignant neoplasm of unspecified site of unspecified female breast (principal); Z76.89 Persons encountering health services in other specified circumstances
CPT/HCPCS: 96365; 96366; 96372; Q5111

== ENCOUNTER 2024-08-24 10:24 | Day surgery (SDC) | payer OTHER ==
[2024-08-24] MEDS: SODIUM CHLORIDE 1,000 ML IV ONE (11:53)
[2024-08-24] MEDS: ONDANSETRON IVPB ONE (11:54)
[2024-08-24] MEDS: SODIUM CHLORIDE IVPB ONE (11:54)
[2024-08-24] MEDS: DEXAMETHASONE IVPB ONE (11:54)
[2024-08-24 12:04] LABS: HEMATOCRIT 21.8 % (34.1-44.9); MCHC 32.1 g/dl (32.2-35.5); MEAN CELL VOLUME 97.8 fl (79.4-94.8); MEAN PLT VOLUME 10.5 fl (9.4-12.3); PLATELET COUNT 33 x10^3/uL (182-369); RDW 16.8 % (12.4-16.6)
[2024-08-24 12:09] LABS: EPI CELLS 27 /uL (0-25.1); HYALINE CASTS 2 /uL (0-3.1); URINE APPEARANCE CLEAR; URINE BACTERIA 1027 /uL (0-1359); URINE BILIRUBIN NEGATIVE (NEGATIVE); URINE COLOR DK YELLOW; URINE GLUCOSE (UA) 1+ (NEGATIVE); URINE KETONE 1+ (NEGATIVE); URINE LEUK ESTERASE NEGATIVE (NEGATIVE); URINE NITRITE NEGATIVE (NEGATIVE); URINE PROTEIN 1+ (NEGATIVE); URINE RBC 43 /uL (0-23.9); URINE WBC 25 /uL (0-25.8)
[2024-08-24 12:33] LABS: CHLORIDE 101 mmol/L (98-107); POTASSIUM 3.7 mmol/L (3.5-5.1); SODIUM 139 mmol/L (136-145)
[2024-08-24 12:35] LABS: CALCIUM 8.7 mg/dL (8.5-10.1)
[2024-08-24 12:36] LABS: ALBUMIN 3.1 g/dl (3.4-5.0); ANION GAP 7 mmol/L (4-13); BLOOD UREA NITROGEN 14.7 mg/dL (7-18); CO2 30 mmol/L (21-32); GLUCOSE,RANDOM 217 mg/dL (74-106); MAGNESIUM 1.6 mg/dL (1.8-2.4)
[2024-08-24 12:39] LABS: CREATININE 0.8 mg/dL (0.55-1.3); SGOT/AST 12 U/L (15-37); SGPT/ALT 17 U/L (13-61)
[2024-08-24 12:40] LABS: BILIRUBIN,TOTAL 0.4 mg/dL (0.2-1); TOT PROT 6.2 g/dl (6.4-8.2)
[2024-08-24] MEDS: FAMOTIDINE 20 MG/50 ML IVPB 20 MG/50 ML MG IVPB ONE (12:41)
[2024-08-24 12:42] LABS: ALK PHOS 108 U/L (45-117)
[2024-08-24] MEDS: MAGNESIUM SULFATE IN WATER 2 GM/50 ML IVPB IVPB ONE (12:59)
[2024-08-24 16:11] VITALS: TEMP 97.4
[2024-08-24] MEDS ORDERED: PORTA CATH FLUSH 10 ML IVPUSH PRN (16:19)
[2024-08-24 16:43] VITALS: BP 122/51; PULSE 85; RESP 18
== END 2024-08-24 14:10 | disposition home or self-care (01) ==
LOC: JONCNONCHE 10:24 → J7W 11:18 → JONCNONCHE 14:10
PROVIDERS: ATTEND Internal Medicine Hematology & Oncology
PROC: 3E043GC Introduction of Other Therapeutic Substance into Central Vein, Percutaneous Approach (ICD-10-PCS; principal; 2024-08-24)
DX: C50.919 Malignant neoplasm of unspecified site of unspecified female breast (principal); Z76.89 Persons encountering health services in other specified circumstances
CPT/HCPCS: 36415; 80053; 81003; 82150; 82533; 83690; 83735; 84436; 84443; 85025; 87040; 87086; 96365; 96366; J1100

== ENCOUNTER 2024-08-24 14:31 | Inpatient (IN) | payer OTHER ==
[2024-08-24] MEDS ORDERED: TBO-FILGRASTIM 480 MCG/0.8 ML DISP.SYRIN IVPUSH ONE (15:47)
[2024-08-24] MEDS ORDERED: ONDANSETRON 4 MG/2 ML VIAL ONE (16:03)
[2024-08-24] MEDS ORDERED: ACETAMINOPHEN INJECTION 100 ML ONE (16:03)
[2024-08-24] MEDS: ACETAMINOPHEN 1000 MG/100 ML BAG IVPB ONE (16:18)
[2024-08-24] MEDS: SODIUM CHLORIDE 0.9% 1000 ML INFUS.BAG IV ONE (16:18)
[2024-08-24] MEDS: ONDANSETRON 4 MG/2 ML VIAL IVPUSH ONE (16:19)
[2024-08-24] MEDS ORDERED: CEFEPIME HCL/D5W 2 GM/50 ML BAG IVPB ONE (16:23)
[2024-08-24] MEDS: CEFEPIME HCL 2 GM VIAL (RESTRICTED TO ID) IVPB ONE (16:30)
[2024-08-24] MEDS: TBO-FILGRASTIM 480 MCG/0.8 ML DISP.SYRIN SQ ONE (16:32)
[2024-08-24] MEDS: MEROPENEM 1 GM in DEXTROSE 5%-WATER 100 ML IVPB ONE (16:33)
[2024-08-24] MEDS ORDERED: VANCOMYCIN 1 GM PREMIX (F) 1 GM/200 ML BAG ONE (17:27)
[2024-08-24] MEDS: VANCOMYCIN 1,000 MG in DEXTROSE 5%-WATER - 250 ML IVPB ONE (17:40)
[2024-08-24] MEDS: VANCOMYCIN 1 GM PREMIX (F) 1 GM/200 ML BAG IVPB ONE (17:40)
[2024-08-25] MEDS ORDERED: ALBUTEROL SO4 HFA INHALER IH PRN (00:02)
[2024-08-25] MEDS ORDERED: CEFEPIME HCL 2 GM VIAL (RESTRICTED TO ID) IVPB SCH (00:15)
[2024-08-25] MEDS: MAGNESIUM SULFATE IN WATER 2 GM/50 ML IVPB IVPB ONE (01:29)
[2024-08-25] MEDS: GABAPENTIN 100 MG CAPSULE PO SCH (01:29)
[2024-08-25 02:32] LABS: HEMATOCRIT 22.7 % (34.1-44.9); HEMOGLOBIN 7.6 g/dL (11.2-15.7); MCHC 33.5 g/dl (32.2-35.5); MEAN CELL VOLUME 95.8 fl (79.4-94.8); MEAN PLT VOLUME 10.3 fl (9.4-12.3); PLATELET COUNT 30 x10^3/uL (182-369); RDW 15.6 % (12.4-16.6)
[2024-08-25] MEDS: CEFEPIME HCL/D5W 2 GM/50 ML BAG IVPB SCH (02:55)
[2024-08-25] MEDS: SODIUM CHLORIDE 1,000 ML IV STA (03:24)
[2024-08-25] MEDS ORDERED: VANCOMYCIN HCL 1,500 MG in DEXTROSE 5%-WATER - 250 ML IVPB SCH (05:00)
[2024-08-25] MEDS: SODIUM CHLORIDE 1,000 ML IV SCH (06:03)
[2024-08-25] MEDS: VANCOMYCIN PREMIX 1.5 GM 1,500 MG/300 ML BAG IVPB SCH (06:03)
[2024-08-25] MEDS: INSULIN ASPART SLIDING SCALE (NOVOLOG) 1 VIAL SQ SCH (06:06)
[2024-08-25] MEDS: LEVOTHYROXINE NA 25 MCG TABLET (FP) PO SCH (06:06)
[2024-08-25] MEDS: ALBUTEROL SO4 2.5/IPRATROPIUM 0.5 INH SOL 3 ML VIAL.NEB. NEB SCH (07:36)
[2024-08-25 07:44] LABS: HEMOGLOBIN 7.9 g/dL (11.2-15.7); MCHC 32.9 g/dl (32.2-35.5); MEAN CELL VOLUME 95.2 fl (79.4-94.8); MEAN PLT VOLUME 11.3 fl (9.4-12.3); PLATELET COUNT 28 x10^3/uL (182-369); RDW 15.9 % (12.4-16.6)
[2024-08-25 08:03] LABS: POTASSIUM 3.9 mmol/L (3.5-5.1)
[2024-08-25 08:10] LABS: ALBUMIN 3.2 g/dl (3.4-5.0); CALCIUM 8.2 mg/dL (8.5-10.1)
[2024-08-25 08:11] LABS: MAGNESIUM 2.1 mg/dL (1.8-2.4)
[2024-08-25 08:14] LABS: CREATININE 0.7 mg/dL (0.55-1.3)
[2024-08-25 08:16] LABS: BILIRUBIN,TOTAL 0.9 mg/dL (0.2-1); TOT PROT 6.1 g/dl (6.4-8.2)
[2024-08-25] MEDS: FAMOTIDINE 20 MG TABLET PO SCH (09:52)
[2024-08-25 11:28] LABS: HEMATOCRIT 22.8 % (34.1-44.9); HEMOGLOBIN 7.7 g/dL (11.2-15.7); MCHC 33.8 g/dl (32.2-35.5); MEAN PLT VOLUME 9.7 fl (9.4-12.3); PLATELET COUNT 25 x10^3/uL (182-369); RDW 16.3 % (12.4-16.6)
[2024-08-25 14:34] LABS: Reticulocyte % 0.56 % (0.5-1.7)
[2024-08-25 15:15] VITALS: BMI 35.2
[2024-08-25] MEDS: TBO-FILGRASTIM 480 MCG/0.8 ML DISP.SYRIN SQ SCH (16:02)
[2024-08-25 19:14] LABS: HEMATOCRIT 25.5 % (34.1-44.9); HEMOGLOBIN 8.5 g/dL (11.2-15.7); MCHC 33.3 g/dl (32.2-35.5); MEAN CELL VOLUME 94.1 fl (79.4-94.8); MEAN PLT VOLUME 10.3 fl (9.4-12.3); PLATELET COUNT 63 x10^3/uL (182-369); RDW 16.4 % (12.4-16.6)
[2024-08-25] MEDS: INSULIN GLARGINE (LANTUS) 100 UNITS/ML UNITS SQ SCH (21:48)
[2024-08-26] MEDS: ACETAMINOPHEN 500 MG TABLET (FP) PO ONE (06:17)
[2024-08-26 08:11] LABS: POTASSIUM 3.7 mmol/L (3.5-5.1)
[2024-08-26 08:14] LABS: HEMATOCRIT 23.9 % (34.1-44.9); MCHC 33.5 g/dl (32.2-35.5); MEAN CELL VOLUME 95.2 fl (79.4-94.8); MEAN PLT VOLUME 11.1 fl (9.4-12.3); PLATELET COUNT 52 x10^3/uL (182-369); RDW 16.8 % (12.4-16.6)
[2024-08-26 08:15] LABS: CALCIUM 8.1 mg/dL (8.5-10.1)
[2024-08-26 08:16] LABS: ALBUMIN 2.8 g/dl (3.4-5.0); MAGNESIUM 1.6 mg/dL (1.8-2.4)
[2024-08-26 08:19] LABS: CREATININE 0.6 mg/dL (0.55-1.3)
[2024-08-26 08:21] LABS: BILIRUBIN,TOTAL 0.5 mg/dL (0.2-1); TOT PROT 5.5 g/dl (6.4-8.2)
[2024-08-26] MEDS ORDERED: FUROSEMIDE 40 MG/4 ML INJECTABLE VIAL IVPUSH ONE (11:00)
[2024-08-26] MEDS: FUROSEMIDE 40 MG/4 ML INJECTABLE VIAL IVPUSH ONE (16:03)
[2024-08-27] MEDS: ACETAMINOPHEN 325 MG TABLET (FP) PO PRN (07:10)
[2024-08-27 07:23] LABS: HEMATOCRIT 29.4 % (34.1-44.9); HEMOGLOBIN 9.8 g/dL (11.2-15.7); MCHC 33.3 g/dl (32.2-35.5); MEAN CELL VOLUME 93.3 fl (79.4-94.8); MEAN PLT VOLUME 10.7 fl (9.4-12.3); PLATELET COUNT 44 x10^3/uL (182-369); RDW 17.3 % (12.4-16.6)
[2024-08-27 07:44] LABS: POTASSIUM 3.7 mmol/L (3.5-5.1)
[2024-08-27 07:46] LABS: CALCIUM 8.9 mg/dL (8.5-10.1)
[2024-08-27 07:47] LABS: BLOOD UREA NITROGEN 8.7 mg/dL (7-18); MAGNESIUM 1.6 mg/dL (1.8-2.4)
[2024-08-27 07:50] LABS: CREATININE 0.6 mg/dL (0.55-1.3)
[2024-08-27 07:51] LABS: BILIRUBIN,TOTAL 0.6 mg/dL (0.2-1); TOT PROT 5.7 g/dl (6.4-8.2)
[2024-08-27] MEDS: CEFEPIME HCL/D5W 2 GM/50 ML BAG IVPB SCH (10:01)
[2024-08-27] MEDS: PORTA CATH FLUSH 10 ML IVPUSH PRN (10:57)
[2024-08-27] MEDS: VANCOMYCIN PREMIX 1.5 GM 1,500 MG/300 ML BAG IVPB SCH (17:43)
[2024-08-28 07:17] VITALS: RESP 18
[2024-08-28 08:38] LABS: MCHC 33.3 g/dl (32.2-35.5); MEAN CELL VOLUME 94.3 fl (79.4-94.8); MEAN PLT VOLUME 11.8 fl (9.4-12.3); PLATELET COUNT 36 x10^3/uL (182-369); RDW 17.2 % (12.4-16.6)
[2024-08-28 08:58] LABS: POTASSIUM 3.9 mmol/L (3.5-5.1)
[2024-08-28 09:07] LABS: CALCIUM 8.9 mg/dL (8.5-10.1)
[2024-08-28 09:09] LABS: BLOOD UREA NITROGEN 10.2 mg/dL (7-18)
[2024-08-28 09:10] LABS: MAGNESIUM 1.5 mg/dL (1.8-2.4)
[2024-08-28 09:12] LABS: CREATININE 0.6 mg/dL (0.55-1.3)
[2024-08-28 09:14] LABS: BILIRUBIN,TOTAL 0.5 mg/dL (0.2-1); TOT PROT 5.9 g/dl (6.4-8.2)
[2024-08-28] MEDS: MAGNESIUM OXIDE 400 MG TABLET (FP) PO ONE (09:45)
[2024-08-28 14:43] VITALS: BP 141/88; PULSE 104; TEMP 97.5
== END 2024-08-28 14:43 | disposition home or self-care (01) | DRG 809 ==
LOC: JER 14:31 → JERBED 20:17 → J7W 23:45
PROVIDERS: ADMIT Internal Medicine
PROC: 30233N1 Transfusion of Nonautologous Red Blood Cells into Peripheral Vein, Percutaneous Approach (ICD-10-PCS; 2024-08-24)
PROC: 30233R1 Transfusion of Nonautologous Platelets into Peripheral Vein, Percutaneous Approach (ICD-10-PCS; principal; 2024-08-25)
DX: D61.810 Antineoplastic chemotherapy induced pancytopenia (principal); I69.354 Hemiplegia and hemiparesis following cerebral infarction affecting left non-dominant side; E11.9 Type 2 diabetes mellitus without complications; I10 Essential (primary) hypertension; E78.5 Hyperlipidemia, unspecified; E03.9 Hypothyroidism, unspecified; D70.9 Neutropenia, unspecified; R50.81 Fever presenting with conditions classified elsewhere; K21.9 Gastro-esophageal reflux disease without esophagitis; J45.909 Unspecified asthma, uncomplicated; C50.911 Malignant neoplasm of unspecified site of right female breast; E83.42 Hypomagnesemia; J01.90 Acute sinusitis, unspecified; T45.1X5A Adverse effect of antineoplastic and immunosuppressive drugs, initial encounter
CPT/HCPCS: 0241U-QW; 36415; 36430; 70488-TC; 71046-TC-FY; 80053; 82607; 82728; 82746; 82962; 83010; 83036; 83540; 83550; 83605; 83615; 83735; 85025; 85027; 86850; 86900; 86901; 86922; 93005; 93010; 94640; 97116-GP; 97161-GP; 99285-25; G0480; J0131; J1447; P9034; P9037; P9038; P9058; Q9967

== ENCOUNTER 2024-09-15 09:18 | Day surgery (SDC) | payer OTHER ==
[2024-09-15] MEDS: SODIUM CHLORIDE 500 ML IV ONE (09:30)
[2024-09-15] MEDS: MAGNESIUM SULFATE IN WATER 2 GM/50 ML IVPB IVPB ONE (09:37)
[2024-09-15] MEDS: ONDANSETRON INJECTION 8 MG in SODIUM CHLORIDE 50 ML IVPB ONE (10:32)
[2024-09-15] MEDS: PEGFILGRASTIM-CBQV (UDENYCA) 6 MG/0.6 ML SYRINGE SQ ONE (12:02)
[2024-09-15] MEDS: PORTA CATH FLUSH 10 ML IVPUSH PRN (12:15)
[2024-09-15 15:20] VITALS: BP 116/72; PULSE 76; RESP 20; TEMP 97.6
== END 2024-09-15 12:30 | disposition home or self-care (01) ==
LOC: J7W 09:18 → JONCCHEMO 09:18
PROVIDERS: ATTEND Internal Medicine Hematology & Oncology
PROC: 3E043GC Introduction of Other Therapeutic Substance into Central Vein, Percutaneous Approach (ICD-10-PCS; principal; 2024-09-15)
PROC: 3E013GC Introduction of Other Therapeutic Substance into Subcutaneous Tissue, Percutaneous Approach (ICD-10-PCS; 2024-09-15)
DX: C50.919 Malignant neoplasm of unspecified site of unspecified female breast (principal); Z76.89 Persons encountering health services in other specified circumstances
CPT/HCPCS: 96365; 96372; Q5111

== ENCOUNTER 2024-10-11 11:21 | Day surgery (SDC) | payer OTHER ==
[2024-10-11] MEDS: SODIUM CHLORIDE 1,000 ML IV ONE (11:50)
[2024-10-11] MEDS: LOPERAMIDE HCL 2 MG CAPSULE PO ONE (11:51)
[2024-10-11] MEDS: MAGNESIUM SULFATE IN WATER 2 GM/50 ML IVPB IVPB ONE (11:54)
[2024-10-11 12:51] LABS: CHLORIDE 102 mmol/L (98-107); SODIUM 138 mmol/L (136-145)
[2024-10-11 12:53] LABS: CALCIUM 9.4 mg/dL (8.5-10.1)
[2024-10-11 12:54] LABS: ALBUMIN 3.7 g/dl (3.4-5.0); ANION GAP 8 mmol/L (4-13); BLOOD UREA NITROGEN 9.9 mg/dL (7-18); CO2 28 mmol/L (21-32); GLUCOSE,RANDOM 209 mg/dL (74-106); MAGNESIUM 1.7 mg/dL (1.8-2.4)
[2024-10-11] MEDS: DEXAMETHASONE SODIUM PHOSPHATE 4 MG, ONDANSETRON INJECTION 8 MG in SODIUM CHLORIDE 100 ML IVPB ONE (12:55)
[2024-10-11 12:56] LABS: SGPT/ALT 23 U/L (13-61)
[2024-10-11 12:57] LABS: CREATININE 0.8 mg/dL (0.55-1.3); SGOT/AST 15 U/L (15-37)
[2024-10-11 12:58] LABS: BILIRUBIN,TOTAL 0.6 mg/dL (0.2-1)
[2024-10-11 12:59] LABS: ALK PHOS 157 U/L (45-117)
[2024-10-11 13:35] LABS: BASOPHILS # 0.04 x10^3/uL (0.01-0.08); EOSINOPHIL % 2.6 % (0.7-5.8)
[2024-10-11 13:36] LABS: ABSOLUTE IMMATURE GRANULOCYTES 0.13 x10^3/uL (0.0-0.031); HEMOGLOBIN 10.4 g/dL (11.2-15.7); MCHC 32.5 g/dl (32.2-35.5); MEAN CELL VOLUME 100.9 fl (79.4-94.8); MEAN PLT VOLUME 10.4 fl (9.4-12.3); MONOCYTE # 0.62 x10^3/uL (0.24-0.86); MONOCYTE % 8.2 % (4.7-12.5); PLATELET COUNT 175 x10^3/uL (182-369); RDW 15.4 % (12.4-16.6)
[2024-10-11 16:47] VITALS: BP 115/67; PULSE 94; RESP 18; TEMP 98.1
[2024-10-11] MEDS ORDERED: PORTA CATH FLUSH 10 ML IVPUSH PRN (16:47)
== END 2024-10-11 15:20 | disposition home or self-care (01) ==
LOC: JONCNONCHE 11:21 → J7W 11:22 → JONCNONCHE 15:20
PROVIDERS: ATTEND Internal Medicine Hematology & Oncology
PROC: 3E043GC Introduction of Other Therapeutic Substance into Central Vein, Percutaneous Approach (ICD-10-PCS; principal; 2024-10-11)
DX: C50.919 Malignant neoplasm of unspecified site of unspecified female breast (principal); Z76.89 Persons encountering health services in other specified circumstances
CPT/HCPCS: 36415; 80053; 82533; 83735; 85025; 96365

== ENCOUNTER 2024-10-25 10:45 | Day surgery (SDC) | payer OTHER ==
[2024-10-25] MEDS: MAGNESIUM SULFATE IN WATER 2 GM/50 ML IVPB IVPB ONE (11:06)
[2024-10-25] MEDS: SODIUM CHLORIDE 250 ML IV ONE (11:06)
[2024-10-25 11:19] LABS: ABSOLUTE IMMATURE GRANULOCYTES 0.02 x10^3/uL (0.0-0.031); BASOPHILS # 0.05 x10^3/uL (0.01-0.08); EOSINOPHIL % 1.1 % (0.7-5.8); EOSINOPHILS # 0.08 x10^3/uL (0.04-0.36); HEMOGLOBIN 10.6 g/dL (11.2-15.7); MCHC 32.1 g/dl (32.2-35.5); MEAN CELL VOLUME 100.9 fl (79.4-94.8); MEAN PLT VOLUME 10.4 fl (9.4-12.3); MONOCYTE # 0.94 x10^3/uL (0.24-0.86); MONOCYTE % 13.3 % (4.7-12.5); PLATELET COUNT 236 x10^3/uL (182-369); RDW 14.9 % (12.4-16.6)
[2024-10-25 11:39] LABS: POTASSIUM 4.2 mmol/L (3.5-5.1)
[2024-10-25 11:41] LABS: CALCIUM 9.4 mg/dL (8.5-10.1)
[2024-10-25 11:42] LABS: ALBUMIN 3.5 g/dl (3.4-5.0); BLOOD UREA NITROGEN 11.4 mg/dL (7-18); MAGNESIUM 1.9 mg/dL (1.8-2.4)
[2024-10-25 11:44] LABS: AMYLASE 122 U/L (25-115)
[2024-10-25 11:45] LABS: CREATININE 0.7 mg/dL (0.55-1.3)
[2024-10-25 11:47] LABS: BILIRUBIN,TOTAL 0.5 mg/dL (0.2-1); TOT PROT 6.7 g/dl (6.4-8.2)
[2024-10-25] MEDS: ACETAMINOPHEN 325 MG TABLET (FP) PO ONE (11:51)
[2024-10-25] MEDS: FOSAPREPITANT DIMEGLUMINE 150 MG in SODIUM CHLORIDE 145 ML IVPB ONE (11:57)
[2024-10-25] MEDS: MAGNESIUM OXIDE 400 MG TABLET (FP) PO ONE (12:02)
[2024-10-25] MEDS: INSULIN (NOVOLOG) ASPART 100 UNITS/ML 10ML VIAL SQ ONE (12:05)
[2024-10-25] MEDS: PALONOSETRON HCL 0.25 MG/5 ML VIAL IVPUSH ONE (12:42)
[2024-10-25] MEDS: DEXAMETHASONE SODIUM PHOSPHATE 12 MG in SODIUM CHLORIDE 50 ML IVPB ONE (12:42)
[2024-10-25] MEDS: DOXOrubicin HCL 50 MG/25 ML VIAL IV ONE (13:12)
[2024-10-25] MEDS: PORTA CATH FLUSH 10 ML IVPUSH PRN (13:45)
[2024-10-25 15:05] VITALS: RESP 20; TEMP 97.8
[2024-10-25 15:09] VITALS: BP 118/67; PULSE 84
== END 2024-10-25 14:00 | disposition home or self-care (01) ==
LOC: JONCCHEMO 10:45 → J7W 14:20
PROVIDERS: ATTEND Internal Medicine Hematology & Oncology
DX: Z51.11 Encounter for antineoplastic chemotherapy (principal); C50.919 Malignant neoplasm of unspecified site of unspecified female breast
CPT/HCPCS: 36415; 80053; 82150; 82533; 83690; 83735; 84436; 84443; 85025; 96367; 96375; 96411; 96413; J1453; J9074

== ENCOUNTER 2024-10-27 09:40 | Day surgery (SDC) | payer OTHER ==
[2024-10-27] MEDS: SODIUM CHLORIDE 500 ML IV ONE (10:10)
[2024-10-27] MEDS: MAGNESIUM SULFATE IN WATER 2 GM/50 ML IVPB IVPB ONE (10:14)
[2024-10-27] MEDS: ONDANSETRON INJECTION 8 MG in SODIUM CHLORIDE 50 ML IVPB ONE (11:36)
[2024-10-27] MEDS: PORTA CATH FLUSH 10 ML IVPUSH PRN (12:15)
[2024-10-27] MEDS: PEGFILGRASTIM-CBQV (UDENYCA) 6 MG/0.6 ML SYRINGE SQ ONE (12:15)
[2024-10-27 16:39] VITALS: RESP 20; TEMP 97.6
[2024-10-27 16:41] VITALS: BP 134/76; PULSE 75
== END 2024-10-27 12:30 | disposition home or self-care (01) ==
LOC: JONCCHEMO 09:40
PROVIDERS: ATTEND Internal Medicine Hematology & Oncology
PROC: 3E043GC Introduction of Other Therapeutic Substance into Central Vein, Percutaneous Approach (ICD-10-PCS; principal; 2024-10-27)
DX: C50.919 Malignant neoplasm of unspecified site of unspecified female breast (principal)
CPT/HCPCS: 96365; 96372; 96375; Q5111

== ENCOUNTER → 2024-12-14 | Day surgery (SDC) | payer OTHER | END | disposition home or self-care (01) | LOC: JRADUS-SUR 11:47 | PROVIDERS: ATTEND Surgery Surgical Oncology | PROC: BH41ZZZ Ultrasonography of Left Breast (ICD-10-PCS; principal; 2024-12-14) | DX: C50.912 Malignant neoplasm of unspecified site of left female breast (principal) | CPT/HCPCS: 19285; A4648; 19281; 76642-TC-RT; 78195-TC; A9541 ==

== ENCOUNTER 2024-12-15 06:20 | Day surgery (SDC) | payer OTHER ==
[2024-12-15 07:42] VITALS: BMI 34.0
[2024-12-15] MEDS ORDERED: LIDOCAINE HCL 1%, 10 MG/ML (20ML VIAL) ONE (07:45)
[2024-12-15] MEDS ORDERED: BUPIVACAINE HCL/PF 0.5% (5MG/ML) 10 ML VIAL ONE (07:45)
[2024-12-15] MEDS ORDERED: LIDOCAINE 1%/EPI 1:100000 (20 ML MULTI DOSE VIAL) ONE (07:45)
[2024-12-15] MEDS ORDERED: MIDAZOLAM HCL 2 MG/2 ML SINGLE DOSE VIAL ONE ×2 (08:16→08:59)
[2024-12-15] MEDS ORDERED: PROPOFOL 20 ML ONE (08:16)
[2024-12-15] MEDS ORDERED: DEXAMETHASONE SOD PHOSPHATE 4 MG/1 ML VIAL ONE ×2 (09:00→09:27)
[2024-12-15] MEDS ORDERED: ONDANSETRON 4 MG/2 ML VIAL ONE ×2 (09:00→10:37)
[2024-12-15] MEDS ORDERED: ACETAMINOPHEN INJECTION 100 ML ONE (09:12)
[2024-12-15] MEDS ORDERED: ONDANSETRON 4 MG/2 ML VIAL IVPUSH PRN (10:48)
[2024-12-15] MEDS ORDERED: LACTATED RINGERS SOLUTION 1,000 ML IV SCH (11:00)
[2024-12-15] MEDS ORDERED: FENTANYL CITRATE/PF 50 MCG/ML VIAL ONE ×2 (11:19→11:32)
[2024-12-15 12:22] VITALS: RESP 18; TEMP 98
[2024-12-15 13:38] VITALS: BP 115/71; PULSE 69
== END 2024-12-15 13:15 | disposition home or self-care (01) ==
LOC: FASU 06:20
PROVIDERS: ATTEND Surgery Surgical Oncology
PROC: 0HBT0ZZ Excision of Right Breast, Open Approach (ICD-10-PCS; principal; 2024-12-15 09:38)
PROC: 0HBT0ZX Excision of Right Breast, Open Approach, Diagnostic (ICD-10-PCS; 2024-12-15 09:38)
DX: C50.911 Malignant neoplasm of unspecified site of right female breast (principal)
CPT/HCPCS: 76098-TC-FY; 82962; 88307-TC; 94760

== ENCOUNTER 2025-01-19 06:10 | Day surgery (SDC) | payer OTHER ==
[2025-01-17 12:06] VITALS: BMI 34.9
[2025-01-19 07:08] VITALS: RESP 16
[2025-01-19] MEDS ORDERED: BUPIVACAINE HCL/PF 0.5% (5MG/ML) 10 ML VIAL ONE (09:30)
[2025-01-19] MEDS ORDERED: LIDOCAINE 1%/EPI 1:100000 (20 ML MULTI DOSE VIAL) ONE (09:30)
[2025-01-19] MEDS ORDERED: ISOSULFAN BLUE 50 MG/5 ML VIAL SQ ONE (09:30)
[2025-01-19 10:48] VITALS: BP 128/72; PULSE 72; TEMP 97.7
== END 2025-01-19 11:04 | disposition home or self-care (01) ==
LOC: JASU-SURG 06:10
PROVIDERS: ATTEND Surgery Surgical Oncology
PROC: BH00ZZZ Plain Radiography of Right Breast (ICD-10-PCS; principal; 2025-01-19)
DX: C50.911 Malignant neoplasm of unspecified site of right female breast (principal); Z53.8 Procedure and treatment not carried out for other reasons
CPT/HCPCS: 19281; 77065-TC; 82962

== ENCOUNTER 2025-02-07 10:40 | Day surgery (SDC) | payer OTHER ==
[2025-02-07] MEDS: SODIUM CHLORIDE 250 ML IV ONE (11:05)
[2025-02-07] MEDS: MAGNESIUM SULFATE IN WATER 2 GM/50 ML IVPB IVPB ONE (11:20)
[2025-02-07 11:25] LABS: ABSOLUTE IMMATURE GRANULOCYTES 0.03 x10^3/uL (0.0-0.031); BASOPHILS # 0.04 x10^3/uL (0.01-0.08); EOSINOPHIL % 3.4 % (0.7-5.8); EOSINOPHILS # 0.26 x10^3/uL (0.04-0.36); MCHC 31.6 g/dl (32.2-35.5); MEAN CELL VOLUME 92.1 fl (79.4-94.8); MEAN PLT VOLUME 9.8 fl (9.4-12.3); MONOCYTE # 0.61 x10^3/uL (0.24-0.86); MONOCYTE % 7.9 % (4.7-12.5); RDW 12.4 % (12.4-16.6)
[2025-02-07 11:44] LABS: GLUCOSE,RANDOM 264 mg/dL (74-106); TOT PROT 7.1 g/dl (6.4-8.2)
[2025-02-07 11:45] LABS: CO2 25 mmol/L (21-32)
[2025-02-07 11:47] LABS: ALK PHOS 137 U/L (40-150)
[2025-02-07 11:49] LABS: SGOT/AST 25 U/L (5-34); SGPT/ALT 25 U/L (0-55)
[2025-02-07 11:50] LABS: CREATININE 0.61 mg/dL (0.55-1.3)
[2025-02-07] MEDS: MAGNESIUM OXIDE 400 MG TABLET (FP) PO ONE (12:20)
[2025-02-07] MEDS: PEMBROLIZUMAB 200 MG in SODIUM CHLORIDE 100 ML IV ONE (12:53)
[2025-02-07] MEDS: PORTA CATH FLUSH 10 ML IVPUSH PRN (13:30)
[2025-02-07 17:21] VITALS: PULSE 80; RESP 20; TEMP 98.3
[2025-02-07 17:25] VITALS: BP 117/66
== END 2025-02-07 13:40 | disposition home or self-care (01) ==
LOC: JONCCHEMO 10:40
PROVIDERS: ATTEND Internal Medicine Hematology & Oncology
DX: Z51.11 Encounter for antineoplastic chemotherapy (principal); C50.919 Malignant neoplasm of unspecified site of unspecified female breast
CPT/HCPCS: 36415; 80053; 82150; 82378; 82533; 83690; 83735; 84436; 84443; 85025; 86300; 96367; 96413; J9271

== ENCOUNTER 2025-02-16 07:18 | Day surgery (SDC) | payer OTHER ==
[2025-02-14 13:13] VITALS: BMI 32.2
[~2025-02-16 07:18] MED LIST changes: -CARBOPLATIN IVPB ONE; -DEXAMETHASONE SODIUM PHOSPHATE 10 MG, DIPHENHYDRAMINE 25 MG in SODIUM CHLORIDE 100 ML IVPB ONE; -FAMOTIDINE 20 MG/50 ML IVPB 20 MG/50 ML MG IVPB ONE; +INSULIN (NOVOLOG) ASPART 100 UNITS/ML 10ML VIAL SQ ONE; +MAGNESIUM SULF 50% (8.12 MEQ/2 ML-1 GM VIAL) IVPB ONE; -PACLITAXEL IVPB ONE; -SODIUM CHLORIDE 250 ML IV ONE; -SODIUM CHLORIDE IVPB ONE
[2025-02-16] MEDS ORDERED: BUPIVACAINE HCL/PF 0.25% (2.5MG/ML) 10 ML VIAL ONE (09:08)
[2025-02-16] MEDS ORDERED: LIDOCAINE 1%/EPI 1:100000 (20 ML MULTI DOSE VIAL) ONE (09:09)
[2025-02-16] MEDS ORDERED: BENZOIN/ALOE VERA/STORAX/TOLU 58 ML BOTTLE ONE (09:09)
[2025-02-16] MEDS ORDERED: PROPOFOL 40 ML ONE (09:34)
[2025-02-16] MEDS ORDERED: MIDAZOLAM HCL 2 MG/2 ML SINGLE DOSE VIAL ONE (09:34)
[2025-02-16] MEDS ORDERED: LIDOCAINE HCL/PF 2% SDV 5ML VIAL ONE (09:34)
[2025-02-16] MEDS ORDERED: INSULIN ASPART SLIDING SCALE (NOVOLOG) 1 VIAL SQ ONE (09:38)
[2025-02-16] MEDS: INSULIN (NOVOLOG) ASPART 100 UNITS/ML 10ML VIAL SQ ONE (09:41)
[2025-02-16] MEDS ORDERED: ONDANSETRON 4 MG/2 ML VIAL ONE (11:33)
[2025-02-16] MEDS ORDERED: PROPOFOL 20 ML ONE (11:33)
[2025-02-16] MEDS ORDERED: ONDANSETRON 4 MG/2 ML VIAL IVPUSH PRN (12:01)
[2025-02-16] MEDS ORDERED: PROMETHAZINE HCL 25 MG/1 ML VIAL IVPB PRN (12:01)
[2025-02-16] MEDS: ACETAMINOPHEN 1000 MG/100 ML BAG IVPB ONE (12:28)
[2025-02-16] MEDS: LACTATED RINGERS SOLUTION 1,000 ML IV SCH (12:43)
[2025-02-16 14:51] VITALS: BP 127/51; PULSE 82; RESP 18; TEMP 97.4
== END 2025-02-16 14:51 | disposition home or self-care (01) ==
LOC: JASU-SURG 07:18
PROVIDERS: ATTEND Surgery Surgical Oncology
PROC: 0HBT0ZZ Excision of Right Breast, Open Approach (ICD-10-PCS; principal; 2025-02-16 10:51)
DX: C50.911 Malignant neoplasm of unspecified site of right female breast (principal)
CPT/HCPCS: 19281; 76098-TC-FY; 82962; 94760; A4648